=== PATIENT | male | born 1940 | race Caucasian/White ===

== ENCOUNTER 2016-11-02 10:18 | Observation (INO) | payer MEDICARE, MEDICAID ==
--- NOTE | 2016-11-02 11:13 | RAD ---
HISTORY: Cough, recent pneumonia, coronary disease COMPARISONS: October 27, 2016 VIEWS:1: Single frontal portable view of the chest at 10:47 AM FINDINGS: LINES AND TUBES: A left-sided pacemaker is noted CARDIOMEDIASTINAL SILHOUETTE: The cardiomediastinal silhouette is normal for portable technique. PLEURA: The costophrenic angles are sharp. No pleural abnormalities are noted. LUNG PARENCHYMA: The lung volumes are low. There is persistent patchy alveolar opacification of the right lung base near the cardiophrenic angle ABDOMEN: The upper abdomen is clear. There is no subphrenic gas. BONES AND SOFT TISSUES: No bone or soft tissue abnormalities are noted. IMPRESSION: LOW LUNG VOLUMES WITH PERSISTENT RIGHT BASILAR ATELECTASIS VERSUS CONSOLIDATION
[2016-11-02 11:18] LABS: Hematocrit 39 % (42-52); Hemoglobin 12.3 g/dl (14.0-18.0); Mean Corpuscular HGB Conc 32 g/dl (31-36); Mean Corpuscular Hemoglobin 28 pg (27-31); Mean Corpuscular Volume 88 fL (80-94); Mean Platelet Volume 9 um3 (7.4-10.4); Red Blood Count 4.36 10^6/ul (4.0-5.4); Red Cell Distribution Width 17 % (10.5-15)
[2016-11-02 11:20] LABS: Add Diff/Slide Review? Slide Review Added; Comments Flag Yes
[2016-11-02 11:40] LABS: Albumin 3.2 g/dL (3.2-5.2); BUN/Creatinine Ratio 14.9 (8-20); Calcium 8.2 mg/dL (8.6-10.3); EGFR African American 57.1 (>60); EGFR Non-African American 44.4 (>60); Globulin 2.8 g/dL (2-4); Potassium 3.8 mmol/L (3.5-5.0); Total Bilirubin 0.4 mg/dL (0.2-1.0)
[2016-11-02 11:42] LABS: Troponin I 0.03 ng/mL (<0.04)
[2016-11-02] MEDS ORDERED: Albuterol/Ipratropium NEB.SOL* Albuterol 2.5 MG/Ipratropium 0.5 MG 3 ML INH ONE ×2 (11:47→12:00)
[2016-11-02] MEDS ORDERED: NS 0.9% 1000 ML* 500 ML IV ONE (11:47)
--- NOTE | 2016-11-02 12:01 | ED ---
Luisa Shah Claudia, scribed for Emeli Schroeder MD on 11/02/16 at 1111 . Shortness of Breath - HPI Summary HPI Summary: 76 year old male presents to the ED with SOB. Pt notes gradual onset over a week ago. Pt is on Keflex 3x daily 500mg. Pt states he is not getting any better. Pt admits to fever (100.8), chills, productive cough with wheezing. thick yellow-green sputum. Pt notes abd pain and CP with cough only. Pt denies N/V. Pt notes he has been taking ibuprofen for the intermittent fevers. Pt takes prednisone daily (10mg) for RA as well as Plaquinil, codeine (30mg), no blood thinners. He does not use 02 at home and the 02 in ED is not alleviating his Sx. No h/o COPD. Pt states he took the flu shot this year. NH- Aug 2009 - History of Current Complaint Chief Complaint: EDShortnessOfBreath Time Seen by Provider: 11/02/16 10:32 Hx Obtained From: Patient Onset/Duration: Gradual Onset, Lasting Weeks, Still Present Associated Signs & Symptoms: Cough (Productive), Wheezing, Chest Pain w/Cough, Fever - Risk Factors Cardiac: Prior NH - Allergy/Home Medications Allergies/Adverse Reactions: Allergies Allergy/AdvReac Type Severity Reaction Status Date / Time Ciprofloxacin [From Cipro] Allergy Unknown Unknown Verified 12/22/15 09:25 Reaction Details Levofloxacin [From Levaquin] AdvReac Severe Leg Cramps Verified 12/22/15 09:25 Home Medications: Home Medications Hydroxychloroquine TAB* [Plaquenil TAB*] 200 mg PO BID 11/02/16 [History Confirmed 11/02/16] predniSONE TAB* [Deltasone TAB*] 5 mg PO DAILY 11/02/16 [History Confirmed 11/02] PMH/Surg Hx/FS Hx/Imm Hx Previously Healthy: Yes Endocrine/Hematology History: Reports: Hx Anticoagulant Therapy - plavix 75mg, Hx Thyroid Disease - HYPOTHYROIDISM, Other Endocrine/Hematological Disorders - necrotizing pancreatitis Denies: Hx Diabetes, Hx Systemic Lupus Erythematosus Cardiovascular History: Reports: Hx Angina, Hx Coronary Artery Disease, Hx Deep Vein Thrombosis, Hx Embolism - PE, Hx Hypercholesterolemia, Hx Hypertension, Hx Myocardial Infarction, Hx Pacemaker/ICD Denies: Hx Congestive Heart Failure, Other Cardiovascular Problems/Disorders Respiratory History: Reports: Hx Pleural Effusion, Hx Pulmonary Embolism, Hx Seasonal Allergies, Hx Sleep Apnea, Other Respiratory Problems/Disorders - HX PNEUMONIA X1 WEEK Denies: Hx Asthma, Hx Chronic Obstructive Pulmonary Disease (COPD) GI History: Reports: Hx Gall Bladder Disease - removed, Hx Gastroesophageal Reflux Disease - occasional, Hx Gastrointestinal Bleed - cobra to [facility] last admit , Hx Ileostomy - temp ileostomy, Other GI Disorders - Hx pancreatitis, part of pancreas removed, HEMIGASTRECTOMY History: Reports: Hx Chronic Renal Failure, Hx Kidney Stones, Hx Renal Disease - kidney stones/uretherak stent, Other Problems/Disorders - Hx kidney stones Denies: Hx Dialysis Musculoskeletal History: Reports: Hx Arthritis, Hx Rheumatoid Arthritis, Other Musculoskeletal History - bilateral knee replacements Denies: Hx Gout - allopurinol is for kidney stones not gout., Hx Osteoporosis Sensory History: Reports: Hx Cataracts - beginning of cataracts-both eyes, Hx Contacts or Glasses Denies: Hx Eye Injury, Hx Eye Prosthesis, Hx Glaucoma, Hx Legally Blind, Hx Macular Degeneration, Hx Vision Problem, Hx Deafness, Hx Hearing Aid, Hx Hearing Problem Opthamlomology History: Reports: Hx Cataracts - beginning of cataracts-both eyes , Hx Contacts or Glasses Denies: Hx Eye Injury, Hx Eye Prosthesis, Hx Glaucoma, Hx Legally Blind, Hx Macular Degeneration, Hx Vision Problem Neurological History: Denies: Hx Dementia, Hx Seizures - Cancer History Cancer Type, Location and Year: 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 Hx Chemotherapy: No - Surgical History Surgery Procedure, Year, and Place: renal stent, 2 knee replacements, "stomach stapled", agnes, appendectomy, bowel resection, November 2012 debridement of abdominal wound, pacemaker Hx Anesthesia Reactions: No - Immunization History Date of Tetanus Vaccine: Unk Date of Influenza Vaccine: None Infectious Disease History: No Infectious Disease History: Denies: Hx Clostridium Difficile, Hx Human Immunodeficiency Virus (HIV), Hx of Known/Suspected MRSA, Hx Shingles, Hx Tuberculosis, Traveled Outside the [place] in Last 30 Days - Family History Known Family History: Positive: Hypertension - Social History Lives: With Family Alcohol Use: None Substance Use Type: Reports: None Smoking Status (MU): Never Smoked Tobacco Have You Smoked in the Last Year: No Review of Systems Positive: Fever Eyes: Negative ENT: Negative Cardiovascular: Negative Positive: Shortness Of Breath, Cough Gastrointestinal: Negative Negative: Abdominal Pain, Vomiting, Nausea Genitourinary: Negative Musculoskeletal: Negative Negative: Myalgia Skin: Negative Negative: Bruising Neurological: Negative Negative: Headache, Weakness Psychological: Normal Negative: Anxious, Depressed All Other Systems Reviewed And Are Negative: Yes Physical Exam Triage Information Reviewed: Yes Vital Signs On Initial Exam: Initial Vitals Temp Pulse Resp BP Pulse Ox 98.4 F 85 20 167/90 95 11/02/16 10:20 11/02/16 10:20 11/02/16 10:20 11/02/16 10:20 11/02/16 10:20 Vital Signs Reviewed: Yes Appearance: Positive: Well-Appearing, Well-Nourished Skin: Positive: Warm, Skin Color Reflects Adequate Perfusion, Dry Head/Face: Positive: Normal Head/Face Inspection Eyes: Positive: Normal, EOMI, [place] ENT: Positive: Nasal congestion, TMs normal Neck: Positive: Supple, Nontender, No Lymphadenopathy Respiratory/Lung Sounds: Positive: Breath Sounds Present, Rhonchi, Wheezes, Other - coarse cough Cardiovascular: Positive: Normal, RRR. Negative: Murmur Abdomen Description: Positive: Nontender, No Organomegaly, Soft Bowel Sounds: Positive: Present Musculoskeletal: Positive: Normal, Strength/ROM Intact Neurological: Positive: Normal, Sensory/Motor Intact, Alert, Oriented to Person Place, Time Psychiatric: Positive: Normal AVPU Assessment: Alert - [place] Coma Scale Best Eye Response: 4 - Spontaneous Best Motor Response: 6 - Obeys Commands Best Verbal Response: 5 - Oriented Coma Scale Total: 15 Diagnostics - Vital Signs Vital Signs Temp Pulse Resp BP Pulse Ox 11/02/16 10:38 26 11/02/16 10:31 89 146/80 94 11/02/16 10:30 93 95 11/02/16 10:20 98.4 F 85 20 167/90 95 - Laboratory Result Diagrams: 11/02/16 10:55 11/02/16 10:55 Lab Statement: Any lab studies that have been ordered have been reviewed, and results considered in the medical decision making process. - Radiology CXR Xray Interpretation: Positive (See Comments) - LOW LUNG VOLUMES WITH PERSISTENT RIGHT BASIALR ATELECTASIS VERSUS CONSOLIDATION. Radiology Interpretation Completed By: Radiologist - EKG 10:31 Cardiac Rate: NL EKG Rhythm: Sinus Rhythm - 76 beats/min EKG Interpretation: flat T waves laterally, no acute changes Re-Evaluation - Re-Evaluation First Eval Change: Improved - Pt improved following neb - continues with coarse cough, less wheezing awaiting labs will give solumedrol anticipate admission Course/Dx - Course Assessment/Plan: 76 yo male with h/o CAD, HTN, RA on plaquinil and 10mg pred QD - dx with pna 1 week ago and started on keflex. Pt continue with cough,wheeze, fevers and general fatigue. diff: influeza, pna, copd, chf. Will check labs, CXR, urine. IVF. oral temp. influenza. nebs. close reassessment. anticipate admission - Diagnoses Provider Diagnoses: Influenza B, Pneumonia, Hypoxia - Physician Notifications Discussed Care of Patient With: Discussed care of pt with Dr. Mauro - accepting pt. Will give cetriaxone and doxy (pt fluoroquinolone allergic) Time Discussed With Above Provider: 12:32 Discharge - Discharge Plan Condition: Improved Disposition: ADMITTED TO [facility] documentation as recorded by the Luisa hung Claudia accurately reflects the service I personally performed and the decisions made by , Emeli Schroeder MD.
[2016-11-02] MEDS ORDERED: methylPREDNISolone 125 MG* 2 ML VIAL IV ONE (12:20)
[2016-11-02] MEDS ORDERED: cefTRIAXone(*) 1 GM in NS 0.9% 50 ML* 50 ML IVPB ONE (12:33)
[2016-11-02] MEDS ORDERED: DOXYcycline IV* 100 MG in NS 0.9% 250 ML* 250 ML IVPB ONE (13:36)
[2016-11-02] MEDS ORDERED: Codeine TAB* 15 MG PO PRN (13:49)
[2016-11-02] MEDS ORDERED: NS 0.9% 1000 ML* 1,000 ML IV SCH (14:00)
[2016-11-02] MEDS ORDERED: guaiFENesin LIQ* 100 MG/5 ML UDC PO PRN (14:05)
[2016-11-02] MEDS ORDERED: Benzonatate CAP* 100 MG PO PRN (14:06)
[2016-11-02] MEDS: Heparin VIAL(*) 5000 UNITS/ML VIAL (FIVE THOUSAND) SUBCUT SCH ×2 (15:13→21:37)
[2016-11-02] MEDS: Pancrelipase CAP* 5,000 UNITS CAP PO SCH ×2 (17:40→20:22)
[2016-11-02] MEDS: Sucralfate TAB* 1 GM PO SCH ×2 (17:47→20:22)
[2016-11-02] MEDS: Hydroxychloroquine TAB* 200 MG PO SCH (20:22)
--- NOTE | 2016-11-02 21:02 | HP ---
HOSPITAL MEDICINE HISTORY AND PHYSICAL: DATE OF ADMISSION: 11/02/16 PRIMARY CARE PHYSICIAN: Dr. Damon. ATTENDING PHYSICIAN: Dr. Lydia Mauro* (dictation provided by Cheyenne Govea NP) . CHIEF COMPLAINT: Cough, shortness of breath, and fever. HISTORY OF PRESENT ILLNESS: Mr. Allen is a 76-year-old male with a past medical history of coronary artery disease, DVT and PE after surgery, multiple abdominal surgeries, and pacemaker placement who presents today to the hospital with concern for fever, cough, and shortness of breath. Mr. Allen states that he has been feeling unwell for approximately a week. He has had fever up to 101. He has had significant cough with purulent sputum. He has had increasing shortness of breath. He did have a chest x-ray on 10/27/16, which showed concern for possible right basilar consolidation but was not on antibiotics. He continued to feel poorly and ultimately decided to come to the emergency room for evaluation today. In the emergency room, he tested positive for flu B and again, there is persistent consolidation versus atelectasis in the right lower lobe. Currently in the emergency room, he is afebrile, but he is tachycardic with a heart rate of 110. There is no leukocytosis or lactic acidosis. Based on Mr. Allen's presentation with flu with suspected secondary pneumonia, Hospital Medicine was called regarding admission. PAST MEDICAL HISTORY: 1. Gout. 2. Hypothyroidism. 3. GERD. 4. Hyperlipidemia. 5. CKD, Stage 3. 6. History of gastric bypass in the . 7. History of pancreatic resection for pancreatitis with ileostomy, appendectomy, and cholecystectomy. 8. Coronary artery disease with history of AL in 2008. 9. Hypertension. 10. DVT and PE after surgery. 11. History of GI bleed. 12. Obstructive sleep apnea. 13. History of pacemaker. 14. Rheumatoid arthritis. 15. History of cataract surgery. 16. History of bilateral total knee replacement. 17. BPH. MEDICATIONS: 1. Allopurinol 300 mg p.o. q.a.m. 2. Fexofenadine 60 mg p.o. daily. 3. Iron 65 mg p.o. daily. 4. Multivitamin 1 cap p.o. q.a.m. 5. Pantoprazole 40 mg p.o. b.i.d. 6. Codeine 30 mg p.o. 4 times a day with food p.r.n. 7. Plaquenil 200 mg p.o. b.i.d. 8. Isosorbide mononitrate 15 mg p.o. q.a.m. 9. Levothyroxine 125 mcg p.o. daily. 10. Pancrelipase 3 caps p.o. t.i.d. 11. Simvastatin 20 mg q.a.m. 12. Sucralfate 1 g p.o. 4 times a day. 13. Tamsulosin 0.4 mg p.o. daily. 14. Prednisone 5 mg p.o. daily. ALLERGIES: CIPROFLOXACIN and LEVOFLOXACIN. FAMILY HISTORY: The patient's father had COPD. Mother had diabetes. Sister had systemic lupus erythematosus. SOCIAL HISTORY: No report of alcohol, tobacco, or drug use. The patient lives with his , who is the healthcare proxy. REVIEW OF SYSTEMS: A 14-point review of systems was completed with Mr. Allen and all those not mentioned above were negative. PHYSICAL EXAMINATION GENERAL: Mr. Allen is lying in the bed. He is in no acute distress. He is calm and cooperative with my examination. VITAL SIGNS: Temperature 97.4, heart rate 111, respiratory rate 20, O2 saturation 96% on 2 L nasal cannula, blood pressure 110/55. LUNGS: Coarse rhonchi bilaterally. No accessory muscle use and good aeration. HEART: S1, S2. No murmur, rub, or gallop and regular. ABDOMEN: Soft, nontender with bowel sounds positive x4. EXTREMITIES: No cyanosis or edema. NEUROLOGIC: He is alert and oriented x3. He moves all extremities equally. There is no facial asymmetry or focal weakness. Extraocular movements are intact. SKIN: Intact. LABORATORY DATA AND DIAGNOSTIC STUDIES: WBC 5.0, hemoglobin 12.3, hematocrit 39, platelet count 110. Sodium 138, potassium 3.8, chloride 107, serum bicarbonate 24, BUN 23, creatinine 1.54, glucose 110, lactic acid 1.3. Troponin 0.03. Flu swab is positive for B. Chest x-ray shows concern for possible right basilar infiltrate. ASSESSMENT: Mr. Allen is a 76-year-old male with a past medical history of coronary artery disease; rheumatoid arthritis, on chronic steroids; deep venous thrombosis and pulmonary embolism after surgery; and multiple gastric surgeries who presents today to the hospital with cough, fever, shortness of breath, and flu with suspected concomitant pneumonia. Our plan is for observation in the hospital for the followin. Flu with suspected pneumonia: The patient has been sick for over a week and therefore, Tamiflu is not indicated. He is allergic to FLUOROQUINOLONES and therefore will be started on ceftriaxone and azithromycin for concern of pneumonia. He is quite congested today and he does show an infiltrate on the chest x-ray. He will have cough suppressants as needed, oxygen as needed. The patient did receive one-time dose of methylprednisolone in the emergency room. Plan for prednisone to start tomorrow. Blood cultures will be drawn. Lactic acid is normal. O2 saturation is greater than 90% on 2L NC. 2. History of pancreatitis with pancreatic resection: Continue pancrelipase. 3. History of gastroesophageal reflux disease: Continue sucralfate and pantoprazole. 4. History of rheumatoid arthritis: Continue Plaquenil with increased dose of prednisone while ill. 5. Hypertension: Continue Imdur. 6. CKD, Stage 3: At baseline. 7. Hypothyroidism: Continue levothyroxine. 8. Hyperlipidemia: Continue simvastatin. 9. DVT prophylaxis with heparin subcu. 10. Disposition to the medical floor. 11. Code status: Full code. TIME SPENT: Approximately 60 minutes were spent on the admission of this patient, more than half time spent with the patient at the bedside reviewing the events leading up to this hospitalization, performing the physical examination, and reviewing the plan of care. CHEYENNE GOVEA NP CC: Dr. Damon.* [id number]/[facility] #: [id number] SAYDA
[2016-11-03] MEDS: Heparin VIAL(*) 5000 UNITS/ML VIAL (FIVE THOUSAND) SUBCUT SCH (05:40)
[2016-11-03] MEDS ORDERED: Levothyroxine TAB* 125 MCG TAB PO SCH (06:00)
[2016-11-03 07:28] LABS: Hematocrit 37 % (42-52); Hemoglobin 12.1 g/dl (14.0-18.0); Mean Corpuscular HGB Conc 32 g/dl (31-36); Mean Corpuscular Hemoglobin 29 pg (27-31); Mean Corpuscular Volume 88 fL (80-94); Mean Platelet Volume 10 um3 (7.4-10.4); Red Blood Count 4.23 10^6/ul (4.0-5.4); Red Cell Distribution Width 17 % (10.5-15); White Blood Count 5.7 10^3/ul (3.5-10.8)
[2016-11-03 07:46] LABS: BUN/Creatinine Ratio 14.7 (8-20); Calcium 8.2 mg/dL (8.6-10.3); EGFR African American 62.2 (>60); EGFR Non-African American 48.3 (>60); Potassium 4.3 mmol/L (3.5-5.0)
[2016-11-03] MEDS ORDERED: Atorvastatin* 10 MG TAB PO SCH (09:00)
[2016-11-03] MEDS ORDERED: predniSONE TAB* 20 MG PO SCH (09:00)
[2016-11-03] MEDS ORDERED: Azithromycin IV(*) 500 MG in NS 0.9% 250 ML* 250 ML IVPB SCH (09:00)
[2016-11-03] MEDS ORDERED: Isosorbide Mononitrate ER TAB* 30 MG PO SCH (09:00)
[2016-11-03] MEDS ORDERED: Tamsulosin CAP* 0.4 MG PO SCH ×2 (09:00→11:00)
[2016-11-03] MEDS ORDERED: predniSONE TAB* 5 MG PO SCH (09:00)
[2016-11-03] MEDS ORDERED: cefTRIAXone VIAL(*) 1,000 MG in NS 0.9% 50 ML* 50 ML IVPB SCH (09:00)
[2016-11-03] MEDS ORDERED: Benzonatate CAP* 100 MG PO PRN (09:57)
--- NOTE | 2016-11-03 10:10 | PN ---
Subjective Date of Service: 11/03/16 Interval History: Pt is feeling about the same as when he came in though his notes that he is not coughing as much. He denies any SOB at this time. He would like to go home this afternoon if his O2 level is ok. He understands that the flu just needs to run its course. Objective Active Medications: Atorvastatin Calcium (Lipitor*) 10 mg PO QAM [facility] Benzonatate (Tessalon Cap*) 100 mg PO TID PRN PRN Reason: COUGH Codeine Sulfate (Codeine Tab*) 30 mg PO QID WITH FOOD PRN PRN Reason: DIARRHEA Last Admin: 11/02/16 21:37 Dose: 30 mg Guaifenesin (Robitussin*) 5 ml PO Q4H PRN PRN Reason: COUGH Heparin Sodium (Porcine) (Heparin Vial(*)) 5,000 units SUBCUT Q8HR [facility] Last Admin: 11/03/16 05:40 Dose: 5,000 units Hydroxychloroquine Sulfate (Plaquenil Tab*) 200 mg PO BID [facility] Last Admin: 11/02/16 20:22 Dose: 200 mg Ceftriaxone Sodium 1,000 mg/ (Sodium Chloride) 50 mls @ 200 mls/hr IVPB Q24H [facility] Isosorbide Mononitrate (Imdur Er Tab*) 15 mg PO QAM [facility] Levothyroxine Sodium (Synthroid Tab*) 125 mcg PO 0600 [facility] Last Admin: 11/03/16 05:40 Dose: 125 mcg Pancrelipase (Zenpep Delayed Cap*) 15,000 units PO TID [facility] Last Admin: 11/02/16 20:22 Dose: 15,000 units Prednisone (Deltasone Tab*) 40 mg PO DAILY [facility] Sucralfate (Carafate*) 1 gm PO QID [facility] Last Admin: 11/02/16 20:22 Dose: 1 gm Tamsulosin HCl (Flomax Cap*) 0.4 mg PO BEDTIME [facility] Vital Signs 11/02/16 11/02/16 11/02/16 13:00 13:30 14:00 Temperature Pulse Rate 108 110 103 Respiratory 20 20 21 Rate Blood Pressure 120/59 110/55 125/59 (mmHg) O2 Sat by Pulse 98 96 97 Oximetry 11/02/16 11/02/16 11/02/16 14:35 14:58 16:14 Temperature 98.0 F 98 F Pulse Rate 104 104 Respiratory 22 22 22 Rate Blood Pressure 140/75 140/75 (mmHg) O2 Sat by Pulse 97 98 Oximetry 11/02/16 11/02/16 11/02/16 16:51 18:23 19:41 Temperature 98.5 F Pulse Rate 86 95 Respiratory 20 16 Rate Blood Pressure 163/82 (mmHg) O2 Sat by Pulse 98 96 97 Oximetry 11/02/16 11/02/16 11/02/16 20:00 21:37 23:15 Temperature 98.0 F Pulse Rate 89 Respiratory 20 18 15 Rate Blood Pressure 147/85 (mmHg) O2 Sat by Pulse 97 Oximetry 11/02/16 11/03/16 23:37 04:25 Temperature Pulse Rate Respiratory 18 Rate Blood Pressure (mmHg) O2 Sat by Pulse 92 Oximetry Oxygen Devices in Use Now: None Appearance: Elderly male sitting in recliner chair, NAD Eyes: No Scleral Icterus Ears/Nose/Mouth/Throat: Mucous Membranes Moist Respiratory: Symmetrical Chest Expansion and Respiratory Effort, Clear to Auscultation - few bibasilar crackles Cardiovascular: NL Sounds; No Murmurs; No JVD, RRR, - - trace LE edema Abdominal: NL Sounds; No Tenderness; No Distention Extremities: No Clubbing, Cyanosis Skin: No Rash or Ulcers, No Nodules or Sclerosis Neurological: Alert and Oriented x 3 Result Diagrams: 11/03/16 07:11 11/03/16 07:11 Assess/Plan/Problems-Billing Mr Allen is a 76 yo F who has a h/o HTN, hypothyroidism, stage III CKD, CAD, [place] and BPH who presented to the ER with c/o cough, SOB and fever and was admitted for influenza B with possible superinfection with RLL pneumonia. - Patient Problems (1) Influenza B Current Visit: Yes Status: Acute Code(s): J10.1 - FLU DUE TO OTH IDENT INFLUENZA VIRUS W OTH RESP MANIFEST SNOMED Code(s): 19228696 Comment: The patient was not started on tamiflu on admission. Will not start this now as the patient is well outside the window for the tamiflu to be effective. Continue supportive care-pt and are in agreement. (2) RLL pneumonia Current Visit: Yes Status: Acute Code(s): J18.1 - LOBAR PNEUMONIA, UNSPECIFIED ORGANISM SNOMED Code(s): 438877026 Comment: Unclear if this truly represents pneumonia as the patient does not have an elevated WBC count. Will however continue treatment for possible pneumonia. Will d/c pt home on doxycycline 100mg BID. He will need to follow up with his PCP (3) CAD (coronary artery disease) Current Visit: Yes Status: Chronic Onset Date: 06/04/14 Code(s): I25.10 - ATHSCL HEART DISEASE OF [place] CORONARY ARTERY W/O ANG PCTRS SNOMED Code(s): 02682787 Comment: No complaints of chest pain. Continue imdur and statin. (4) HTN (hypertension) Current Visit: Yes Status: Acute Code(s): I10 - ESSENTIAL (PRIMARY) HYPERTENSION SNOMED Code(s): 78016753 Comment: BP is under fair control. Continue imdur. (5) Stage III chronic kidney disease Current Visit: Yes Status: Acute Code(s): N18.3 - CHRONIC KIDNEY DISEASE, STAGE 3 (MODERATE) SNOMED Code(s): 109076232 Comment: Creatinine baseline. (6) Rheumatoid arthritis Current Visit: Yes Status: Chronic Onset Date: 06/04/14 Code(s): M06.9 - RHEUMATOID ARTHRITIS, UNSPECIFIED SNOMED Code(s): 78578498 Comment: Continue prednisone (dose increased currently but can be rapidly tapered back down to his home dose) and plaquenil. (7) Hypothyroid Current Visit: Yes Status: Chronic Onset Date: 06/04/14 Code(s): E03.9 - HYPOTHYROIDISM, UNSPECIFIED SNOMED Code(s): 34043906 Comment: Continue current dose of synthroid. (8) BPH (benign prostatic hypertrophy) Current Visit: Yes Status: Chronic Onset Date: 06/04/14 Code(s): N40.0 - BENIGN PROSTATIC HYPERPLASIA WITHOUT LOWER URINRY TRACT SYMP SNOMED Code(s): 466263904 Comment: Continue flomax. (9) GERD (gastroesophageal reflux disease) Current Visit: Yes Status: Chronic Onset Date: 06/04/14 Code(s): K21.9 - GASTRO-ESOPHAGEAL REFLUX DISEASE WITHOUT ESOPHAGITIS SNOMED Code(s): 651956287 Comment: Continue carafate. (10) DVT prophylaxis Current Visit: Yes Status: Acute Code(s): GFE2325 - SNOMED Code(s): 826172075 Comment: SQ heparin (11) Full code status Current Visit: Yes Status: Acute Code(s): Z78.9 - OTHER SPECIFIED HEALTH STATUS SNOMED Code(s): 398192010
[2016-11-03] MEDS: Pancrelipase CAP* 5,000 UNITS CAP PO SCH (10:47)
[2016-11-03] MEDS: Sucralfate TAB* 1 GM PO SCH ×2 (10:49→13:05)
[2016-11-03] MEDS: Hydroxychloroquine TAB* 200 MG PO SCH (10:49)
[2016-11-03 11:04] VITALS: BP 147/93
--- NOTE | 2016-11-03 22:13 | DS ---
DISCHARGE SUMMARY: DATE OF ADMISSION: 11/02/16 DATE OF DISCHARGE: 11/03/16 PRIMARY CARE PROVIDER: Dr. Damon. PRINCIPAL DIAGNOSIS: Influenza B with possible right lower lobe pneumonia, super infection. SECONDARY DIAGNOSES: 1. Gout. 2. Hypothyroidism. 3. Gastroesophageal reflux disease. 4. Hyperlipidemia. 5. Stage 3 chronic kidney disease. 6. Coronary artery disease. 7. Hypertension. 8. Obstructive sleep apnea. 9. Rheumatoid arthritis. 10. BPH. 11. Pancreatic insufficiency. DISCHARGE MEDICATIONS: 1. Allopurinol 300 mg p.o. daily. 2. Fexofenadine 60 mg p.o. daily. 3. Iron 65 mg p.o. daily. 4. Multivitamin 1 tab p.o. daily. 5. Protonix 40 mg p.o. b.i.d. 6. Codeine 30 mg p.o. 4 times daily p.r.n. pain. 7. Plaquenil 200 mg p.o. b.i.d. 8. Imdur 15 mg p.o. daily. 9. Levothyroxine 125 mcg p.o. daily. 10. Pancrelipase 3 caps p.o. t.i.d. 11. Simvastatin 20 mg p.o. daily. 12. Carafate 1 g p.o. 4 times daily. 13. Flomax 0.4 mg p.o. q.h.s. 14. Prednisone 5 mg p.o. daily. 15. Doxycycline 100 mg p.o. twice daily x 11 doses. 16. Tessalon Perles 100 mg p.o. t.i.d. p.r.n. cough, dispense 30 tablets. HOSPITAL COURSE: Mr. Allen is a 76-year-old male who presented to the emergency room on 11/02/16 with complaints of cough, shortness of breath and fever. The patient has been feeling unwell for approximately 1 week. He was started on Keflex by his primary care provider for possible pneumonia. Despite this, he continued to have increasing shortness of breath. The patient continued to feel poorly and ultimately presented to the emergency room for evaluation. In the ER, the patient tested positive for influenza B. The patient was also found to have a right lower lobe infiltrate versus atelectasis on chest x-ray, it was essentially unchanged from his prior chest x-ray. The patient was mildly tachycardic. The patient was admitted for treatment of influenza B as well as possible right lower lobe pneumonia. The patient was not started on Tamiflu, as he was felt to be out of the window for the Tamiflu being effective. The patient was; however, started on ceftriaxone and azithromycin; however, he did not receive the AZITHROMYCIN due to him having an allergy that he had previously forgot to inform the staff of. The patient feels about the same; however, feels much more comfortable now, understanding that he has influenza and this is likely what is making him feel poorly. The patient is not requiring any supplemental oxygen. He is no longer tachycardic or febrile. The patient at this point feels stable for discharge home. The patient will be treated with doxycycline 100 mg p.o. b.i.d. x11 doses. He will continue with p.r.n. Tessalon Perles and symptomatic care and management of influenza. In terms of patient's chronic medical conditions, no changes have been made in his medication regimen. He will be continue on medications only as he had been prior to admission. The patient's prednisone dose was bumped up during admission; however, this is being taken back down to the home dose of 5 mg daily. FOLLOWUP CONCERNS: The patient is being discharged to home today, 11/03/16. He is to follow up with Dr. Damon in the next 4 to 7 days. ACTIVITY LEVEL: As tolerated. DIET: Low fat. CONDITION ON DISCHARGE: Stable. TIME SPENT: 35 minutes were spent discharging this patient. CC: Dr. Damon * [id number]/[facility] #: [id number] [facility]PITALElissa
== END 2016-11-03 14:25 | disposition home or self-care (01) ==
LOC: ED 10:18 → MED 12:33
PROVIDERS: ADMIT Hospitalist; ATTEND Hospitalist
DX: J10.1 Influenza due to other identified influenza virus with other respiratory manifestations (principal); R06.02 Shortness of breath; Z88.1 Allergy status to other antibiotic agents; E03.9 Hypothyroidism, unspecified; K21.9 Gastro-esophageal reflux disease without esophagitis; E78.5 Hyperlipidemia, unspecified; I12.9 Hypertensive chronic kidney disease with stage 1 through stage 4 chronic kidney disease, or unspecified chronic kidney disease; N18.3 Chronic kidney disease, stage 3 (moderate); I25.10 Atherosclerotic heart disease of native coronary artery without angina pectoris; M06.9 Rheumatoid arthritis, unspecified; N40.0 Benign prostatic hyperplasia without lower urinary tract symptoms; G47.33 Obstructive sleep apnea (adult) (pediatric); Z98.84 Bariatric surgery status; Z86.711 Personal history of pulmonary embolism; M10.9 Gout, unspecified; Z95.810 Presence of automatic (implantable) cardiac defibrillator; Z86.718 Personal history of other venous thrombosis and embolism; I25.2 Old myocardial infarction; K86.89 Other specified diseases of pancreas; Z79.899 Other long term (current) drug therapy; R94.31 Abnormal electrocardiogram [ECG] [EKG]
CPT/HCPCS: 36415; 71010; 80048; 80053; 82550; 82553; 83605; 83735; 83880; 84484; 85025; 87040; 87070; 87077; 87185; 87205; 87502; 93005; 94640; 94760; 96361; 96365; 96367; 96372; 96375; 99284; A9270-GY; J0456; J0696; J1644; J2930; J7512

== ENCOUNTER 2017-08-08 09:18 | Observation (INO) | payer MEDICARE, MEDICAID ==
[2017-08-08 09:48] LABS: Hematocrit 36 % (42-52); Hemoglobin 11.4 g/dl (14.0-18.0); Mean Corpuscular HGB Conc 32 g/dl (31-36); Mean Corpuscular Hemoglobin 29 pg (27-31); Mean Corpuscular Volume 89 fL (80-94); Mean Platelet Volume 10 um3 (7.4-10.4); Red Cell Distribution Width 18 % (10.5-15); White Blood Count 6.1 10^3/ul (3.5-10.8)
--- NOTE | 2017-08-08 10:01 | RAD ---
INDICATION: Chest pain. COMPARISON: Comparison is made with a prior chest x-ray study from November 17, 2016. TECHNIQUE: Dual-energy PA and lateral views of the chest were obtained. FINDINGS: There is a dual-chamber transvenous cardiac pacemaker present. The heart is within normal limits in size. The lungs are underinflated. There is a small infiltrate at the right lung base which appears similar to the prior study. The left lung appears clear. No pleural effusion is seen. IMPRESSION: EXPIRATORY EXAM, SMALL RIGHT BASILAR INFILTRATE.
[2017-08-08 10:04] LABS: Albumin 3.2 g/dL (3.2-5.2); BUN/Creatinine Ratio 12.8 (8-20); Calcium 8.3 mg/dL (8.6-10.3); EGFR African American 41.4 (>60); EGFR Non-African American 32.2 (>60); Globulin 2.3 g/dL (2-4); Total Bilirubin 0.5 mg/dL (0.2-1.0); Total Protein 5.5 g/dL (6.4-8.9)
[2017-08-08] MEDS ORDERED: DOXYcycline CAP(*) 100 MG PO ONE (10:04)
[2017-08-08 10:06] LABS: Troponin I 0.02 ng/mL (<0.04)
[2017-08-08 10:58] LABS: TSH (Thyroid Stimulating Horm) 3.94 mcIU/mL (0.34-5.60)
[2017-08-08] MEDS ORDERED: HYDROcodone/ACETAMIN 5-325 MG* 1 TAB PO PRN (13:32)
[2017-08-08] MEDS ORDERED: Codeine TAB* 30 MG PO PRN (13:32)
[2017-08-08] MEDS ORDERED: Pantoprazole TAB (NF) 40 MG TAB PO PRN (13:32)
[2017-08-08] MEDS ORDERED: Sucralfate TAB* 1 GM PO PRN (13:32)
[2017-08-08] MEDS ORDERED: Pancrelipase CAP* 5,000 UNITS CAP PO SCH ×2 (14:00→17:00)
[2017-08-08] MEDS ORDERED: Heparin VIAL(*) 5000 UNITS/ML VIAL (FIVE THOUSAND) SUBCUT SCH (14:00)
[2017-08-08 16:32] VITALS: BP 108/56
--- NOTE | 2017-08-08 16:42 | HP ---
CC: Dr. Isabel * [facility] MEDICINE HISTORY AND PHYSICAL: DATE OF ADMISSION: 08/08/17 PRIMARY CARE PHYSICIAN: Dr. Isabel. ATTENDING PHYSICIAN: Dr. Abbey Yusuf * (dictation provided by Cheyenne Govea NP ). CHIEF COMPLAINT: Chest pain. HISTORY OF PRESENT ILLNESS: Mr. Allen is a 77-year-old male with a past medical history of severe COPD, coronary artery disease with negative stress test, January 2017, CHF on chronic Lasix therapy, rheumatoid arthritis on chronic prednisone therapy, and obstructive sleep apnea who presents to the hospital today with concern for chest pain. Mr. Allen last saw Dr. Watkins in late June at which time, it was felt that despite his severity of his underlying disease that there is no acute need for change to medication. He was seen in July by Dr. Isabel, who had recently started him on Entresto and increased that medication in hoping of improving his symptoms. The patient states that today he was at home, had just walked across the living room into the bathroom when he had the sudden onset of left-sided chest pain. He states that this pain is really no different than the past episodes of chest pain that he has had. He took 2 nitroglycerin and with the second nitroglycerin the pain went away. He reviewed this with his who was concerned and therefore had EMS called and brought him to the emergency room. He has been chest pain free since his arrival. He has a history of MS, I believe, in the early 2008, but again a negative stress test in January 2017. Mr. Allen states that he has been feeling his normal state of health, although he is quite short of breath with minimal activity at baseline and there has been no change with this. He has a cough chronically and there has been no change with that. He has had no fever. He has had no arthralgias, myalgias that are unusual. In the emergency room, Mr. Allen had a troponin, which was 0.02. He had an EKG , which showed no evidence of ischemia. He showed his BUN and creatinine were essentially at baseline. He had stable vital signs. Chest x-ray showed concern for a possible right-sided infiltrate, which is very small. The family reports that the patient has had longstanding abnormality of the right lower chest x- ray since having an episode of pancreatitis. PAST MEDICAL HISTORY: 1. History of pacemaker. 2. Gout. 3. Hypothyroidism. 4. GERD. 5. Hyperlipidemia. 6. Severe COPD. 7. Coronary artery disease, medically managed. 8. Hypertension. 9. Obstructive sleep apnea. 10. Rheumatoid arthritis, on chronic prednisone therapy. 11. BPH. 12. Pancreatic insufficiency. 13. History of gastric bypass in the . 14. History of pancreatic resection for pancreatitis with ileostomy, appendectomy, and cholecystectomy. 15. History of DVT and PE after surgery. MEDICATIONS: 1. Ellipta 1 puff inhaled daily. 2. Creon 1 tab p.o. t.i.d. 3. Fexofenadine 60 mg p.o. daily p.r.n. 4. Multivitamin with mineral 1 cap p.o. q.a.m. 5. Ventolin 2 puff inhaled q.i.d. p.r.n. 6. Allopurinol 300 mg p.o. daily. 7. Codeine 30 mg p.o. q.i.d. with food p.r.n. constipation. 8. Ferrous sulfate 325 mg p.o. every other day. 9. Furosemide 30 mg p.o. daily. 10. Hydrocodone with acetaminophen 5/325 mg 1 tab p.o. q.4 hours p.r.n. 11. Isosorbide ER 50 mg p.o. daily. 12. Levothyroxine 125 mcg p.o. daily. 13. Pancrelipase 1 cap p.o. t.i.d. 14. Pantoprazole 40 mg p.o. b.i.d. p.r.n. 15. Plaquenil 200 mg p.o. b.i.d. 16. Prednisone 10 mg p.o. daily. 17. Simvastatin 20 mg p.o. daily. 18. Sucralfate 1 g p.o. q.i.d. p.r.n. 19. Tamsulosin 0.4 mg p.o. daily. ALLERGIES: CIPROFLOXACIN, AZITHROMYCIN, and LEVOFLOXACIN. FAMILY HISTORY: The patient's father had COPD. Mother had diabetes. Sister with systemic lupus erythematosus. SOCIAL HISTORY: No report of alcohol, tobacco, or illicit drug use. The patient lives with his , who is the healthcare proxy. REVIEW OF SYSTEMS: A 14-point review of systems was completed with Mr. Allen and all those not mentioned above were negative. PHYSICAL EXAMINATION GENERAL: Mr. Allen is sitting comfortably in the bed. He is in no acute distress. VITAL SIGNS: Temperature 97.8, pulse rate 86, respiratory rate 18, O2 saturation 93% on room air, blood pressure 127/89. LUNGS: Diminished, but clear to auscultation as assessed through despite body habitus. HEART: S1, S2. No murmur, rub, or gallop and regular. ABDOMEN: Soft, nontender. Bowel sounds positive x4. EXTREMITIES: Positive for 1 to 2+ pitting edema in the lower extremities. NEURO: He is alert, and oriented x3. He moves all extremities equally. There is no facial asymmetry or focal weakness. Extraocular movements are intact. SKIN: Intact. DIAGNOSTIC STUDIES/LAB DATA: WBC 6.1, hemoglobin 11.4, hematocrit 36, platelet count 143. Sodium 138, potassium 4.0, chloride 108, serum bicarbonate 24, BUN 26, creatinine 2.03, glucose 97. Troponin 0.02. BNP 115. TSH is 3.94. Chest x-ray shows concern for possible right lower infiltrate. EKG shows ventricular bigeminy with a heart rate of 70. ASSESSMENT AND PLAN: Mr. Allen is a 77-year-old male with a past medical history of coronary artery disease, severe chronic obstructive pulmonary disease , rheumatoid arthritis on prednisone, and chronic kidney disease who presents today to the hospital with concern for chest pain, now resolved after nitroglycerin. Our plans are for observation in the hospital for the followin. Chest pain: The patient will be monitored on telemetry unit while we obtain a third troponin. If he has any further chest pain, we will repeat EKG. 2. Coronary artery disease: Continue home medications. 3. Rheumatoid arthritis: Continue prednisone. 4. Chronic obstructive pulmonary disease: Continue home medications. 5. Congestive heart failure: Continue furosemide. 6. Code status: Full code. TIME SPENT: Approximately 60 minutes were spent on the admission of this patient, more than half the time spent with the patient at the bedside reviewing the events leading up to this hospitalization, performing the physical examination, and reviewing the plan of care. CHEYENNE GOVEA NP [id number]/[facility] #: [id number] SAYDA
--- NOTE | 2017-08-08 16:49 | PN ---
Progress Note - Progress Note Date of Service: 08/08/17 Note: Mr. Allen has had no chest pain and his physical examination is unchanged. His repeat troponins were 0.02. Plan for discharge to home. Patient to follow up with Dr. Watkins for an appointment on Thursday.
--- NOTE | 2017-08-08 20:03 | DS ---
CC: Dr. Isabel * [facility] MEDICINE DISCHARGE SUMMARY: DATE OF ADMISSION: 08/08/17 DATE OF DISCHARGE: 08/08/17 PRIMARY CARE PHYSICIAN: Dr. Isabel. ATTENDING PHYSICIAN: Abbey Yusuf MD * (dictation provided by Cheyenne Govea NP ). PRIMARY DIAGNOSIS: Chest pain, atypical. SECONDARY DIAGNOSES: 1. History of pacemaker. 2. Gout. 3. Hypothyroidism. 4. Gastroesophageal reflux disease. 5. Hyperlipidemia. 6. Severe chronic obstructive pulmonary disease. 7. Coronary artery disease, medically managed. 8. Hypertension. 9. Obstructive sleep apnea. 10. Rheumatoid arthritis, on chronic prednisone therapy. 11. Benign prostatic hypertrophy. 12. Pancreatic insufficiency. 13. History of gastric bypass in the 1980s. 14. History of pancreatic resection for pancreatitis with ileostomy, appendectomy, and cholecystectomy. 15. History of deep venous thrombosis and pulmonary embolism after surgery. MEDICATIONS: At the time of discharge, there are no medication changes. They are: 1. Ellipta 1 puff inhaled daily. 2. Creon 1 tab p.o. t.i.d. 3. Fexofenadine 60 mg p.o. daily p.r.n. 4. Multivitamin with mineral 1 cap p.o. q.a.m. 5. Ventolin 2 puffs inhaled 4 times a day p.r.n. 6. Allopurinol 300 mg p.o. daily. 7. Codeine 30 mg p.o. 4 times a day with food p.r.n. constipation. 8. Ferrous sulfate 325 mg p.o. every other day. 9. Furosemide 30 mg p.o. daily. 10. Hydrocodone with acetaminophen 5/325 mg 1 tab p.o. q.4 hours p.r.n. 11. Isosorbide ER 50 mg p.o. daily. 12. Levothyroxine 125 mcg p.o. daily. 13. Pancrelipase 1 cap p.o. t.i.d. 14. Pantoprazole 40 mg p.o. b.i.d. p.r.n. 15. Plaquenil 200 mg p.o. b.i.d. 16. Prednisone 10 mg p.o. daily. 17. Simvastatin 20 mg p.o. daily. 18. Sucralfate 1 g p.o. 4 times a day p.r.n. 19. Tamsulosin 0.4 mg p.o. daily. HOSPITAL COURSE: Mr. Allen is a 77-year-old male with a past medical history as outlined above, who presented to the emergency room today with concern for chest pain. Please see the dictated H and P from myself for complete details. In brief, the patient had an EKG on arrival that showed no evidence of ischemia and a first troponin which was 0.02. He was chest pain free. Mr. Allen was admitted to the hospital. He had 2 additional troponins, both of which were 0.02. He remains chest pain free. His last stress test was in January 2017 and it was read as negative and low risk. Based on this recent stress testing and negative workup thus far, I am not ordering outpatient stress testing and I am recommending that the patient and his call on Thursday a.m. to arrange for an appointment with Dr. Watkins or one of his associates to evaluate for appropriateness of additional stress testing. DISPOSITION: Home. DIET: Heart-healthy. ACTIVITY: As tolerated. FOLLOWUP PLANS: Please follow up with Dr. Watkins. Please call on Thursday a.m. for an appointment. TIME SPENT: Approximately 40 minutes was spent on the discharge of this patient , more than half that time spent with the patient at the bedside reviewing the events leading up to this hospitalization, performing the physical examination, and reviewing my plan of care. CHEYENNE GOVEA NP [id number]/[facility] #: [id number] SAYDA
[2017-08-08] MEDS ORDERED: Hydroxychloroquine TAB* 200 MG PO SCH (21:00)
[2017-08-09] MEDS ORDERED: Levothyroxine TAB* 125 MCG TAB PO SCH (06:00)
[2017-08-09] MEDS ORDERED: predniSONE TAB* 10 MG PO SCH (09:00)
[2017-08-09] MEDS ORDERED: Atorvastatin* 10 MG TAB PO SCH (09:00)
[2017-08-09] MEDS ORDERED: Tamsulosin CAP* 0.4 MG PO SCH (09:00)
[2017-08-09] MEDS ORDERED: Allopurinol TAB* 300 MG PO SCH (09:00)
[2017-08-09] MEDS ORDERED: Isosorbide Mononitrate ER TAB* 30 MG PO SCH (09:00)
[2017-08-09] MEDS ORDERED: Furosemide TAB* 20 MG PO SCH (09:00)
--- NOTE | 2017-08-09 15:00 | ED ---
Immanuel Shah Nilda, scribed for Shaquille Aguirre MD on 08/08/17 at 0925 . HPI Chest Pain - HPI Summary HPI Summary: This patient is a 77 year old MF BIBA to [facility] accompanied by EMS with a chief complaint of CP that began at 0800 but resolved after taking 2 NTG [employer]. Symptoms aggravated by nothing. Patient denies N/V, SOB, and diaphoresis. - History of Current Complaint Time Seen by Provider: 08/08/17 09:20 Onset/Duration: Started Minutes Ago, Resolved Timing: Lasting Minutes Current Severity: None Pain Intensity: 0 Pain Scale Used: 0-10 Numeric Aggravating Factor(s): Nothing Alleviating Factor(s): NTG 123 Associated Signs and Symptoms: Positive: Other: - denies N/V SOB, and diaphoresis. - Additional Pertinent History Primary Care Physician: TONE - Allergy/Home Medications Allergies/Adverse Reactions: Allergies Allergy/AdvReac Type Severity Reaction Status Date / Time Ciprofloxacin [From Cipro] Allergy Unknown Unknown Verified 12/22/15 09:25 Reaction Details Azithromycin Allergy Unknown Verified 11/03/16 10:04 Reaction Details Doxycycline Allergy Unknown Verified 08/08/17 15:43 Reaction Details Levofloxacin [From Levaquin] AdvReac Severe Leg Cramps Verified 12/22/15 09:25 PMH/Surg Hx/FS Hx/Imm Hx Endocrine/Hematology History: Reports: Hx Anticoagulant Therapy - plavix 75mg, Hx Thyroid Disease - HYPOTHYROIDISM, Other Endocrine/Hematological Disorders - necrotizing pancreatitis Denies: Hx Diabetes, Hx Systemic Lupus Erythematosus Cardiovascular History: Reports: Hx Angina, Hx Coronary Artery Disease, Hx Deep Vein Thrombosis, Hx Embolism - PE, Hx Hypertension, Hx Myocardial Infarction, Hx Pacemaker/ICD Denies: Hx Congestive Heart Failure, Hx Hypercholesterolemia, Other Cardiovascular Problems/Disorders Respiratory History: Reports: Hx Chronic Bronchitis, Hx Pleural Effusion, Hx Pneumonia, Hx Pulmonary Embolism, Hx Seasonal Allergies, Hx Sleep Apnea, Other Respiratory Problems/Disorders - HX PNEUMONIA X1 WEEK Denies: Hx Asthma, Hx Chronic Obstructive Pulmonary Disease (COPD) GI History: Reports: Hx Gall Bladder Disease - removed, Hx Gastroesophageal Reflux Disease - occasional, Hx Gastrointestinal Bleed - cobra to [facility] last admit , Hx Ileostomy - hx ileostomy, reversed, Other GI Disorders - Hx pancreatitis, part of pancreas removed, HEMIGASTRECTOMY History: Reports: Hx Chronic Renal Failure, Hx Kidney Stones, Hx Renal Disease - kidney stones/uretherak stent, Other Problems/Disorders - Hx kidney stones Denies: Hx Dialysis Musculoskeletal History: Reports: Hx Arthritis, Hx Rheumatoid Arthritis, Other Musculoskeletal History - bilateral knee replacements Denies: Hx Gout - allopurinol is for kidney stones not gout., Hx Osteoporosis Sensory History: Reports: Hx Cataracts, Hx Contacts or Glasses Denies: Hx Eye Injury, Hx Eye Prosthesis, Hx Glaucoma, Hx Legally Blind, Hx Macular Degeneration, Hx Vision Problem, Hx Deafness, Hx Hearing Aid, Hx Hearing Problem Opthamlomology History: Reports: Hx Cataracts, Hx Contacts or Glasses Denies: Hx Eye Injury, Hx Eye Prosthesis, Hx Glaucoma, Hx Legally Blind, Hx Macular Degeneration, Hx Vision Problem Neurological History: Denies: Hx Dementia, Hx Seizures - Cancer History Cancer Type, Location and Year: 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 Hx Chemotherapy: No - Surgical History Surgery Procedure, Year, and Place: renal stent, 2 knee replacements, "stomach stapled", agnes, appendectomy, bowel resection, November 2012 debridement of abdominal wound, pacemaker Hx Anesthesia Reactions: No - Immunization History Date of Tetanus Vaccine: Unk Date of Influenza Vaccine: None Infectious Disease History: Denies: Hx Clostridium Difficile, Hx Human Immunodeficiency Virus (HIV), Hx of Known/Suspected MRSA, Hx Shingles, Hx Tuberculosis - Family History Known Family History: Positive: Hypertension - Social History Alcohol Use: None Substance Use Type: Reports: None Smoking Status (MU): Never Smoked Tobacco Have You Smoked in the Last Year: No Review of Systems Negative: Skin Diaphoresis Positive: Chest Pain - resolved Negative: Shortness Of Breath Negative: Vomiting, Nausea All Other Systems Reviewed And Are Negative: Yes Physical Exam - Summary Physical Exam Summary: GENERAL: Patient is a well-developed and nourished, obese male, who is lying comfortable in the stretcher in [facility]. Patient is not in any acute respiratory distress. HEAD AND FACE: No signs of trauma. No ecchymosis, hematomas or skull depressions. No sinus tenderness. EYES: PERRLA, EOMI x 2, No injected conjunctiva, no nystagmus. EARS: Hearing grossly intact. Ear canals and tympanic membranes are within normal limits. MOUTH: Oropharynx within normal limits. NECK: Supple, trachea is midline, no adenopathy, no JVD, no carotid bruit, no c- spine tenderness, neck with full ROM. CHEST: Symmetric, no tenderness at palpation LUNGS: Clear to auscultation bilaterally. No wheezing or crackles. CVS: Regular rate and rhythm, S1 and S2 present, no murmurs or gallops appreciated. ABDOMEN: Soft, non-tender. No signs of distention. No rebound no guarding, and no masses palpated. Bowel sounds are normal. EXTREMITIES: FROM in all major joints, no edema, no cyanosis or clubbing. NEURO: Alert and oriented x 3. No acute neurological deficits. Speech is normal and follows commands. SKIN: Dry and warm Triage Information Reviewed: Yes Vital Signs On Initial Exam: Initial Vitals Temp Pulse Resp BP Pulse Ox 97.8 F 94 19 100/63 94 08/08/17 09:23 08/08/17 09:23 08/08/17 09:23 08/08/17 09:23 08/08/17 09:23 Vital Signs Reviewed: Yes Diagnostics - Vital Signs Vital Signs Temp Pulse Resp BP Pulse Ox 08/08/17 12:00 80 14 111/69 93 08/08/17 11:30 81 16 112/56 92 08/08/17 11:00 85 17 115/70 93 08/08/17 10:30 85 17 116/89 93 08/08/17 10:00 88 15 91/53 94 08/08/17 09:30 87/53 95 08/08/17 09:28 93 19 95 08/08/17 09:27 100/63 08/08/17 09:23 97.8 F 94 19 100/63 94 - Laboratory Lab Results: Lab Results 08/08/17 08/08/17 08/08/17 Range/Units 09:39 09:39 09:39 WBC 6.1 (3.5-10.8) 10^3/ul RBC 4.00 (4.0-5.4) 10^6/ul Hgb 11.4 L (14.0-18.0) g/dl Hct 36 L (42-52) % MCV 89 (80-94) fL MCH 29 (27-31) pg MCHC 32 (31-36) g/dl RDW 18 H (10.5-15) % Plt Count 143 L (150-450) 10^3/ul MPV 10 (7.4-10.4) um3 Neut % (Auto) 70.5 (38-83) % Lymph % (Auto) 11.0 L (25-47) % [place] % (Auto) 13.3 H (1-9) % Eos % (Auto) 4.4 (0-6) % Baso % (Auto) 0.8 (0-2) % Absolute Neuts (auto) 4.3 (1.5-7.7) 10^3/ul Absolute Lymphs (auto) 0.7 L (1.0-4.8) 10^3/ul Absolute Monos (auto) 0.8 (0-0.8) 10^3/ul Absolute Eos (auto) 0.3 (0-0.6) 10^3/ul Absolute Basos (auto) 0 (0-0.2) 10^3/ul Absolute Nucleated RBC 0 10^3/ul Nucleated RBC % 0 APTT 26.4 (26.0-36.3) seconds Sodium (133-145) mmol/L Potassium (3.5-5.0) mmol/L Chloride (101-111) mmol/L Carbon Dioxide (22-32) mmol/L Anion Gap (2-11) mmol/L BUN (6-24) mg/dL Creatinine (0.67-1.17) mg/dL Est GFR ( Amer) (>60) Est GFR (Non-Af Amer) (>60) BUN/Creatinine Ratio (8-20) Glucose (70-100) mg/dL Calcium (8.6-10.3) mg/dL Magnesium (1.9-2.7) mg/dL Total Bilirubin (0.2-1.0) mg/dL AST (13-39) U/L ALT (7-52) U/L Alkaline Phosphatase (34-104) U/L Total Creatine Kinase (10-223) U/L CK-MB (CK-2) (0.6-6.3) ng/mL Troponin I (<0.04) ng/mL B-Natriuretic Peptide 115 H ( - 100) pg/mL Total Protein (6.4-8.9) g/dL Albumin (3.2-5.2) g/dL Globulin (2-4) g/dL Albumin/Globulin Ratio (1-3) TSH (0.34-5.60) mcIU/mL 08/08/17 Range/Units 09:39 WBC (3.5-10.8) 10^3/ul RBC (4.0-5.4) 10^6/ul Hgb (14.0-18.0) g/dl Hct (42-52) % MCV (80-94) fL MCH (27-31) pg MCHC (31-36) g/dl RDW (10.5-15) % Plt Count (150-450) 10^3/ul MPV (7.4-10.4) um3 Neut % (Auto) (38-83) % Lymph % (Auto) (25-47) % [place] % (Auto) (1-9) % Eos % (Auto) (0-6) % Baso % (Auto) (0-2) % Absolute Neuts (auto) (1.5-7.7) 10^3/ul Absolute Lymphs (auto) (1.0-4.8) 10^3/ul Absolute Monos (auto) (0-0.8) 10^3/ul Absolute Eos (auto) (0-0.6) 10^3/ul Absolute Basos (auto) (0-0.2) 10^3/ul Absolute Nucleated RBC 10^3/ul Nucleated RBC % APTT (26.0-36.3) seconds Sodium 138 (133-145) mmol/L Potassium 4.0 (3.5-5.0) mmol/L Chloride 108 (101-111) mmol/L Carbon Dioxide 24 (22-32) mmol/L Anion Gap 6 (2-11) mmol/L BUN 26 H (6-24) mg/dL Creatinine 2.03 H (0.67-1.17) mg/dL Est GFR ( Amer) 41.4 (>60) Est GFR (Non-Af Amer) 32.2 (>60) BUN/Creatinine Ratio 12.8 (8-20) Glucose 97 (70-100) mg/dL Calcium 8.3 L (8.6-10.3) mg/dL Magnesium 2.0 (1.9-2.7) mg/dL Total Bilirubin 0.50 (0.2-1.0) mg/dL AST 14 (13-39) U/L ALT 9 (7-52) U/L Alkaline Phosphatase 43 (34-104) U/L Total Creatine Kinase 32 (10-223) U/L CK-MB (CK-2) 2.3 (0.6-6.3) ng/mL Troponin I 0.02 (<0.04) ng/mL B-Natriuretic Peptide ( - 100) pg/mL Total Protein 5.5 L (6.4-8.9) g/dL Albumin 3.2 (3.2-5.2) g/dL Globulin 2.3 (2-4) g/dL Albumin/Globulin Ratio 1.4 (1-3) TSH 3.94 (0.34-5.60) mcIU/mL Result Diagrams: 08/08/17 09:39 08/08/17 09:39 Lab Statement: Any lab studies that have been ordered have been reviewed, and results considered in the medical decision making process. - Radiology CXR Radiology Interpretation Completed By: Radiologist - CXR, per radiologist, reveals expiratory exam, small right basilar infiltrate. ED physician has reviewed this radiology report and agrees. - EKG 0937 Cardiac Rate: NL EKG Rhythm: Sinus Rhythm - 92 bpm EKG Interpretation: No ST Elevation. EKG Comparison: No Significant Change Re-Evaluation - Re-Evaluation First Eval Re-Evaluation Time: 12:05 Comment: Reviewed labs and course of treatment. Chest Pain Course/Dx - Course Assessment/Plan: This patient is a 77 year old M BIBA to [facility] accompanied by EMS with a chief complaint of CP that began at 0800 but resolved after taking 2 NTG [employer]. Symptoms aggravated by nothing. Patient denies N/V SOB, and diaphoresis. In the ED course, the patient was given doxycycline but refused it. Pending labs, EKG, and CXR. An EKG reveals NSR, 92 bpm, No ST elevation. CXR, per radiologist, reveals expiratory exam, small right basilar infiltrate. ED physician has reviewed this radiology report and agrees. Patient refuses antibiotics. [1206] Dr. Navarro (hospitalist) accepts pt for admission. Pt is stable and will be admitted with Dx of Chest pain r/o acute coronary syndrome and pneumonia. Pt understands and is agreeable with this plan. - Diagnoses Provider Diagnoses: CP r/o ACS, PNA (pneumonia) - Provider Notifications Discussed Care Of Patient With: Abbey Navarro - Hospitalist Time Discussed With Above Provider: 12:06 Instructed by Provider To: Admit As Inpatient Discharge - Discharge Plan Condition: Stable Disposition: ADMITTED TO [facility] documentation as recorded by the Immanuel hung Nilda accurately reflects the service I personally performed and the decisions made by Timothy howard Walter, MD.
[2017-08-10] MEDS ORDERED: Ferrous Sulfate TAB* 325 MG PO SCH (09:00)
== END 2017-08-08 17:12 | disposition home or self-care (01) ==
LOC: ED 09:18 → MEDTELE 12:07
PROVIDERS: ADMIT Internal Medicine; ATTEND Internal Medicine
DX: R07.89 Other chest pain (principal); Z95.0 Presence of cardiac pacemaker; E03.9 Hypothyroidism, unspecified; M10.9 Gout, unspecified; K21.9 Gastro-esophageal reflux disease without esophagitis; E78.5 Hyperlipidemia, unspecified; J44.9 Chronic obstructive pulmonary disease, unspecified; I25.10 Atherosclerotic heart disease of native coronary artery without angina pectoris; I11.0 Hypertensive heart disease with heart failure; I50.9 Heart failure, unspecified; G47.33 Obstructive sleep apnea (adult) (pediatric); M06.9 Rheumatoid arthritis, unspecified; N40.0 Benign prostatic hyperplasia without lower urinary tract symptoms; K86.89 Other specified diseases of pancreas; Z98.84 Bariatric surgery status; Z86.718 Personal history of other venous thrombosis and embolism; Z79.52 Long term (current) use of systemic steroids; Z79.899 Other long term (current) drug therapy; Z88.1 Allergy status to other antibiotic agents; Z79.01 Long term (current) use of anticoagulants; R94.31 Abnormal electrocardiogram [ECG] [EKG]
CPT/HCPCS: 36415; 71020; 80053; 82550; 82553; 83735; 83880; 84443; 84484; 85025; 85730; 93005; 96372; 99284; A9270-GY; G0378; J1644

== ENCOUNTER 2017-09-15 13:40 | Emergency (ER) | payer MEDICARE, MEDICAID ==
--- NOTE | 2017-09-15 14:47 | RAD ---
Indication: Syncope; RIGHT side chest pain post fall. Chronic obstructive pulmonary disease. Cardiac disease. Comparison: August 08, 2017. Technique: Upright AP 1430 hours Report: Cardiomegaly. Unchanged RIGHT atrial and RIGHT ventricular level pacemaker leads. Suboptimal inspiration with crowding of the pulmonary markings and subsegmental atelectasis. Grossly clear pleural spaces. Negative for pneumothorax. No rib fracture visualized. Epigastric surgical clips. IMPRESSION: Cardiomegaly and subsegmental atelectasis with volume loss attributed to probable suboptimal inspiration.
[2017-09-15 14:54] LABS: ABS Basophils 0 10^3/ul (0-0.2); ABS Eosinophils 0 10^3/ul (0-0.6); ABS Lymphocytes 0.2 10^3/ul (1.0-4.8); ABS Monocytes 0.6 10^3/ul (0-0.8); ABS Neutrophils 5.5 10^3/ul (1.5-7.7); ABS Nucleated RBC 0 10^3/ul; Eosinophil % 0.5 % (0-6); Hematocrit 36 % (42-52); Hemoglobin 11.4 g/dl (14.0-18.0); Lymphocyte % 3.7 % (25-47); Mean Corpuscular HGB Conc 32 g/dl (31-36); Mean Corpuscular Hemoglobin 29 pg (27-31); Mean Corpuscular Volume 90 fL (80-94); Mean Platelet Volume 9 um3 (7.4-10.4); Nucleated Red Blood Cells % 0; Platelet Count 135 10^3/ul (150-450); Red Cell Distribution Width 20 % (10.5-15); White Blood Count 6.3 10^3/ul (3.5-10.8)
--- NOTE | 2017-09-15 16:15 | RAD ---
Indication: Head injury. CT of the brain was performed without IV contrast. Ventricular structures are midline. No midline shift is noted. The extra-axial spaces are unremarkable. There is no evidence of intracranial mass or hemorrhage. Periventricular lucency consistent with chronic ischemic White matter change is noted. Mastoid air cells and paranasal sinuses are otherwise unremarkable. IMPRESSION: Chronic ischemic White matter change. No intracranial mass or hemorrhage is noted.
[2017-09-15 17:40] VITALS: BP 133/76
--- NOTE | 2017-09-15 18:44 | ED ---
Toribio Shah Angela, scribed for Kya Sparrow MD on 09/15/17 at 1537 . Adult Trauma - HPI Summary HPI Summary: This pt is a 77 y/o male presenting to [facility] c/o right chest wall pain s/o fall 2 days ago. Pt reports he was leaning forward on the toilet 2 days ago and lost his balance, subsequently falling. He notes he fell forwards to the floor hitting his right arm, chest, and forehead. Pt states sustaining ecchymosis on his body from fall. Unsure if pt had LOC. He denies dysuria, hematuria, blood stools, headache, diplopia, blurry vision, sore throat, ear ache, fever, abd pain, back pain, SOB. Pt denies anxiety or depression. Pt is currently on Keflex (500 mg TID) for chest congestion. - History of Current Complaint Chief Complaint: EDGeneral Stated Complaint: FALL ON THURSDAY Time Seen by Provider: 09/15/17 15:33 Hx Obtained From: Patient Mechanism of Injury: Fall Loss of Consciousness: unsure Onset/Duration: Started Days Ago, Traumatic, Still Present Onset of Pain: Days Current Severity: Mild Pain Intensity: 2 Pain Scale Used: 0-10 Numeric Location: Head, Chest, Extremities - right arm Aggravating Factor(s): Nothing Alleviating Factor(s): Nothing Associated Signs & Symptoms: Positive: Chest Pain, Ecchymosis. Negative: SOB, Abdominal Pain, Fever - Additional Pertinent History Primary Care Physician: [id number] - Allergy/Home Medications Allergies/Adverse Reactions: Allergies Allergy/AdvReac Type Severity Reaction Status Date / Time Ciprofloxacin [From Cipro] Allergy Unknown Unknown Verified 09/15/17 14:20 Reaction Details Azithromycin Allergy Unknown Verified 09/15/17 14:20 Reaction Details Doxycycline Allergy Unknown Verified 09/15/17 14:20 Reaction Details Levofloxacin [From Levaquin] AdvReac Severe Leg Cramps Verified 09/15/17 14:20 PMH/Surg Hx/FS Hx/Imm Hx Endocrine/Hematology History: Reports: Hx Anticoagulant Therapy - plavix 75mg, Hx Thyroid Disease - HYPOTHYROIDISM, Other Endocrine/Hematological Disorders - necrotizing pancreatitis Denies: Hx Diabetes, Hx Systemic Lupus Erythematosus Cardiovascular History: Reports: Hx Angina, Hx Coronary Artery Disease, Hx Deep Vein Thrombosis, Hx Embolism - PE, Hx Hypertension, Hx Myocardial Infarction, Hx Pacemaker/ICD Denies: Hx Congestive Heart Failure, Hx Hypercholesterolemia, Other Cardiovascular Problems/Disorders Respiratory History: Reports: Hx Chronic Bronchitis, Hx Chronic Obstructive Pulmonary Disease (COPD), Hx Pleural Effusion, Hx Pneumonia, Hx Pulmonary Embolism, Hx Seasonal Allergies, Hx Sleep Apnea, Other Respiratory Problems/ Disorders - PNA Denies: Hx Asthma GI History: Reports: Hx Gall Bladder Disease - removed, Hx Gastroesophageal Reflux Disease - occasional, Hx Gastrointestinal Bleed - cobra to [facility] last admit , Hx Ileostomy - hx ileostomy, reversed, Other GI Disorders - Hx pancreatitis, part of pancreas removed, HEMIGASTRECTOMY History: Reports: Hx Chronic Renal Failure, Hx Kidney Stones, Hx Renal Disease - kidney stones/uretherak stent, Other Problems/Disorders - Hx kidney stones Denies: Hx Dialysis Musculoskeletal History: Reports: Hx Arthritis, Hx Rheumatoid Arthritis, Other Musculoskeletal History - bilateral knee replacements Denies: Hx Gout - allopurinol is for kidney stones not gout., Hx Osteoporosis Sensory History: Reports: Hx Cataracts, Hx Contacts or Glasses Denies: Hx Eye Injury, Hx Eye Prosthesis, Hx Glaucoma, Hx Legally Blind, Hx Macular Degeneration, Hx Vision Problem, Hx Deafness, Hx Hearing Aid, Hx Hearing Problem Opthamlomology History: Reports: Hx Cataracts, Hx Contacts or Glasses Denies: Hx Eye Injury, Hx Eye Prosthesis, Hx Glaucoma, Hx Legally Blind, Hx Macular Degeneration, Hx Vision Problem Neurological History: Denies: Hx Dementia, Hx Seizures - Cancer History Cancer Type, Location and Year: 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 Hx Chemotherapy: No - Surgical History Surgery Procedure, Year, and Place: renal stent, 2 knee replacements, "stomach stapled", agnes, appendectomy, bowel resection, November 2012 debridement of abdominal wound, pacemaker Hx Anesthesia Reactions: No - Immunization History Date of Tetanus Vaccine: Unk Date of Influenza Vaccine: None Infectious Disease History: No Infectious Disease History: Denies: Hx Clostridium Difficile, Hx Human Immunodeficiency Virus (HIV), Hx of Known/Suspected MRSA, Hx Shingles, Hx Tuberculosis, Traveled Outside the [place] in Last 30 Days - Family History Known Family History: Positive: Hypertension - Social History Alcohol Use: None Substance Use Type: Reports: None Smoking Status (MU): Never Smoked Tobacco Have You Smoked in the Last Year: No Review of Systems Negative: Fever, Chills Negative: Blurred Vision, Diplopia Negative: Sore Throat, Ear Ache Positive: Chest Pain Negative: Shortness Of Breath Negative: Abdominal Pain, Other - bloody stools Negative: dysuria, hematuria Musculoskeletal: Other - right arm pain Negative: Other - back pain Positive: Bruising Negative: Headache Negative: Anxious, Depressed All Other Systems Reviewed And Are Negative: No Physical Exam - Summary Physical Exam Summary: Appearance: Alert, conversive, nontoxic appearing Skin: Warm, dry, no mottling, no rashes, no contusions. 2 cm laceration above right eyebrow. Bruising to right elbow. A couple of abrasion to the right and left elbow. HEENT: EOMI, PERRL, moist mucous membranes Neck: No masses on the neck, supple Respiratory: wheezing heard, no rales, no rhonchi. Cardiovascular: RRR, pulses are symmetrical in both lower and upper extremities Abdomen: Soft, non-tender Bowel Sounds: Present Musculoskeletal: No CVA tenderness, no obvious deformity, moving all extremities in a grossly normal manner. Pitting edema bilaterally. Full ROM of bilateral elbows. Neurological: A&Ox3, CN II-XII Intact, moving all extremities symmetrically Psychiatric: Normal affect and mood Triage Information Reviewed: Yes Vital Signs On Initial Exam: Initial Vitals Temp Pulse Resp BP Pulse Ox 98.3 F 48 20 133/67 93 09/15/17 13:56 09/15/17 13:56 09/15/17 13:56 09/15/17 13:56 09/15/17 13:56 Vital Signs Reviewed: Yes - Rob Coma Scale Coma Scale Total: 15 Diagnostics - Vital Signs Vital Signs Temp Pulse Resp BP Pulse Ox 09/15/17 14:19 48 16 96 09/15/17 14:16 127/82 09/15/17 13:56 98.3 F 48 20 133/67 93 - Laboratory Lab Results: Lab Results 09/15/17 09/15/17 Range/Units 14:35 14:35 WBC 6.3 (3.5-10.8) 10^3/ul RBC 4.00 (4.0-5.4) 10^6/ul Hgb 11.4 L (14.0-18.0) g/dl Hct 36 L (42-52) % MCV 90 (80-94) fL MCH 29 (27-31) pg MCHC 32 (31-36) g/dl RDW 20 H (10.5-15) % Plt Count 135 L (150-450) 10^3/ul MPV 9 (7.4-10.4) um3 Neut % (Auto) 86.5 H (38-83) % Lymph % (Auto) 3.7 L (25-47) % [place] % (Auto) 9.2 H (1-9) % Eos % (Auto) 0.5 (0-6) % Baso % (Auto) 0.1 (0-2) % Absolute Neuts (auto) 5.5 (1.5-7.7) 10^3/ul Absolute Lymphs (auto) 0.2 L (1.0-4.8) 10^3/ul Absolute Monos (auto) 0.6 (0-0.8) 10^3/ul Absolute Eos (auto) 0 (0-0.6) 10^3/ul Absolute Basos (auto) 0 (0-0.2) 10^3/ul Absolute Nucleated RBC 0 10^3/ul Nucleated RBC % 0 Sodium 138 (133-145) mmol/L Potassium 4.0 (3.5-5.0) mmol/L Chloride 109 (101-111) mmol/L Carbon Dioxide 24 (22-32) mmol/L Anion Gap 5 (2-11) mmol/L BUN 35 H (6-24) mg/dL Creatinine 1.84 H (0.67-1.17) mg/dL Est GFR ( Amer) 46.4 (>60) Est GFR (Non-Af Amer) 36.0 (>60) BUN/Creatinine Ratio 19.0 (8-20) Glucose 137 H (70-100) mg/dL Calcium 8.7 (8.6-10.3) mg/dL Magnesium 1.9 (1.9-2.7) mg/dL Total Bilirubin 0.50 (0.2-1.0) mg/dL AST 13 (13-39) U/L ALT 11 (7-52) U/L Alkaline Phosphatase 49 (34-104) U/L Troponin I 0.01 (<0.04) ng/mL Total Protein 6.0 L (6.4-8.9) g/dL Albumin 3.4 (3.2-5.2) g/dL Globulin 2.6 (2-4) g/dL Albumin/Globulin Ratio 1.3 (1-3) TSH Pending Result Diagrams: 09/15/17 14:35 09/15/17 14:35 Lab Statement: Any lab studies that have been ordered have been reviewed, and results considered in the medical decision making process. - Radiology Chest XR Xray Interpretation: Positive (See Comments) - IMPRESSION: Cardiomegaly and subsegmental atelectasis with volume loss attributed to probable suboptimal inspiration. Dr. Sparrow has reviewed this radiology report. Radiology Interpretation Completed By: Radiologist - CT Brain CT CT Interpretation: No Acute Changes - IMPRESSION: Chronic ischemic white matter change. No intracranial mass or hemorrhage is noted. Dr. Sparrow has reviewed this radiology report. CT Interpretation Completed By: Radiologist - EKG 14:09 Cardiac Rate: NL EKG Rhythm: Sinus Rhythm - at 96 bpm EKG Interpretation: Normal QRS. Normal QTc. Non-specific ST-T wave changes. EKG Comparison: No Significant Change - no change compared to 08/10/17. Adult Trauma Course/Dx - Course Course Of Treatment: This pt is a 77 y/o male presenting to [facility] c/o right chest wall pain s/o fall 2 days ago. Pt reports he was leaning forward on the toilet 2 days ago and lost his balance, subsequently falling. He notes he fell forwards to the floor hitting his right arm, chest, and forehead. Pt states sustaining ecchymosis on his body from fall. Lab work shows chronic renal insufficiency. Chest XR shows nothing acute. Brain CT is negative. Pt's pacemaker ([employer] device) was interrogated by JODY Robertson at bedside. I discussed pt care with Dr. Keen, standard machine stitcher, who reports the pt's pacemaker will be checked tomorrow. If there was an abnormality with the pacemaker, then Jacob Borrego from [employer] would have reported it. Pt will be discharged home. - Diagnoses Provider Diagnoses: Syncope, Contusion, Abrasion - Physician Notifications Discussed Care Of Patient With: Justin Keen Time Discussed With Above Provider: 17:08 Instructed by Provider To: Other - I discussed pt care with Dr. Keen, standard machine stitcher, who reports the pt's pacemaker will be checked tomorrow. If there was an abnormality with the pacemaker, then Jacob Borrego from [employer] would have reported it. Discharge - Discharge Plan Condition: Stable Disposition: HOME Patient Education Materials: Syncope (ED), Abrasion (ED), Hematoma (ED) Referrals: Venkat Isabel MD [Primary Care Provider] - Additional Instructions: Please follow up with your standard machine stitcher Dr. Watkins. Return if worse or any new symptoms. Take all medications as previously instructed. The documentation as recorded by the Toribio hung Angela accurately reflects the service I personally performed and the decisions made by , Kya Sparrow MD.
== END 2017-09-15 17:39 | disposition home or self-care (01) ==
LOC: ED 13:40
DX: S40.819A Abrasion of unspecified upper arm, initial encounter (principal); R07.9 Chest pain, unspecified; R58 Hemorrhage, not elsewhere classified; R55 Syncope and collapse; W19.XXXA Unspecified fall, initial encounter; Y92.9 Unspecified place or not applicable
CPT/HCPCS: 36415; 70450; 71045; 80053; 83735; 84443; 84484; 85025; 93005; 99283

== ENCOUNTER 2017-10-17 12:07 | Inpatient (IN) | payer MEDICARE, MEDICAID ==
--- OUTSIDE RECORDS SUMMARY | 2017-10-17 12:26 | XMS REPORT ---
:1940 External Reference #:[id number] Author Organization [employer] Address [address] [address] Phone [phone] Care Team Providers Name Role Phone Davey Damon MD Care Team Information Supervisor [place] Unavailable Venkat Isabel MD Primary Care Physician Unavailable Payers Type Date Identification Numbers Payment Provider Subscriber Medicare Primary Effective: Policy Number: Medicare Lani Beasley JR 2007 [id number] PayID: [id number] [address] [place] [address] [facility] Effective: 2013 Policy Number: Medicaid Lani Beasley JR [id number] PayID: [id number] [address] [place] [address] Advance Directives Type Date Description Status Comment Other Directive 05/21/2017 [facility] Care Proxy Current and Verified Problems Date Description Provider Status Onset: 05/27/2017 Chronic obstructive lung disease Venkat Isabel M.D., FACP Active Note: w/ some reversibility on PFTs Onset: 11/02/2013 Sinus node dysfunction Herbert Watkins M.D. Active Onset: 11/02/2013 Coronary arteriosclerosis Herbert Watkins M.D. Active Note: cath 2008 Onset: 12/22/2013 Cardiac pacemaker in situ Herbert Watkins M.D. Active Onset: 05/07/2017 Rheumatoid arthritis Ewa Garcia M.D. Active Onset: 05/07/2017 Chronic kidney disease stage 3 Ewa Garcia M.D. Active Onset: 05/07/2017 Cardiomyopathy Ewa Garcia M.D. Active Note: EF 35-40% Onset: 05/21/2017 Uric acid urolithiasis Venkat Isabel M.D.,FACP Active Onset: 05/21/2017 Chronic pancreatitis Venkat Isabel M.D.,FACP Active Note: h/o acute Onset: 05/21/2017 Benign prostatic hypertrophy Venkat Isabel Active without outflow obstruction Brien,FACP Onset: 05/21/2017 Hypothyroidism Venkat Isabel, Active Brien,FACP Family History Date Family Member(s) Problem(s) Comments General Heart Disease General Diabetes General Hypertension General Rheumatoid Arthritis Father Chronic Obstructive Pulmonary smoker, age 82 Disease (COPD) Father due to Emphysema () Mother Diabetes Type II Took Insulin, had bilateral amputations. 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 [employer] Cigarette Use Never Smoked Cigarettes ETOH Use 05/21/2017 Denies alcohol use Smoking Patient has never smoked Recreational Drug Use Denies Drug Use Daily Caffeine Consumes on average 1 soda diet soda pt cutting per day back Exercise Type/Frequency Does not exercise General Hx Text Allergies, Adverse Reactions, Alerts Date Description Reaction Status Severity Comments 12/20/2012 Levaquin swelling/pain lower legs active per patient 11/02/2013 Cipro pain,diarrhea active per patient 05/21/2017 Doxycycline active vomiting 09/15/2017 Azithromycin diarrea and abdominal pain active Medications Medication Date Status Form Strength Qnty SIG Indications Ordering Provider Flovent HFA 10/06/ Active Aerosol 110mcg/Ac 24gm 1 puff twice J44.9 Meena 2018 t a day MD Flora Flunadia 10/06/ Active Device 1unit use as J44.9 Meena 2018 s instructed Flora twice a day MD Horacio graves 09/18/ Active Solution 100-10mg/ 473ml 5-10 Venkat 2017 5ML milliliters Evan Isabel by mouth Brien,FACP four times a day as needed Nitroglycerin 09/03/ Active Tablets 0.4mg 50tab 1 sl q5mins Venkat Fierro Sub s x3 as needed Evan Isabel, for chest M.DCalixto,FACP pain Entresto 07/20/ Active Tablets 49-51mg 60tab 1 tab by I50.22 Venkat Fierro s mouth twice Evan Isabel, a day Lyssa.Evan,FACP J44.1 Anoro 05/27/2017 Active Aerosol 62.5-25mcg/Inh 60units 1 inhalation Venkat Ellipta daily Evan Isabel M.D.,FACP Ventolin HFA 05/27/2017 Active Aerosol 108(90Base) 18units 2 puffs by Venkat mcg/Act mouth four Evan Isabel, times a day M.DCalixto,FACP as needed Creon 03/31/2017 Active Caps 6000Unit 90caps 1 tab by Venkat Part mouth three Evan Isabel, times a day MCalixtoDCalixto,FACP Furosemide 01/07/2017 Active Tablets 20mg 30tabs 1 by mouth Venkat every Evan Isabel, daytakes as Lyssa.Evan,FACP needed) Allopurinol Active Tablets 300mg 90tabs 1 po qd Unknown Isosorbide Active Tablets 30mg 45tabs 1/2 tab once Andreia Levine Mononitrate ER 24HR daily Evan Isabel ER Lyssa.Evan,FACP Simvastatin Active Tablets 20mg 90tabs 1 po qd Unknown Codeine Active Tablets 30mg 120tabs 1 take Venkat Sulfate tablet four Evan Isabel, times a day Lyssa.DCalixto,FACP Synthroid Active Tablets 125mcg 30tabs 1 po qd Unknown Iron Active Tablets 325(65Fe) mg 90tabs 1 by mouth Unknown every other day Anastasiia Active Tablets 60mg 90tabs once daily Unknown Allergy prn Plaquenil Active Tablets 200mg 180tabs 1 po bid Unknown Prednisone Active Tablets 5mg 60tabs 2 tabs po qd Venkat Isabel M.D.,FACP Flomax Active Capsules 0.4mg 14caps 1 by mouth Unknown every day Multi Active Tablets Unknown Vitamin Daily Hydrocodone- Active Tablets 5-325mg 60tabs take one Lani Acetaminophe capsule/tabl jodie Cee et by mouth M.D. twice daily as needed for pain Carafate Active Tablets 1gm as needed Unknown Prednisone 10/02/2017 Hx Tablets 10mg 28tabs 4 tabs every Venkat - day for 4 D. Chalo, 10/12/2017 days, then M.D.,FACP reduce by 1 tab every 2 days until back on 10 mg/day, remain on that dose Cefdinir 10/02/2017 Hx Capsules 300mg 20caps 1 capsule by Venkat - mouth twice D. Chalo, 10/12/2017 a day x's 10 M.D.,FACP days Acetaminophe 09/17/2017 Hx Tablets 300-30mg 30tabs 1-2 tab by Andreia feliciano-Codeine #3 - mouth 3x a D. Chalo, 09/18/2017 day as M.D.,FACP needed Azithromycin 09/11/2017 Hx Tablets 250mg 6tabs 2 every day Venkat - for 1 day, DCalixto Isabel, 09/11/2017 then 1 every M.D.,FACP day Keflex 09/11/2017 Hx Capsules 500mg 9caps three times Venkat - a day for 3 D. Chalo, 09/21/2017 additional M.D.,FACP days Prednisone 09/11/2017 Hx Tablets 10mg 28tabs 4 tabs every - day for 4 D. Chalo, 09/19/2017 days, then M.D.,FACP reduce by 1 tab every 2 days until returned to 10 mg qd chronically Prednisone 09/03/2017 Hx Tablets 10mg 90tabs take 4 tabs Lani - daily for 2 Jaye, 09/11/2017 days then 3 M.D. tabs daily for 2 days then 2 tabs for 2 days then 1 tab for 2 days then d/c prn Ra Flare Colcrys 07/20/2017 Hx Tablets 0.6mg 14tabs take 2 tabs Venkat - by mouth on D. Chalo, 09/15/2017 day 1 then 1 M.D.,FACP tab daily for 1 week then as needed Entresto 06/22/2017 Hx Tablets 24-26mg 60tabs 1 by mouth I Venkat - twice a day 5 D. Chalo, 07/20/2017 0 M.DCalixto,FACP . 2 2 J44.1 Doxycycline 05/21/2017 - Hx Tablets 100mg 14tabs 1 by mouth Venkat Gordon Hyclate 05/21/2017 twice a day Brien Isabel,FACP Cefuroxime 05/21/2017 - Hx Tablets 500mg 14tabs 1 by mouth Venkat Gordon Axetil 05/28/2017 twice a day Pipestem, for 7 days M.D.,FACP Pancrelipase 03/30/2017 - Hx Caps DR Najera 810caps take three Andreia Gordon ([id number]) 03/30/2017 Part tabs three Pipestem, times daily M.D.,FACP Pancrelipase 03/30/2017 - Hx Caps DR Najera 810caps take three Andreia Gordon ([id number]) 03/31/2017 Part caps three Pipestem, times daily M.D.,FACP Sucralfate 01/06/2015 - Hx Tablets 1gm 1 tablet po Unknown 01/12/2017 qid Cefuroxime 01/03/2014 - Hx Tablets 500mg 42tabs 1 by mouth 511 Juan Gordon Axetil 09/23/2014 twice a day .1 Brien Jimenez Dilaudid 11/10/2013 - Hx Tablets 2mg 8tabs onr tab Herbert Gordon 12/06/2013 every 6 Brien Watkins hours for pain Keflex 11/08/2013 - Hx Capsules 500mg 9caps pic line Herbert Gordon 12/06/2013 Brien Watkins Cipro 12/23/2012 - Hx Tablets 500mg 1 po bid Juan Gordon 10/31/2013 Brien Jimenez Coumadin 09/22/2012 - Hx Tablets 2.5mg 90tabs 2 po use as Ernesto Ball, 12/23/2012 directed Brien Percocet 06/07/2012 - Hx Tablets 5-325mg 120tabs 1-2 po Ernesto Ball, 12/23/2012 q4-6h prn M.D. pain Happy 03/10/2011 - Hx Tablets 5-325mg 30tabs 1-2 po q4h Ernesto Ball, 12/23/2012 prn M.D. Cefepime - Hx Solution 2GM/100M 60units 2gm iv Unknown 12/23/2012 L q12hrs Toprol XL - Hx Tablets ER 25mg 90tabs 1 po qd Unknown 10/31/2013 24HR Plavix - Hx Tablets 75mg 90tabs 1 po qd Unknown 11/03/2013 Aspirin - Hx Tablets 81mg 1 po qd Unknown 01/10/2015 Multivitamins - Hx Tablets 90tabs 1 po qd Unknown 10/31/2013 Pepcid - Hx Tablets 20mg 30tabs 1 po prn Unknown 01/12/2017 Pancrelipase - Hx Caps 5000Yifan 810caps 3 cap by Andreia Gordon 03/31/2017 Part s mouth three Pipestem, times a day M.Evan,FACP c meals Cefuroxime - Hx Tablets 500mg 30tabs 1 po bid Unknown Axetil 12/06/2013 Pantoprazole - Hx Tablets DR 40mg 1 tablet po Cardina, Sodium 01/16/2017 b.i.d MD Davey Zenpep - Hx Caps 5000Yifan 3 times a Unknown 01/12/2017 Part day Medications Administered in Office Medication Date Status Form Strength Qnty SIG Indications Ordering Provider Inj, Administered Injection Herbert Gordon Regadenoson, Jacinta Watkins M.D. 0.1 MG Technetium TC Administered Injection Herbert D. 99M 015 Brien Watkins Tetrofosmin, Per Unit Dose Up To 40 Millicuries Technetium TC Administered Injection Ica Nuclear 99M 015 Schedule Tetrofosmin, Per Unit Dose Up To 40 Millicuries Depomedrol Administered Injection Amelia 80MG 012 NAYELI Argueta Depomedrol Administered Injection Ernesto Ball, 80MG 012 M.D. Immunizations CPT Code Status Date Vaccine Lot # [id number] Given 06/22/2017 Influenza Virus Vaccine, Quadrivalent, Split, [id number] Preservative Free Vital Signs Date Vital Result Comment 10/15/2017 Weight 288.00 lb Heart Rate 96 /min BP Systolic Sitting 126 mmHg BP Diastolic Sitting 66 mmHg Body Temperature 96.3 F O2 % BldC Oximetry 93 % 10/06/2017 Height 69 inches 5'9" Weight 290.50 lb Heart Rate 80 /min BP Systolic Sitting 120 mmHg BP Diastolic Sitting 64 mmHg Respiratory Rate 14 /min O2 % BldC Oximetry 98 % BMI (Body Mass Index) 42.9 kg/m2 Neck Circumference in inches 18.5 10/02/2017 Weight 192.00 lb Heart Rate 91 /min BP Systolic Sitting 123 mmHg BP Diastolic Sitting 69 mmHg Body Temperature 97.8 F O2 % BldC Oximetry 95 % 09/15/2017 Height 69 inches 5'9" Weight 307.00 lb w/ shoes Heart Rate 74 /min BP Systolic Sitting 118 mmHg BP Diastolic Sitting 72 mmHg Respiratory Rate 22 /min BMI (Body Mass Index) 45.3 kg/m2 Ejection Fraction 35-40% 01/09/17 09/11/2017 Weight 311.00 lb Heart Rate 84 /min BP Systolic Sitting 90 mmHg BP Diastolic Sitting 50 mmHg Body Temperature 96.3 F O2 % BldC Oximetry 90 % 09/03/2017 Weight 306.00 lb Heart Rate 46 /min BP Systolic Sitting 90 mmHg BP Diastolic Sitting 50 mmHg BP Systolic Recheck 105 mmHg BP Diastolic Recheck 60 mmHg Body Temperature 96.5 F O2 % BldC Oximetry 95 % 09/03/2017 Height 69 inches 5'9" Weight 306.00 lb Heart Rate 88 /min BP Systolic Sitting 120 mmHg BP Diastolic Sitting 70 mmHg Respiratory Rate 20 /min Pain Level 1 BMI (Body Mass Index) 45.2 kg/m2 07/20/2017 Heart Rate 115 /min BP Systolic Sitting 140 mmHg BP Diastolic Sitting 80 mmHg Body Temperature 97.6 F O2 % BldC Oximetry 92 % 06/30/2017 Height 69 inches 5'9" Weight 306.00 lb w/ shoes Heart Rate 50 /min 100 apical BP Systolic Sitting 122 mmHg lue large cuff BP Diastolic Sitting 68 mmHg lue large cuff Respiratory Rate 20 /min BMI (Body Mass Index) 45.2 kg/m2 Ejection Fraction 35-40% echo 01/09/17 06/22/2017 Weight 304.00 lb Heart Rate 90 /min BP Systolic Sitting 136 mmHg BP Diastolic Sitting 84 mmHg Body Temperature 97.8 F O2 % BldC Oximetry 96 % 05/21/2017 Weight 306.12 lb Heart Rate 91 /min BP Systolic Sitting 122 mmHg BP Diastolic Sitting 60 mmHg Body Temperature 96.7 F O2 % BldC Oximetry 90 % 05/14/2017 Height 68 inches 5'8" Weight 311.00 lb Heart Rate 96 /min BP Systolic Sitting 140 mmHg BP Diastolic Sitting 70 mmHg BP Systolic Recheck 108 mmHg BP Diastolic Recheck 70 mmHg Respiratory Rate 14 /min Pain Level 5 BMI (Body Mass Index) 47.3 kg/m2 05/06/2017 Weight 313.25 lb Heart Rate 96 /min BP Systolic Sitting 140 mmHg BP Diastolic Sitting 72 mmHg Body Temperature 98.2 F O2 % BldC Oximetry 94 % 01/26/2017 Height 68 inches 5'8" Weight 293.00 lb BP Systolic 122 mmHg BP Diastolic 80 mmHg Body Temperature 96.8 F Pain Level 10 BMI (Body Mass Index) 44.5 kg/m2 01/21/2017 Height 68 inches 5'8" Weight 293.00 lb with shoes Heart Rate 64 /min BP Systolic Sitting 112 mmHg Rue lrg cuff BP Diastolic Sitting 68 mmHg Rue lrg cuff Respiratory Rate 19 /min BMI (Body Mass Index) 44.5 kg/m2 Ejection Fraction 35-40% 01/08/2017-echo 01/07/2017 Height 68 inches 5'8" Weight 303.00 lb Heart Rate 92 /min BP Systolic Sitting 120 mmHg left arm, large cuff BP Diastolic Sitting 84 mmHg left arm, large cuff BP Systolic Standing 112 mmHg left arm, large cuff BP Diastolic Standing 80 mmHg left arm, large cuff O2 % BldC Oximetry 96 % Room air at rest BMI (Body Mass Index) 46.1 kg/m2 Ejection Fraction 55% 12/26/14 12/28/2015 Height 68 inches 5'8" Weight 291.00 lb weight from urologist Heart Rate 88 /min BP Systolic Sitting 126 mmHg LA lrg cuff BP Diastolic Sitting 76 mmHg LA lrg cuff BP Systolic Standing 124 mmHg LA lrg cuff BP Diastolic Standing 80 mmHg LA lrg cuff Respiratory Rate 18 /min BMI (Body Mass Index) 44.2 kg/m2 Ejection Fraction 55% 12/26/14 01/11/2015 Height 68 inches 5'8" Weight 273.00 lb with shoes Heart Rate 101 /min BP Systolic Sitting 106 mmHg Ra lg cuff BP Diastolic Sitting 68 mmHg Ra lg cuff BP Systolic Standing 100 mmHg Ra lg cuff BP Diastolic Standing 70 mmHg Ra lg cuff Respiratory Rate 17 /min BMI (Body Mass Index) 41.5 kg/m2 01/11/2015 Ejection Fraction 55% 01/03/15 12/22/2014 Height 68 inches 5'8" Weight 267.00 lb Heart Rate 92 /min BP Systolic Sitting 126 mmHg Ra, reg cuff BP Diastolic Sitting 80 mmHg Ra, reg cuff BP Systolic Standing 118 mmHg Ra BP Diastolic Standing 78 mmHg Ra Respiratory Rate 20 /min O2 % BldC Oximetry 96 % BMI (Body Mass Index) 40.6 kg/m2 01/03/2014 Height 68 inches 5'8" Weight 248.00 lb Heart Rate 76 /min BP Systolic 110 mmHg BP Diastolic 68 mmHg Body Temperature 97.2 F BMI (Body Mass Index) 37.7 kg/m2 12/22/2013 Height 68 inches 5'8" Weight 248.75 lb Heart Rate 100 /min regular BP Systolic Standing 90 mmHg right arn, reg cuff BP Diastolic Standing 62 mmHg right arn, reg cuff BP Systolic Lying Down 96 mmHg right arm, reg. cuff BP Diastolic Lying Down 62 mmHg right arm, reg. cuff Respiratory Rate 24 /min BMI (Body Mass Index) 37.8 kg/m2 12/20/2013 Height 67.5 inches 5'7.50" Weight 255.00 lb Heart Rate 88 /min BP Systolic 98 mmHg BP Diastolic 54 mmHg Body Temperature 97.9 F BMI (Body Mass Index) 39.3 kg/m2 12/06/2013 Height 67.5 inches 5'7.50" Weight 254.00 lb Heart Rate 110 /min BP Systolic Sitting 120 mmHg BP Diastolic Sitting 60 mmHg Body Temperature 98.3 F O2 % BldC Oximetry 97 % BMI (Body Mass Index) 39.2 kg/m2 11/03/2013 Height 67.5 inches 5'7.50" Weight 250.00 lb Heart Rate 76 /min BP Systolic 120 mmHg BP Diastolic 70 mmHg Body Temperature 98.3 F BMI (Body Mass Index) 38.6 kg/m2 11/02/2013 Height 67.5 inches 5'7.50" Weight 250.00 lb Heart Rate 104 /min BP Systolic Sitting 104 mmHg Ra reg cuff BP Diastolic Sitting 72 mmHg Ra reg cuff BP Systolic Standing 104 mmHg Ra BP Diastolic Standing 74 mmHg Ra Respiratory Rate 18 /min BMI (Body Mass Index) 38.6 kg/m2 12/23/2012 Height 70 inches 5'10" Weight 261.00 lb Heart Rate 72 /min BP Systolic 128 mmHg BP Diastolic 68 mmHg Body Temperature 97.1 F BMI (Body Mass Index) 37.4 kg/m2 Results Test Date Test Result H/L Range Note CBC Auto Diff 09/15/2017 White Blood Count 6.3 10^3/uL 3.5-10.8 Red Blood Count 4.00 10^6/uL 4.0-5.4 Hemoglobin 11.4 g/dL Low 14.0-18.0 Hematocrit 36 % Low 42-52 Mean Corpuscular Volume 90 fL 80-94 Mean Corpuscular Hemoglobin 29 pg 27-31 Mean Corpuscular HGB Conc 32 g/dL 31-36 Red Cell Distribution Width 20 % High 10.5-15 Platelet Count 135 10^3/uL Low 150-450 Mean Platelet Volume 9 um3 7.4-10.4 Abs Neutrophils 5.5 10^3/uL 1.5-7.7 Abs Lymphocytes 0.2 10^3/uL Low 1.0-4.8 Abs Monocytes 0.6 10^3/uL 0-0.8 Abs Eosinophils 0 10^3/uL 0-0.6 Abs Basophils 0 10^3/uL 0-0.2 Abs Nucleated RBC 0 10^3/uL Granulocyte % 86.5 % High 38-83 Lymphocyte % 3.7 % Low 25-47 Monocyte % 9.2 % High 1-9 Eosinophil % 0.5 % 0-6 Basophil % 0.1 % 0-2 Nucleated Red Blood Cells % 0 Comp Metabolic Panel 09/15/2017 Sodium 138 mmol/L 133-145 Potassium 4.0 mmol/L 3.5-5.0 Chloride 109 mmol/L 101-111 Co2 Carbon Dioxide 24 mmol/L 22-32 Anion Gap 5 mmol/L 2-11 Glucose 137 mg/dL High 70-100 Blood Urea Nitrogen 35 mg/dL High 6-24 Creatinine 1.84 mg/dL High 0.67-1.17 BUN/Creatinine Ratio 19.0 8-20 Calcium 8.7 mg/dL 8.6-10.3 Total Protein 6.0 g/dL Low 6.4-8.9 Albumin 3.4 g/dL 3.2-5.2 Globulin 2.6 g/dL 2-4 Albumin/Globulin Ratio 1.3 1-3 Total Bilirubin 0.50 mg/dL 0.2-1.0 Alkaline Phosphatase 49 U/L 34-104 Alt 11 U/L 7-52 Ast 13 U/L 13-39 Egfr Non- 36.0 >60 Egfr 46.4 >60 1 Laboratory test finding 09/15/2017 Magnesium 1.9 mg/dL 1.9-2.7 Troponin-I (TnI) 0.01 ng/mL <0.04 TSH (Thyroid Stim Horm) 4.62 mcIU/mL 0.34-5.60 Basic Metabolic Panel 08/31/2017 Sodium 141 mmol/L 133-145 2 Co2 Carbon Dioxide 21 mmol/L Low 22-32 2 Glucose 122 mg/dL High 70-100 2 Blood Urea Nitrogen 43 mg/dL High 6-24 2 Creatinine 2.10 mg/dL High 0.67-1.17 2 BUN/Creatinine Ratio 20.5 High 8-20 2 Calcium 8.8 mg/dL 8.6-10.3 2 Egfr Non- 30.9 >60 2 Egfr 39.8 >60 2, 3 Potassium 5.1 mmol/L High 3.5-5.0 2 Chloride 113 mmol/L High 101-111 2 Anion Gap 7 mmol/L 2-11 2 Laboratory test finding 08/31/2017 Uric Acid 4.9 mg/dL 4.4-7.6 2, 4 Laboratory test finding 08/08/2017 B-Type Natriuretic 115 pg/mL High 5 Peptide BNP Partial Thrombo Time PTT 26.4 seconds 26.0-36.3 CBC Auto Diff 08/08/2017 White Blood Count 6.1 10^3/uL 3.5-10.8 Red Blood Count 4.00 10^6/uL 4.0-5.4 Hemoglobin 11.4 g/dL Low 14.0-18.0 Hematocrit 36 % Low 42-52 Mean Corpuscular Volume 89 fL 80-94 Mean Corpuscular Hemoglobin 29 pg 27-31 Mean Corpuscular HGB Conc 32 g/dL 31-36 Red Cell Distribution Width 18 % High 10.5-15 Platelet Count 143 10^3/uL Low 150-450 Mean Platelet Volume 10 um3 7.4-10.4 Abs Neutrophils 4.3 10^3/uL 1.5-7.7 Abs Lymphocytes 0.7 10^3/uL Low 1.0-4.8 Abs Monocytes 0.8 10^3/uL 0-0.8 Abs Eosinophils 0.3 10^3/uL 0-0.6 Abs Basophils 0 10^3/uL 0-0.2 Abs Nucleated RBC 0 10^3/uL Granulocyte % 70.5 % 38-83 Lymphocyte % 11.0 % Low 25-47 Monocyte % 13.3 % High 1-9 Eosinophil % 4.4 % 0-6 Basophil % 0.8 % 0-2 Nucleated Red Blood Cells % 0 Comp Metabolic Panel 08/08/2017 Sodium 138 mmol/L 133-145 Potassium 4.0 mmol/L 3.5-5.0 Chloride 108 mmol/L 101-111 Co2 Carbon Dioxide 24 mmol/L 22-32 Anion Gap 6 mmol/L 2-11 Glucose 97 mg/dL 70-100 Blood Urea Nitrogen 26 mg/dL High 6-24 Creatinine 2.03 mg/dL High 0.67-1.17 BUN/Creatinine Ratio 12.8 8-20 Calcium 8.3 mg/dL Low 8.6-10.3 Total Protein 5.5 g/dL Low 6.4-8.9 Albumin 3.2 g/dL 3.2-5.2 Globulin 2.3 g/dL 2-4 Albumin/Globulin Ratio 1.4 1-3 Total Bilirubin 0.50 mg/dL 0.2-1.0 Alkaline Phosphatase 43 U/L 34-104 Alt 9 U/L 7-52 Ast 14 U/L 13-39 Egfr Non- 32.2 >60 Egfr 41.4 >60 6 Laboratory test finding 08/08/2017 Magnesium 2.0 mg/dL 1.9-2.7 Creatine Kinase(CK) 32 U/L 10-223 Troponin-I (TnI) 0.02 ng/mL <0.04 CKMB 08/08/2017 CKMB ng/mL 2.3 ng/mL 0.6-6.3 Laboratory test finding 08/08/2017 TSH (Thyroid Stim Horm) 3.94 mcIU/mL 0.34-5.60 Laboratory test finding 07/31/2017 Uric Acid 5.0 mg/dL 4.4-7.6 Basic Metabolic Panel 07/31/2017 Sodium 141 mmol/L 133-145 Potassium 4.2 mmol/L 3.5-5.0 Chloride 109 mmol/L 101-111 Co2 Carbon Dioxide 25 mmol/L 22-32 Anion Gap 7 mmol/L 2-11 Glucose 163 mg/dL High 70-100 Blood Urea Nitrogen 32 mg/dL High 6-24 Creatinine 1.96 mg/dL High 0.67-1.17 BUN/Creatinine Ratio 16.3 8-20 Calcium 8.3 mg/dL Low 8.6-10.3 Egfr Non- 33.5 >60 Egfr 43.1 >60 7 Basic Metabolic Panel 07/17/2017 Sodium 138 mmol/L 133-145 Potassium 4.2 mmol/L 3.5-5.0 Chloride 105 mmol/L 101-111 Co2 Carbon Dioxide 27 mmol/L 22-32 Anion Gap 6 mmol/L 2-11 Glucose 129 mg/dL High 70-100 Blood Urea Nitrogen 27 mg/dL High 6-24 Creatinine 1.75 mg/dL High 0.67-1.17 BUN/Creatinine Ratio 15.4 8-20 Calcium 8.6 mg/dL 8.6-10.3 Egfr Non- 38.2 >60 Egfr 49.1 >60 8 Lipid Profile (Trig/Chol/HDL) 06/19/2017 Triglycerides 80 mg/dL 9 Cholesterol 133 mg/dL 10 HDL Cholesterol 62.4 mg/dL 11 LDL Cholesterol 55 mg/dL 12 Laboratory test finding 06/19/2017 B-Type Natriuretic 133 pg/mL High 13 Peptide BNP Basic Metabolic Panel 06/19/2017 Sodium 140 mmol/L 133-145 Potassium 3.6 mmol/L 3.5-5.0 Chloride 106 mmol/L 101-111 Co2 Carbon Dioxide 23 mmol/L 22-32 Anion Gap 11 mmol/L 2-11 Glucose 96 mg/dL 70-100 Blood Urea Nitrogen 20 mg/dL 6-24 Creatinine 1.71 mg/dL High 0.67-1.17 BUN/Creatinine Ratio 11.7 8-20 Calcium 8.6 mg/dL 8.6-10.3 Egfr Non- 39.2 >60 Egfr 50.4 >60 14 Comp Metabolic Panel 05/06/2017 Sodium 142 mmol/L 133-145 Potassium 3.8 mmol/L 3.5-5.0 Chloride 107 mmol/L 101-111 Co2 Carbon Dioxide 27 mmol/L 22-32 Anion Gap 8 mmol/L 2-11 Glucose 100 mg/dL 70-100 Blood Urea Nitrogen 22 mg/dL 6-24 Creatinine 1.81 mg/dL High 0.67-1.17 BUN/Creatinine Ratio 12.2 8-20 Calcium 8.7 mg/dL 8.6-10.3 Total Protein 6.1 g/dL Low 6.4-8.9 Albumin 3.6 g/dL 3.2-5.2 Globulin 2.5 g/dL 2-4 Albumin/Globulin Ratio 1.4 1-3 Total Bilirubin 0.70 mg/dL 0.2-1.0 Alkaline Phosphatase 47 U/L 34-104 Alt 11 U/L 7-52 Ast 17 U/L 13-39 Egfr Non- 36.7 >60 Egfr 47.2 >60 15 Laboratory test finding 05/06/2017 TSH (Thyroid Stim Horm) 3.91 mcIU/mL 0.34-5.60 CBC Auto Diff 05/06/2017 White Blood Count 5.8 10^3/uL 3.5-10.8 Red Blood Count 4.45 10^6/uL 4.0-5.4 Hemoglobin 12.9 g/dL Low 14.0-18.0 Hematocrit 40 % Low 42-52 Mean Corpuscular Volume 91 fL 80-94 Mean Corpuscular Hemoglobin 29 pg 27-31 Mean Corpuscular HGB Conc 32 g/dL 31-36 Red Cell Distribution Width 18 % High 10.5-15 Platelet Count 131 10^3/uL Low 150-450 Mean Platelet Volume 10 um3 7.4-10.4 Abs Neutrophils 4.1 10^3/uL 1.5-7.7 Abs Lymphocytes 0.6 10^3/uL Low 1.0-4.8 Abs Monocytes 0.8 10^3/uL 0-0.8 Abs Eosinophils 0.3 10^3/uL 0-0.6 Abs Basophils 0 10^3/uL 0-0.2 Abs Nucleated RBC 0 10^3/uL Granulocyte % 69.5 % 38-83 Lymphocyte % 10.9 % Low 25-47 Monocyte % 14.3 % High 1-9 Eosinophil % 4.6 % 0-6 Basophil % 0.7 % 0-2 Nucleated Red Blood Cells % 0 Laboratory test finding 05/06/2017 B-Type Natriuretic Peptide BNP 81 pg/mL 16 Laboratory test finding 05/06/2017 Cyclic Citrullinated Pep Igg 62.3 U 17 Rheumatoid Factor 398 IU/mL <15 18 Erythrocyte Sed Rate 32 mm/Hr 0-40 C Reactive Protein 13.42 mg/L High < 5.00 19 Urine Microalbumin Random 05/06/2017 Urine Creatinine 162.80 mg/dL Ur Microalbumin (mg/L) 646.0 mg/L Urine Microalbumin/Creatinine 396.8 ug/mg High <31 Basic Metabolic Panel 01/12/2017 Sodium 141 mmol/L 133-145 Potassium 3.3 mmol/L Low 3.5-5.0 Chloride 106 mmol/L 101-111 Co2 Carbon Dioxide 27 mmol/L 22-32 Anion Gap 8 mmol/L 2-11 Glucose 112 mg/dL High 70-100 Blood Urea Nitrogen 18 mg/dL 6-24 Creatinine 1.55 mg/dL High 0.67-1.17 BUN/Creatinine Ratio 11.6 8-20 Calcium 8.5 mg/dL Low 8.6-10.3 Egfr Non- 44.0 >60 Egfr 56.7 >60 20 CBC Auto Diff 12/22/2014 White Blood Count 6.0 10^3/uL 4.8-10.8 Red Blood Count 4.27 10^6/uL 4.0-5.4 Hemoglobin 11.2 g/dL Low 14.0-18.0 Hematocrit 36 % Low 42-52 Mean Corpuscular Volume 83 fL 80-94 Mean Corpuscular Hemoglobin 26 pg Low 27-31 Mean Corpuscular HGB Conc 32 g/dL 31-36 Red Cell Distribution Width 21 % High 10.5-15 Platelet Count 165 10^3/uL 150-450 Mean Platelet Volume 10 um3 7.4-10.4 Abs Neutrophils 5.0 10^3/uL 1.5-7.7 Abs Lymphocytes 0.4 10^3/uL Low 1.0-4.8 Abs Monocytes 0.4 10^3/uL 0-0.8 Abs Eosinophils 0.2 10^3/uL 0-0.6 Abs Basophils 0 10^3/uL 0-0.2 Abs Nucleated RBC 0 10^3/uL Granulocyte % 83.1 % High 38-83 Lymphocyte % 7.2 % Low 25-47 Monocyte % 6.1 % 1-9 Eosinophil % 3.1 % 0-6 Basophil % 0.5 % 0-2 Nucleated Red Blood Cells % 0 Urinalysis 12/15/2013 Urine Color Yellow Urine Appearance Turbid Urine Specific [place] 1.020 1.010-1.030 Urine Esterase Negative Negative Urine Nitrate Negative Negative Urine Urobilinogen Negative E.U./dL Negative Urine Protein 1+ mg/dL Negative Urine pH 5.5 5-9 Urine Blood Negative Negative Urine Ketones Negative mg/dL Negative Urine Bilirubin Negative Negative Urine Glucose Negative mg/dL Negative Urine Microscopic 12/15/2013 Urine WBC 1+ (<3 /hpf) None Seen Urine RBC None Seen None Seen Urine Mucus Present /lpf Absent Urine Epithelial Cells 1+ Squamous /hpf None Seen Bacteria Urine 1+ None Seen Crystals Urine Amorphous /lpf None Seen CBC Auto Diff 12/15/2013 White Blood Count 6.0 10^3/uL 4.8-10.8 Red Blood Count 4.18 10^6/uL 4.0-5.4 Hemoglobin 10.2 g/dL Low 14.0-18.0 Hematocrit 32 % Low 42-52 Mean Corpuscular Volume 77 fL Low 80-94 Mean Corpuscular Hemoglobin 24 pg Low 27-31 Mean Corpuscular HGB Conc 32 g/dL 31-36 Red Cell Distribution Width 19 % High 10.5-15 Platelet Count 266 10^3/uL 150-450 Mean Platelet Volume 10 um3 7.4-10.4 Abs Neutrophils 4.2 10^3/uL 1.5-7.7 Abs Lymphocytes 0.6 10^3/uL Low 1.0-4.8 Abs Monocytes 0.7 10^3/uL 0-0.8 Abs Eosinophils 0.4 10^3/uL 0-0.6 Abs Basophils 0 10^3/uL 0-0.2 Abs Nucleated RBC 0 10^3/uL Granulocyte % 70.7 % 38-83 Lymphocyte % 10.5 % Low 25-47 Monocyte % 11.3 % High 1-9 Eosinophil % 7.0 % High 0-6 Basophil % 0.5 % 0-2 Nucleated Red Blood Cells % 0.1 Comp Metabolic Panel 12/15/2013 Sodium 133 mmol/L 133-145 Potassium 3.5 mmol/L Low 3.7-5.6 Chloride 101 mmol/L 101-111 Co2 Carbon Dioxide 25 mmol/L 22-32 Anion Gap 7 mmol/L 2-11 Glucose 149 mg/dL High 70-100 Blood Urea Nitrogen 16 mg/dL 6-24 Creatinine 1.25 mg/dL High 0.67-1.17 BUN/Creatinine Ratio 12.8 8-20 Calcium 8.5 mg/dL Low 8.6-10.3 Total Protein 6.5 g/dL 6.4-8.9 Albumin 3.2 g/dL 3.2-5.2 Globulin 3.3 g/dL 2-4 Albumin/Globulin Ratio 1.0 1-3 Total Bilirubin 0.30 mg/dL 0.2-1.0 Alkaline Phosphatase 51 U/L 34-104 Alt 20 U/L 7-52 Ast 24 U/L 13-39 Egfr Non- 56.9 >60 Egfr 73.2 >60 21 Cell Morphology 12/15/2013 Microcytosis 1+ Elliptocyte 3+ CBC Auto Diff 12/01/2013 White Blood Count 4.2 10^3/uL Low 4.8-10.8 Red Blood Count 4.07 10^6/uL 4.0-5.4 Hemoglobin 10.3 g/dL Low 14.0-18.0 Hematocrit 32 % Low 42-52 Mean Corpuscular Volume 78 fL Low 80-94 Mean Corpuscular Hemoglobin 25 pg Low 27-31 Mean Corpuscular HGB Conc 32 g/dL 31-36 Red Cell Distribution Width 18 % High 10.5-15 Platelet Count 208 10^3/uL 150-450 Mean Platelet Volume 9 um3 7.4-10.4 Abs Neutrophils 3.2 10^3/uL 1.5-7.7 Abs Lymphocytes 0.4 10^3/uL Low 1.0-4.8 Abs Monocytes 0.4 10^3/uL 0-0.8 Abs Eosinophils 0.3 10^3/uL 0-0.6 Abs Basophils 0 10^3/uL 0-0.2 Abs Nucleated RBC 0 10^3/uL Granulocyte % 75.8 % 38-83 Lymphocyte % 8.9 % Low 25-47 Monocyte % 8.8 % 1-9 Eosinophil % 6.1 % High 0-6 Basophil % 0.4 % 0-2 Nucleated Red Blood Cells % 0.1 Cell Morphology 12/01/2013 Microcytosis 1+ Elliptocyte 2+ Inr/Protime 11/08/2013 Inr 0.96 0.85-1.06 Basic Metabolic Panel 11/08/2013 Sodium 138 mmol/L 133-145 Potassium 4.0 mmol/L 3.7-5.6 Chloride 108 mmol/L 101-111 Co2 Carbon Dioxide 22 mmol/L 22-32 Anion Gap 8 mmol/L 2-11 Glucose 97 mg/dL 70-100 Blood Urea Nitrogen 19 mg/dL 6-24 Creatinine 1.33 mg/dL High 0.67-1.17 BUN/Creatinine Ratio 14.3 8-20 Calcium 8.1 mg/dL Low 8.6-10.3 Egfr Non- 53.0 >60 Egfr 68.2 >60 22 CBC No Diff 11/08/2013 White Blood Count 5.5 10^3/uL 4.8-10.8 Red Blood Count 4.15 10^6/uL 4.0-5.4 Hemoglobin 10.9 g/dL Low 14.0-18.0 Hematocrit 33 % Low 42-52 Mean Corpuscular Volume 80 fL 80-94 Mean Corpuscular Hemoglobin 26 pg Low 27-31 Mean Corpuscular HGB Conc 33 g/dL 31-36 Red Cell Distribution Width 17 % High 10.5-15 Platelet Count 249 10^3/uL 150-450 Mean Platelet Volume 9 um3 7.4-10.4 Urinalysis 10/23/2013 Urine Color Yellow Urine Appearance Clear Urine Specific [place] 1.017 1.010-1.030 Urine Esterase Negative Negative Urine Nitrate Negative Negative Urine Urobilinogen Negative E.U./dL Negative Urine Protein 1+ mg/dL Negative Urine pH 5.0 5-9 Urine Blood Negative Negative Urine Ketones Negative mg/dL Negative Urine Bilirubin Negative Negative Urine Glucose Negative mg/dL Negative Urine Microscopic 10/23/2013 Urine WBC 1+ (<3 /hpf) None Seen Urine RBC None Seen None Seen Urine Mucus Present /lpf Absent Urine Epithelial Cells 1+ Squamous /hpf None Seen Bacteria Urine 1+ None Seen Crystals Urine Amorphous /lpf None Seen CBC Auto Diff 10/23/2013 White Blood Count 9.3 10^3/uL 4.8-10.8 Red Blood Count 4.42 10^6/uL 4.0-5.4 Hemoglobin 10.6 g/dL Low 14.0-18.0 Hematocrit 36 % Low 42-52 Mean Corpuscular Volume 80 fL 80-94 Mean Corpuscular Hemoglobin 24 pg Low 27-31 Mean Corpuscular HGB Conc 30 g/dL Low 31-36 Red Cell Distribution Width 17 % High 10.5-15 Platelet Count 217 10^3/uL 150-450 Mean Platelet Volume 9 um3 7.4-10.4 Abs Neutrophils 7.1 10^3/uL 1.5-7.7 Abs Lymphocytes 0.7 10^3/uL Low 1.0-4.8 Abs Monocytes 1.2 10^3/uL High 0-0.8 Abs Eosinophils 0.3 10^3/uL 0-0.6 Abs Basophils 0.1 10^3/uL 0-0.2 Abs Nucleated RBC 0 10^3/uL Granulocyte % 76.2 % 38-83 Lymphocyte % 7.1 % Low 25-47 Monocyte % 13.1 % High 1-9 Eosinophil % 3.1 % 0-6 Basophil % 0.5 % 0-2 Nucleated Red Blood Cells % 0 Inr/Protime 10/23/2013 Inr 1.07 High 0.85-1.06 Laboratory test finding 10/23/2013 Activated Partial 25.3 seconds 24.0- 36.1 Thrombo Time B Type Natriuretic Peptide 54.0 pg/mL 0-100 Comp Metabolic Panel 10/23/2013 Sodium 131 mmol/L Low 133-145 Potassium 3.6 mmol/L 3.5-5.0 Chloride 104 mmol/L 101-111 Co2 Carbon Dioxide 20.0 mmol/L Low 22-32 Anion Gap 7.0 mmol/L 2-11 Glucose 79 mg/dL 70-100 Blood Urea Nitrogen 24 mg/dL 6-24 Creatinine 1.60 mg/dL High 0.50-1.40 BUN/Creatinine Ratio 15.0 8-20 Calcium 8.0 mg/dL Low 8.1-9.9 Total Protein 6.2 g/dL 6.2-8.1 Albumin 2.9 g/dL Low 3.2-5.2 Globulin 3.3 g/dL 2-4 Albumin/Globulin Ratio 0.9 Low 1-3 Total Bilirubin 0.7 mg/dL 0.4-1.5 Alkaline Phosphatase 44 U/L 30-110 Alt 13 U/L Low 14-54 Ast 15 U/L 12-42 Egfr Non- 42.8 >60 Egfr 55.1 >60 23 Laboratory test finding 10/23/2013 Lactic Acid 0.8 mmol/L 0.5-1.6 Troponin I 0.01 ng/mL 0-0.06 24 Laboratory test finding 10/15/2013 Activated Partial 26.0 seconds 24.0- 36.1 Thrombo Time Comp Metabolic Panel 10/15/2013 Sodium 136 mmol/L 133-145 Potassium 3.8 mmol/L 3.5-5.0 Chloride 105 mmol/L 101-111 Co2 Carbon Dioxide 23.0 mmol/L 22-32 Anion Gap 8.0 mmol/L 2-11 Glucose 173 mg/dL High 70-100 Blood Urea Nitrogen 26 mg/dL High 6-24 Creatinine 1.60 mg/dL High 0.50-1.40 BUN/Creatinine Ratio 16.3 8-20 Calcium 8.4 mg/dL 8.1-9.9 Total Protein 6.6 g/dL 6.2-8.1 Albumin 2.9 g/dL Low 3.2-5.2 Globulin 3.7 g/dL 2-4 Albumin/Globulin Ratio 0.8 Low 1-3 Total Bilirubin 0.5 mg/dL 0.4-1.5 Alkaline Phosphatase 49 U/L 30-110 Alt 17 U/L 14-54 Ast 24 U/L 12-42 Egfr Non- 42.8 >60 Egfr 55.1 >60 25 Laboratory test finding 10/15/2013 Lactic Acid 1.6 mmol/L 0.5-1.6 Blood Culture (SEE NOTE) 26 Inr/Protime 10/15/2013 Inr 0.94 0.85-1.06 CBC Auto Diff 10/15/2013 White Blood Count 4.9 10^3/uL 4.8-10.8 Red Blood Count 4.27 10^6/uL 4.0-5.4 Hemoglobin 10.9 g/dL Low 14.0-18.0 Hematocrit 35 % Low 42-52 Mean Corpuscular Volume 81 fL 80-94 Mean Corpuscular Hemoglobin 26 pg Low 27-31 Mean Corpuscular HGB Conc 32 g/dL 31-36 Red Cell Distribution Width 17 % High 10.5-15 Platelet Count 252 10^3/uL 150-450 Mean Platelet Volume 10 um3 7.4-10.4 Abs Neutrophils 4.3 10^3/uL 1.5-7.7 Abs Lymphocytes 0.3 10^3/uL Low 1.0-4.8 Abs Monocytes 0.2 10^3/uL 0-0.8 Abs Eosinophils 0 10^3/uL 0-0.6 Abs Basophils 0 10^3/uL 0-0.2 Abs Nucleated RBC 0 10^3/uL Granulocyte % 87.7 % High 38-83 Lymphocyte % 7.0 % Low 25-47 Monocyte % 4.6 % 1-9 Eosinophil % 0.3 % 0-6 Basophil % 0.4 % 0-2 Nucleated Red Blood Cells % 0 Blood Culture 10/15/2013 Blood Culture (SEE NOTE) 27 Urine Culture And 10/15/2013 Urine Culture (SEE NOTE) 28 Sensitivities Urine Microscopic 10/15/2013 Urine Casts 1+ Hyaline /lpf None Seen Urine WBC 2+ (>3-10 /hpf) None Seen Urine RBC 1+ (<3 /hpf) None Seen Urine Mucus Present /lpf Absent Bacteria Urine 1+ None Seen Urinalysis 10/15/2013 Urine Color Yellow Urine Appearance Clear Urine Specific [place] 1.019 1.010-1.030 Urine Esterase 1+ Negative Urine Nitrate Negative Negative Urine Urobilinogen Negative E.U./dL Negative Urine Protein 1+ mg/dL Negative Urine pH 5.0 5-9 Urine Blood Negative Negative Urine Ketones Negative mg/dL Negative Urine Bilirubin Negative Negative Urine Glucose Negative mg/dL Negative Laboratory test 01/03/2013 Erythrocyte Sed Rate 46 mm/Hr High 0-40 finding Laboratory test 01/03/2013 C Reactive Protein 0.7 mg/dL High Less than 0.5 finding Laboratory test 12/29/2012 Erythrocyte Sed Rate 61 mm/Hr High 0-40 finding Laboratory test 12/29/2012 C Reactive Protein 2.1 mg/dL High Less than 0.5 finding Laboratory test 12/22/2012 C Reactive Protein 0.9 mg/dL High Less than 0.5 finding Comp Metabolic Panel 12/22/2012 Sodium 140 mmol/L 133-145 Potassium 4.2 mmol/L 3.5-5.0 Chloride 108 mmol/L 101-111 Co2 Carbon Dioxide 26.0 mmol/L 22-32 Anion Gap 6.0 mmol/L 2-11 Glucose 63 mg/dL Low 70-100 Blood Urea Nitrogen 21 mg/dL 6-24 Creatinine 1.40 mg/dL 0.50-1.40 BUN/Creatinine Ratio 15.0 8-20 Calcium 8.6 mg/dL 8.1-9.9 Total Protein 6.2 g/dL 6.2-8.1 Albumin 3.1 g/dL Low 3.2-5.2 Globulin 3.1 g/dL 2-4 Albumin/Globulin Ratio 1.0 1-3 Total Bilirubin 0.4 mg/dL 0.4-1.5 Alkaline Phosphatase 53 U/L 30-110 Alt 19 U/L 14-54 Ast 27 U/L 12-42 Egfr Non- 50.1 >60 Egfr 64.4 >60 29 CBC No Diff 12/22/2012 White Blood Count 5.4 10^3/uL 4.8-10.8 Red Blood Count 3.92 10^6/uL Low 4.0-5.4 Hemoglobin 10.9 g/dL Low 14.0-18.0 Hematocrit 34 % Low 42-52 Mean Corpuscular Volume 86 fL 80-94 Mean Corpuscular Hemoglobin 28 pg 27-31 Mean Corpuscular HGB Conc 32 g/dL 31-36 Red Cell Distribution Width 16 % High 10.5-15 Platelet Count 203 10^3/uL 150-450 Mean Platelet Volume 10 um3 7.4-10.4 1 Because ethnic data is not always readily available, this report includes an eGFR for both -Americans and non- Americans. The National Kidney Disease Education Program (NKDEP) does not endorse the use of the MDRD equation for patients that are not between the ages of 18 and 70, are , have extremes of body size, muscle mass, or nutritional status, or are non- or non-. According to the National Kidney Foundation, irrespective of diagnosis, the stage of the disease is based on the level of kidney function: Stage Description GFR(mL/min/1.73 m(2)) 1 Kidney damage with normal or decreased GFR 90 2 Kidney damage with mild decrease in GFR 60-89 3 Moderate decrease in GFR 30-59 4 Severe decrease in GFR 15-29 5 Kidney failure <15 (or dialysis) 2 FASTING 3 Because ethnic data is not always readily available, this report includes an eGFR for both -Americans and non- Americans. The National Kidney Disease Education Program (NKDEP) does not endorse the use of the MDRD equation for patients that are not between the ages of 18 and 70, are , have extremes of body size, muscle mass, or nutritional status, or are non- or non-. According to the National Kidney Foundation, irrespective of diagnosis, the stage of the disease is based on the level of kidney function: Stage Description GFR(mL/min/1.73 m(2)) 1 Kidney damage with normal or decreased GFR 90 2 Kidney damage with mild decrease in GFR 60-89 3 Moderate decrease in GFR 30-59 4 Severe decrease in GFR 15-29 5 Kidney failure <15 (or dialysis) 4 FASTING 5 >100 to <200 pg/mL: likely compensated congestive heart failure (CHF) 200 to 400 pg/mL: likely moderate CHF >400 pg/mL: likely moderate to severe CHF 6 Because ethnic data is not always readily available, this report includes an eGFR for both -Americans and non- Americans. The National Kidney Disease Education Program (NKDEP) does not endorse the use of the MDRD equation for patients that are not between the ages of 18 and 70, are , have extremes of body size, muscle mass, or nutritional status, or are non- or non-. According to the National Kidney Foundation, irrespective of diagnosis, the stage of the disease is based on the level of kidney function: Stage Description GFR(mL/min/1.73 m(2)) 1 Kidney damage with normal or decreased GFR 90 2 Kidney damage with mild decrease in GFR 60-89 3 Moderate decrease in GFR 30-59 4 Severe decrease in GFR 15-29 5 Kidney failure <15 (or dialysis) 7 Because ethnic data is not always readily available, this report includes an eGFR for both -Americans and non- Americans. The National Kidney Disease Education Program (NKDEP) does not endorse the use of the MDRD equation for patients that are not between the ages of 18 and 70, are , have extremes of body size, muscle mass, or nutritional status, or are non- or non-. According to the National Kidney Foundation, irrespective of diagnosis, the stage of the disease is based on the level of kidney function: Stage Description GFR(mL/min/1.73 m(2)) 1 Kidney damage with normal or decreased GFR 90 2 Kidney damage with mild decrease in GFR 60-89 3 Moderate decrease in GFR 30-59 4 Severe decrease in GFR 15-29 5 Kidney failure <15 (or dialysis) 8 Because ethnic data is not always readily available, this report includes an eGFR for both -Americans and non- Americans. The National Kidney Disease Education Program (NKDEP) does not endorse the use of the MDRD equation for patients that are not between the ages of 18 and 70, are , have extremes of body size, muscle mass, or nutritional status, or are non- or non-. According to the National Kidney Foundation, irrespective of diagnosis, the stage of the disease is based on the level of kidney function: Stage Description GFR(mL/min/1.73 m(2)) 1 Kidney damage with normal or decreased GFR 90 2 Kidney damage with mild decrease in GFR 60-89 3 Moderate decrease in GFR 30-59 4 Severe decrease in GFR 15-29 5 Kidney failure <15 (or dialysis) 9 Desirable <150 Borderline high 150-199 High 200-499 Very High >500 10 Desirable <200 Borderline high 200-239 High >239 11 Low <40 Desirable: 40-60 High: >60 12 Desirable: <100 mg/dL Near Optimal: 100-129 mg/dL Borderline High: 130-159 mg/dL High: 160-189 mg/dL Very High: >189 mg/dL 13 >100 to <200 pg/mL: likely compensated congestive heart failure (CHF) 200 to 400 pg/mL: likely moderate CHF >400 pg/mL: likely moderate to severe CHF 14 Because ethnic data is not always readily available, this report includes an eGFR for both -Americans and non- Americans. The National Kidney Disease Education Program (NKDEP) does not endorse the use of the MDRD equation for patients that are not between the ages of 18 and 70, are , have extremes of body size, muscle mass, or nutritional status, or are non- or non-. According to the National Kidney Foundation, irrespective of diagnosis, the stage of the disease is based on the level of kidney function: Stage Description GFR(mL/min/1.73 m(2)) 1 Kidney damage with normal or decreased GFR 90 2 Kidney damage with mild decrease in GFR 60-89 3 Moderate decrease in GFR 30-59 4 Severe decrease in GFR 15-29 5 Kidney failure <15 (or dialysis) 15 Because ethnic data is not always readily available, this report includes an eGFR for both -Americans and non- Americans. The National Kidney Disease Education Program (NKDEP) does not endorse the use of the MDRD equation for patients that are not between the ages of 18 and 70, are , have extremes of body size, muscle mass, or nutritional status, or are non- or non-. According to the National Kidney Foundation, irrespective of diagnosis, the stage of the disease is based on the level of kidney function: Stage Description GFR(mL/min/1.73 m(2)) 1 Kidney damage with normal or decreased GFR 90 2 Kidney damage with mild decrease in GFR 60-89 3 Moderate decrease in GFR 30-59 4 Severe decrease in GFR 15-29 5 Kidney failure <15 (or dialysis) 16 >100 to <200 pg/mL: likely compensated congestive heart failure (CHF) 200 to 400 pg/mL: likely moderate CHF >400 pg/mL: likely moderate to severe CHF 17 Interpretation: Strong Positive (>=60.0) REFERENCE VALUE <20.0 (Negative) Test Performed by: [facility] [address] [place] [address] 18 Test Performed by: [facility] [address] [address] 19 Acute inflammation: >10.00 20 Because ethnic data is not always readily available, this report includes an eGFR for both -Americans and non- Americans. The National Kidney Disease Education Program (NKDEP) does not endorse the use of the MDRD equation for patients that are not between the ages of 18 and 70, are , have extremes of body size, muscle mass, or nutritional status, or are non- or non-. According to the National Kidney Foundation, irrespective of diagnosis, the stage of the disease is based on the level of kidney function: Stage Description GFR(mL/min/1.73 m(2)) 1 Kidney damage with normal or decreased GFR 90 2 Kidney damage with mild decrease in GFR 60-89 3 Moderate decrease in GFR 30-59 4 Severe decrease in GFR 15-29 5 Kidney failure <15 (or dialysis) 21 Because ethnic data is not always readily available, this report includes an eGFR for both -Americans and non- Americans. The National Kidney Disease Education Program (NKDEP) does not endorse the use of the MDRD equation for patients that are not between the ages of 18 and 70, are , have extremes of body size, muscle mass, or nutritional status, or are non- or non-. According to the National Kidney Foundation, irrespective of diagnosis, the stage of the disease is based on the level of kidney function: Stage Description GFR(mL/min/1.73 m(2)) 1 Kidney damage with normal or decreased GFR 90 2 Kidney damage with mild decrease in GFR 60-89 3 Moderate decrease in GFR 30-59 4 Severe decrease in GFR 15-29 5 Kidney failure <15 (or dialysis) 22 Because ethnic data is not always readily available, this report includes an eGFR for both -Americans and non- Americans. The National Kidney Disease Education Program (NKDEP) does not endorse the use of the MDRD equation for patients that are not between the ages of 18 and 70, are , have extremes of body size, muscle mass, or nutritional status, or are non- or non-. According to the National Kidney Foundation, irrespective of diagnosis, the stage of the disease is based on the level of kidney function: Stage Description GFR(mL/min/1.73 m(2)) 1 Kidney damage with normal or decreased GFR 90 2 Kidney damage with mild decrease in GFR 60-89 3 Moderate decrease in GFR 30-59 4 Severe decrease in GFR 15-29 5 Kidney failure <15 (or dialysis) 23 Because ethnic data is not always readily available, this report includes an eGFR for both -Americans and non- Americans. The National Kidney Disease Education Program (NKDEP) does not endorse the use of the MDRD equation for patients that are not between the ages of 18 and 70, are , have extremes of body size, muscle mass, or nutritional status, or are non- or non-. According to the National Kidney Foundation, irrespective of diagnosis, the stage of the disease is based on the level of kidney function: Stage Description GFR(mL/min/1.73 m(2)) 1 Kidney damage with normal or decreased GFR 90 2 Kidney damage with mild decrease in GFR 60-89 3 Moderate decrease in GFR 30-59 4 Severe decrease in GFR 15-29 5 Kidney failure <15 (or dialysis) 24 Reference Range and Interpretation: TnI (ng/mL) Interpretation Less Than 0.06 ng/mL Not supportive of diagnosis of [place] 0.06 - 0.50 ng/mL Indeterminate: suggest serial studies if clinically indicated. Greater than 0.5 ng/mL Consistent with diagnosis of [place] 25 Because ethnic data is not always readily available, this report includes an eGFR for both -Americans and non- Americans. The National Kidney Disease Education Program (NKDEP) does not endorse the use of the MDRD equation for patients that are not between the ages of 18 and 70, are , have extremes of body size, muscle mass, or nutritional status, or are non- or non-. According to the National Kidney Foundation, irrespective of diagnosis, the stage of the disease is based on the level of kidney function: Stage Description GFR(mL/min/1.73 m(2)) 1 Kidney damage with normal or decreased GFR 90 2 Kidney damage with mild decrease in GFR 60-89 3 Moderate decrease in GFR 30-59 4 Severe decrease in GFR 15-29 5 Kidney failure <15 (or dialysis) 26 RUN DATE: 10/20/13 [facility] LAB LIVE PAGE 1 RUN TIME: [address] [place] [id number] Specimen Inquiry Name: LANI BEASLEY JR : [address]: Anton Jasmine DO Acct: [id number] Unit: [id number] AGE: 73 Location: ED Re10/15/13 SEX: M Status: DEP ER SPEC: [id number] JARRETT: 10/15/13-1605 [facility] DR: Anton Jasmine DO REQ: [id number] RECD: 10/15/13 STATUS: JAY ROBBINS DR: Herbert Damon MD _ SOURCE: BLOOD,VENO SPDESC: ORDERED: Blood Cult Procedure Result Verified Site Aerobic Culture Bottle Final 10/20/13- 1632 ML No Growth Day 5 Anaerobic Culture Bottle Final 10/20/13- 1632 ML No Growth Day 5 END OF REPORT * ML=Testing performed at Main Lab DEPARTMENT OF PATHOLOGY, [facility] [employer] [place], [place] [address] Joselito Escalona M.D. Director [facility] Permit #[id number] 27 RUN DATE: 10/20/13 [facility] LAB LIVE PAGE 1 RUN TIME: 1632 [facility] [employer] [place], [place] [address] Specimen Inquiry Name: LANI BEASLEY JR : [address]: Anton Jasmine DO Acct: [id number] Unit: [id number] AGE: 73 Location: ED Re10/15/13 SEX: M Status: DEP ER SPEC: [id number] JARRETT: 10/15/13 [facility] DR: Anton Jasmine DO REQ: [id number] RECD: 10/15/13 STATUS: JAY ROBBINS DR: Herbert Damon MD _ SOURCE: BLOOD,VENO [facility]: ORDERED: Blood Cult Procedure Result Verified Site Aerobic Culture Bottle Final 10/20/13- 1631 ML No Growth Day 5 Anaerobic Culture Bottle Final 10/20/13- 163 ML No Growth Day 5 END OF REPORT * ML=Testing performed at Main Lab DEPARTMENT OF PATHOLOGY, [address] [place] [address] Joselito Escalona M.D. Director [facility] Permit #[id number] RUN DATE: 10/17/13 [facility] LAB LIVE PAGE 1 RUN TIME: 1036 [address] [place], [place] [address] Specimen Inquiry Name: LANI BEASLEY JR : [address]: Anton Jasmine DO Acct: [id number] Unit: [id number] AGE: 73 Location: ED Re10/15/13 SEX: M Status: DEP ER SPEC: [id number] JARRETT: 10/15/13 [facility] DR: Anton Jasmine DO REQ: [id number] RECD: 10/15/13 STATUS: JAY ROBBINS DR: Herbert Damon MD _ SOURCE: URINE SPDESC: ORDERED: Urine Culture Procedure Result Verified Site Urine Culture Final 10/17/13- 1036 ML Organism 1 NORMAL LIBBY [place] Count 75-100,000 (Many) CFU/ML END OF REPORT * ML=Testing performed at Main Lab DEPARTMENT OF PATHOLOGY, [address] [place] [address] Joselito Escalona M.D. Director [facility] Permit #[id number] 29 Because ethnic data is not always readily available, this report includes an eGFR for both -Americans and non- Americans. The National Kidney Disease Education Program (NKDEP) does not endorse the use of the MDRD equation for patients that are not between the ages of 18 and 70, are , have extremes of body size, muscle mass, or nutritional status, or are non- or non-. According to the National Kidney Foundation, irrespective of diagnosis, the stage of the disease is based on the level of kidney function: Stage Description GFR(mL/min/1.73 m(2)) 1 Kidney damage with normal or decreased GFR 90 2 Kidney damage with mild decrease in GFR 60-89 3 Moderate decrease in GFR 30-59 4 Severe decrease in GFR 15-29 5 Kidney failure <15 (or dialysis) Procedures Date CPT Code Description Status Comment 07/20/2017 79555 EKG Tracing & Completed Interpretation 05/26/2017 93074 Diffusing Capacity Completed 05/26/2017 65662 Plethysmography Determination Completed Lung Volumes & Per Airway Resist 05/26/2017 57736 Pulmonary Completed Function><Bronchodil 05/15/2017 35726 Pace Maker Eval W/Iterative Completed Adjment Dual Lead 05/06/2017 98229 EKG Tracing & Completed Interpretation 01/12/2017 99946 Treadmill Interp/Report Only Completed 01/12/2017 57823 Stress Test Supervsn W/Out I/R Completed 01/12/2017 89038 Myocardial Perfusion Imaging Completed Tomographic (Spect) Multiple Studies 01/08/2017 16480 ECHO Transthoracic, Real-Time Completed 2D With Doppler And Color Flow 01/07/2017 22976 Pace Maker Eval W/Iterative Completed Adjment Dual Lead 07/11/2016 24610 Pace Maker Eval W/Iterative Completed Adjment Dual Lead 12/28/2015 04901 EKG Tracing & Completed Interpretation 12/13/2015 36402 Pace Maker Eval W/Iterative Completed Adjment Dual Lead 06/07/2015 91932 Interrogation Device Eval In Completed Person W/DR Analysis,Single,Dual,Mul 01/04/2015 37532 Stress Test Completed 01/04/2015 88681 Myocardial Perfusion Imaging Completed Tomographic (Spect) Multiple Studies 12/26/2014 87322 ECHO Transthoracic, Real-Time Completed 2D With Doppler And Color Flow 12/22/2014 10721 EKG Tracing & Completed Interpretation 12/05/2014 46907 Interrogation Device Eval In Completed Person W/DR Analysis,Single,Dual,Mul 06/26/2014 52699 Pace Maker Eval W/Iterative Completed Adjment Dual Lead 12/22/2013 19894 Interrogation Device Eval In Completed Person W/DR Analysis,Single,Dual,Mul 11/08/2013 34513 Perm Pacemaker Av Sequential Completed Atrial And Ventricular 11/02/2013 75210 EKG Tracing & Completed Interpretation 10/26/2013 65050 EKG, Interpretation Only Completed 09/26/2013 82041 EKG, Interpretation Only Completed 09/14/2013 [facility] 54082 Stress Test Supervsn W/Out I/R Completed 04/04/2013 00496 EKG, Interpretation Only Completed 04/04/2013 56873 Treadmill Interp/Report Only Completed 12/10/2012 93647 Inject/Drain Joint/Bursa Major Completed 11/15/2012 69458 Xray Knee 3 Views Completed 11/15/2012 79465 Rad Exam; Knee, Ap&L Completed 09/28/2012 29017 TKR Total Knee Replacement Completed 09/28/2012 46502 TKR Total Knee Replacement Completed 09/26/201256032 Inject/Drain Joint/Bursa Major Completed 06/25/2012 Inject/Drain Joint/Bursa Major Completed 06/07/2012 22552 Xray Knee 3 Views Completed 06/07/2012 51409 Rad Exam; Knee, Ap&L Completed 06/07/201239481 Inject/Drain Joint/Bursa Major Completed 03/10/2011 72208 Xray Knee 3 Views Completed Encounters Type Date Location Provider CPT E/M Dx Office Visit 10/06/2017 [place] [address] J98.4 11:30a [facility] Z77.22 J44.9 G47.33 E66.09 Z68.41 Office Visit 10/02/2017 11:30a [facility] Internal Medicine Venkat Isabel, 25338 J18.1 - [place] Dariusz Tesfaye,FACP J44.1 Office Visit 09/15/2017 1:30p [facility] Herbert Watkins, 07067 I25.118 Pediatric Clinical Di[facility] [facility] [place] I42.9 I49.9 R55 Office Visit 09/11/2017 4:30p [facility] Internal Medicine - Venkat Isabel, 89184 J44.1 Tbmarcos Arzola M.D.,FACP Office Visit 09/03/2017 11:00a [facility] Lani Cee M.D. 50997 M05.9 Of [facility] M54.42 M17.12 M10.9 Z79.899 Office Visit 09/03/2017 11:20a [facility] Internal Venkat Isabel, 01509 I50.22 Medicine - [place] Dariusz Tesfaye,FACP N18.2 Office Visit 08/08/2017 10:31a [facility],gaye Govea, N.P. 85362 R07.9 Hospitalists I25.118 J44.9 Office Visit 07/20/2017 11:40a [facility] Internal Medicine Venkat Isabel, [address] [address]42[address] [place] [address] M.D.,FACP M10.022 I49.9 Office Visit 06/30/2017 1:00p [facility] Herbert Watkins, 98489 I49.5 [facility] M.D. Z95.0 I42.9 I25.10 R06.02 Office Visit 06/22/2017 11:40a [facility] Internal Medicine Venkat Isabel, 57213 J44[address]1 - [place] [address] Brien,FACP G47.33 I50.22 Z23 Office Visit 05/21/2017 9:40a [facility] Internal Venkat Isabel, 10836 I50.23 Medicine - [place] [address] Brien,FACP J40 Office Visit 05/14/2017 3:00p [facility] Of Lani Cee, 32458 M05.9 [facility] M.Evan M54.42 M17.12 Z79.899 Office Visit 05/06/2017 2:10p [facility] Internal Medicine Mayra Mccarthy, JAMISNO 24[address] [address]42[address] [place] [address] R80.0 M05.9 Office Visit 01/26/2017 2:00p [facility] Ernesto Ball M.D. 93036 M54.42 C.M.A. Z96.652 M17.12 Office Visit 01/21/2017 12:15p [facility] Watkins, 94833 I49.5 [facility] Brien I25.10 Z95.0 I42.9 Office Visit 01/07/2017 11:45a [facility], 44481 I49.5 [facility] Lyssa.DCalixto Z95.0 I25.10 R06.02 Office Visit 11/03/2016 3:58p [facility], Lydia Mauro, 28941 J11.1 Hospitalists M.Evan J18.1 K21.9 I10 Office Visit 11/02/2016 3:58p [facility], Cheyenne Govea, N.P. 35597 J11.1 Hospitalists J18.1 K21.9 I10 Office Visit 12/28/2015 11:15a [facility] Watkins, 70296 I49.5 [facility] Brien R06.02 Z95.0 I25.10 Office Visit 01/11/2015 12:00p [facility] Herbert Watkins, 41369 786.05 Pediatric Clinical Dietician M.DCalixto 414.01 427.81 Office Visit 12/22/2014 8:30a [facility] Herbert Watkins, 58927 V45.01 Pediatric Clinical Dietician M.D. 786.05 427.81 414.9 Office Visit 06/06/2014 3:23p [facility], [place] [address] 414.9 Hospitalists 038.9 401.9 278.00 Office Visit 06/06/2014 12:10p [facility] Juan Jimenez, 97835 714.0 Infectious Diseases M.DCalixto 287.5 Office Visit 06/05/2014 3:23p [facility], Lawrence Phelps, 20012 414.9 Hospitalists N.P. 038.9 401.9 278.00 Office Visit 06/05/2014 12:14p [facility] Juan Jimenez, 75436 780.60 Infectious Diseases M.DCalixto 780.79 v45.01 E930.9 Office Visit 06/04/2014 3:22p [facility], Lawrence Phelps, 81279 414.9 Hospitalists N.P. 038.9 401.9 278.00 Office Visit 05/07/2014 2:43p [facility], Miguel Whaley D.O. 45354 578.9 Hospitalists 785.59 534.90 285.9 Office Visit 01/03/2014 8:30a [facility] John Paul Jimenez, 08704 511.1 Infectious Diseases Brien 714.0 Office Visit 12/20/2013 9:30a [facility] John Paul Jimenez, 92397 511.1 Infectious Diseases M.DCalixto 458.9 Office Visit 12/06/2013 10:10a [facility] John Paul Gordon 75729 511.1 Infectious Diseases Brien Jimenez Office Visit 11/23/2013 8:08a [facility], Abdon Lisa 66281 486 Hospitalists Brien Merino 511.1 714.0 995.91 Office Visit 11/22/2013 8:08a [facility], Abdon Lisa 01576 486 Hospitalists Brine Merino 511.1 714.0 995.91 Office Visit 11/21/2013 8:08a [facility], Abbey Navarro, 08267 486 Hospitalists M.D. 511.1 714.0 Office Visit 11/21/2013 1:54p [facility] Juan Jimenez, 97875 486 Infectious Diseases M.D. 511.9 Office Visit 11/20/2013 8:07a [facility], Abbey Navarro, 34919 486 Hospitalists M.D. 511.1 714.0 Office Visit 11/20/2013 1:38p [facility] Juan Jimenez, 94089 486 Infectious Diseases M.D. 511.9 Office Visit 11/19/2013 8:07a [facility], Abbey Navarro, 74079 486 Hospitalists M.D. 511.1 714.0 Office Visit 11/18/2013 1:32p [facility] Juan Jimenez, 95368 486 Infectious Diseases M.D. 511.9 Office Visit 11/18/2013 8:06a [facility], Abbey Navarro, 72473 486 Hospitalists M.D. 511.1 714.0 Office Visit 11/18/2013 1:21p [facility], [place] [address] 511.9 Hospitalists V58.49 Office Visit 11/17/2013 8:06a [facility], Abbey Navarro, 78763 995.91 Hospitalists M.D. 486 511.1 714.0 Office Visit 11/17/2013 1:22p [facility] John Paul Jimenez, 47651 486 Infectious Diseases M.D. 511.9 Office Visit 11/16/2013 8:05a [facility], Abbey Navarro, 29203 995.91 Hospitalists M.D. 486 511.1 714.0 Office Visit 11/03/2013 2:20p [facility] John Paul Jimenez, 24442 511.9 Infectious Diseases M.DCalixto Office Visit 11/02/2013 10:15a [facility] Herbert Watkins, 35083 427.81 Fany MCindy 414.01 Office Visit 10/27/2013 10:38a [facility], Abdon Lisa 42705 511.9 Hospitalists Brien Merino 714.0 579.4 427.81 Office Visit 10/26/2013 10:37a [facility] Anne Marie Betancourt, 36737 427.81 Assoc,pc Hospitalists MCalixtoDCalixto 714.0 579.4 511.9 Office Visit 10/26/2013 12:50p [facility] Juan Jimenez, 44950 486 Infectious Diseases MCindy 511.9 Office Visit 10/25/2013 10:37a [facility] Anne Marie Betancourt, 86559 510.9 Hospitalists MCalixtoDCalixto 714.0 427.81 579.4 Office Visit 10/24/2013 10:36a [facility], Anne Marie Betancourt, 98821 510.9 Hospitalists M.DCalixto 714.0 579.4 427.81 Office Visit 10/23/2013 10:32a [facility], Anne Marie Betancourt, 17465 510.9 Hospitalists M.DCalixto 714.0 427.81 579.4 Office Visit 09/27/2013 1:21p [facility],gaye Betancourt M.D. 55613 485 Hospitalists 511.9 414.01 426.6 Office Visit 09/27/2013 1:24p [facility] Herbert Watkins, 66804 427.81 Fany M.DCalixto Office Visit 09/26/2013 1:11p [facility] Anne Marie Betancourt 94019 485 Assoc,pc Hospitalists MCalixtoDCalixto 511.9 414.01 426.6 Office Visit 09/25/2013 1:09p [facility] 79806 485 Hospitalists 511.9 592.0 414.01 Office Visit 04/04/2013 9:27a [facility],gaye RamirezCalixto Lisa 41083 786.59 Hospitalists Brien Merino 414.01 401.9 V12.51 Office Visit 04/03/2013 9:27a [facility] Anne Marie Betancourt, 09428 786.59 Assoc, Hospitalists Brien 414.01 401.9 V12.51 Office Visit 03/21/2013 8:00a [facility] Ernesto Ball M.D. 50930 715.96 C.M.A. Office Visit 02/09/2013 8:22a [facility], Cheyenne Govea N.P. 07586 592.0 Hospitalists 250.00 591 414.01 Office Visit 12/23/2012 2:20p [facility] John Paul Gordon 32271 682.2 Infectious Diseases Brien Jimenez Office Visit 12/15/2012 12:28p [facility] Lydia Mauro, 53559 995.91 Assoc, Hospitalists Brien 682.2 401.9 Office Visit 12/14/2012 12:27p [facility], Lydia Mauro, 90693 995.91 Hospitalists Brien 682.2 401.9 Office Visit 12/14/2012 9:38a [facility] John Paul Grodon 21524 567.22 Infectious Diseases Brien Jimenez Office Visit 12/13/2012 9:38a [facility] Juan Gordon 19053 567.22 Infectious Diseases Brien Jimenez Office Visit 12/13/2012 12:27p [facility] Lydia Mauro, 97388 995.91 Assoc, Hospitalists Brien 682.2 401.9 Office Visit 12/12/2012 12:26p [facility] [place] [address] 995.91 Assoc, Hospitalists Brien 682.2 996.66 401.9 Office Visit 12/11/2012 12:25p [facility] [place] [address] 995.91 Assoc, Hospitalists Brien 682.2 996.66 401.9 Office Visit 12/10/2012 12:23p [facility], Josh Escudero, 97833 995.91 Hospitalists N.P. 682.2 996.66 401.9 Office Visit 12/10/2012 9:37a [facility] Juan Jimenez, 24077 567.22 Infectious Diseases M.D. Office Visit 12/10/2012 8:00a [facility] Josh Ruggiero M.D. 13077 719.06 Of Elpidio 719.46 Office Visit 10/01/2012 9:24a [facility], Dennise Farr, 19802 401.1 Hospitalists N.P. 244.9 714.0 V43.65 Office Visit 09/30/2012 9:23a [facility], Dennise Farr, 53237 401.1 Hospitalists N.P. 244.9 714.0 V43.65 Office Visit 09/29/2012 9:23a [facility], Dennise Farr, 28760 401.1 Hospitalists N.P. 244.9 714.0 V43.65 Office Visit 09/28/2012 9:22a [facility], Josh Escudero, 42436 401.1 Hospitalists N.P. 244.9 714.0 V43.65 Office Visit 07/19/2012 10:30a [facility] Ernesto Ball M.D. 92076 715.96 C.M.A. 716.96 Office Visit 06/25/2012 3:30p [facility] NAYELI York 56286 715.96 Of C.M.A. 716.96 Office Visit 06/07/2012 10:30a [facility] Ernesto Ball M.D. 62409 844.9 C.M.A. 716.96 715.96 Office Visit 03/24/2011 8:30a [facility] Of Amelia Argueta 15396 844.9 C.M.ACalixto RPA-C Office Visit 03/10/2011 3:30p [facility] Amelia Argueta 06379 719.46 C.M.ACalixto RPA-C Office Visit 08/16/2009 2:45a [facility] Sohail Ribeiro M.D. 32676 786.50 Assoc, Hospitalists Office Visit 08/15/2009 2:00a [facility] Sohail Ribeiro M.D. 85918 Assoc, Hospitalists Office Visit 08/14/2009 12:30a [facility] Anne Marie Betancourt, 46848 786.50 Assoc, Hospitalists Brien Plan of Care Future Appointment(s):01/11/2018 1:00 pm - Venkat Isabel M.D.,FACP at [facility] Internal Medicine - [place] 11/10/2017 11:45 am - Meena Hines MD at [facility]12/02/2017 10:40 am - Lani Cee M.D. at [facility]10/15/2017 - Venkat Isabel M.D.,FACPJ44.9 Chronic obstructive pulmonary disease, plognrdbfejT90.9 Cardiomyopathy, uupifbzjivkR90.9 Chest pain, unspecifiedNew Therapy:Physical Therapy
--- OUTSIDE RECORDS SUMMARY | 2017-10-17 12:27 | XMS REPORT ---
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 Venkat Isabel MD Primary Care Physician Unavailable Payers Type Date Identification Numbers Payment Provider Subscriber Medicare Primary Effective: Policy Number: Medicare Lani Beasley JR 2007 [id number] PayID: [id number] [address] [place] [address] [facility] Part B Effective: 2013 Policy Number: Medicaid Lani Beasley JR [id number] PayID: [id number] [address] [place] [address] Advance Directives Type Date Description Status Comment [...] 2 children and his son 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 deven Isabel, then Lyssa.Evan,FACP reduce by 1 tab every 2 days until back on 10 mg/day, remain on that dose Cefdinir 10/02/ Hx Capsules 300mg 20cap 1 capsule by Venkat 2018 - s mouth twice Evan Isabel, 10/12/ a day x's 10 M.DCalixto,FACP 2018 days Cheratussin ac 09/18/ Active Solution 100-10mg/ 473ml 5-10 Venkat 2017 5ML milliliters Evan Isabel, by mouth M.D.,FACP four times a day as needed Nitroglycerin 09/03/ Active Tablets 0.4mg 50tab 1 sl q5mins Venkat 2016 Sub s x3 as needed Evan Isabel, for chest M.D.,FACP pain Entresto 07/20/ Active Tablets 49-51mg 60tab 1 tab by I50.22 Venkat 2016 s mouth twice Evan Isabel, a day M.DCalixto,FACP J44.1 Anoro 05/27/2017 Active Aerosol 62.5-25mcg/Inh 60units 1 inhalation Venkat Ellipradha daily Evan Isabel M.D.,FACP Ventolin HFA 05/27/2017 Active Aerosol 108(90Base) 18units 2 puffs by Venkat mcg/Act mouth four DCalixto Isabel, times a day M.D.,FACP as needed Creon 03/31/2017 Active Caps 6000Unit 90caps 1 tab by Venkat Part mouth three Evan Isabel, times a day M.D.,FACP Furosemide 01/07/2017 Active Tablets 20mg 30tabs 1 by mouth Venkat every Evan Isabel, daytakes as M.D.,FACP needed) Allopurinol Active Tablets 300mg 90tabs 1 po qd Unknown Isosorbide Active Tablets 30mg 45tabs 1/2 tab once Andreia Levine Mononitrate ER 24HR daily Evan Isabel ER Lyssa.DCalixto,FACP Simvastatin Active Tablets 20mg 90tabs 1 po qd Unknown Codeine Active Tablets 30mg 120tabs 1 take Venkat Sulfate tablet four D. [place], times a day M.D.,FACP Synthroid Active Tablets 125mcg 30tabs 1 po [...] 5-325mg 60tabs take one Lani Acetaminophe capsule/tabl Jaye n et by mouth M.DCalixto twice daily as needed for pain Carafate Active Tablets 1gm as needed Unknown Acetaminophe 09/17/2017 Hx Tablets 300-30mg 30tabs 1-2 tab by Andreia arguetaCodeine #3 - mouth 3x a D. [place]alo, 09/18/2017 day as MCindy,FACP needed Azithromycin 09/11/2017 Hx Tablets 250mg 6tabs 2 every day Venkat - for 1 day, Evan Isabel, 09/11/2017 then 1 every M.D.,FACP day Keflex 09/11/2017 Hx Capsules 500mg 9caps three times Venkta - a day for 3 D. [place], 09/21/2017 additional M.D.,FACP days Prednisone 09/11/2017 Hx Tablets 10mg 28tabs 4 tabs every - for 4 D. [place], 09/19/2017 days, then M.DCalixto,FACP reduce by 1 tab every 2 days [...] 2 tabs Venkat - by mouth on Evan Isabel, 09/15/2017 day 1 then 1 M.D.,FACP tab daily for 1 week then as needed Entresto 06/22/2017 Hx Tablets 24-26mg 60tabs 1 by mouth Pablo Robledo - twice a day 5 D. [place], 07/20/2017 0 M.D.,FACP . 2 2 J44.1 Doxycycline 05/21/2017 - Hx Tablets 100mg 14tabs 1 by mouth Venkat Gordon Hyclate 05/21/2017 twice a day Brien Isabel,FACP Cefuroxime 05/21/2017 - Hx Tablets 500mg 14tabs 1 by mouth Venkat Gordon Axetil 05/28/2017 twice a day [place], for 7 days M.D.,FACP Pancrelipase 03/30/2017 - Hx Caps DR Najera 810caps take three Andreia Gordon (Yjq-Xuzn-Qjtr) 03/30/2017 Part tabs three [place], times daily M.D.,FACP Pancrelipase 03/30/2017 - Hx Caps DR Najera 810caps take three Andreia Gordon (Tta-Tohp-Ponz) 03/31/2017 Part caps three [place], times daily M.D.,FACP Sucralfate 01/06/2015 - Hx [...] Hx Capsules 500mg 9caps pic line Herbert Evan 12/06/2013 Brien Watkins Cipro 12/23/2012 - Hx Tablets 500mg 1 po bid Juan Evan 10/31/2013 Brien Jimenez Coumadin 09/22/2012 - Hx Tablets 2.5mg 90tabs 2 po use as Ernesto Ball, 12/23/2012 directed Brien Percocet 06/07/2012 - Hx Tablets 5-325mg 120tabs 1-2 po Ernesto Ball, 12/23/2012 q4-6h prn Brien pain Weston 03/10/2011 - Hx Tablets 5-325mg 30tabs 1-2 po q4h Ernesto Ball, 12/23/2012 prn M.DCalixto Cefepime - Hx Solution 2GM/100M 60units 2gm [...] prn Unknown 01/12/2017 Pancrelipase - Hx Caps 5000Unrosa 810caps 3 cap by Andreia Gordon 03/31/2017 Part s mouth three [place], times a day MCindy,FACP c meals Cefuroxime - Hx Tablets 500mg 30tabs 1 po bid Unknown Axetil 12/06/2013 Pantoprazole - Hx Tablets DR 40mg 1 tablet po Cardina, Sodium 01/16/2017 b.i.d MD Davey Zenpep - Hx Caps 5000Unrosa 3 times a Unknown 01/12/2017 Part day Medications Administered in Office Medication Date Status Form Strength Qnty SIG Indications Ordering Provider Inj, Administered Injection Herbert Gordon Regadenoson, Jacinta Watkins M.D. 0.1 MG Technetium TC Administered Injection Herbert DCalixto 99M 015 Brien Watkins Tetrofosmin, Per Unit Dose Up To 40 Millicuries Technetium TC Administered Injection Ica Nuclear 99M 015 Schedule Tetrofosmin, Per Unit Dose Up To 40 Millicuries Depomedrol Administered Injection Amelia 80MG 012 NAYELI Argueta Depomedrol Administered Injection Ernesto Ball, 80MG 012 Brien Immunizations CPT Code Status Date Vaccine Lot # [id number] Given 06/22/2017 Influenza Virus Vaccine, Quadrivalent, Split, [id number] Preservative Free Vital Signs Date Vital Result Comment 10/06/2017 Height 69 inches 5'9" Weight 290.50 [...] Color Yellow Urine Appearance Turbid Urine Specific [place] 1.020 1.010-1.030 Urine Esterase Negative Negative Urine [...] Color Yellow Urine Appearance Clear Urine Specific [place] 1.017 1.010-1.030 Urine Esterase Negative Negative Urine [...] Color Yellow Urine Appearance Clear Urine Specific [place] 1.019 1.010-1.030 Urine Esterase 1+ Negative Urine [...] REFERENCE VALUE <20.0 (Negative) Test Performed by: [place] [address] 18 Test Performed by: [place] [address] 19 Acute inflammation: >10.00 20 Because ethnic [...] 0.06 ng/mL Not supportive of diagnosis of VA 0.06 - 0.50 ng/mL Indeterminate: suggest serial studies if clinically indicated. Greater than 0.5 ng/mL Consistent with diagnosis of VA 25 Because ethnic data is not always [...] <15 (or dialysis) 26 RUN DATE: 10/20/13 [facility] LAB LIVE PAGE 1 RUN TIME: [address] [place] [address] Specimen Inquiry Name: LANI BEASLEY JR : [address]: Anton Jasmine DO Acct: [id number] Unit: [id number] AGE: 73 Location: ED Re10/15/13 SEX: M Status: DEP ER SPEC: [id number] JARRETT: 10/15/13-[address] [facility] [address]: Anton Jasmine DO REQ: [id number] RECD: 10/15/13 STATUS: JAY ROBBINS DR: Herbert Damon MD _ SOURCE: BLOOD,VENO SPDESC: ORDERED: Blood Cult Procedure Result Verified Site Aerobic Culture Bottle Final 10/20/13- 1632 ML No Growth Day 5 Anaerobic Culture Bottle Final 10/20/13- 1632 ML No Growth Day 5 END OF REPORT * ML=Testing performed at Main Lab DEPARTMENT OF PATHOLOGY, [facility] [employer] [place], [place] [address] Joselito Escalona M.D. Director [facility] Permit #[id number] RUN DATE: 10/20/13 [facility] LAB LIVE PAGE 1 RUN TIME: 1632 [facility] [employer] [place], [place] [address] Specimen Inquiry Name: LANI BEASLEY JR : [address]: Anton Jasmine DO Acct: [id number] Unit: [id number] AGE: 73 Location: ED Re10/15/13 SEX: M Status: DEP ER SPEC: [id number] JARRETT: 10/15/[address] [facility] [address]: Anton Jasmine DO REQ: [id number] RECD: 10/15/13 STATUS: JAY ROBBINS DR: Herbert Damon MD _ SOURCE: BLOOD,VENO SPDES: ORDERED: Blood Cult Procedure Result Verified Site Aerobic Culture Bottle Final 10/20/13- 1631 ML No Growth Day 5 Anaerobic Culture Bottle Final 10/20/13- 1631 ML No Growth Day 5 END OF REPORT * ML=Testing performed at Main Lab DEPARTMENT OF PATHOLOGY, [facility] [employer] [place], [place] [address] Joselito Escalona M.D. Director [facility] Permit #[id number] RUN DATE: 10/17/13 [facility] LAB LIVE PAGE 1 RUN TIME: 1036 [facility] [employer] [place], [place] [address] Specimen Inquiry Name: LANI BEASLEY JR : [address]: Anton Jasmine DO Acct: [id number] Unit: [id number] AGE: 73 Location: ED Re10/15/13 SEX: M Status: DEP ER SPEC: [id number] JARRETT: 10/15/[address]: Anton Jasmine DO REQ: [id number] RECD: 10/15/13 STATUS: JAY ROBBINS DR: Herbert Damon MD _ SOURCE: URINE SPDESC: ORDERED: Urine Culture Procedure Result Verified Site Urine Culture Final 10/17/13- 1036 ML Organism 1 NORMAL LIBBY [place] Count 75-100,000 (Many) CFU/ML END OF REPORT * ML=Testing performed at Main Lab DEPARTMENT OF PATHOLOGY, [address] [place] [address] Joselito Escalona M.D. Director [facility] Permit #[id number] 29 Because ethnic data is not always [...] Date CPT Code Description Status Comment 07/20/2017 51978 EKG Tracing & Completed Interpretation 05/26/2017 07240 Diffusing Capacity Completed 05/26/2017 00332 Plethysmography Determination Completed Lung Volumes & Per Airway Resist 05/26/2017 31707 Pulmonary Completed Function><Bronchodil 05/15/2017 82895 Pace Maker Eval W/Iterative Completed Adjment Dual Lead 05/06/2017 33451 EKG Tracing & Completed Interpretation 01/12/2017 32120 Treadmill Interp/Report Only Completed 01/12/2017 89303 Stress Test Supervsn W/Out I/R Completed 01/12/2017 14894 Myocardial Perfusion Imaging Completed Tomographic (Spect) Multiple Studies 01/08/2017 34656 ECHO Transthoracic, Real-Time Completed 2D With Doppler And Color Flow 01/07/2017 79476 Pace Maker Eval W/Iterative Completed Adjment Dual Lead 07/11/2016 28143 Pace Maker Eval W/Iterative Completed Adjment Dual Lead 12/28/2015 94701 EKG Tracing & Completed Interpretation 12/13/2015 45722 Pace Maker Eval W/Iterative Completed Adjment Dual Lead 06/07/2015 30545 Interrogation Device Eval In Completed Person W/DR Analysis,Single,Dual,Mul 01/04/2015 13128 Stress Test Completed 01/04/2015 20194 Myocardial Perfusion Imaging Completed Tomographic (Spect) Multiple Studies 12/26/2014 51322 ECHO Transthoracic, Real-Time Completed 2D With Doppler And Color Flow 12/22/2014 16046 EKG Tracing & Completed Interpretation 12/05/2014 64820 Interrogation Device Eval In Completed Person W/DR Analysis,Single,Dual,Mul 06/26/2014 37276 Pace Maker Eval W/Iterative Completed Adjment Dual Lead 12/22/2013 48105 Interrogation Device Eval In Completed Person W/DR Analysis,Single,Dual,Mul 11/08/2013 66369 Perm Pacemaker Av Sequential Completed Atrial And Ventricular 11/02/2013 46804 EKG Tracing & Completed Interpretation 10/26/2013 26792 EKG, Interpretation Only Completed 09/26/2013 51018 EKG, Interpretation Only Completed 09/14/2013 [facility] 09649 Stress Test Supervsn W/Out I/R Completed 04/04/2013 24573 EKG, Interpretation Only Completed 04/04/2013 71684 Treadmill Interp/Report Only Completed 12/10/201246844 Inject/Drain Joint/Bursa Major Completed 11/15/2012 23645 Xray Knee 3 Views Completed 11/15/2012 49789 Rad Exam; Knee, Ap&L Completed 09/28/2012 58454 TKR Total Knee Replacement Completed 09/28/2012 61666 TKR Total Knee Replacement Completed 09/26/2012 Inject/Drain Joint/Bursa Major Completed 06/25/2012 Inject/Drain Joint/Bursa Major Completed 06/07/2012 41635 Xray Knee 3 Views Completed 06/07/2012 76380 Rad Exam; Knee, Ap&L Completed 06/07/2012 Inject/Drain Joint/Bursa Major Completed 03/10/2011 39329 Xray Knee 3 Views Completed Encounters Type Date Location Provider CPT E/M Dx Office Visit 09/15/2017 [facility] Herbert Watkins, 64393 I25.118 1:30p [facility] I42.9 I49.9 R55 Office Visit 09/11/2017 4:30p [facility] Internal Medicine - Venkat Isabel, 75643 J44.1 [place] Dariusz Tesfaye,FACP Office Visit 09/03/2017 11:00a [facility] Lani Cee M.D. 21684 M05.9 Of [facility] M54.42 M17.12 M10.9 Z79.899 Office Visit 09/03/2017 11:20a [facility] Internal Venkat Isabel, 91552 I50.22 Medicine - [place] Dariusz Tesfaye,FACP N18.2 Office Visit 08/08/2017 10:31a [facility], Cheyenne Govea, N.P. 58277 R07.9 Hospitalists I25.118 J44.9 Office Visit 07/20/2017 11:40a [facility] Internal Medicine Venkat Isabel, 10906 I42.9 - [place] Dariusz Tesfaye,FACP M10.022 I49.9 Office Visit 06/30/2017 1:00p [facility] Herbert Watkins, 66396 I49.5 [facility] Z95.0 I42.9 I25.10 R06.02 Office Visit 06/22/2017 11:40a [facility] Internal Medicine Venkat Isabel, 90262 J44.1 - [place] Dariusz Tesfaye,FACP G47.33 I50.22 Z23 Office Visit 05/21/2017 9:40a [facility] Internal Venkat Isabel, 22968 I50.23 Medicine - [place] Dariusz Tesfaye,FACP J40 Office Visit 05/14/2017 3:00p [facility] Services Of Lani Koodor, 57689 M05.9 Fany Tesfaye M54.42 M17.12 Z79.899 Office Visit 05/06/2017 2:10p [facility] Internal Medicine Mayra Mccarthy, HALL COORDINATOR [address] I42[address] R80.0 M05.9 Office Visit 01/26/2017 2:00p [facility] Of Ernesto Ball M.D. 92021 M54.42 C.MJohn Z96.652 M17.12 Office Visit 01/21/2017 12:15p [facility] Herbert Watkins, 39959 I49.5 Fany Tesfaye I25.10 Z95.0 I42.9 Office Visit 01/07/2017 11:45a [facility] Herbert Watkins, 31180 I49.5 Fany Tesfaye Z95.0 I25.10 R06.02 Office Visit 11/03/2016 3:58p [facility], Lydia Mauro 65476 J11.1 Hospitalists Brien J18.1 K21.9 I10 Office Visit 11/02/2016 3:58p [facility], Cheyenne Govea N.P. 30769 J11.1 Hospitalists J18.1 K21.9 I10 Office Visit 12/28/2015 11:15a [facility] Herbert Watkins, 37155 I49.5 Fany Tesfaye R06.02 Z95.0 I25.10 Office Visit 01/11/2015 12:00p [facility] Herbert Watkins, 52640 786.05 Fany Tesfaye 414.01 427.81 Office Visit 12/22/2014 8:30a [facility] Herbert Watkins, 84390 V45.01 Fany Tesfaye 786.05 427.81 414.9 Office Visit 06/06/2014 12:10p [facility] Juan Jimenez, 59169 714.0 Infectious Diseases Brien 287.5 Office Visit 06/06/2014 3:23p [facility], Maria L Lua, JAMISON 42062 414.9 Hospitalists 038.9 401.9 278.00 Office Visit 06/05/2014 3:23p [facility], Lawrence Phelps, 85444 414.9 Hospitalists N.P. 038.9 401.9 278.00 Office Visit 06/05/2014 12:14p [facility] Juan Jimenez, 48909 780.60 Infectious Diseases Brien 780.79 v45.01 E930.9 Office Visit 06/04/2014 3:22p [facility], Lawrence Phelps, 89386 414.9 Hospitalists N.P. 038.9 401.9 278.00 Office Visit 05/07/2014 2:43p [facility], Miguel Whaley D.O. 71877 578.9 Hospitalists 785.59 534.90 285.9 Office Visit 01/03/2014 8:30a [facility] Juan Jimenez, 12542 511.1 Infectious Diseases Brien 714.0 Office Visit 12/20/2013 9:30a [facility] Juan Jimenez, 78941 511.1 Infectious Diseases Brien 458.9 Office Visit 12/06/2013 10:10a [facility] Juan Gordon 19206 511.1 Infectious Diseases Brien Jimenez Office Visit 11/23/2013 8:08a [facility], Abdon Lisa 67804 486 Hospitalists Brien Merino 511.1 714.0 995.91 Office Visit 11/22/2013 8:08a [facility], Abdon Lisa 66144 486 Hospitalists Brien Merino 511.1 714.0 995.91 Office Visit 11/21/2013 8:08a [facility], Abbey Navarro, 76646 486 Hospitalists Brien 511.1 714.0 Office Visit 11/21/2013 1:54p [facility] Juan Jimenez, 09698 486 Infectious Diseases Brien 511.9 Office Visit 11/20/2013 8:07a [facility], Abbey Navarro, 99143 486 Hospitalists M.DCalixto 511.1 714.0 Office Visit 11/20/2013 1:38p [facility] Juan Jimenez, 24585 486 Infectious Diseases M.D. 511.9 Office Visit 11/19/2013 8:07a [facility], Abbey Navarro, 02236 486 Hospitalists M.D. 511.1 714.0 Office Visit 11/18/2013 8:06a [facility], Abbey Navarro, 06381 486 Hospitalists M.D. 511.1 714.0 Office Visit 11/18/2013 1:32p [facility] Juan Jimenez, 38277 486 Infectious Diseases M.D. 511.9 Office Visit 11/18/2013 1:21p [facility] [address] 511.9 Hospitalists V58.49 Office Visit 11/17/2013 1:22p [facility] Juan Jimenez, 23706 486 Infectious Diseases M.D. 511.9 Office Visit 11/17/2013 8:06a [facility], Abbey Navarro, 16115 995.91 Hospitalists M.DCalixto 486 511.1 714.0 Office Visit 11/16/2013 8:05a [facility], Abbey Navarro, 86266 995.91 Hospitalists M.DCalixto 486 511.1 714.0 Office Visit 11/03/2013 2:20p [facility] Juan Jimenez, 72315 511.9 Infectious Diseases M.D. Office Visit 11/02/2013 10:15a [facility] Of Herbert Watkins, 72114 427.81 Fany Tesfaye 414.01 Office Visit 10/27/2013 10:38a [facility], Abdon Lisa 67906 511.9 Hospitalists Brien Merino 714.0 579.4 427.81 Office Visit 10/26/2013 10:37a [facility] Anne Marie Betancourt, 97916 427.81 Assoc, Hospitalashkan Tesfaye 714.0 579.4 511.9 Office Visit 10/26/2013 12:50p [facility] Juan Jimenez, 76235 486 Infectious Diseases M.Evan 511.9 Office Visit 10/25/2013 10:37a [facility], Anne Marie Betancourt, 40501 510.9 Hospitalists M.DCalixto 714.0 427.81 579.4 Office Visit 10/24/2013 10:36a [facility], Anne Marie Betancourt, 97756 510.9 Hospitalists M.DCalixto 714.0 579.4 427.81 Office Visit 10/23/2013 10:32a [facility] Anne Marie Betancourt, 49643 510.9 Hospitalists M.DCalixto 714.0 427.81 579.4 Office Visit 09/27/2013 1:21p [facility], Anne Marie Betancourt M.D. 90663 485 Hospitalists 511.9 414.01 426.6 Office Visit 09/27/2013 1:24p [facility] Of Herbert Watkins, 68869 427.81 Fany Tesfaye Office Visit 09/26/2013 1:11p [facility] Anne Marie Betancourt, 87542 485 Assoc, Hospitalists MCalixtoDCalixto 511.9 414.01 426.6 Office Visit 09/25/2013 1:09p [facility], Anne Marie Betancourt M.D. 05916 485 Hospitalists 511.9 592.0 414.01 Office Visit 04/04/2013 9:27a [facility], Abdon Lisa 85200 786.59 Hospitalists Brien Merino 414.01 401.9 V12.51 Office Visit 04/03/2013 9:27a [facility] Anne Marie Betancourt, 21742 786.59 Assoc, Hospitalashkan Tesfaye 414.01 401.9 V12.51 Office Visit 03/21/2013 8:00a [facility] Ernesto Ball M.D. 71827 715.96 C.M.A. Office Visit 02/09/2013 8:22a [facility], Cheyenne Govea N.P. 15853 592.0 Hospitalists 250.00 591 414.01 Office Visit 12/23/2012 2:20p [facility] John Paul Gordon 56384 682.2 Infectious Diseases Brien Jimenez Office Visit 12/15/2012 12:28p [facility] Lydia Mauro, 01292 995.91 Assoc, Hospitalists Brien 682.2 401.9 Office Visit 12/14/2012 12:27p [facility], Lydia Mauro, 32056 995.91 Hospitalists Brien 682.2 401.9 Office Visit 12/14/2012 9:38a [facility] John Paul Gordon 74524 567.22 Infectious Diseases Brien Jimenez Office Visit 12/13/2012 12:27p [facility] Lydia Mauro, 15425 995.91 Assoc, Hospitalists Brien 682.2 401.9 Office Visit 12/13/2012 9:38a [facility] John Paul Jimenez, 28015 567.22 Infectious Diseases MCindy Office Visit 12/12/2012 12:26p [facility], 69716 995.91 Assoc, Hospitalists Brien 682.2 996.66 401.9 Office Visit 12/11/2012 12:25p [facility], 74124 995.91 Assoc, Hospitalists Brien 682.2 996.66 401.9 Office Visit 12/10/2012 12:23p [facility] Josh Escudero, 83008 995.91 Hospitalists N.P. 682.2 996.66 401.9 Office Visit 12/10/2012 9:37a [facility] John Paul Jimenez, 17323 567.22 Infectious Diseases M.DCalixto Office Visit 12/10/2012 8:00a [facility] Josh Ruggiero M.D. 07891 719.06 Of Elpidio 719.46 Office Visit 10/01/2012 9:24a [facility] Dennise Farr N.P. 17983 401.1 Hospitalists 244.9 714.0 V43.65 Office Visit 09/30/2012 9:23a [facility], Dennise Farr, N.P. 92613 401.1 Hospitalists 244.9 714.0 V43.65 Office Visit 09/29/2012 9:23a [facility], Dennise Farr N.P. 25049 401.1 Hospitalists 244.9 714.0 V43.65 Office Visit 09/28/2012 9:22a [facility], Josh Escudero, 88036 401.1 Hospitalists N.P. 244.9 714.0 V43.65 Office Visit 07/19/2012 10:30a [facility] Ernesto Ball M.D. 64520 715.96 C.M.A. 716.96 Office Visit 06/25/2012 3:30p [facility] NAYELI [place] 89888 715.96 Of C.M.A. 716.96 Office Visit 06/07/2012 10:30a [facility] Ernesto Ball M.D. 28916 844.9 C.M.A. 716.96 715.96 Office Visit 03/24/2011 8:30a [facility] Of Amelia Argueta 67440 844.9 C.M.A. RPA-C Office Visit 03/10/2011 3:30p [facility] Amelia Argueta 31623 719.46 C.M.A. RPA-C Office Visit 08/16/2009 2:45a [facility] Sohail Ribeiro M.D. 29907 786.50 Assoc, Hospitalists Office Visit 08/15/2009 2:00a [facility] Sohail Ribeiro M.D. 07746 Assoc, Hospitalists Office Visit 08/14/2009 12:30a [facility] Anne Marie Betancourt 04482 786.50 Assoc, Gabriel Tesfaye Plan of Care Future Appointment(s):11/10/2017 11:45 am - Meena Hines MD at [facility]10/15/2017 9:40 am - Venkat Isabel M.D.,FACP at [facility] Internal Medicine - [address]12/02/2017 11:40 am - Venkat Isabel M.D., FACP at [facility] Internal Medicine - [address]12/02/2017 10:40 am - Lani Cee M.D. at [facility]10/06/2017 - Meena Hines MDJ98.4 Other disorders of lungFollow up:1 kxgysQ04.9 Chronic obstructive pulmonary disease, unspecifiedNew Medication:Flovent HFA 110 mcg/BuxTeexcukD82.33 Obstructive sleep apnea (adult) (pediatric)E66.09 Other obesity due to excess calories
--- OUTSIDE RECORDS SUMMARY | 2017-10-17 12:29 | XMS REPORT ---
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 Unavailable Venkat Isabel MD Primary Care Physician Unavailable Payers Type Date Identification Numbers Payment Provider Subscriber Medicare Primary Effective: Policy Number: Medicare Lani Beasley JR 2007 [id number] PayID: [id number] [address] [place] [address] [facility] Part B Effective: 2013 Policy Number: Medicaid Lani Beasley JR [id number] PayID: [id number] [address] [place] [address] Advance Directives Type Date Description Status Comment [...] Active Onset: 05/21/2017 Chronic pancreatitis Venkat Isabel M.D.,KATHY Active Note: h/o acute Onset: 05/21/2017 Benign prostatic hypertrophy Venkat Isabel Active without outflow obstruction GREGG TesfayeP Onset: 05/21/2017 Hypothyroidism Venkat Isabel Active Brien,KATHY Family History Date Family Member(s) Problem(s) Comments General Heart Disease General Diabetes General Hypertension General Rheumatoid Arthritis Father Chronic Obstructive Pulmonary smoker, age 82 Disease (COPD) Mother Diabetes Type II Took Insulin, had bilateral amputations. 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 Chalo, days, then Brien,KATHY reduce by 1 tab every 2 days until back on 10 mg/day, remain on that dose Cefdinir 10/02/ Hx Capsules 300mg 20cap 1 capsule by Venkat 2017 - s mouth twice Evan Isabel, 10/12/ a day x's 10 MCindy,KATHY 2017 days Cheratussin ac 09/18/ Active Solution 100-10mg/ 473ml 5-10 Venkat 2017 5ML milliliters DCalixto Isabel, by mouth KATHY Tesfaye four times a day as needed Nitroglycerin 09/03/ Active Tablets 0.4mg 50tab 1 sl q5mins Venkat Fierro Sub s x3 as needed Evan Isabel, for chest Brien,FACP pain Entresto 07/20/ Active Tablets 49-51mg 60tab 1 tab by I50.22 Venkat Fierro s mouth twice Evan Isabel, a day Brien,FACP J44.1 Anoro 05/27/2017 Active Aerosol 62.5-25mcg/Inh 60units 1 inhalation Venkat Ellipta daily Evan Isabel M.D.,FACP Ventolin HFA 05/27/2017 Active Aerosol 108(90Base) 18units 2 puffs by Venkat mcg/Act mouth four Evan Isabel, times a day Brien,FACP as needed Creon 03/31/2017 Active Caps 6000Unit 90caps 1 tab by Venkat Part mouth three Evan Isabel, times a day Brien,FACP Furosemide 01/07/2017 Active Tablets 20mg 30tabs 1 by mouth Venkat Isabel, daytakes as Brien,FACP needed) Allopurinol Active Tablets 300mg 90tabs 1 po qd Unknown Isosorbide Active Tablets 30mg 45tabs 1/2 tab once Andreia Levine Mononitrate ER 24HR daily Evan Isabel ER Brien,FACP Simvastatin Active Tablets 20mg 90tabs 1 po qd Unknown Codeine Active Tablets 30mg 120tabs 1 take Venkat Sulfate tablet four Evan Isabel, times a day Brien,FACP Synthroid Active Tablets 125mcg 30tabs 1 po [...] Vitamin Daily Hydrocodone- Active Tablets 5-325mg 60tabs Take one Lani Acetaminophe capsule/tabl jodie Cee et [...] Venkat - day for 4 D. Chalo, 09/19/2017 [...] I Venkat - twice a day 5 DCalixto Isabel, 07/20/2017 0 M.D.,FACP . 2 2 J44.1 Doxycycline 05/21/2017 - Hx Tablets 100mg 14tabs 1 by mouth Venkat Gordon Hyclate 05/21/2017 twice a day Brien Isabel,FACP Cefuroxime 05/21/2017 - Hx Tablets 500mg 14tabs 1 by mouth Venkat Gordon Axetil 05/28/2017 twice a day [place], for 7 days M.D.,FACP Pancrelipase 03/30/2017 - Hx Caps DR Najera 810caps take three Andreia Gordon (Hot-Qgwb-Ggok) 03/30/2017 Part tabs three [place], times daily M.D.,FACP Pancrelipase 03/30/2017 - Hx Caps DR Najera 810capdebra take three Andreia Gordon (Eeh-Gaxl-Iptg) 03/31/2017 Part caps three [place], times daily M.D.,FACP Sucralfate 01/06/2015 - Hx [...] 1-2 po Ernesto Ball, 12/23/2012 q4-6h prn MCalixtoDCalixto pain [place] 03/10/2011 - Hx Tablets 5-325mg 30tabs 1-2 [...] prn Unknown 01/12/2017 Pancrelipase - Hx Caps DR Najera 810caps 3 cap by Andreia Gordon 03/31/2017 Part s mouth three [place], times a day MCindy,FACP c meals Cefuroxime - Hx Tablets 500mg 30tabs 1 po bid Unknown Axetil 12/06/2013 Pantoprazole - Hx Tablets DR 40mg 1 tablet po Cardina, Sodium 01/16/2017 b.i.d MD Davey Zenpep - Hx Caps DR Najera 3 times a Unknown 01/12/2017 Part day Medications Administered in Office Medication Date Status Form Strength Qnty SIG Indications Ordering Provider Inj, Administered Injection Herbert D. Regadenoson, 015 Brien Watkins 0.1 MG Technetium TC Administered Injection Herbert DCalixto 99M 015 Brien Watkins Tetrofosmin, Per Unit Dose Up To 40 Millicuries Technetium TC Administered Injection Ica Nuclear 99M 015 Schedule Tetrofosmin, Per Unit Dose Up To 40 Millicuries Depomedrol Administered Injection Amelia 80MG 012 NAYELI Argueta Depomedrol Administered Injection Dirk Lizzy, 80MG 012 Brien Immunizations CPT Code Status Date Vaccine Lot # [id number] Given 06/22/2017 Influenza Virus Vaccine, Quadrivalent, Split, [id number] Preservative Free Vital Signs Date Vital Result Comment 10/02/2017 Weight 192.00 lb Heart Rate 91 [...] Partial Thrombo Time PTT 26.4 seconds 26.0-36.3 Laboratory test finding 08/08/2017 TSH (Thyroid Stim Horm) 3.94 mcIU/mL 0.34-5.60 CBC Auto Diff 08/08/2017 White Blood Count [...] ng/mL 2.3 ng/mL 0.6-6.3 Laboratory test finding 07/31/2017 Uric Acid 5.0 [...] Laboratory test finding 05/06/2017 B-Type Natriuretic Peptide 81 pg/mL 16 BNP Urine Microalbumin Random 05/06/2017 Urine Creatinine 162.80 mg/dL Ur Microalbumin (mg/L) 646.0 mg/L Urine Microalbumin/Creatinine 396.8 ug/mg High <31 Laboratory test finding 05/06/2017 Cyclic Citrullinated Pep Igg 62.3 U 17 Rheumatoid Factor 398 IU/mL <15 18 Erythrocyte Sed Rate 32 mm/Hr 0-40 C Reactive Protein 13.42 mg/L High < 5.00 19 Basic Metabolic Panel 01/12/2017 Sodium 141 mmol/L [...] Color Yellow Urine Appearance Turbid Urine Specific [place] 1.020 1.010-1.030 Urine Esterase Negative Negative Urine [...] Cell Morphology 12/15/2013 Microcytosis 1+ Elliptocyte 3+ Cell Morphology 12/01/2013 Microcytosis 1+ Elliptocyte 2+ CBC Auto Diff 12/01/2013 White Blood Count [...] 0-2 Nucleated Red Blood Cells % 0.1 CBC No Diff 11/08/2013 White Blood Count [...] 150-450 Mean Platelet Volume 9 um3 7.4-10.4 Basic Metabolic Panel 11/08/2013 Sodium 138 mmol/L 133-145 Potassium 4.0 mmol/L 3.7-5.6 Chloride 108 mmol/L 101-111 Co2 Carbon Dioxide 22 mmol/L 22-32 Anion Gap 8 mmol/L 2-11 Glucose 97 mg/dL 70-100 Blood Urea Nitrogen 19 mg/dL 6-24 Creatinine 1.33 mg/dL High 0.67-1.17 BUN/Creatinine Ratio 14.3 8-20 Calcium 8.1 mg/dL Low 8.6-10.3 Egfr Non- 53.0 >60 Egfr 68.2 >60 22 Inr/Protime 11/08/2013 Inr 0.96 0.85-1.06 Urinalysis 10/23/2013 Urine Color Yellow Urine Appearance Clear Urine Specific [place] 1.017 1.010-1.030 Urine Esterase Negative Negative Urine [...] Blood Cells % 0 Laboratory test finding 10/23/2013 Lactic Acid 0.8 mmol/L 0.5-1.6 Troponin I 0.01 ng/mL 0-0.06 23 Comp Metabolic Panel 10/23/2013 Sodium 131 mmol/L [...] Egfr Non- 42.8 >60 Egfr 55.1 >60 24 Inr/Protime 10/23/2013 Inr 1.07 High 0.85-1.06 Laboratory test finding 10/23/2013 Activated Partial 25.3 seconds 24.0- 36.1 Thrombo Time B Type Natriuretic Peptide 54.0 pg/mL 0-100 Urinalysis 10/15/2013 Urine Color Yellow Urine Appearance Clear Urine Specific [place] 1.019 1.010-1.030 Urine Esterase 1+ Negative Urine Nitrate Negative Negative Urine Urobilinogen Negative E.U./dL Negative Urine Protein 1+ mg/dL Negative Urine pH 5.0 5-9 Urine Blood Negative Negative Urine Ketones Negative mg/dL Negative Urine Bilirubin Negative Negative Urine Glucose Negative mg/dL Negative Urine Microscopic 10/15/2013 Urine Casts 1+ Hyaline /lpf None Seen Urine WBC 2+ (>3-10 /hpf) None Seen Urine RBC 1+ (<3 /hpf) None Seen Urine Mucus Present /lpf Absent Bacteria Urine 1+ None Seen Urine Culture And 10/15/2013 Urine Culture (SEE NOTE) 25 Sensitivities Blood Culture 10/15/2013 Blood Culture (SEE NOTE) 26 CBC Auto Diff 10/15/2013 White Blood Count [...] Nucleated Red Blood Cells % 0 Inr/Protime 10/15/2013 Inr 0.94 0.85-1.06 Laboratory test finding 10/15/2013 Activated Partial 26.0 [...] Egfr Non- 42.8 >60 Egfr 55.1 >60 27 Laboratory test finding 10/15/2013 Lactic Acid 1.6 mmol/L 0.5-1.6 Blood Culture (SEE NOTE) 28 Laboratory test 01/03/2013 C Reactive Protein 0.7 mg/dL High Less than 0.5 finding Laboratory test 01/03/2013 Erythrocyte Sed Rate 46 mm/Hr High 0-40 finding Laboratory test 12/29/2012 C Reactive Protein 2.1 mg/dL High Less than 0.5 finding Laboratory test 12/29/2012 Erythrocyte Sed Rate 61 mm/Hr High 0-40 finding CBC No Diff 12/22/2012 White Blood Count [...] 150-450 Mean Platelet Volume 10 um3 7.4-10.4 Comp Metabolic Panel 12/22/2012 Sodium 140 mmol/L [...] Non- 50.1 >60 Egfr 64.4 >60 29 Laboratory test finding 12/22/2012 C Reactive Protein 0.9 mg/dL High Less than 0.5 1 Because ethnic data is not always [...] REFERENCE VALUE <20.0 (Negative) Test Performed by: [place] [address] 18 Test Performed by: [place] [address] 19 Acute inflammation: >10.00 20 Because ethnic [...] 5 Kidney failure <15 (or dialysis) 23 Reference Range and Interpretation: TnI (ng/mL) Interpretation Less Than 0.06 ng/mL Not supportive of diagnosis of NE 0.06 - 0.50 ng/mL Indeterminate: suggest serial studies if clinically indicated. Greater than 0.5 ng/mL Consistent with diagnosis of NE 24 Because ethnic data is not always readily [...] 15-29 5 Kidney failure <15 (or dialysis) 25 RUN DATE: 10/17/13 [facility] LAB LIVE PAGE 1 RUN TIME: [address] [place], [place] [address] Specimen Inquiry Name: LANI BEASLEY JR : [address]: Anton Jasmine DO Acct: [id number] Unit: [id number] AGE: 73 Location: ED Re10/15/13 SEX: M Status: DEP ER SPEC: [id number] JARRETT: 10/15/13-[address] [facility] [address]: Anton Jasmine DO REQ: [id number] RECD: 10/15/13 STATUS: JAY ROBBINS DR: Herbert Damon MD _ SOURCE: URINE SPDESC: ORDERED: Urine Culture Procedure Result Verified Site Urine Culture Final 10/17/13- 1036 ML Organism 1 NORMAL LIBBY [place] Count 75-100,000 (Many) CFU/ML END OF REPORT * ML=Testing performed at Main Lab DEPARTMENT OF PATHOLOGY, [facility] [place], [place] [address] Joselito Escalona M.D. Director [facility] Permit #[id number] 26 RUN DATE: 10/20/13 [facility] LAB LIVE PAGE 1 RUN TIME: 4101 [facility] [place], [place] [address] Specimen Inquiry Name: LANI BEASLEY JR : [address]: Anton Jasmine DO Acct: [id number] Unit: [id number] AGE: 73 Location: ED Re10/15/13 SEX: M Status: DEP ER SPEC: [id number] JARRETT: 10/15/[address]: Anton Jasmine DO REQ: [id number] RECD: 10/15/13 STATUS: JAY ROBBINS DR: Herbert Damon MD _ SOURCE: BLOOD,VENO SPDESC: ORDERED: Blood Cult Procedure Result Verified Site Aerobic Culture Bottle Final 10/20/13- 1631 ML No Growth Day 5 Anaerobic Culture Bottle Final 10/20/13- 1631 ML No Growth Day 5 END OF REPORT * ML=Testing performed at Main Lab DEPARTMENT OF PATHOLOGY, [facility] [place], [place] [address] Joselito Escalona M.D. Director [facility] Permit #[id number] 27 Because ethnic data is not always readily [...] 15-29 5 Kidney failure <15 (or dialysis) 28 RUN DATE: 10/20/13 [facility] LAB LIVE PAGE 1 RUN TIME: [address] [place] [address] Specimen Inquiry Name: LANI BEASLEY JR : [address]: Anton Jasmine DO Acct: [id number] Unit: [id number] AGE: 73 Location: ED Re10/15/13 SEX: M Status: DEP ER SPEC: [id number] JARRETT: 10/15/[address] [facility] [address]: Anton Jasmine DO REQ: [id number] RECD: 10/15/13 STATUS: JAY ROBBINS DR: Herbert Damon MD _ SOURCE: BLOOD,VENO SPDES: ORDERED: Blood Cult Procedure Result Verified Site Aerobic Culture Bottle Final 10/20/13- 1631 ML No Growth Day 5 Anaerobic Culture Bottle Final 10/20/13- 163 ML No Growth Day 5 END OF REPORT * ML=Testing performed at Main Lab DEPARTMENT OF PATHOLOGY, [address] [place] [address] Joselito Escalona M.D. Director [facility] Permit #[id number] 29 Because ethnic data is not always [...] Date CPT Code Description Status Comment 07/20/2017 77852 EKG Tracing & Completed Interpretation 05/26/2017 39537 Diffusing Capacity Completed 05/26/2017 88656 Plethysmography Determination Completed Lung Volumes & Per Airway Resist 05/26/2017 00705 Pulmonary Completed Function><Bronchodil 05/15/2017 00548 Pace Maker Eval W/Iterative Completed Adjment Dual Lead 05/06/2017 13031 EKG Tracing & Completed Interpretation 01/12/2017 11505 Treadmill Interp/Report Only Completed 01/12/2017 66022 Stress Test Supervsn W/Out I/R Completed 01/12/2017 26294 Myocardial Perfusion Imaging Completed Tomographic (Spect) Multiple Studies 01/08/2017 94229 ECHO Transthoracic, Real-Time Completed 2D With Doppler And Color Flow 01/07/2017 77135 Pace Maker Eval W/Iterative Completed Adjment Dual Lead 07/11/2016 30881 Pace Maker Eval W/Iterative Completed Adjment Dual Lead 12/28/2015 99826 EKG Tracing & Completed Interpretation 12/13/2015 08658 Pace Maker Eval W/Iterative Completed Adjment Dual Lead 06/07/2015 41812 Interrogation Device Eval In Completed Person W/DR Analysis,Single,Dual,Mul 01/04/2015 05975 Stress Test Completed 01/04/2015 73647 Myocardial Perfusion Imaging Completed Tomographic (Spect) Multiple Studies 12/26/2014 41802 ECHO Transthoracic, Real-Time Completed 2D With Doppler And Color Flow 12/22/2014 93454 EKG Tracing & Completed Interpretation 12/05/2014 18071 Interrogation Device Eval In Completed Person W/DR Analysis,Single,Dual,Mul 06/26/2014 18882 Pace Maker Eval W/Iterative Completed Adjment Dual Lead 12/22/2013 45498 Interrogation Device Eval In Completed Person W/DR Analysis,Single,Dual,Mul 11/08/2013 86052 Perm Pacemaker Av Sequential Completed Atrial And Ventricular 11/02/2013 03784 EKG Tracing & Completed Interpretation 10/26/2013 14468 EKG, Interpretation Only Completed 09/26/2013 54429 EKG, Interpretation Only Completed 09/14/2013 Colonoscopy Completed normal exam with Dr Gloria at [place], [place] 04/04/2013 58320 Stress Test Supervsn W/Out I/R Completed 04/04/2013 08727 EKG, Interpretation Only Completed 04/04/2013 49210 Treadmill Interp/Report Only Completed 12/10/2012 38364 Inject/Drain Joint/Bursa Major Completed 11/15/2012 10863 Xray Knee 3 Views Completed 11/15/2012 79589 Rad Exam; Knee, Ap&L Completed 09/28/2012 32279 TKR Total Knee Replacement Completed 09/28/2012 59112 TKR Total Knee Replacement Completed 09/26/2012 66067 Inject/Drain Joint/Bursa Major Completed 06/25/2012 05197 Inject/Drain Joint/Bursa Major Completed 06/07/2012 64347 Xray Knee 3 Views Completed 06/07/2012 32981 Rad Exam; Knee, Ap&L Completed 06/07/2012 03096 Inject/Drain Joint/Bursa Major Completed 03/10/2011 05982 Xray Knee 3 Views Completed Encounters Type Date Location Provider CPT E/M Dx Office Visit 09/15/2017 [facility] Herbert Watkins, [address] I25.118 1:30p [facility] At [facility] Brien I42.9 I49.9 R55 Office Visit 09/11/2017 4:30p [facility] Internal Medicine - Venkat Isabel, 49967 J44.1 Tbmarcos Arzola M.D.,FACP Office Visit 09/03/2017 11:00a [facility] Lani Cee M.D. 00317 M05.9 Of [facility] M54.42 M17.12 M10.9 Z79.899 Office Visit 09/03/2017 11:20a [facility] Internal Venkat Isabel, 51858 I50.22 Medicine - [place] Dariusz Tesfaye,FACP N18.2 Office Visit 08/08/2017 10:31a [facility], Cheyenne Govea N.Khurram 75793 R07.9 Hospitalists I25.118 J44.9 Office Visit 07/20/2017 11:40a [facility] Internal Medicine Venkat Isabel, 92921 I42.9 - [place] Dariusz Tesfaye,FACP M10.022 I49.9 Office Visit 06/30/2017 1:00p [facility] Herbert Watkins, 35132 I49.5 [facility] Brien Z95.0 I42.9 I25.10 R06.02 Office Visit 06/22/2017 11:40a [facility] Internal Medicine Venkat Isabel, 66122 J44.1 - [place] Dariusz Tesfaye,FACP G47.33 I50.22 Z23 Office Visit 05/21/2017 9:40a [facility] Internal Venkat Isabel, 93862 I50.23 Medicine - Tbmarcos Arzola M.D.,FACP J40 Office Visit 05/14/2017 3:00p [facility]ology Services Of Lani Cee, 97073 M05.9 Fany Tesfaye M54.42 M17.12 Z79.899 Office Visit 05/06/2017 2:10p [facility] Internal Medicine Mayra Mccarthy, JAMISON [address]233 I42.9 - [place] Dariusz R80.0 M05.9 Office Visit 01/26/2017 2:00p [facility] Of Ernesto Ball M.D. 96004 M54.42 C.M.A. Z96.652 M17.12 Office Visit 01/21/2017 12:15p [facility] Herbert Watkins, 73715 I49.5 Fany Omalley.DCalixto I25.10 Z95.0 I42.9 Office Visit 01/07/2017 11:45a [facility] Evan Watkins, 29596 I49.5 [employer] M.DCalixto Z95.0 I25.10 R06.02 Office Visit 11/03/2016 3:58p [facility], Lydia Mauro, 58268 J11.1 Hospitalists MCindy J18.1 K21.9 I10 Office Visit 11/02/2016 3:58p [facility], Cheyenne Govea N.P. 41977 J11.1 Hospitalists J18.1 K21.9 I10 Office Visit 12/28/2015 11:15a [facility] Evan [facility], [address]234 I49.5 [facility] Brien R06.02 Z95.0 I25.10 Office Visit 01/11/2015 12:00p [facility] ElissaCalixto [facility], [address] 786.05 [facility] [employer] Brien 414.01 427.81 Office Visit 12/22/2014 8:30a [facility] ElissaCalixto [facility], 43703 V45.01 [facility] Lyssa.Evan 786.05 427.81 414.9 Office Visit 06/06/2014 12:10p [facility] Juan Jimenez, 71911 714.0 Infectious Diseases MCindy 287.5 Office Visit 06/06/2014 3:23p [facility], Maria L Lua, JAMISON 63834 414.9 Hospitalists 038.9 401.9 278.00 Office Visit 06/05/2014 3:23p [facility], Lawrence Phelps, 08190 414.9 Hospitalists N.P. 038.9 401.9 278.00 Office Visit 06/05/2014 12:14p [facility] Juan Jimenez, 33178 780.60 Infectious Diseases M.Evan 780.79 v45.01 E930.9 Office Visit 06/04/2014 3:22p [facility], Lawrence Phelps, 99527 414.9 Hospitalists N.P. 038.9 401.9 278.00 Office Visit 05/07/2014 2:43p [facility], Miguel Whaley D.O. 75344 578.9 Hospitalists 785.59 534.90 285.9 Office Visit 01/03/2014 8:30a [facility] John Paul Jimenez, 90391 511.1 Infectious Diseases M.D. 714.0 Office Visit 12/20/2013 9:30a [facility] Juan Jimenez, 03281 511.1 Infectious Diseases M.D. 458.9 Office Visit 12/06/2013 10:10a [facility] John Paul Gordon 52022 511.1 Infectious Diseases Brien Jimenez Office Visit 11/23/2013 8:08a [facility], Abdon Lisa 04254 486 Hospitalists Brien Merino 511.1 714.0 995.91 Office Visit 11/22/2013 8:08a [facility], Abdon Lisa 28854 486 Hospitalists Brien Merino 511.1 714.0 995.91 Office Visit 11/21/2013 8:08a [facility], Abbey Navarro, 03589 486 Hospitalists MCindy 511.1 714.0 Office Visit 11/21/2013 1:54p [facility] John Paul Jimenez, 29036 486 Infectious Diseases M.D. 511.9 Office Visit 11/20/2013 8:07a [facility], Abbey Navarro, 44711 486 Hospitalists MCindy 511.1 714.0 Office Visit 11/20/2013 1:38p [facility] John Paul Jimenez, 34238 486 Infectious Diseases M.D. 511.9 Office Visit 11/19/2013 8:07a [facility], Abbey Navarro, 63060 486 Hospitalists MaClixtoDCalixto 511.1 714.0 Office Visit 11/18/2013 8:06a [facility], Abbey Navarro, 12137 486 Hospitalists MCalixtoDCalixto 511.1 714.0 Office Visit 11/18/2013 1:32p [facility] John Paul Jimenez, 22212 486 Infectious Diseases M.D. 511.9 Office Visit 11/18/2013 1:21p [facility] [address] 511.9 Hospitalists V58.49 Office Visit 11/17/2013 1:22p [facility] Juan Jimenez, 72655 486 Infectious Diseases M.D. 511.9 Office Visit 11/17/2013 8:06a [facility], Abbey Navarro, 42750 995.91 Hospitalists M.DCalixto 486 511.1 714.0 Office Visit 11/16/2013 8:05a [facility], Abbey Navarro, 53636 995.91 Hospitalists M.D. 486 511.1 714.0 Office Visit 11/03/2013 2:20p [facility] Juan Jimenez, 67290 511.9 Infectious Diseases M.D. Office Visit 11/02/2013 10:15a [facility] Herbert Watkins, 76815 427.81 [facility] [employer] MCalixtoDCalixto 414.01 Office Visit 10/27/2013 10:38a [facility], Abdon Lisa 67655 511.9 Hospitalists Brien Merino 714.0 579.4 427.81 Office Visit 10/26/2013 10:37a [facility] Anne Marie Betancourt, 02267 427.81 Assoc, Hospitalists MCalixtoDCalixto 714.0 579.4 511.9 Office Visit 10/26/2013 12:50p [facility] Juan Jimenez, 63255 486 Infectious Diseases M.D. 511.9 Office Visit 10/25/2013 10:37a [facility], Anne Marie Betancourt, 50984 510.9 Hospitalists M.DCalixto 714.0 427.81 579.4 Office Visit 10/24/2013 10:36a [facility], Anne Marie Betancourt, 61546 510.9 Hospitalists MCalixtoDCalixto 714.0 579.4 427.81 Office Visit 10/23/2013 10:32a [facility], Anne Marie Betancourt, 24652 510.9 Hospitalists M.DCalixto 714.0 427.81 579.4 Office Visit 09/27/2013 1:21p [facility], Anne Marie Betancourt M.D. 32311 485 Hospitalists 511.9 414.01 426.6 Office Visit 09/27/2013 1:24p [facility] Of Herbert Watkins, 80868 427.81 [facility] MCindy Office Visit 09/26/2013 1:11p [facility] Anne Marie Betancourt, 53385 485 Assoc, Hospitalashkan Tesfaye 511.9 414.01 426.6 Office Visit 09/25/2013 1:09p [facility], Anne Marie Betancourt M.D. 49342 485 Hospitalists 511.9 592.0 414.01 Office Visit 04/04/2013 9:27a [facility], Abdon Lisa 67884 786.59 Hospitalists Brien Merino 414.01 401.9 V12.51 Office Visit 04/03/2013 9:27a [facility] Anne Marie Betancourt, 52715 786.59 Assoc, Hospitalists Brien 414.01 401.9 V12.51 Office Visit 03/21/2013 8:00a [facility] Of Ernesto Ball M.D. 93946 715.96 C.M.A. Office Visit 02/09/2013 8:22a [facility], Cheyenne Govea N.P. 21965 592.0 Hospitalists 250.00 591 414.01 Office Visit 12/23/2012 2:20p [facility] David Gordon 77687 682.2 Infectious Mann Jimenez M.D. Office Visit 12/15/2012 12:28p [facility] Lydia Mauro 73643 995.91 Assoc, Hospitalashkan Tesfaye 682.2 401.9 Office Visit 12/14/2012 12:27p [facility] Lydia Mauro 48469 995.91 Hospitalashkan Tesfaye 682.2 401.9 Office Visit 12/14/2012 9:38a [facility] David Gordon 75647 567.22 Infectious Diseases Brien Jimenez Office Visit 12/13/2012 [facility] 71095 995.91 Assoc, Hospitalashkan Tefsaye 682.2 401.9 Office Visit 12/13/2012 9:38a [facility] Juan Jimenez, 19558 567.22 Infectious Diseases M.D. Office Visit 12/12/2012 12:26p [facility], 60927 995.91 Assoc, Hospitalists Brien 682.2 996.66 401.9 Office Visit 12/11/2012 12:25p [facility], 70007 995.91 Assoc, Hospitalashkan Tesfaye 682.2 996.66 401.9 Office Visit 12/10/2012 12:23p [facility], Josh Escudero, 33642 995.91 Hospitalists N.P. 682.2 996.66 401.9 Office Visit 12/10/2012 9:37a [facility] Juan Jimenez, 35309 567.22 Infectious Diseases M.D. Office Visit 12/10/2012 8:00a [facility]opedic Services Josh Ruggiero M.D. 44747 719.06 Of Elpidio 719.46 Office Visit 10/01/2012 9:24a [facility], Dennise Farr N.P. 52897 401.1 Hospitalists 244.9 714.0 V43.65 Office Visit 09/30/2012 9:23a [facility], Dennise Farr N.P. 82545 401.1 Hospitalists 244.9 714.0 V43.65 Office Visit 09/29/2012 9:23a [facility], Dennise Farr N.P. 16476 401.1 Hospitalists 244.9 714.0 V43.65 Office Visit 09/28/2012 9:22a [facility], Josh Escudero, 82394 401.1 Hospitalists N.P. 244.9 714.0 V43.65 Office Visit 07/19/2012 10:30a [facility] M.D. 91134 715.96 C.M.A. 716.96 Office Visit 06/25/2012 3:30p [facility]gueta RPA-C 57565 715.96 Of C.M.A. 716.96 Office Visit 06/07/2012 10:30a [facility] M.D. 17022 844.9 C.M.A. 716.96 715.96 Office Visit 03/24/2011 8:30a [facility], 19362 844.9 C.M.A. RPA-C Office Visit 03/10/2011 3:30p [facility], 45099 719.46 C.M.A. RPA-C Office Visit 08/16/2009 2:45a [facility] Sohail Ribeiro M.D. 58834 786.50 [facility]oc[facility] Hospitalists Office Visit 08/15/2009 2:00a [facility] Sohail Ribeiro M.D. 35110 [facility]oc, Hospitalists Office Visit 08/14/2009 12:30a [facility] Anne Marie Betancourt, 18182 786.50 Assoc, Hospitalists [place] Plan of Care Future Appointment(s):10/15/2017 9:40 am - Venkat Isabel M.D.,FACP at [facility] [address]12/02/2017 11:40 am - Venkat Isabel M.D.,FACP at [facility] [address] 12/02/2017 10:40 am - Lani Cee M.D. at [facility]10/02/2017 - Venkat Isabel M.D.,FACPJ18.1 Lobar pneumonia, unspecified organismComments:Chest X-ray was indeterminant. I would like to get a CT scan of your chest done today.Referral for shoe shanker Dr. Hines to monitor lungs regularly.Referral:Meena Hines MD, Pulmonary IbgnptklL45.1 Chronic obstructive pulmonary disease w (acute) exacerbationComments:Prescribed Cefdinir to take dailyReferral:Meena Hines MD, Pulmonary Diseases
--- OUTSIDE RECORDS SUMMARY | 2017-10-17 12:30 | XMS REPORT ---
:1940 External Reference #:[id number] Author Organization [facility] Address [address] [address] Phone [phone] Care Team Providers Name Role Phone Davey Damon MD Care Team Information Supervisor Graphite Unavailable Venkat Isabel MD Primary Care Physician Unavailable Payers Type Date Identification Numbers Payment Provider Subscriber Medicare Primary Effective: Policy Number: Medicare Lani Beasley JR 2007 [id number] PayID: [id number] [address] [place] [address] [facility] Part B Effective: 2013 Policy Number: Medicaid Lani Beasley JR [id number] PayID: [id number] [address] [place] [address] Advance Directives Type Date Description Status Comment [...] obstruction GREGG TesfayeP Onset: 05/21/2017 Hypothyroidism Venkat Isabel, Active Brien,KATHY Family History Date Family Member(s) Problem(s) Comments General Heart Disease General Diabetes General Hypertension General Rheumatoid Arthritis Father Chronic Obstructive Pulmonary smoker, age 82 Disease (COPD) Mother Diabetes Type II Took Insulin, had bilateral amputations. 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 Chalo, by mouth M.Evan,[facility] four times a day as needed Keflex 09/11/ Hx Capsules 500mg 9caps three times Venkat 2017 - a day for 3 D. Chalo, 09/21/ additional MCindy,FACP 2018 days Prednisone 09/11/ Hx Tablets 10mg 28tab 4 tabs every Venkat 2017 - s day for 4 D. Chalo, 09/19/ days, then Brien,[facility] 2017 reduce by 1 tab every 2 days until returned to 10 mg qd chronically Nitroglycerin 09/03/ Active Tablets 0.4mg 50tab 1 sl q5mins Venkat Fierro Sub s x3 as needed Evan Isabel, for chest M.D.,FACP pain Entresto 07/20/ Active Tablets 49-51mg 60tab 1 tab by I50.22 Venkat Fierro s mouth twice Evan Isabel, a day M.D.,FACP J44.1 Anoro Ellipta 05/27/2017 Active Aerosol 62.5-25mcg/Inh 60units 1 Andreia Levine inhalation Evan Isabel, daily M.D.,FACP Ventolin HFA 05/27/2017 Active Aerosol 108(90Base) 18units 2 puffs by Venkat mcg/Act mouth four Evan Isabel, times a day M.D.,FACP as needed Creon 03/31/2017 Active Caps 6000Unit 90caps 1 tab by Venkat Part mouth three Evan Isabel, times a day M.D.,FACP Furosemide 01/07/2017 Active Tablets 20mg 30tabs 1 by mouth Venkat every Evan Isabel, daytakes as M.DCalixto,FACP needed) Allopurinol Active Tablets 300mg 90tabs 1 po qd Unknown Isosorbide Active Tablets 30mg 45tabs 1/2 tab Venkat Mononitrate ER 24HR once daily Evan Isabel ER Lyssa.DCalixto,FACP Simvastatin Active Tablets 20mg 90tabs 1 po qd Unknown Codeine Active Tablets 30mg 120tabs 1 take Venkat Sulfate tablet four Evan Isabel, times a day M.D.,FACP Synthroid Active Tablets 125mcg 30tabs 1 po qd Unknown Iron Active Tablets 325(65Fe) mg 90tabs 1 by mouth Unknown every other day Anastasiia Active Tablets 60mg 90tabs once daily Unknown Allergy prn Plaquenil Active Tablets 200mg 180tabs 1 po bid Unknown Prednisone Active Tablets 5mg 60tabs 2 tabs po Venkat Isabel M.D.,FACP Flomax Active Capsules 0.4mg 14caps 1 by mouth Unknown every day Multi Vitamin Active Tablets Unknown Daily Hydrocodone-A Active Tablets 5-325mg 60tabs Take one Lani cetaminophen capsule/tab Jaye, let by M.DCalixto mouth twice daily as needed for pain Carafate Active Tablets 1gm as needed Unknown Acetaminophen 09/17/2017 Hx Tablets 300-30mg 30tabs 1-2 tab by Andreia Levine -Codeine #3 - mouth 3x a DCalixto Isabel, 09/18/2017 day as M.D.,FACP needed Azithromycin 09/11/2017 Hx Tablets 250mg 6tabs 2 every day Venkat - for 1 day, DCalixto Isabel, 09/11/2017 then 1 M.D.,FACP every day Prednisone 09/03/2017 Hx Tablets 10mg 90tabs take 4 tabs Lani - daily for 2 Jaye, 09/11/2017 days then 3 M.D. tabs daily for 2 days then 2 tabs for 2 days then 1 tab for 2 days then d/c prn Ra Flare Colcrys 07/20/2017 Hx Tablets 0.6mg 14tabs take 2 tabs Venkat - by mouth on D. Chalo, 09/15/2017 day 1 then M.D.,FACP 1 tab daily for 1 week then as needed Entresto 06/22/2017 Hx Tablets 24-26mg 60tabs 1 by mouth Pablo Robledo - twice a day 5 D. Chalo, 07/20/2017 0 M.D.,FACP . 2 2 J44.1 Doxycycline 05/21/2017 - Hx Tablets 100mg 14tabs 1 by mouth Venkat Gordon Hyclate 05/21/2017 twice a day Brien Isabel,FACP Cefuroxime 05/21/2017 - Hx Tablets 500mg 14tabs 1 by mouth Venkat Gordon Axetil 05/28/2017 twice a day Chalo, for 7 days M.Evan,FACP Pancrelipase 03/30/2017 - Hx Caps DR Reinaldo mccabe take three Andreia Gordon (Ejm-Slwi-Fnic) 03/30/2017 Part tabs three Chalo, times daily MCindy,FACP Pancrelipase 03/30/2017 - Hx Caps DR Reinaldo mccabe take three Andreia Gordon (Rdx-Iybi-Dubm) 03/31/2017 Part caps three [place], times daily M.DCalixto,FACP Sucralfate 01/06/2015 - Hx Tablets 1gm 1 [...] Ernesto Ball, 12/23/2012 q4-6h prn MCalixtoDCalixto pain [place] 03/10/2011 - Hx Tablets 5-325mg 30tabs 1-2 [...] Unknown 01/12/2017 Pancrelipase - Hx Caps DR DiazUnrosa 810caps 3 cap by Andreia Gordon 03/31/2017 Part s mouth three [place], times a day M.Evan,FACP c meals Cefuroxime - Hx Tablets 500mg 30tabs 1 po bid Unknown Axetil 12/06/2013 Pantoprazole - Hx Tablets DR 40mg 1 tablet po Cardina, Sodium 01/16/2017 b.i.d MD Davey Zenpep - Hx Caps DR DiazUnrosa 3 times a Unknown 01/12/2017 Part day Medications Administered in Office Medication Date Status Form Strength Qnty SIG Indications Ordering Provider Inj, Administered Injection Herbert Gordon Regadenoson, 015 Brien Watkins 0.1 MG Technetium TC Administered Injection Herbert Evan 99M 015 Brien Watkins Tetrofosmin, Per Unit Dose Up To 40 Millicuries Technetium TC Administered Injection Ica Nuclear 99M 015 Schedule Tetrofosmin, Per Unit Dose Up To 40 Millicuries Depomedrol Administered Injection Amelia 80MG 012 NAYELI Argueta Depomedrol Administered Injection Dirk Lizzy, 80MG 012 Brien Immunizations CPT Code Status Date Vaccine Lot # [id number] Given 06/22/2017 Influenza Virus Vaccine, Quadrivalent, Split, [id number] Preservative Free Vital Signs Date Vital Result Comment 09/15/2017 Height 69 inches 5'9" Weight 307.00 [...] Gap 7 mmol/L 2-11 2 Laboratory test 08/31/2017 Uric Acid 4.9 mg/dL 4.4-7.6 2, 4 finding Laboratory test 08/08/2017 TSH (Thyroid Stim 3.94 mcIU/mL 0.34-5.60 finding Horm) CKMB 08/08/2017 CKMB ng/mL 2.3 ng/mL 0.6-6.3 Laboratory test 08/08/2017 B-Type Natriuretic 115 pg/mL High 5 finding Peptide BNP Partial Thrombo Time PTT 26.4 [...] Blood Cells % 0 Laboratory test finding 08/08/2017 Magnesium 2.0 mg/dL 1.9-2.7 Creatine Kinase(CK) 32 U/L 10-223 Troponin-I (TnI) 0.02 ng/mL <0.04 Comp Metabolic Panel 08/08/2017 Sodium 138 mmol/L [...] Egfr 41.4 >60 6 Laboratory test finding 07/31/2017 Uric Acid 5.0 [...] Color Yellow Urine Appearance Turbid Urine Specific [place] 1.020 1.010-1.030 Urine Esterase Negative Negative Urine [...] Color Yellow Urine Appearance Clear Urine Specific [place] 1.017 1.010-1.030 Urine Esterase Negative Negative Urine [...] Blood Cells % 0 Comp Metabolic Panel 10/23/2013 Sodium 131 mmol/L [...] 0.5-1.6 Troponin I 0.01 ng/mL 0-0.06 24 Inr/Protime 10/23/2013 Inr 1.07 High 0.85-1.06 Laboratory test finding 10/23/2013 Activated Partial 25.3 seconds 24.0- 36.1 Thrombo Time B Type Natriuretic Peptide 54.0 pg/mL 0-100 Urinalysis 10/15/2013 Urine Color Yellow Urine Appearance Clear Urine Specific [place] 1.019 1.010-1.030 Urine Esterase 1+ Negative Urine [...] REFERENCE VALUE <20.0 (Negative) Test Performed by: [facility] [place] [place] [address] 18 Test Performed by: [place] [address] 19 Acute inflammation: >10.00 20 Because ethnic [...] 0.06 ng/mL Not supportive of diagnosis of AR 0.06 - 0.50 ng/mL Indeterminate: suggest serial studies if clinically indicated. Greater than 0.5 ng/mL Consistent with diagnosis of AR 25 RUN DATE: 10/17/13 [facility] LAB LIVE PAGE 1 RUN TIME: [address] [place], [place] [address] Specimen Inquiry Name: LANI BEASLEY JR : [address]: Anton Jasmine DO Acct: [id number] Unit: [id number] AGE: 73 Location: ED Re10/15/13 SEX: M Status: DEP ER SPEC: [id number] JARRETT: 10/15/[address] [facility] [address]: Anton Jasmine DO REQ: [id number] RECD: 10/15/13 STATUS: JAY ROBBINS DR: Herbert Damon MD _ SOURCE: URINE SPDESC: ORDERED: Urine Culture Procedure Result Verified Site Urine Culture Final 10/17/13- 1036 ML Organism 1 NORMAL LIBBY [place] Count 75-100,000 (Many) CFU/ML END OF REPORT * ML=Testing performed at Main Lab DEPARTMENT OF PATHOLOGY, [facility] [employer] [place], [place] [address] Joselito Escalona M.D. Director [facility] Permit #[id number] 26 RUN DATE: 10/20/13 [facility] LAB LIVE PAGE 1 RUN TIME: 1632 [facility] [employer] [place], [place] [address] Specimen Inquiry Name: LANI BEASLEY JR : [address]: Anton Jasmine DO Acct: [id number] Unit: [id number] AGE: 73 Location: ED Re10/15/13 SEX: M Status: DEP ER SPEC: [id number] JARRETT: 10/15/13-[address]: Anton Jasmine DO REQ: [id number] RECD: 10/15/13 STATUS: JAY ROBBINS DR: Herbert Damon MD _ SOURCE: BLOOD,VENO [facility]: ORDERED: Blood Cult Procedure Result Verified Site Aerobic Culture Bottle Final 10/20/13- 1632 ML No Growth Day 5 Anaerobic Culture Bottle Final 10/20/13- 1632 ML No Growth Day 5 END OF REPORT * ML=Testing performed at Main Lab DEPARTMENT OF PATHOLOGY, [address] [place] [address] Joselito Escalona M.D. Director [facility] Permit #[id number] 27 Because ethnic data is not always [...] <15 (or dialysis) 28 RUN DATE: 10/20/13 [facility] LAB LIVE PAGE 1 RUN TIME: [address] [place] [address] Specimen Inquiry Name: LANI BEASLEY JR : [address]: Anton Jasmine DO Acct: [id number] Unit: [id number] AGE: 73 Location: ED Re10/15/13 SEX: M Status: DEP ER SPEC: [id number] JARRETT: 10/15/13-[address] [facility] [address]: Anton Jasmine DO REQ: [id number] RECD: 10/15/13 STATUS: JAY ROBBINS DR: Herbert Damon MD _ SOURCE: BLOOD,VENO SPDESC: ORDERED: Blood Cult Procedure Result Verified Site Aerobic Culture Bottle Final 10/20/13- 1632 ML No Growth Day 5 Anaerobic Culture Bottle Final 10/20/13- 1632 ML No Growth Day 5 END OF REPORT * ML=Testing performed at Main Lab DEPARTMENT OF PATHOLOGY, [address] [place] [address] Joselito Escalona M.D. Director [facility] Permit #[id number] 29 Because ethnic data is not always [...] Date CPT Code Description Status Comment 07/20/2017 24490 EKG Tracing & Completed Interpretation 05/26/2017 60222 Diffusing Capacity Completed 05/26/2017 61344 Plethysmography Determination Completed Lung Volumes & Per Airway Resist 05/26/2017 34809 Pulmonary Completed Function><Bronchodil 05/15/2017 80754 Pace Maker Eval W/Iterative Completed Adjment Dual Lead 05/06/2017 30114 EKG Tracing & Completed Interpretation 01/12/2017 13006 Treadmill Interp/Report Only Completed 01/12/2017 39850 Stress Test Supervsn W/Out I/R Completed 01/12/2017 61290 Myocardial Perfusion Imaging Completed Tomographic (Spect) Multiple Studies 01/08/2017 05867 ECHO Transthoracic, Real-Time Completed 2D With Doppler And Color Flow 01/07/2017 90458 Pace Maker Eval W/Iterative Completed Adjment Dual Lead 07/11/2016 89426 Pace Maker Eval W/Iterative Completed Adjment Dual Lead 12/28/2015 92735 EKG Tracing & Completed Interpretation 12/13/2015 99408 Pace Maker Eval W/Iterative Completed Adjment Dual Lead 06/07/2015 54066 Interrogation Device Eval In Completed Person W/DR Analysis,Single,Dual,Mul 01/04/2015 61593 Stress Test Completed 01/04/2015 40644 Myocardial Perfusion Imaging Completed Tomographic (Spect) Multiple Studies 12/26/2014 46577 ECHO Transthoracic, Real-Time Completed 2D With Doppler And Color Flow 12/22/2014 08700 EKG Tracing & Completed Interpretation 12/05/2014 30127 Interrogation Device Eval In Completed Person W/DR Analysis,Single,Dual,Mul 06/26/2014 57031 Pace Maker Eval W/Iterative Completed Adjment Dual Lead 12/22/2013 75887 Interrogation Device Eval In Completed Person W/DR Analysis,Single,Dual,Mul 11/08/2013 83054 Perm Pacemaker Av Sequential Completed Atrial And Ventricular 11/02/2013 20624 EKG Tracing & Completed Interpretation 10/26/2013 69884 EKG, Interpretation Only Completed 09/26/2013 60638 EKG, Interpretation Only Completed 09/14/2013 Colonoscopy Completed normal exam with Dr Gloria at [facility] 04/04/2013 37140 Stress Test Supervsn W/Out I/R Completed 04/04/2013 32436 EKG, Interpretation Only Completed 04/04/2013 12184 Treadmill Interp/Report Only Completed 12/10/201279267 Inject/Drain Joint/Bursa Major Completed 11/15/2012 33034 Xray Knee 3 Views Completed 11/15/2012 54211 Rad Exam; Knee, Ap&L Completed 09/28/2012 33407 TKR Total Knee Replacement Completed 09/28/2012 82277 TKR Total Knee Replacement Completed 09/26/201247354 Inject/Drain Joint/Bursa Major Completed 06/25/201240790 Inject/Drain Joint/Bursa Major Completed 06/07/2012 00650 Xray Knee 3 Views Completed 06/07/2012 95766 Rad Exam; Knee, Ap&L Completed 06/07/201286455 Inject/Drain Joint/Bursa Major Completed 03/10/2011 35312 Xray Knee 3 Views Completed Encounters Type Date Location Provider CPT E/M Dx Office Visit 09/15/2017 [facility] Herbert Watkins, 46872 I25.118 1:30p [employer] Consultant At [facility] Brien I42.9 I49.9 R55 Office Visit 09/11/2017 4:30p [facility] Internal Medicine - Venkat Isabel, 63306 J44.1 [place] Dariusz Tesfaye,FACP Office Visit 09/03/2017 11:00a [facility] Lani Cee M.D. 41885 M05.9 Of [facility] M54.42 M17.12 M10.9 Z79.899 Office Visit 09/03/2017 11:20a [facility] Internal Venkta Isabel, 86934 I50.22 Medicine - [place] Dariusz Tesfaye,FACP N18.2 Office Visit 08/08/2017 10:31a [facility]oc, Cehyenne Govea, N.P. 38013 R07.9 Hospitalists I25.118 J44.9 Office Visit 07/20/2017 11:40a [facility] Internal Medicine Venkat Isabel, [address] [address] Brien,FACP M10.022 I49.9 Office Visit 06/30/2017 1:00p [facility] Herbert Watkins, 44746 I49.5 [facility] At [facility] M.Evan Z95.0 I42.9 I25.10 R06.02 Office Visit 06/22/2017 11:40a [facility] Internal Medicine Venkat Isabel, 85094 J44.1 - [place] Dariusz Tesfaye,FACP G47.33 I50.22 Z23 Office Visit 05/21/2017 9:40a [facility] Internal Venkat Isabel, 36983 I50.23 Medicine - [place] Dariusz Tesfaye,FACP J40 Office Visit 05/14/2017 3:00p Rheumatology Services Of Lani Cee, 85713 M05.9 [facility] Brien M54.42 M17.12 Z79.899 Office Visit 05/06/2017 2:10p [facility] Internal Medicine Mayra Mccarthy, LMFT [address] [address]42[address] R80.0 M05.9 Office Visit 01/26/2017 2:00p [facility] Of Ernesto Ball M.D. 52474 M54.42 C.M.A. Z96.652 M17.12 Office Visit 01/21/2017 12:15p [facility] Geovanny Watkins, 88362 I49.5 [facility] Brien I25.10 Z95.0 I42.9 Office Visit 01/07/2017 11:45a [facility] Herbert Watkins, 48084 I49.5 [facility] Brien Z95.0 I25.10 R06.02 Office Visit 11/03/2016 3:58p [facility], Lydia Mauro, 16828 J11.1 Hospitalists Brien J18.1 K21.9 I10 Office Visit 11/02/2016 3:58p [facility], Cheyenne Govea N.Khurram 43108 J11.1 Hospitalists J18.1 K21.9 I10 Office Visit 12/28/2015 11:15a [facility] Herbert Watkins, 47651 I49.5 [employer]ant M.D. R06.02 Z95.0 I25.10 Office Visit 01/11/2015 12:00p [facility] Herbert Watkins, 86165 786.05 [employer] Consultant M.DCalixto 414.01 427.81 Office Visit 12/22/2014 8:30a [facility] Herbert Watkins, 77459 V45.01 [employer]ant M.DCalixto 786.05 427.81 414.9 Office Visit 06/06/2014 12:10p [facility] Juan Jimenez, 26145 714.0 Infectious Diseases Brien 287.5 Office Visit 06/06/2014 3:23p [facility] [place] [address] 414.9 Hospitalists 038.9 401.9 278.00 Office Visit 06/05/2014 3:23p [facility], Lawrence Phelps 88023 414.9 Hospitalists N.P. 038.9 401.9 278.00 Office Visit 06/05/2014 12:14p [facility] John Paul Jimenez, 36322 780.60 Infectious Diseases Brien 780.79 v45.01 E930.9 Office Visit 06/04/2014 3:22p [facility], Lawrence Phelps, 86698 414.9 Hospitalists N.P. 038.9 401.9 278.00 Office Visit 05/07/2014 2:43p [facility], Miguel Whaley D.O. 36428 578.9 Hospitalists 785.59 534.90 285.9 Office Visit 01/03/2014 8:30a [facility] John Paul Jimenez, 10059 511.1 Infectious Diseases Brien 714.0 Office Visit 12/20/2013 9:30a [facility] John Paul Jimenez, 05259 511.1 Infectious Diseases Brien 458.9 Office Visit 12/06/2013 10:10a [facility] John Paul Gordon 50695 511.1 Infectious Diseases Brien Jimenez Office Visit 11/23/2013 8:08a [facility], Abdon Lisa 16944 486 Hospitalists Brien Merino 511.1 714.0 995.91 Office Visit 11/22/2013 8:08a [facility], Abdon Lisa 93621 486 Hospitalists Brien Merino 511.1 714.0 995.91 Office Visit 11/21/2013 8:08a [facility], Abbey Navarro, 66193 486 Hospitalists MCalixtoDCalixto 511.1 714.0 Office Visit 11/21/2013 1:54p [facility] John Paul Jimenez, 20600 486 Infectious Diseases M.D. 511.9 Office Visit 11/20/2013 8:07a [facility], Abbey Navarro, 39720 486 Hospitalists MCalixtoDCalixto 511.1 714.0 Office Visit 11/20/2013 1:38p [facility] John Paul Jimenez, 63507 486 Infectious Diseases M.D. 511.9 Office Visit 11/19/2013 8:07a [facility], Abbey Navarro, 46929 486 Hospitalists MCalixtoDCalixto 511.1 714.0 Office Visit 11/18/2013 8:06a [facility], Abbey Navarro, 00938 486 Hospitalists M.D. 511.1 714.0 Office Visit 11/18/2013 1:32p [facility] Juan Jimenez, 27360 486 Infectious Diseases M.D. 511.9 Office Visit 11/18/2013 1:21p [facility] [address] 511.9 Hospitalists V58.49 Office Visit 11/17/2013 1:22p [facility] John Paul Jimenez, 48896 486 Infectious Diseases M.D. 511.9 Office Visit 11/17/2013 8:06a [facility], Abbey Navarro, 44708 995.91 Hospitalists MCalixtoDCalixto 486 511.1 714.0 Office Visit 11/16/2013 8:05a [facility], Abbey Navarro, 80064 995.91 Hospitalists MCalixtoD. 486 511.1 714.0 Office Visit 11/03/2013 2:20p [facility] Juan Jimenez, 89341 511.9 Infectious Diseases M.DCalixto Office Visit 11/02/2013 10:15a [facility] Herbert Watkins, 83107 427.81 Fany Tesfaye 414.01 Office Visit 10/27/2013 10:38a [facility], Abdon Lisa 25528 511.9 Hospitalists Brien Merino 714.0 579.4 427.81 Office Visit 10/26/2013 10:37a [facility] Anne Marie Betancourt, 26438 427.81 Assoc, Hospitalists Brien 714.0 579.4 511.9 Office Visit 10/26/2013 12:50p [facility] Juan Jimenez, 01880 486 Infectious Diseases Brien 511.9 Office Visit 10/25/2013 10:37a [facility], Anne Marie Betancourt, 86507 510.9 Hospitalists MCalixtoDCalixto 714.0 427.81 579.4 Office Visit 10/24/2013 10:36a [facility], Anne Marie Betancourt, 28689 510.9 Hospitalists MCindy 714.0 579.4 427.81 Office Visit 10/23/2013 10:32a [facility], Anne Marie Betancourt, 37015 510.9 Hospitalists MCindy 714.0 427.81 579.4 Office Visit 09/27/2013 1:21p [facility],gaye Betancourt M.D. 54051 485 Hospitalists 511.9 414.01 426.6 Office Visit 09/27/2013 1:24p [facility] Herbert Watkins, 61901 427.81 [employer] Consultant MCindy Office Visit 09/26/2013 1:11p [facility] Anne Marie Betancourt, 82913 485 Assoc, Hospitalists Brien 511.9 414.01 426.6 Office Visit 09/25/2013 1:09p [facility], Anne Marie Betancourt M.D. 85789 485 Hospitalists 511.9 592.0 414.01 Office Visit 04/04/2013 9:27a [facility] Abdon Lisa 40350 786.59 Hospitalists Brien Merino 414.01 401.9 V12.51 Office Visit 04/03/2013 9:27a [facility] Anne Marie Betancourt, 99035 786.59 Assoc, Hospitalists Brien 414.01 401.9 V12.51 Office Visit 03/21/2013 8:00a [facility] Of Ernesto Ball M.D. 31599 715.96 C.M.A. Office Visit 02/09/2013 8:22a [facility], Cheyenne Govea N.P. 88161 592.0 Hospitalists 250.00 591 414.01 Office Visit 12/23/2012 2:20p [facility] John Paul Gordon 57315 682.2 Infectious Diseases Brien Jimenez Office Visit 12/15/2012 12:28p [facility] Lydia Mauro, 37115 995.91 Assoc, Hospitalists Brien 682.2 401.9 Office Visit 12/14/2012 12:27p [facility] Lydia Mauro, 46053 995.91 Hospitalists Brien 682.2 401.9 Office Visit 12/14/2012 9:38a [facility] John Paul Gordon 17071 567.22 Infectious Diseases Brien Jimenez Office Visit 12/13/2012 12:27p [facility] Lydia Mauro, 65574 995.91 Assoc, Hospitalists Brien 682.2 401.9 Office Visit 12/13/2012 9:38a [facility] John Paul Jimenez 11436 567.22 Infectious Mann Tesfaye Office Visit 12/12/2012 12:[place], [address] 995.91 Assoc, Hospitalists Brien 682.2 996.66 401.9 Office Visit 12/11/2012 12:25p [facility], 28336 995.91 Assoc, Hospitalists Brien 682.2 996.66 401.9 Office Visit 12/10/2012 12:23p [facility], Josh Escudero, 58444 995.91 Hospitalists N.P. 682.2 996.66 401.9 Office Visit 12/10/2012 9:37a [facility] Juan Jimenez, 38014 567.22 Infectious Diseases M.D. Office Visit 12/10/2012 8:00a [facility] Josh Ruggiero M.D. 88700 719.06 Of C.M.ACalixto 719.46 Office Visit 10/01/2012 9:24a [facility], Dennise Farr N.P. 14606 401.1 Hospitalists 244.9 714.0 V43.65 Office Visit 09/30/2012 9:23a [facility], Dennise Farr N.P. 44874 401.1 Hospitalists 244.9 714.0 V43.65 Office Visit 09/29/2012 9:23a [facility], Dennise Farr N.P. 35692 401.1 Hospitalists 244.9 714.0 V43.65 Office Visit 09/28/2012 9:22a [facility], Josh Escudero, 53886 401.1 Hospitalists N.P. 244.9 714.0 V43.65 Office Visit 07/19/2012 10:30a [facility] Ernesto Ball M.D. 08181 715.96 C.M.A. 716.96 Office Visit 06/25/2012 3:30p [facility] NAYELI [place] 41017 715.96 Of C.M.A. 716.96 Office Visit 06/07/2012 10:30a [facility] Of Ernesto Ball M.D. 14007 844.9 C.M.A. 716.96 715.96 Office Visit 03/24/2011 8:30a [facility] Of Amelia Argueta 65412 844.9 C.M.A. RPA-C Office Visit 03/10/2011 3:30p [facility] Amelia Argueta 55684 719.46 C.M.A. RPA-C Office Visit 08/16/2009 2:45a [facility] Sohail Ribeiro M.D. 93133 786.50 Assoc, Hospitalists Office Visit 08/15/2009 2:00a [facility] Sohail Ribeiro M.D. 83115 Assoc, Hospitalists Office Visit 08/14/2009 12:30a [facility] Anne Marie Betancourt, 09661 786.50 Assoc, Hospitalists Brien Plan of Care Future Appointment(s):12/02/2017 11:40 am - Venkat Isabel M.D.,FACP at [facility] Internal Medicine - [address]12/02/2017 10:40 am - Lani Cee M.D. at [facility]09/15/2017 - Herbert Watkins M.D.I25.118 [facility] [place] art w oth ang pctrsFollow up:4 wgxcewS09.9 Cardiomyopathy, zaspuojrknkS43.9 Cardiac arrhythmia, xsieijwchxvM02 Syncope and collapseRecommendations:I will do pacer check today
--- NOTE | 2017-10-17 12:45 | RAD ---
INDICATION: Dizziness. The patient reports "hitting head by a right eye on floor 2 weeks earlier" COMPARISON: Most recent CT of the brain is dated September 15, 2017 TECHNIQUE: Contiguous axial sections of the brain were obtained from the skull base to the vertex without contrast. FINDINGS: The ventricles, cisterns and sulci exhibit mild involutional changes similar in appearance to the previous CT of the brain. There is mild to moderate periventricular and subcortical white matter hypoattenuation including more confluent areas at the right frontal and left parietal lobes similar in appearance to the previous CT of the brain. The poon-white matter differentiation is adequately maintained and there is no sulcal effacement. No significant focal abnormality or mass effect is present. There is no evidence for intracranial hemorrhage. No significant focal osseous abnormality is present. The visualized portion of the paranasal sinuses appear clear. The mastoid air cells are well aerated bilaterally. IMPRESSION: Chronic findings as described above similar in appearance to the September 15, 2017 CT of the brain without evidence of acute intracranial pathology.
[2017-10-17 13:09] LABS: Hematocrit 37 % (42-52); Hemoglobin 11.9 g/dl (14.0-18.0); Mean Corpuscular HGB Conc 32 g/dl (31-36); Mean Corpuscular Hemoglobin 29 pg (27-31); Mean Corpuscular Volume 89 fL (80-94); Mean Platelet Volume 9 um3 (7.4-10.4); Platelet Count 112 10^3/ul (150-450); Red Blood Count 4.16 10^6/ul (4.0-5.4); Red Cell Distribution Width 19 % (10.5-15); White Blood Count 5.7 10^3/ul (3.5-10.8)
--- NOTE | 2017-10-17 13:22 | RAD ---
INDICATION: Dizziness and shortness of breath COMPARISON: Chest x-ray September 15, 2017 TECHNIQUE: PA and lateral views of the chest were obtained. FINDINGS: Postsurgical changes include left upper chest cardiac pacemaker with 2 leads overlying the heart and surgical clips overlying the left upper abdomen. The heart and mediastinum are normal in size and contour. The lungs are grossly clear. There is no evidence of large pleural effusion. Visualized bones are normal for the patient's age. There is no radiographic evidence of free air beneath the diaphragm IMPRESSION: No radiographic evidence of acute cardiopulmonary disease.
[2017-10-17 13:27] LABS: INR 0.87 (0.77-1.02)
[2017-10-17 13:33] LABS: ABS Basophils 0 10^3/ul (0-0.2); ABS Eosinophils 0.1 10^3/ul (0-0.6); ABS Lymphocytes 0.5 10^3/ul (1.0-4.8); ABS Monocytes 0.7 10^3/ul (0-0.8); ABS Neutrophils 4.4 10^3/ul (1.5-7.7); ABS Nucleated RBC 0 10^3/ul; Eosinophil % 2.3 % (0-6); Lymphocyte % 8.5 % (25-47); Nucleated Red Blood Cells % 0
[2017-10-17] MEDS: Meclizine TAB* 12.5 MG PO ONE ×2 (14:41→14:43)
[2017-10-17] MEDS ORDERED: Acetaminophen TAB* 325 MG PO PRN (14:59)
[2017-10-17] MEDS ORDERED: Ondansetron INJ* 2 MG/ML VIAL IV PRN (14:59)
[2017-10-17] MEDS ORDERED: NS 0.9% 1000 ML* 1,000 ML IV SCH (15:00)
[2017-10-17] MEDS ORDERED: Albuterol HFA INHALER* 8 gm MDI INH PRN (15:01)
[2017-10-17] MEDS: Codeine TAB* 30 MG PO SCH ×2 (17:02→21:22)
--- NOTE | 2017-10-17 18:06 | ED ---
Narendra Shah Nikita, scribed for Shaquille Aguirre MD on 10/17/17 at 1222 . Dizziness - HPI Summary HPI Summary: This patient is a 77 year old M RASHID presenting to ED with a chief complaint of possible lethargy since earlier this morning after having breakfast. The patient rates the pain 0/10 in severity. Symptoms aggravated by nothing. Symptoms alleviated by nothing. Patient reports hypertension, dizziness ( everything was spotty), blurred vision, and near LOC. Patient denies N/V, CP, SOB, palpitations, WOOD, abdominal pain, diarrhea (not unusual from baseline), appetite changes, fever, and chills. - History Of Current Complaint Stated Complaint: POSSIBLE LETHARGIC Time Seen by Provider: 10/17/17 12:08 Hx Obtained From: Patient Onset/Duration: Suddenly - earlier this morning after breakfast Character: Dizzy - "everything was spotty" Aggravating Factor(s): Nothing Alleviating Factor(s): Nothing Associated Signs And Symptoms: Positive: Other: - Patient reports hypertension, dizziness (everything was spotty), blurred vision, and near LOC. Patient denies N/V, CP, SOB, palpitations, WOOD, abdominal pain, diarrhea (not unusual from baseline), appetite changes, fever, and chills. - Allergies/Home Medications Allergies/Adverse Reactions: Allergies Allergy/AdvReac Type Severity Reaction Status Date / Time Quinolones Allergy Severe See Comment Verified 10/17/17 15:19 azithromycin Allergy Unknown Verified 10/17/17 15:19 Reaction Details doxycycline Allergy Unknown Verified 10/17/17 15:19 Reaction Details Home Medications: Home Medications Albuterol HFA INHALER* [Ventolin HFA Inhaler*] 2 puff INH QID PRN 10/17/17 [ History Confirmed 10/17/17] Allopurinol TAB* [Zyloprim 300 MG TAB*] 300 mg PO DAILY 10/17/17 [History Confirmed 10/17/17] Codeine TAB* [Codeine Tab*] 30 mg PO QID 10/17/17 [History Confirmed 10/17/17] Colchicine* [Colcrys*] 0.6 mg PO DAILY PRN 10/17/17 [History Confirmed 10/17/17] Ferrous Sulfate TAB* 325 mg PO EVERY OTHER DAY 10/17/17 [History Confirmed 10/17] Fexofenadine (NF) [Anastasiia (NF)] 60 mg PO DAILY PRN 10/17/17 [History Confirmed 10/17/17] Fluticasone HFA 110 mcg(NF) [Flovent HFA 110 mcg(NF)] 1 puff INH BID 10/17/17 [ History Confirmed 10/17/17] Furosemide TAB* [Lasix TAB*] 20 mg PO DAILY 10/17/17 [History Confirmed 10/17/17 ] Hydroxychloroquine TAB* [Plaquenil TAB*] 200 mg PO BID 10/17/17 [History Confirmed 10/17/17] Levothyroxine TAB* [Synthroid TAB*] 125 mcg PO DAILY 10/17/17 [History Confirmed 10/17/17] Lipase/Protease/Amylase [Creon 6000 Unit] 1 cap PO TID 10/17/17 [History Confirmed 10/17/17] Multivitamins/Minerals TAB* [Theragran/minerals TAB*] 1 tab PO DAILY 10/17/17 [ History Confirmed 10/17/17] Nitroglycerin TAB 0.4 MG* 0.4 mg SL Q5M PRN 10/17/17 [History Confirmed 10/17/17 ] Sacubitril/Valsartan 49/51(NF) [Entresto 49/51(NF)] 1 tab PO BID 10/17/17 [ History Confirmed 10/17/17] Simvastatin TAB(NF) [Zocor(NF)] 20 mg PO DAILY 10/17/17 [History Confirmed 10/17] Tamsulosin CAP* [Flomax CAP*] 0.4 mg PO DAILY 10/17/17 [History Confirmed ] Umeclidin/Vilant 62.5 MDI(NF) [ANORO 62.5/25 Ellipta DEVICE (NF)] 1 inh INH DAILY 10/17/17 [History Confirmed 10/17/17] predniSONE TAB* [Deltasone TAB*] 10 mg PO DAILY 10/17/17 [History Confirmed 11/29] PMH/Surg Hx/FS Hx/Imm Hx Endocrine/Hematology History: Reports: Hx Anticoagulant Therapy - plavix 75mg, Hx Thyroid Disease - HYPOTHYROIDISM, Other Endocrine/Hematological Disorders - necrotizing pancreatitis Denies: Hx Diabetes, Hx Systemic Lupus Erythematosus Cardiovascular History: Reports: Hx Angina, Hx Coronary Artery Disease, Hx Deep Vein Thrombosis, Hx Embolism - PE, Hx Hypertension, Hx Myocardial Infarction, Hx Pacemaker/ICD Denies: Hx Congestive Heart Failure, Hx Hypercholesterolemia, Other Cardiovascular Problems/Disorders Respiratory History: Reports: Hx Chronic Bronchitis, Hx Chronic Obstructive Pulmonary Disease (COPD), Hx Pleural Effusion, Hx Pneumonia, Hx Pulmonary Embolism, Hx Seasonal Allergies, Hx Sleep Apnea, Other Respiratory Problems/ Disorders - PNA Denies: Hx Asthma GI History: Reports: Hx Gall Bladder Disease - removed, Hx Gastroesophageal Reflux Disease - occasional, Hx Gastrointestinal Bleed - cobra to [facility] last admit , Hx Ileostomy - hx ileostomy, reversed, Other GI Disorders - Hx pancreatitis, part of pancreas removed, HEMIGASTRECTOMY History: Reports: Hx Chronic Renal Failure, Hx Kidney Stones, Hx Renal Disease - kidney stones/uretherak stent, Other Problems/Disorders - Hx kidney stones Denies: Hx Dialysis Musculoskeletal History: Reports: Hx Arthritis, Hx Rheumatoid Arthritis, Other Musculoskeletal History - bilateral knee replacements Denies: Hx Gout - allopurinol is for kidney stones not gout., Hx Osteoporosis Sensory History: Reports: Hx Cataracts, Hx Contacts or Glasses Denies: Hx Eye Injury, Hx Eye Prosthesis, Hx Glaucoma, Hx Legally Blind, Hx Macular Degeneration, Hx Vision Problem, Hx Deafness, Hx Hearing Aid, Hx Hearing Problem Opthamlomology History: Reports: Hx Cataracts, Hx Contacts or Glasses Denies: Hx Eye Injury, Hx Eye Prosthesis, Hx Glaucoma, Hx Legally Blind, Hx Macular Degeneration, Hx Vision Problem Neurological History: Denies: Hx Dementia, Hx Seizures - Cancer History Cancer Type, Location and Year: 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 Hx Chemotherapy: No - Surgical History Surgery Procedure, Year, and Place: renal stent, 2 knee replacements, gastric bypass-, agnes, appendectomy, bowel resection, November 2012 debridement of abdominal wound, pacemaker, lower part of lung removed, pancreatic resection Hx Anesthesia Reactions: No - Immunization History Date of Tetanus Vaccine: Unk Date of Influenza Vaccine: None Infectious Disease History: Unable to Obtain/Confirm Infectious Disease History: Denies: Hx Clostridium Difficile, Hx Human Immunodeficiency Virus (HIV), Hx of Known/Suspected MRSA, Hx Shingles, Hx Tuberculosis, Traveled Outside the [place] in Last 30 Days - Family History Known Family History: Positive: Hypertension - Social History Alcohol Use: None Substance Use Type: Reports: None Smoking Status (MU): Never Smoked Tobacco Have You Smoked in the Last Year: No Review of Systems Negative: Fever, Chills Positive: Blurred Vision Positive: Other - HTN. Negative: Palpitations, Chest Pain Negative: Shortness Of Breath Positive: Diarrhea - not unusual from baseline, Other - denies appetite changes. Negative: Abdominal Pain, Vomiting, Nausea Neurological: Other - dizziness ("everything was spotty"), near LOC Negative: Headache All Other Systems Reviewed And Are Negative: Yes Physical Exam - Summary Physical Exam Summary: VITAL SIGNS: Reviewed. GENERAL: ~Patient is an obese MALE who is lying comfortable in the stretcher. ~ Patient is not in any acute respiratory distress. HEAD AND FACE: No signs of trauma. ~No ecchymosis, hematomas or skull depressions. No sinus tenderness. EYES: PERRLA, EOMI x 2, No injected conjunctiva, no nystagmus. EARS: Hearing grossly intact. Ear canals and tympanic membranes are within normal limits. MOUTH: Oropharynx within normal limits. NECK: Supple, trachea is midline, no adenopathy, no JVD, no carotid bruit, no c- spine tenderness, neck with full ROM. CHEST: Symmetric, no tenderness at palpation LUNGS: Clear to auscultation bilaterally. No wheezing or crackles. CVS: Regular rate and rhythm, S1 and S2 present, no murmurs or gallops appreciated. Pacemaker on R side of chest ABDOMEN: Soft, scar tissues which are dry, clean, and intact. No signs of distention. No rebound no guarding, and no masses palpated. Bowel sounds are normal. EXTREMITIES: FROM in all major joints, no edema, no cyanosis or clubbing. NEURO: Alert and oriented x 3. No acute neurological deficits. Speech is normal and follows commands. SKIN: Dry and warm GCS: 15 Triage Information Reviewed: Yes Vital Signs On Initial Exam: Initial Vitals Temp Pulse Resp BP Pulse Ox 96.9 F 86 20 158/109 96 10/17/17 12:13 10/17/17 12:13 10/17/17 12:13 10/17/17 12:13 10/17/17 12:13 Vital Signs Reviewed: Yes Diagnostics - Vital Signs Vital Signs Temp Pulse Resp BP Pulse Ox 10/17/17 12:13 96.9 F 86 20 158/109 96 - Laboratory Lab Results: Lab Results 10/17/17 10/17/17 10/17/17 Range/Units 12:54 12:54 12:54 WBC (3.5-10.8) 10^3/ul RBC (4.0-5.4) 10^6/ul Hgb (14.0-18.0) g/dl Hct (42-52) % MCV (80-94) fL MCH (27-31) pg MCHC (31-36) g/dl RDW (10.5-15) % Plt Count (150-450) 10^3/ul MPV (7.4-10.4) um3 Neut % (Auto) (38-83) % Lymph % (Auto) (25-47) % [place] % (Auto) (1-9) % Eos % (Auto) (0-6) % Baso % (Auto) (0-2) % Absolute Neuts (auto) (1.5-7.7) 10^3/ul Absolute Lymphs (auto) (1.0-4.8) 10^3/ul Absolute Monos (auto) (0-0.8) 10^3/ul Absolute Eos (auto) (0-0.6) 10^3/ul Absolute Basos (auto) (0-0.2) 10^3/ul Absolute Nucleated RBC 10^3/ul Nucleated RBC % INR (Anticoag Therapy) 0.87 (0.77-1.02) APTT 24.0 L (26.0-36.3) seconds Sodium 139 (133-145) mmol/L Potassium 3.7 (3.5-5.0) mmol/L Chloride 107 (101-111) mmol/L Carbon Dioxide 28 (22-32) mmol/L Anion Gap 4 (2-11) mmol/L BUN 42 H (6-24) mg/dL Creatinine 2.04 H (0.67-1.17) mg/dL Est GFR ( Amer) 41.1 (>60) Est GFR (Non-Af Amer) 32.0 (>60) BUN/Creatinine Ratio 20.6 H (8-20) Glucose 106 H (70-100) mg/dL Calcium 8.2 L (8.6-10.3) mg/dL Magnesium 2.2 (1.9-2.7) mg/dL Total Bilirubin 0.40 (0.2-1.0) mg/dL AST 17 (13-39) U/L ALT 20 (7-52) U/L Alkaline Phosphatase 82 (34-104) U/L Troponin I 0.02 (<0.04) ng/mL C-Reactive Protein 5.44 H (< 5.00) mg/L B-Natriuretic Peptide 79 ( - 100) pg/mL Total Protein 5.4 L (6.4-8.9) g/dL Albumin 3.1 L (3.2-5.2) g/dL Globulin 2.3 (2-4) g/dL Albumin/Globulin Ratio 1.3 (1-3) TSH 4.39 (0.34-5.60) mcIU/mL 10/17/17 Range/Units 12:54 WBC 5.7 (3.5-10.8) 10^3/ul RBC 4.16 (4.0-5.4) 10^6/ul Hgb 11.9 L (14.0-18.0) g/dl Hct 37 L (42-52) % MCV 89 (80-94) fL MCH 29 (27-31) pg MCHC 32 (31-36) g/dl RDW 19 H (10.5-15) % Plt Count 112 L (150-450) 10^3/ul MPV 9 (7.4-10.4) um3 Neut % (Auto) 77.6 (38-83) % Lymph % (Auto) 8.5 L (25-47) % [place] % (Auto) 11.4 H (1-9) % Eos % (Auto) 2.3 (0-6) % Baso % (Auto) 0.2 (0-2) % Absolute Neuts (auto) 4.4 (1.5-7.7) 10^3/ul Absolute Lymphs (auto) 0.5 L (1.0-4.8) 10^3/ul Absolute Monos (auto) 0.7 (0-0.8) 10^3/ul Absolute Eos (auto) 0.1 (0-0.6) 10^3/ul Absolute Basos (auto) 0 (0-0.2) 10^3/ul Absolute Nucleated RBC 0 10^3/ul Nucleated RBC % 0 INR (Anticoag Therapy) (0.77-1.02) APTT (26.0-36.3) seconds Sodium (133-145) mmol/L Potassium (3.5-5.0) mmol/L Chloride (101-111) mmol/L Carbon Dioxide (22-32) mmol/L Anion Gap (2-11) mmol/L BUN (6-24) mg/dL Creatinine (0.67-1.17) mg/dL Est GFR ( Amer) (>60) Est GFR (Non-Af Amer) (>60) BUN/Creatinine Ratio (8-20) Glucose (70-100) mg/dL Calcium (8.6-10.3) mg/dL Magnesium (1.9-2.7) mg/dL Total Bilirubin (0.2-1.0) mg/dL AST (13-39) U/L ALT (7-52) U/L Alkaline Phosphatase (34-104) U/L Troponin I (<0.04) ng/mL C-Reactive Protein (< 5.00) mg/L B-Natriuretic Peptide ( - 100) pg/mL Total Protein (6.4-8.9) g/dL Albumin (3.2-5.2) g/dL Globulin (2-4) g/dL Albumin/Globulin Ratio (1-3) TSH (0.34-5.60) mcIU/mL Result Diagrams: 10/17/17 12:54 10/17/17 12:54 Lab Statement: Any lab studies that have been ordered have been reviewed, and results considered in the medical decision making process. - Radiology CXR Radiology Interpretation Completed By: Radiologist - No radiographic evidence of acute cardiopulmonary disease. ED physician has reviewed this radiology report. - CT Brain CT CT Interpretation Completed By: Radiologist - Chronic findings as described above similar in appearance to the September 15, 2017 CT of the brain without evidence of acute intracranial pathology. ED physician has reviewed this radiology report. - EKG 1209 Cardiac Rate: NL EKG Rhythm: Sinus Rhythm - 86 bpm EKG Interpretation: No ST elevations, Q wave in V3, normal axis Dizzy Course/Dx - Course Assessment/Plan: This patient is a 77 year old M BIBA presenting to ED with a chief complaint of possible lethargy since earlier this morning after having breakfast. Blood work is without significant abnormalities except slight chronic anemia. Acute on chronic renal failure. Head CT is negative for acute pathology. The pt continues to be hypotensive. However, the pt has ejection fracture of only 30%. Therefore, the pt was given 1 L of fluids which only slightly improved his blood pressure. So, he was given a 2nd L of fluid, but he was still hypotensive and dizzy. Therefore, Dr. Betancourt accepted the pt for admission. Dx of symptomatic HTN, dizziness, and near syncope. The pt is hemodynamically stable, alert and oriented x3. - Diagnoses Differential Diagnosis/HQI/PQRI: Benign Paroxysmal Positional Vertigo, CVA, Medication Reaction, Vasovagal Reaction, Other - symptomatic HTN, dizziness, near syncope Provider Diagnoses: Dizziness, Near syncope, Symptomatic hypotension - Provider Notifications Discussed Care Of Patient With: Anne Marie Betancourt Time Discussed With Above Provider: 14:00 Instructed by Provider To: Other - Consulted Dr. Betancourt who accepts the pt for admission. - Critical Care Time Critical Care Time: 30-74 min Discharge - Discharge Plan Condition: Stable Disposition: ADMITTED TO [facility] documentation as recorded by the Narendra hung Nikita accurately reflects the service I personally performed and the decisions made by , Shaquille Aguirre MD.
--- NOTE | 2017-10-17 19:40 | HP ---
CC: Dr. Isabel * HISTORY AND PHYSICAL: DATE OF ADMISSION: 10/17/17 PRIMARY CARE PROVIDER: Dr. Isabel. ATTENDING PHYSICIAN WHILE IN THE HOSPITAL: Anne Marie Betancourt MD * (report dictated by Micky Phelps NP). CHIEF COMPLAINT: Dizziness. HISTORY OF PRESENT ILLNESS: Mr. Allen is a 77-year-old male patient who about 4 or 5 days ago was just coming over having a cold. He states in the last 4 to 5 days, he has been feeling better. He states prior to this, he had been sick for the last couple of weeks. He has been on a couple of different antibiotics. He states he has been having some diarrhea, but he chronically has that from him having two-thirds of his large bowel removed. He has had an ileostomy placed at one point. He states that he has had prior, again 4 to 5 days ago, recovering from a URI. He states he had been trying to eat and drink. He has been taking his Lasix right along. He states today he woke up, he was not feeling well. According to the family, he appeared to be drowsy. He was confused. He was kind of just drowsy and lethargic. The patient recalls the events of this morning. He knew he was confused. He felt generally weak. There were no reports of facial drooping. There were no reports of chest pain, fevers in the last couple of days. No chills. There was no vomiting. He did admit to having loose stools. He denied having any abdominal pain or any vomiting. He said he had been taking his diuretics and blood pressure pills right along. He states that today he felt almost like he was going to faint and pass out. He felt dizzy particularly with position change. He was concerned because he states that at one point he was seeing spots prior to feeling like he was going to faint. He never did faint, but he felt just generally weak and just not feeling well. The patient states he drank a glass of water and then he started feeling better after drinking the glass, but the was concerned because he just was not acting himself. He came in to the ED. It was noted that he appeared to be hypotensive and because of this, we were asked to evaluate for admission. PAST MEDICAL HISTORY: Significant for: 1. Nephrolithiasis. 2. Hypothyroidism. 3. GERD. 4. Hypertension. 5. COPD. 6. MS. 7. CAD. 8. NAPOLEON, not on mask. 9. Rheumatoid arthritis. 10. BPH. 11. Pancreatic insufficiency. 12. History of DVT and PE postoperatively. PAST SURGICAL HISTORY: 1. The patient has had a pacemaker placement. 2. Gastric bypass. 3. Appendectomy. 4. Cholecystectomy. 5. Ileostomy. 6. Pancreatic resection. MEDICATIONS: Home medications include: 1. Colchicine 0.6 mg p.o. daily as needed. 2. Flomax 0.4 mg daily. 3. Multivitamin 1 tablet daily. 4. Plaquenil 200 mg p.o. b.i.d. 5. Anastasiia 60 mg daily as needed. 6. Ferrous sulfate 325 mg p.o. daily every other day. 7. Zocor 20 mg daily. 8. Synthroid 125 mcg daily. 9. [place] 1 tablet p.o. b.i.d. as needed. 10. Allopurinol 300 mg daily. 11. Prednisone 10 mg daily. 12. Flovent 1 puff inhaled b.i.d. 13. Codeine 30 mg p.o. 4 times a day. 14. Imdur 15 mg p.o. daily. 15. Lasix 20 mg p.o. daily. 16. Creon 1 capsule p.o. t.i.d. 17. Ventolin 2 puffs inhaled 4 times a day as needed. 18. Anoro 1 inhalation daily. 19. Entresto 1 tablet p.o. b.i.d. 20. Nitro 0.4 mg sublingual q.5 minutes p.r.n. chest pain x3. ALLERGIES TO MEDICATIONS: Include CIPRO, AZITHROMYCIN, DOXY, LEVAQUIN. FAMILY HISTORY: Mother had a history of diabetes. Father had a history of COPD. SOCIAL HISTORY: He does not smoke. He does not drink. Surrogate decision maker is his . REVIEW OF SYSTEMS: There was no documented fever. He denied having any significant weight change. He denies having any ear discharge. There was no rhinorrhea. No sore throat. No thyroid enlargement. Denied having any chest pain. There was no orthopnea, no nocturnal dyspnea. He denied having any abdominal pain. He denied having any nausea or vomiting. He did admit to having some loose stools and diarrhea, but he states it was not too far from his baseline. He denied having any dysuria. There has been no frequency. No loss of consciousness. No pruritus and no skin ulcerations. Review of 14 systems completed, all others negative. PHYSICAL EXAMINATION GENERAL: At this time, Mr. Allen is a 77-year-old male patient. He is chronically ill appearing. He is sitting in the ED stretcher. He does not appear to be in any acute distress. VITAL SIGNS: Blood pressure 108/57, pulse 80, respirations 18, O2 sat 96%, temperature 97.2. HEENT: Head: Atraumatic. Eyes: EOMs intact. Sclerae anicteric and not pale. Throat: Oral mucosa appears to be dry. No oropharyngeal erythema. NECK: Supple. LUNGS: Clear to auscultation. No wheezes, rales, or rhonchi. HEART: Sounds S1, S2. Regular rate and rhythm. No murmurs, rubs, or gallops. ABDOMEN: Soft. It was flat, nontender. Bowel sounds present. EXTREMITIES: Pulses were 2+ throughout. He had no peripheral edema. He is moving all 4 extremities with 5/5 strength. NEUROLOGIC: He is awake. He is alert. He is now oriented x3. He had no gross focal deficits. SKIN: Intact. LABORATORY DATA/DIAGNOSTIC STUDIES: Today WBC of 5.7, RBC of 4.16, hemoglobin 11.9, hematocrit 37, platelet count of 112,000. INR 0.87. PTT of 24. His sodium was 138, potassium 3.7, chloride of 107, bicarb 28. BUN 42; creatinine of 2.04, his baseline creatinine appears to be right around 1.7. His glucose was 106. Calcium 8.2. Mag 2.2. Total bili 0.4, AST 17, ALT 20, alk phos 82. Troponin 0.02. BNP is 79. Albumin 3.1. TSH of 4.39. Urine is pending. He did have a chest x-ray obtained today and a CT of the brain. CT brain showed chronic findings as described above, similar to appearance of 09/15/17 exam. He had a chest x-ray, no radiographic evidence of acute cardiopulmonary disease. He had an EKG obtained today, which shows a normal sinus rhythm with PACs. He had flattened T waves in V6 and flattened in leads 1, 2, and aVL. No elevations noted. It was reviewed to the previous EKG, it appears to be similar with the PACs. He did have an echo from 2008 and a cardiac cath report, again which showed coronary artery disease report for details. Old medical records were reviewed. ASSESSMENT AND PLAN: Mr. Allen is a 77-year-old male patient with multiple medical problems coming in to the ED today with complaints of feeling like he was going to faint, feeling lightheaded and dizzy in the setting of recent upper respiratory tract infection. He will be admitted under observation status for: 1. Dizziness, presyncope. I suspect this is probably related to hypotension. When he came in, his blood pressures were in the 80s systolically. He has now responded to the fluids. His blood pressure is in the 100s systolically. My plan will be to continue to hydrate him. I suspect he was dehydrated. I do see evidence of this by the fact that he does have some acute renal failure going on as well. My plan would be to go ahead and hold his Lasix, hydrate the patient slowly and continue to follow him. Hold his blood pressure meds for the time being. Repeat orthostatic blood pressures tomorrow and follow the blood pressure. If he is improving and continues to improve, consider discharge tomorrow. 2. Nephrolithiasis. Not an active issue. 3. Acute renal failure. At this point, I will go and check a FENa. We will get a bladder scan on the patient as well to make sure he is not in obstruction , but I suspect this is less likely. He is not having any symptoms of this and we will continue to follow. 4. Hypothyroidism. Continue Synthroid. 5. Gastroesophageal reflux disease. Continue meds as prescribed. 6. Hyperlipidemia. He is on Zocor, we will continue. 7. Chronic obstructive pulmonary disease. We will continue his inhalers as prescribed. 8. Coronary artery disease. Again, I am going to hold his Imdur and his blood pressure medications for the time being. We will restart this when able. 9. Hypertension. Again, he was hypotensive. We are going to hold his blood pressure meds currently. 10. Obstructive sleep apnea. Follow up with primary. 11. Rheumatoid arthritis. Continue his meds as prescribed. One could theorize that he may require stress dose steroids, but he was placed on a steroid taper. Blood pressure responded to fluids, so if he remains persistently low, then I would consider getting him on some stress dose steroids , but we will follow. 12. Benign prostatic hypertrophy. Continue meds as prescribed. 13. Pancreatic insufficiency. Continue his Creon. 14. History of deep vein thrombosis and pulmonary embolism. He will be placed on heparin subcu for DVT prophylaxis. 15. Diarrhea. This is probably secondary to again the fact that he has two- thirds of his large bowel removed. He does take codeine prescribed to help with this. I will send off stool samples to make sure we are not dealing with anything like Clostridium difficile, but I suspect this is less likely because he has no white count, no CRP which I would expect in somebody who had Clostridium difficile, but we will check his stool to be safe for cultures and for Clostridium difficile. 16. Code status. Full code. 17. DVT prophylaxis. Heparin subcu. 18. Fluids, electrolytes, and nutrition. He can have a heart healthy diet. TIME SPENT: On admission 60 minutes, greater than half the time spent face-to- face with the patient obtaining my history and physical; other half time spent going over the plan of care with the patient and implementing plan of care. I discussed the plan of care with my attending, Dr. Betancourt; she is in agreement. MICKY PHELPS NP [id number]/CPS #: [id number] SAYDA
[2017-10-17] MEDS: Mometasone 220 MCG MDI INH SCH (20:00)
[2017-10-17] MEDS: PANCRELIPASE 6000 UNIT PO SCH (20:54)
[2017-10-17] MEDS: Heparin VIAL(*) 5000 UNITS/ML VIAL (FIVE THOUSAND) SUBCUT SCH (21:22)
[2017-10-17] MEDS: Hydroxychloroquine TAB* 200 MG PO SCH (21:22)
[2017-10-18 00:29] LABS: Urine Appearance Cloudy; Urine Blood Negative (Negative); Urine Color Yellow; Urine Ketones Negative (Negative); Urine Protein 1+(30 mg/dL) (Negative); Urine Specific Gravity 1.015 (1.010-1.030); Urine Urobilinogen Negative (Negative)
[2017-10-18] MEDS ORDERED: NS 0.9% 500 ML* 500 ML IV ONE ×2 (03:30→04:15)
[2017-10-18] MEDS: NS 0.9% 1000 ML* 1,000 ML IV SCH ×2 (04:20→10:28)
[2017-10-18] MEDS: Levothyroxine TAB* 125 MCG TAB PO SCH (05:55)
[2017-10-18] MEDS: Heparin VIAL(*) 5000 UNITS/ML VIAL (FIVE THOUSAND) SUBCUT SCH ×3 (05:55→21:00)
[2017-10-18 06:18] LABS: ABS Basophils 0 10^3/ul (0-0.2); ABS Eosinophils 0.1 10^3/ul (0-0.6); ABS Lymphocytes 0.5 10^3/ul (1.0-4.8); ABS Monocytes 0.6 10^3/ul (0-0.8); ABS Neutrophils 3.5 10^3/ul (1.5-7.7); ABS Nucleated RBC 0 10^3/ul; Eosinophil % 2.8 % (0-6); Hematocrit 35 % (42-52); Hemoglobin 11.4 g/dl (14.0-18.0); Lymphocyte % 10.5 % (25-47); Mean Corpuscular HGB Conc 32 g/dl (31-36); Mean Corpuscular Hemoglobin 29 pg (27-31); Mean Corpuscular Volume 89 fL (80-94); Mean Platelet Volume 10 um3 (7.4-10.4); Nucleated Red Blood Cells % 0.1; Platelet Count 98 10^3/ul (150-450); Red Blood Count 3.98 10^6/ul (4.0-5.4); Red Cell Distribution Width 19 % (10.5-15); White Blood Count 4.8 10^3/ul (3.5-10.8)
[2017-10-18 06:20] LABS: INR 0.9 (0.77-1.02)
[2017-10-18 06:25] LABS: EGFR Non-African American 35.6 (>60)
[2017-10-18] MEDS ORDERED: Tamsulosin CAP* 0.4 MG PO SCH (09:00)
[2017-10-18] MEDS ORDERED: predniSONE TAB* 5 MG PO SCH (09:00)
[2017-10-18] MEDS: Hydrocortisone INJ* 100 MG VIAL IV SCH ×2 (10:30→18:03)
[2017-10-18] MEDS: Hydroxychloroquine TAB* 200 MG PO SCH ×2 (10:31→20:59)
[2017-10-18] MEDS: Codeine TAB* 30 MG PO SCH ×4 (10:31→20:59)
[2017-10-18] MEDS: Atorvastatin* 10 MG TAB PO SCH (10:31)
[2017-10-18] MEDS: PANCRELIPASE 6000 UNIT PO SCH (10:49)
[2017-10-18] MEDS: Umeclidin/Vilant 62.5 MDI 62.5/25 mcg 14 INH ELLIPTA DEVICE INH SCH (10:49)
--- NOTE | 2017-10-18 11:15 | PN ---
Subjective Date of Service: 10/18/17 Interval History: Pt stated that his diarrhea is chronic and not worse. since his URI 2 weeks ago had fallen once and "skinned" his wrist. C/o generalized weakness and dizziness when getting up. Objective Active Medications: Acetaminophen (Tylenol Tab*) 650 mg PO Q4H PRN PRN Reason: FEVER/PAIN Albuterol (Ventolin Hfa Inhaler*) 2 puff INH QID PRN PRN Reason: SHORTNESS OF BREATH Atorvastatin Calcium (Lipitor*) 10 mg PO DAILY [facility] Last Admin: 10/18/17 10:31 Dose: 10 mg Codeine Sulfate (Codeine Tab*) 30 mg PO QID [facility] Last Admin: 10/18/17 10:31 Dose: 30 mg Ferrous Sulfate (Ferrous Sulfate Tab*) 325 mg PO EVERY OTHER DAY [facility] Heparin Sodium (Porcine) (Heparin Vial(*)) 5,000 units SUBCUT Q8HR [facility] Last Admin: 10/18/17 05:55 Dose: 5,000 units Hydrocortisone Sodium Succinate (Solu-Cortef*) 50 mg IV Q8H [facility] Last Admin: 10/18/17 10:30 Dose: 50 mg Hydroxychloroquine Sulfate (Plaquenil Tab*) 200 mg PO BID [facility] Last Admin: 10/18/17 10:31 Dose: 200 mg Sodium Chloride (Ns 0.9% 1000 Ml*) 1,000 mls @ 100 mls/hr IV PER RATE [facility] Last Admin: 10/18/17 10:28 Dose: 100 mls/hr Levothyroxine Sodium (Synthroid Tab*) 125 mcg PO DAILY@0600 [facility] Last Admin: 10/18/17 05:55 Dose: 125 mcg Mometasone Furoate (Asmanex 220 Mcg Mdi *) 1 puff INH BEDTIME [facility] Last Admin: 10/17/17 20:00 Dose: 1 puff Ondansetron HCl (Zofran Inj*) 4 mg IV Q6H PRN PRN Reason: NAUSEA Pancrelipase (Creon (Nf)) 0 units PO TID [facility] Last Admin: 10/18/17 10:49 Dose: Not Given Tamsulosin HCl (Flomax Cap*) 0.4 mg PO DAILY [facility] Last Admin: 10/18/17 10:34 Dose: Not Given Umeclidinium/Vilanterol (Anoro 62.5/25 Ellipta Device (Nf)) 1 inh INH DAILY [facility] Last Admin: 10/18/17 10:49 Dose: Not Given Vital Signs - 8 hr 10/18/17 10:31 Respiratory 18 Rate Oxygen Devices in Use Now: None Appearance: 77 yo M in nAD, aAOx3 Eyes: No Scleral Icterus, PERRLA Ears/Nose/Mouth/Throat: NL Teeth, Lips, Gums, Mucous Membranes Moist Neck: NL Appearance and Movements; NL JVP, Trachea Midline Respiratory: Symmetrical Chest Expansion and Respiratory Effort, Clear to Auscultation Cardiovascular: NL Sounds; No Murmurs; No JVD, RRR Abdominal: NL Sounds; No Tenderness; No Distention Lymphatic: No Cervical Adenopathy Extremities: No Clubbing, Cyanosis, - - +1 pitting pedal dat b/l-pt stated has gotten worse since his admission Skin: No Nodules or Sclerosis, - - R wrist skin abrasion at 5x8 cm healing Neurological: Alert and Oriented x 3, NL Muscle Strength and Tone Result Diagrams: 10/18/17 05:43 10/18/17 05:43 Additional Lab and Data: Lab Results 10/17/17 10/17/17 10/17/17 Range/Units 12:54 12:54 12:54 WBC (3.5-10.8) 10^3/ul RBC (4.0-5.4) 10^6/ul Hgb (14.0-18.0) g/dl Hct (42-52) % MCV (80-94) fL MCH (27-31) pg MCHC (31-36) g/dl RDW (10.5-15) % Plt Count (150-450) 10^3/ul MPV (7.4-10.4) um3 Neut % (Auto) (38-83) % Lymph % (Auto) (25-47) % Kay % (Auto) (1-9) % Eos % (Auto) (0-6) % Baso % (Auto) (0-2) % Absolute Neuts (auto) (1.5-7.7) 10^3/ul Absolute Lymphs (auto) (1.0-4.8) 10^3/ul Absolute Monos (auto) (0-0.8) 10^3/ul Absolute Eos (auto) (0-0.6) 10^3/ul Absolute Basos (auto) (0-0.2) 10^3/ul Absolute Nucleated RBC 10^3/ul Nucleated RBC % INR (Anticoag Therapy) 0.87 (0.77-1.02) APTT 24.0 L (26.0-36.3) seconds Sodium 139 (133-145) mmol/L Potassium 3.7 (3.5-5.0) mmol/L Chloride 107 (101-111) mmol/L Carbon Dioxide 28 (22-32) mmol/L Anion Gap 4 (2-11) mmol/L BUN 42 H (6-24) mg/dL Creatinine 2.04 H (0.67-1.17) mg/dL Est GFR ( Amer) 41.1 (>60) Est GFR (Non-Af Amer) 32.0 (>60) BUN/Creatinine Ratio 20.6 H (8-20) Glucose 106 H (70-100) mg/dL Calcium 8.2 L (8.6-10.3) mg/dL Magnesium 2.2 (1.9-2.7) mg/dL Total Bilirubin 0.40 (0.2-1.0) mg/dL AST 17 (13-39) U/L ALT 20 (7-52) U/L Alkaline Phosphatase 82 (34-104) U/L Troponin I 0.02 (<0.04) ng/mL C-Reactive Protein 5.44 H (< 5.00) mg/L B-Natriuretic Peptide 79 ( - 100) pg/mL Total Protein 5.4 L (6.4-8.9) g/dL Albumin 3.1 L (3.2-5.2) g/dL Globulin 2.3 (2-4) g/dL Albumin/Globulin Ratio 1.3 (1-3) TSH 4.39 (0.34-5.60) mcIU/mL 10/17/17 Range/Units 12:54 WBC 5.7 (3.5-10.8) 10^3/ul RBC 4.16 (4.0-5.4) 10^6/ul Hgb 11.9 L (14.0-18.0) g/dl Hct 37 L (42-52) % MCV 89 (80-94) fL MCH 29 (27-31) pg MCHC 32 (31-36) g/dl RDW 19 H (10.5-15) % Plt Count 112 L (150-450) 10^3/ul MPV 9 (7.4-10.4) um3 Neut % (Auto) 77.6 (38-83) % Lymph % (Auto) 8.5 L (25-47) % Kay % (Auto) 11.4 H (1-9) % Eos % (Auto) 2.3 (0-6) % Baso % (Auto) 0.2 (0-2) % Absolute Neuts (auto) 4.4 (1.5-7.7) 10^3/ul Absolute Lymphs (auto) 0.5 L (1.0-4.8) 10^3/ul Absolute Monos (auto) 0.7 (0-0.8) 10^3/ul Absolute Eos (auto) 0.1 (0-0.6) 10^3/ul Absolute Basos (auto) 0 (0-0.2) 10^3/ul Absolute Nucleated RBC 0 10^3/ul Nucleated RBC % 0 INR (Anticoag Therapy) (0.77-1.02) APTT (26.0-36.3) seconds Sodium (133-145) mmol/L Potassium (3.5-5.0) mmol/L Chloride (101-111) mmol/L Carbon Dioxide (22-32) mmol/L Anion Gap (2-11) mmol/L BUN (6-24) mg/dL Creatinine (0.67-1.17) mg/dL Est GFR ( Amer) (>60) Est GFR (Non-Af Amer) (>60) BUN/Creatinine Ratio (8-20) Glucose (70-100) mg/dL Calcium (8.6-10.3) mg/dL Magnesium (1.9-2.7) mg/dL Total Bilirubin (0.2-1.0) mg/dL AST (13-39) U/L ALT (7-52) U/L Alkaline Phosphatase (34-104) U/L Troponin I (<0.04) ng/mL C-Reactive Protein (< 5.00) mg/L B-Natriuretic Peptide ( - 100) pg/mL Total Protein (6.4-8.9) g/dL Albumin (3.2-5.2) g/dL Globulin (2-4) g/dL Albumin/Globulin Ratio (1-3) TSH (0.34-5.60) mcIU/mL Assess/Plan/Problems-Billing Assessment: Mr Allen is a 76 yo F who has a h/o HTN, hypothyroidism, stage III CKD, CAD, NAPOLEON, RA on chroinc prednisone and BPH who presented to the ER with c/ o generalized weakness and recent falls. Had URI 3 weeks ago and was treated with 2 weeks of antibiotics. - Patient Problems (1) FREDRICK (acute kidney injury) Comment: Due to dehydration. Creat back to baseline Lasix stopped (2) Hypotension Comment: due to worsening edema will stop IVF. Placed pt on stress dose steroids. He had been on Predisone x 10 mg chronically so far no evidence of infection. Awaiting stool cx and C. diff testing as well as blood cx. (3) HTN (hypertension) Comment: due to low BP all meds were held (4) Hypothyroid Comment: Continue current dose of synthroid. TSH 4.39 (5) Rheumatoid arthritis Comment: cont plaquenil. Prednsione swiched to stress dose hydrocortisone (6) Chronic diarrhea Comment: with no worsening. Pt has h/o bowel resection and uses codeine QID to control it (7) DVT prophylaxis Comment: SQ heparin Status and Disposition: OBV changed to inpatient due to continuation of hypotension
[2017-10-18] MEDS: Pancrelipase CAP* 5,000 UNITS CAP PO SCH ×2 (12:39→20:59)
[2017-10-18] MEDS: Mometasone 220 MCG MDI INH SCH (19:20)
[2017-10-18] MEDS: Tamsulosin CAP* 0.4 MG PO SCH (21:06)
[2017-10-19] MEDS: Hydrocortisone INJ* 100 MG VIAL IV SCH ×3 (01:22→18:02)
[2017-10-19] MEDS: Levothyroxine TAB* 125 MCG TAB PO SCH (05:52)
[2017-10-19] MEDS: Heparin VIAL(*) 5000 UNITS/ML VIAL (FIVE THOUSAND) SUBCUT SCH ×3 (05:52→21:51)
[2017-10-19 06:19] LABS: ABS Basophils 0 10^3/ul (0-0.2); ABS Eosinophils 0 10^3/ul (0-0.6); ABS Lymphocytes 0.3 10^3/ul (1.0-4.8); ABS Monocytes 0.4 10^3/ul (0-0.8); ABS Neutrophils 4.8 10^3/ul (1.5-7.7); ABS Nucleated RBC 0 10^3/ul; Eosinophil % 0.2 % (0-6); Hematocrit 35 % (42-52); Hemoglobin 11.5 g/dl (14.0-18.0); Lymphocyte % 5.5 % (25-47); Mean Corpuscular HGB Conc 33 g/dl (31-36); Mean Corpuscular Hemoglobin 29 pg (27-31); Mean Corpuscular Volume 89 fL (80-94); Mean Platelet Volume 9 um3 (7.4-10.4); Nucleated Red Blood Cells % 0.1; Platelet Count 98 10^3/ul (150-450); Red Blood Count 3.99 10^6/ul (4.0-5.4); Red Cell Distribution Width 18 % (10.5-15); White Blood Count 5.5 10^3/ul (3.5-10.8)
[2017-10-19 06:33] LABS: EGFR Non-African American 40.6 (>60)
--- NOTE | 2017-10-19 07:49 | PN ---
Subjective Date of Service: 10/19/17 Interval History: Ms. Allen reports that he is feeling better today but he remains tired. He has not had any diarrhea. He denies chest pain, SOB, nausea, or abdominal pain. He is tolerating oral intake well. He does not feel lightheaded with ambulation. Objective Active Medications: Acetaminophen (Tylenol Tab*) 650 mg PO Q4H PRN Albuterol (Ventolin Hfa Inhaler*) 2 puff INH QID PRN Atorvastatin Calcium (Lipitor*) 10 mg PO DAILY [facility] Codeine Sulfate (Codeine Tab*) 30 mg PO QID [facility] Ferrous Sulfate (Ferrous Sulfate Tab*) 325 mg PO EVERY OTHER DAY [facility] Heparin Sodium (Porcine) (Heparin Vial(*)) 5,000 units SUBCUT Q8HR [facility] Hydrocortisone Sodium Succinate (Solu-Cortef*) 50 mg IV Q8H [facility] Hydroxychloroquine Sulfate (Plaquenil Tab*) 200 mg PO BID [facility] Levothyroxine Sodium (Synthroid Tab*) 125 mcg PO DAILY@0600 [facility] Mometasone Furoate (Asmanex 220 Mcg Mdi *) 1 puff INH BEDTIME [facility] Ondansetron HCl (Zofran Inj*) 4 mg IV Q6H PRN Pancrelipase (Zenpep Delayed Cap*) 5,000 units PO TID [facility] Tamsulosin HCl (Flomax Cap*) 0.4 mg PO BEDTIME [facility] Umeclidinium/Vilanterol (Anoro 62.5/25 Ellipta Device (Nf)) 1 inh INH DAILY [facility] Vital Signs: Temp Pulse Resp BP Pulse Ox 98.0 F 88 16 133/84 95 10/19/17 03:17 10/19/17 03:17 10/19/17 03:17 10/19/17 03:17 10/19/17 03:17 Oxygen Devices in Use Now: None Appearance: Male sitting up in bed in NAD Eyes: No Scleral Icterus Ears/Nose/Mouth/Throat: Mucous Membranes Moist Neck: Trachea Midline Respiratory: Symmetrical Chest Expansion and Respiratory Effort, Clear to Auscultation Cardiovascular: NL Sounds; No Murmurs; No JVD, - - trace edema Abdominal: NL Sounds; No Tenderness; No Distention Skin: No Rash or Ulcers Neurological: Alert and Oriented x 3, NL Muscle Strength and Tone Nutrition: Taking PO's Result Diagrams: 10/19/17 06:07 10/19/17 06:07 Additional Lab and Data: Vital Signs: Temp Pulse Resp BP Pulse Ox 98.0 F 88 16 133/84 95 10/19/17 03:17 10/19/17 03:17 10/19/17 03:17 10/19/17 03:17 10/19/17 03:17 Assess/Plan/Problems-Billing Assessment: Mr Allen is a 76 yo F who has a h/o HTN, hypothyroidism, stage III CKD, CAD, NAPOLEON, RA on chroinc prednisone and BPH who presented to the ER with c/o generalized weakness and recent falls. Had URI 3 weeks ago and was treated with 2 weeks of antibiotics. - Patient Problems (1) Hypotension Comment: - Now better with stress dose steroids, did not respond to IV fluids. - He had been on Predisone x 10 mg chronically, suspect component of adrenal insufficiency. Plan to continue IV steroids tomorrow and then prescribe a slow taper down to 15mg prednisone. - Thus far no evidence of infection. Awaiting blood and urine cultures. (2) Chronic diarrhea Comment: - No BM since admission. - Pt has h/o bowel resection and uses codeine QID for diarrhea. (3) Stage III chronic kidney disease Comment: - Creatinine returned to baseline. (4) HTN (hypertension) Comment: - Hold all meds due to low BP. (5) CAD (coronary artery disease) Comment: - No complaints of chest pain. - Continue imdur and statin. (6) BPH (benign prostatic hypertrophy) Comment: - Continue flomax. (7) Hypothyroid Comment: - TSH 4.39 - Continue current dose of synthroid. (8) Rheumatoid arthritis Comment: - Prednisone switched to stress dose hydrocortisone. - Cont plaquenil. (9) DVT prophylaxis Comment: - SQ heparin. (10) Full code status Comment: Status and Disposition: Inpatient. Anticipate discharge to home when medically stable.
[2017-10-19] MEDS ORDERED: Ferrous Sulfate TAB* 325 MG PO SCH (09:00)
[2017-10-19] MEDS: Pancrelipase CAP* 5,000 UNITS CAP PO SCH ×3 (09:08→21:51)
[2017-10-19] MEDS: Hydroxychloroquine TAB* 200 MG PO SCH ×2 (09:08→21:51)
[2017-10-19] MEDS: Atorvastatin* 10 MG TAB PO SCH (09:08)
[2017-10-19] MEDS: Codeine TAB* 30 MG PO SCH ×4 (09:09→21:50)
[2017-10-19] MEDS: Umeclidin/Vilant 62.5 MDI 62.5/25 mcg 14 INH ELLIPTA DEVICE INH SCH (11:02)
[2017-10-19] MEDS: Mometasone 220 MCG MDI INH SCH (19:51)
[2017-10-19] MEDS: Nystatin CREAM* 15 GM TUBE TOPICAL SCH (21:51)
[2017-10-19] MEDS: Tamsulosin CAP* 0.4 MG PO SCH (21:51)
[2017-10-20] MEDS: Hydrocortisone INJ* 100 MG VIAL IV SCH (02:16)
[2017-10-20 05:26] LABS: Hematocrit 36 % (42-52); Hemoglobin 11.6 g/dl (14.0-18.0); Mean Corpuscular HGB Conc 33 g/dl (31-36); Mean Corpuscular Hemoglobin 29 pg (27-31); Mean Corpuscular Volume 89 fL (80-94); Mean Platelet Volume 10 um3 (7.4-10.4); Platelet Count 100 10^3/ul (150-450); Red Blood Count 4.01 10^6/ul (4.0-5.4); Red Cell Distribution Width 19 % (10.5-15); White Blood Count 4.8 10^3/ul (3.5-10.8)
[2017-10-20 05:59] LABS: ABS Basophils 0 10^3/ul (0-0.2); ABS Eosinophils 0 10^3/ul (0-0.6); ABS Lymphocytes 0.3 10^3/ul (1.0-4.8); ABS Monocytes 0.4 10^3/ul (0-0.8); ABS Neutrophils 4.1 10^3/ul (1.5-7.7); ABS Nucleated RBC 0 10^3/ul; Eosinophil % 0.5 % (0-6); Nucleated Red Blood Cells % 0.1
[2017-10-20] MEDS: Levothyroxine TAB* 125 MCG TAB PO SCH (06:08)
[2017-10-20] MEDS: Heparin VIAL(*) 5000 UNITS/ML VIAL (FIVE THOUSAND) SUBCUT SCH ×3 (06:08→20:31)
[2017-10-20] MEDS ORDERED: predniSONE TAB* 20 MG PO ONE (08:00)
[2017-10-20] MEDS: Umeclidin/Vilant 62.5 MDI 62.5/25 mcg 14 INH ELLIPTA DEVICE INH SCH (09:17)
[2017-10-20] MEDS: Hydroxychloroquine TAB* 200 MG PO SCH ×2 (09:19→20:30)
[2017-10-20] MEDS: Pancrelipase CAP* 5,000 UNITS CAP PO SCH ×3 (09:19→20:29)
[2017-10-20] MEDS: Atorvastatin* 10 MG TAB PO SCH (09:19)
[2017-10-20] MEDS: Codeine TAB* 30 MG PO SCH ×4 (09:21→20:28)
--- NOTE | 2017-10-20 10:01 | PN ---
Subjective Date of Service: 10/20/17 Interval History: Mr. Allen states that he is doing well today and is eager for discharge to home. He has ambulated on the unit multiple times without chest pain, SOB, or lightheadedness. Objective Active Medications: Acetaminophen (Tylenol Tab*) 650 mg PO Q4H PRN Albuterol (Ventolin Hfa Inhaler*) 2 puff INH QID PRN Atorvastatin Calcium (Lipitor*) 10 mg PO DAILY [facility] Codeine Sulfate (Codeine Tab*) 30 mg PO QID [facility] Ferrous Sulfate (Ferrous Sulfate Tab*) 325 mg PO EVERY OTHER DAY [facility] Heparin Sodium (Porcine) (Heparin Vial(*)) 5,000 units SUBCUT Q8HR [facility] Hydroxychloroquine Sulfate (Plaquenil Tab*) 200 mg PO BID [facility] Levothyroxine Sodium (Synthroid Tab*) 125 mcg PO DAILY@0600 [facility] Mometasone Furoate (Asmanex 220 Mcg Mdi *) 1 puff INH BEDTIME [facility] Nystatin (Nystatin Cream*) 1 applic TOPICAL TID [facility] Ondansetron HCl (Zofran Inj*) 4 mg IV Q6H PRN Pancrelipase (Zenpep Delayed Cap*) 5,000 units PO TID [facility] Tamsulosin HCl (Flomax Cap*) 0.4 mg PO BEDTIME [facility] Umeclidinium/Vilanterol (Anoro 62.5/25 Ellipta Device (Nf)) 1 inh INH DAILY [facility] Vital Signs: Temp Pulse Resp BP Pulse Ox 97.2 F 44 16 130/75 97 10/20/17 07:14 10/20/17 07:14 10/20/17 07:14 10/20/17 07:14 10/20/17 07:14 Oxygen Devices in Use Now: None Appearance: Male sitting up in chair in NAD Eyes: No Scleral Icterus Ears/Nose/Mouth/Throat: Mucous Membranes Moist Neck: Trachea Midline Respiratory: Symmetrical Chest Expansion and Respiratory Effort, Clear to Auscultation Cardiovascular: NL Sounds; No Murmurs; No JVD, No Edema Abdominal: NL Sounds; No Tenderness; No Distention Lymphatic: No Cervical Adenopathy Extremities: No Edema Skin: No Rash or Ulcers Neurological: Alert and Oriented x 3, NL Muscle Strength and Tone Nutrition: Taking PO's Result Diagrams: 10/20/17 05:10/19/17 06:07 Additional Lab and Data: . Microbiology and Other Data: . Assess/Plan/Problems-Billing Assessment: Mr Allen is a 76 yo F who has a h/o HTN, hypothyroidism, stage III CKD, CAD, NAPOLEON, RA on chroinc prednisone and BPH who presented to the ER with c/o generalized weakness and recent falls. Had URI 3 weeks ago and was treated with 2 weeks of antibiotics. - Patient Problems (1) Hypotension Comment: - Now better with stress dose steroids, did not respond to IV fluids. - He had been on Predisone x 10 mg chronically, suspect component of adrenal insufficiency. Plan to continue IV steroids tomorrow and then prescribe a slow taper down to 10-15mg prednisone. - Thus far no evidence of infection. Awaiting blood and urine cultures. (2) Chronic diarrhea Comment: - No BM since admission. - Pt has h/o bowel resection and uses codeine QID for diarrhea. (3) Stage III chronic kidney disease Comment: - Creatinine returned to baseline. (4) HTN (hypertension) Comment: - Hold all meds due to low BP. (5) CAD (coronary artery disease) Comment: - No complaints of chest pain. - Continue imdur and statin. (6) BPH (benign prostatic hypertrophy) Comment: - Continue flomax. (7) Hypothyroid Comment: - TSH 4.39 - Continue current dose of synthroid. (8) Rheumatoid arthritis Comment: - Prednisone switched to stress dose hydrocortisone. - Cont plaquenil. (9) DVT prophylaxis Comment: - SQ heparin. (10) Full code status Comment: Status and Disposition: Inpatient. Discharge to home.
[2017-10-20] MEDS: Nystatin TOP POWDER* 15 GM BTL TOPICAL SCH ×2 (18:22→20:33)
[2017-10-20] MEDS: Nystatin CREAM* 15 GM TUBE TOPICAL SCH (19:26)
[2017-10-20] MEDS: Mometasone 220 MCG MDI INH SCH (20:13)
[2017-10-20] MEDS: Tamsulosin CAP* 0.4 MG PO SCH (20:29)
--- NOTE | 2017-10-20 23:58 | DS ---
CC: Dr. Isabel * [facility] MEDICINE DISCHARGE SUMMARY: DATE OF ADMISSION: 10/17/17 DATE OF DISCHARGE: 10/20/17 ATTENDING PHYSICIAN: Dr. Brad Carrasquillo * (dictation provided by Cheyenne Govea NP). PRIMARY DIAGNOSIS: Suspected adrenal insufficiency with hypotension. SECONDARY DIAGNOSES: 1. Nephrolithiasis. 2. Hypothyroidism. 3. Gastroesophageal reflux disease. 4. Hypertension. 5. Chronic obstructive pulmonary disease. 6. Coronary artery disease with myocardial infarction. 7. Obstructive sleep apnea, not on CPAP. 8. Rheumatoid arthritis. 9. Benign prostatic hypertrophy. 10. Pancreatic insufficiency. 11. History of deep venous thrombosis and pulmonary embolism postoperatively. 12. History of pacemaker placement. 13. History of gastric bypass. 14. Appendectomy. 15. Cholecystectomy. 16. Ileostomy. 17. Pancreatic resection. MEDICATIONS: At the time of discharge are: 1. Colchicine 0.6 mg p.o. daily p.r.n. 2. Tamsulosin 0.4 mg p.o. daily. 3. Multivitamin with mineral 1 tab p.o. daily. 4. Hydroxychloroquine 200 mg p.o. b.i.d. 5. Fexofenadine 60 mg p.o. daily p.r.n. 6. Ferrous sulfate 325 mg p.o. every other day. 7. Simvastatin 20 mg p.o. daily. 8. Levothyroxine 125 mcg p.o. daily. 9. Hydrocodone with acetaminophen 5/325 one tab p.o. b.i.d. p.r.n. 10. Allopurinol 300 mg p.o. daily. 11. Flovent 1 puff inhaled b.i.d. 12. Codeine 30 mg p.o. 4 times a day 13. Isosorbide mononitrate ER 60 mg p.o. daily. 14. Furosemide 20 mg p.o. daily. 15. Creon 6000 unit capsules 1 cap p.o. b.i.d. 16. Albuterol handheld inhaler 2 puffs inhaled 4 times a day p.r.n. 17. Anoro Ellipta 62.5-25 one inhalation daily. 18. Entresto 49/51 one tab p.o. b.i.d. 19. Nitroglycerin 0.4 mg sublingual q.5 minutes p.r.n. 20. Prednisone 10 mg p.o. taper. The patient has 40 mg p.o. daily x4 days, then 30 mg p.o. daily x4 days, then 20 mg and to follow up with Dr. Isabel. HOSPITAL COURSE: Mr. Allen is a 77-year-old male with a past medical history as outlined above, who presented to the emergency room on 10/17/17 with a concern for dizziness. Please see the dictated H and P from Micky Phelps NP for complete details. In brief, the patient states that he had been ill over the month of September with symptoms of shortness of breath and bronchitis and therefore had been on 2 rounds of prednisone taper under the direction of Dr. Isabel. He states that these symptoms resolved well; however, on the morning prior to admission, the patient was a little drowsy, lethargic, and confused. In the emergency room, he was found to be hypotensive with a blood pressure in the 70s to 80s systolically. Mr. Allen was admitted to the hospital. There was concern initially that perhaps he had an infection. He was given multiple liters of IV fluids with some minimal response in his blood pressure. He had labs, which showed no leukocytosis. His CRP was only 5.44. His urine showed 3+ leuk esterase, but the culture was negative. His chest x-ray showed no acute process. Based on the fact that Mr. Allen is on chronic prednisone and had had 2 tapers of prednisone during the month of September with hypotension, the suspicion arose that perhaps he had adrenal insufficiency. The patient was started on stress dosed steroids on 10/18/17 and with this, his blood pressure responded well. He has been mentating well and up ambulating on the unit multiple times. The patient has been transitioned back over to prednisone today at 40 mg. He has tolerated this well and remains ambulatory with appropriate mental status. Mr. Allen is doing well. I have discussed the case with Dr. Isabel, who is his primary care physician, and we agree that the plan will be for him to be discharged to home for a slow dose taper and to follow up quickly with Dr. Isabel as noted below. DISPOSITION: To home. DIET: Low-fat, low-salt. ACTIVITY: As tolerated. FOLLOWUP PLANS: Please follow up with Dr. Isabel. An appointment has been made for 10/28/17. TIME SPENT: Approximately 60 minutes were spent on the discharge of this patient, more than half the time spent with the patient and his at the bedside reviewing the events leading up and during this hospitalization, performing the physical examination, and reviewing my plan of care. CHEYENNE GOVEA NP [id number]/[facility] #: [id number] SAYDA
[2017-10-21] MEDS: Heparin VIAL(*) 5000 UNITS/ML VIAL (FIVE THOUSAND) SUBCUT SCH (06:10)
[2017-10-21] MEDS: Levothyroxine TAB* 125 MCG TAB PO SCH (06:10)
[2017-10-21 07:22] VITALS: BP 135/74
== END 2017-10-21 07:25 | disposition home or self-care (01) | DRG 644 ==
LOC: EEVIPCON 12:07 → ED 12:07 → MED 14:02 → OBSVTOIN 10-18 09:45
PROVIDERS: ADMIT Internal Medicine; ATTEND Internal Medicine
DX: E27.40 Unspecified adrenocortical insufficiency (principal); N17.9 Acute kidney failure, unspecified; I95.9 Hypotension, unspecified; K86.89 Other specified diseases of pancreas; E86.0 Dehydration; J44.9 Chronic obstructive pulmonary disease, unspecified; I13.10 Hypertensive heart and chronic kidney disease without heart failure, with stage 1 through stage 4 chronic kidney disease, or unspecified chronic kidney disease; I25.10 Atherosclerotic heart disease of native coronary artery without angina pectoris; N20.0 Calculus of kidney; E03.9 Hypothyroidism, unspecified; K21.9 Gastro-esophageal reflux disease without esophagitis; G47.33 Obstructive sleep apnea (adult) (pediatric); M06.9 Rheumatoid arthritis, unspecified; N18.3 Chronic kidney disease, stage 3 (moderate); K52.9 Noninfective gastroenteritis and colitis, unspecified; N40.0 Benign prostatic hyperplasia without lower urinary tract symptoms; Z86.718 Personal history of other venous thrombosis and embolism; Z86.711 Personal history of pulmonary embolism; Z95.0 Presence of cardiac pacemaker; Z98.84 Bariatric surgery status; I25.2 Old myocardial infarction; Z93.2 Ileostomy status; Z79.891 Long term (current) use of opiate analgesic; Z79.52 Long term (current) use of systemic steroids; Z79.899 Other long term (current) drug therapy; Z88.1 Allergy status to other antibiotic agents; Z91.09 Other allergy status, other than to drugs and biological substances
CPT/HCPCS: 36415; 70450; 71046; 80048; 80053; 81003; 81015; 82272; 82570; 83735; 83880; 84300; 84443; 84484; 85025; 85610; 85730; 86140; 87040; 87086; 93005; 94640; 94760; 99283; A9270-GY; G0378; J1644; J1720; J7512

== ENCOUNTER 2018-05-08 04:44 | Inpatient (IN) | payer MEDICARE, MEDICAID ==
--- OUTSIDE RECORDS SUMMARY | 2018-05-08 04:53 | XMS REPORT ---
:1940 External Reference #:[id number] Author Organization [facility] Address [address] [facility] [address] [place] [address] Phone [phone] Care Team Providers Name Role Phone Venkat Isabel MD Primary Care Physician Unavailable Payers Type Date Identification Numbers Payment Provider Subscriber Commercial Effective: Policy Number: [id number] [employer] Medicare Lani Beasley Jr 2017 PayID: [id number] [address] [place] [address] Medigap Part B Effective: 2007 Policy Number: Medicare Lani Beasley Jr [id number] Expires: 2017 PayID: [id number] [address] [place] [address] Medigap Part B Effective: 2013 Policy Number: Medicaid Lani Beasley Jr [id number] PayID: [id number] [address] [place] [address] Advance Directives Type Date Description Status Comment Other Directive 05/21/2017 [facility] Care Proxy Current and Verified Problems Date Description Provider Status Onset: 05/27/2017 Chronic obstructive lung disease Venkat Isabel M.D., [facility] Active Note: w/ some reversibility on PFTs Onset: 11/02/2013 Sinus node dysfunction Herbert Watkins M.D. Active Onset: 11/02/2013 Coronary arteriosclerosis Herbert Watkins M.D. Active Note: cath 2009 Onset: 12/22/2013 Cardiac pacemaker in situ Herbert Watkins M.D. Active Onset: 05/07/2017 Rheumatoid arthritis Ewa Garcia M.D. Active Onset: 05/07/2017 Chronic kidney disease stage 3 Ewa Garcia M.D. Active Onset: 05/07/2017 Cardiomyopathy Ewa Garcia M.D. Active Note: EF 35-40% Onset: 05/21/2017 Uric acid urolithiasis Venkat Isabel M.D.,FACP Active Onset: 05/21/2017 Chronic pancreatitis Venkat Isabel M.D.,[facility] Active Note: h/o acute Onset: 05/21/2017 Benign prostatic hypertrophy Venkat Isabel Active without outflow obstruction Brien,FACP Onset: 05/21/2017 Hypothyroidism Juan Carlos Dobson M.D.,[facility] Onset: 04/22/2018 Arthritis of hip Juan Carlos Dobson M.D.,FACP Note: bilat Onset: 04/22/2018 Acquired short bowel syndrome Venkat Isabel M.D.,FACP Active Note: 2/3 colon resection due to pancreatitis/inflammation Family History Date Family Member(s) Problem(s) Comments [...] 2 children and his son 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 Cigarette Use Never Smoked Cigarettes ETOH Use 04/22/2018 Denies alcohol use Smoking Patient has never [...] Form Strength Qnty SIG Indications Ordering Provider Furosemide 04/22/ Active Tablets 40mg 45tab 1 by mouth Venkat Barrera s every other Evan Isabel, chyna Tesfaye,FACP Nystatin 04/22/ Active Powder [id number] 60gm topical twice Venkat 2017 t/GM a day as Evan Isabel needed Brien,FACP Aspirin 04/22/ Active Tablets 81mg 90tab 1 by mouth Venkat 2017 DR richardson every day Evan Isabel M.D.,FACP Nebulizer 02/09/ Active Device 1unit 1 unit J44.9 Meena 2017 s nebulization Flora, with albuterol every 6 hours and as needed Ipratropium 02/09/ Active Solution 0.5-2.5(3 540ml 1 unit every J44.9 Meena [place]/Albuter 2017 )mg/3ML 6 hours as Flora ol Sulfate needed Isosorbide 11/12/ Active Tablets 30mg 1/2 tablet by Venkat Mononitrate ER 2018 ER 24HR mouth every Evan Isabel, chyna Tesfaye,FACP Oxygen 11/10/ Active Misc 1unit please use o2 R09.02 Meena 2017 s at 2l/min at [facility], night and with exertion. Pls provide with stationary and portable o2 concentrator Prednisone 10/28/ Active Tablets 5mg 60tab take 2 tabs E27.40 Lani 2017 s daily Brien Cee Flovent HFA 10/06/ Active Aerosol 110mcg/Ac 24gm 1 puff twice J44.9 Meena 2018 t a day MD Flora Flutter 10/06/ Active Device 1unit use as JAnnette.9 Meena 2017 s instructed Flora twice a day Nitroglycerin 09/03/ Active Tablets 0.4mg 50tab 1 sl q5mins Venkat 2016 Sub s x3 as needed Evan Isabel, for chest M.D.,FACP pain Ventolin HFA 05/27/ Active Aerosol 108(90Bas 18uni 2 puffs by Andreia Levine 2016 e) ts mouth four D. Chalo, mcg/Act times a day M.D.,FACP as needed Anoro Ellipta 05/27/ Active Aerosol 62.5-25mc 60uni 1 inhalation Risingsun 2017 g/Inh ts daily Brien Kenny Creon 03/31/ Active Caps DR Crenshaw 180ca 1 tab by Venkat 2016 Part ps mouth twice a chyna Storm M.D.,FACP Allopurinol / Active Tablets 300mg 90tab 1 by mouth Venkat s every day Evan Isabel M.D.,[facility] Codeine Sulfate / Active Tablets 30mg 120ta 1 take tablet Toñito Abner bs four times a chyna Storm M.D.,FACP Synthroid / Active Tablets 125mcg 90tab 1 by mouth Venkat 0000 s every day Evan Isabel M.D.,FACP Iron / Active Tablets 325(65Fe) 90tab 1 by mouth Unknown 0000 mg s every other day Anastasiia Allergy / Active Tablets 60mg 90tab once daily Unknown 0000 s prn Plaquenil / Active Tablets 200mg 180ta 1 po bid Unknown 0000 bs Flomax / Active Capsules 0.4mg 14cap 1 by mouth Unknown 0000 s every day Multi Vitamin / Active Tablets Unknown Daily 0000 Hydrocodone-Rebel / Active Tablets 5-325mg 90tab take 1 by Lani lowe 0000 s mouth every 8 Jaye, hours as M.D. 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 Dennis, daily M.D.,FACP Colchicine 10/20/2017 - Hx Capsules 0.6mg take one by Unknown 12/01/2017 mouth every day prn - PT States He's Not Taking This AT ALL Prednisone 10/02/2017 - Hx Tablets 10mg 28tabs 4 tabs every Venkat 10/12/2017 day for 4 D. Dennis, days, then M.D.,FACP reduce by 1 tab every 2 days until back on 10 mg/day, remain on that dose Cefdinir 10/02/2017 - Hx Capsules 300mg 20caps 1 capsule by Venkat 10/12/2017 mouth twice a D. Dennis, day x's 10 M.D.,FACP days Cheratussin ac 09/18/2017 - Hx Solution 100-10m 473ml 5-10 Venkat 10/21/2017 g/5ML milliliters D. Dennis, by mouth four M.D.,FACP times a day as needed Acetaminophen-C 09/17/2017 - Hx Tablets 300-30m 30tabs 1-2 tab by Toñito rodriguez #3 09/18/2017 g mouth 3x a D. Dennis, day as needed M.D.,FACP Azithromycin 09/11/2017 - Hx Tablets 250mg 6tabs 2 every day Venkat 09/11/2017 for 1 day, D. Dennis, then 1 every M.D.,FACP day Keflex 09/11/2017 - Hx Capsules 500mg 9caps three times a Venkat 09/21/2017 day for 3 D. Dennis, additional M.D.,FACP days Prednisone 09/11/2017 - Hx Tablets 10mg 28tabs 4 tabs every Venkat 09/19/2017 day for 4 D. Dennis, days, then M.D.,FACP reduce by 1 tab every 2 days until returned to 10 mg qd chronically Prednisone 09/03/2017 - Hx Tablets 10mg 90tabs take 4 tabs Lani 09/11/2017 daily for 2 Jaye, days then 3 M.D. tabs daily for 2 days then 2 tabs for 2 days then 1 tab for 2 days then d/c prn Ra Flare Colcrys 07/20/2017 - Hx Tablets 0.6mg 14tabs take 2 tabs Venkat 09/15/2017 by mouth on D. Dennis, day 1 then 1 M.D.,FACP tab daily for 1 week then as needed Entresto 07/20/2017 - Hx Tablets 49-51mg 60tabs 1 tab by I50.22 Andreia Levine 10/30/2017 mouth twice a D. Dennis, day M.DCalixto,FACP J44.1 Entresto 06/22/2017 - Hx Tablets 24-26mg 60tabs 1 by mouth I50.22 Andreia Gordon 07/20/2017 twice a day Brien Isabel,FACP J44.1 Doxycycline 05/21/2017 - Hx Tablets 100mg 14tabs 1 by mouth Venkat Gordon Hyclate 05/21/2017 twice a day Brien Isabel,FACP Cefuroxime 05/21/2017 - Hx Tablets 500mg 14tabs 1 by mouth Venkat Gordon Axetil 05/28/2017 twice a day Dennis, for 7 days M.D.,FACP Pancrelipase 03/30/2017 - Hx Caps DR Najera 810capdebra take three Andreia Gordon (Ccc-[id number]) 03/30/2017 Part tabs three Dennis, times daily M.D.,FACP Pancrelipase 03/30/2017 - Hx Caps DR Najera 810caps take three Andreia Gordon (Jcu-[id number]-Orvr) 03/31/2017 Part caps three Dennis, times daily M.D.,FACP Furosemide 01/07/2017 - Hx Tablets 20mg 30tabs 1 by mouth Venkat Gordon 04/22/2018 every Dennis, daytakes as Brien,FACP needed) Sucralfate 01/06/2015 - Hx Tablets 1gm 1 tablet po Unknown 01/12/2017 qid Cefuroxime 01/03/2014 - Hx Tablets 500mg 42tabs 1 by mouth Mars Gordon Axetil 09/23/2014 twice a day .1 Brien Jimenez Dilaudid 11/10/2013 - Hx Tablets 2mg 8tabs onr tab Herbert Gordon 12/06/2013 every 6 Brien Watkins hours for pain Keflex 11/08/2013 - Hx Capsules 500mg 9caps pic line Herbert Evan 12/06/2013 Brien Watkins Cipro 12/23/2012 - Hx Tablets 500mg 1 po bid Juan DCalixto 10/31/2013 Brien Jimenez Coumadin 09/22/2012 - Hx Tablets 2.5mg 90tabs 2 po use as Ernesto Ball, 12/23/2012 directed Brien Percocet 06/07/2012 - Hx Tablets 5-325mg 120tabs 1-2 po k Lizzy, 12/23/2012 q4-6h prn Brien pain Benton 03/10/2011 - Hx Tablets 5-325mg 30tabs 1-2 po q4h Ernesto Ball, 12/23/2012 prn MCindy Cefepime - Hx Solution 2GM/100M 60units 2gm iv Unknown 12/23/2012 L q12hrs Toprol XL - Hx Tablets ER 25mg 90tabs 1 po qd Unknown 10/31/2013 24HR Isosorbide - Hx Tablets ER 30mg 45tabs 1/2 tab Venkat Gordon Mononitrate ER 10/21/2017 24HR once daily Brien Isabel,FACP Plavix - Hx Tablets 75mg 90tabs 1 po qd Unknown 11/03/2013 Aspirin - Hx Tablets 81mg 1 po qd Unknown 01/10/2015 Multivitamins - Hx Tablets 90tabs 1 po qd Unknown 10/31/2013 Pepcid - Hx Tablets 20mg 30tabs 1 po prn Unknown 01/12/2017 Pancrelipase - Hx Caps DR Najera 810caps 3 cap by Andreia Gordon 03/31/2017 Part s mouth three Dennis, times a day Brien,FACP c meals Cefuroxime - Hx Tablets 500mg 30tabs 1 po bid Unknown Axetil 12/06/2013 Prednisone - Hx Tablets 5mg 60tabs 40mg x 4 Venkat DCalixto 11/19/2017 days, then Dennis, 30mg daily M.D.,FACP x 4 days, then 20mg daily Pantoprazole - Hx Tablets DR 40mg 1 tablet po Cardina, Sodium 01/16/2017 b.i.d MD Davey Carafate - Hx Tablets 1gm as needed Unknown 10/21/2017 Zenpep - Hx Caps 5000Unrosa 3 times [...] Depomedrol Administered Injection Ernesto Ball, 80MG 012 DesiraeDCalixto Immunizations CPT Code Status Date Vaccine Lot # [id number] Given 06/22/2017 Influenza Virus Vaccine, Quadrivalent, Split, [id number] Preservative Free [id number] Given 05/25/2009 Pneumonia Vaccine Vital Signs Date Vital Result Comment 04/22/2018 Height 69 inches 5'9" Heart Rate 85 /min BP Systolic Sitting 122 mmHg BP Diastolic Sitting 70 mmHg Body Temperature 96.7 F O2 % BldC Oximetry 91 % 03/03/2018 Height 69 inches 5'9" Weight 300.00 lb Heart Rate 96 /min BP Systolic Sitting 137 mmHg BP Diastolic Sitting 82 mmHg Respiratory Rate 16 /min Pain Level 7 BMI (Body Mass Index) 44.3 kg/m2 02/09/2018 Height 69 inches 5'9" Weight 302.50 lb Heart Rate 104 /min BP Systolic Sitting 128 mmHg Lue large cuff BP Diastolic Sitting 68 mmHg Lue large cuff Respiratory Rate 20 /min O2 % BldC Oximetry 95 % On Ra BMI (Body Mass Index) 44.7 kg/m2 12/02/2017 Height 69 inches 5'9" Weight 300.38 lb Heart Rate 110 /min BP Systolic Sitting 110 mmHg BP Diastolic Sitting 82 mmHg Respiratory Rate 20 /min Body Temperature 97.6 F Pain Level 6 O2 % BldC Oximetry 95 % on 2 L O2 BMI (Body Mass Index) 44.4 kg/m2 11/20/2017 Height 69 inches 5'9" Weight 293.00 lb Heart Rate 100 /min BP Systolic Sitting 114 mmHg Lue large cuff BP Diastolic Sitting 82 mmHg Lue large cuff BP Systolic Standing 106 mmHg Lue BP Diastolic Standing 72 mmHg Lue Respiratory Rate 20 /min BMI (Body Mass Index) 43.3 kg/m2 Ejection Fraction 35-40% 01/09/17 11/19/2017 Weight 293.25 lb Heart Rate 97 /min BP Systolic Sitting 128 mmHg BP Diastolic Sitting 82 mmHg Body Temperature 97.2 F O2 % BldC Oximetry 90 % 10/28/2017 Weight 293.50 lb Heart Rate 102 /min BP Systolic Sitting 124 mmHg BP Diastolic Sitting 78 mmHg Body Temperature 96.0 F O2 % BldC Oximetry 94 % 10/15/2017 Weight 288.00 lb Heart Rate 96 [...] Test Date Test Result H/L Range Note Laboratory test finding 03/03/2018 Erythrocyte Sed Rate 26 mm/Hr 0-40 1 , 2 C Reactive Protein 19.32 mg/L High <8.01 1, 3 CBC Auto Diff 03/03/2018 White Blood Count 6.5 10^3/uL 3.5-10.8 1 Red Blood Count 4.36 10^6/uL 4.00-5.40 1 Hemoglobin 12.7 g/dL Low 14.0-18.0 1 Hematocrit 38 % Low 42-52 1 Mean Corpuscular Volume 88 fL 80-94 1 Mean Corpuscular Hemoglobin 29 pg 27-31 1 Mean Corpuscular HGB Conc 33 g/dL 31-36 1 Red Cell Distribution Width 18 % High 10.5-15 1 Platelet Count 138 10^3/uL Low 150-450 1 Mean Platelet Volume 10.2 um3 7.4-10.4 1 Abs Neutrophils 5.2 10^3/uL 1.5-7.7 1 Abs Lymphocytes 0.5 10^3/uL Low 1.0-4.8 1 Abs Monocytes 0.6 10^3/uL 0-0.8 1 Abs Eosinophils 0.1 10^3/uL 0-0.6 1 Abs Basophils 0 10^3/uL 0-0.2 1 Abs Nucleated RBC 0 10^3/uL 1 Granulocyte % 80.5 % 38-83 1 Lymphocyte % 8.3 % Low 25-47 1 Monocyte % 8.7 % High 0-7 1 Eosinophil % 2.1 % 0-6 1 Basophil % 0.4 % 0-2 1 Nucleated Red Blood Cells % 0 1 Comp Metabolic Panel 03/03/2018 Sodium 143 mmol/L 135-145 1 Potassium 3.6 mmol/L 3.5-5.0 1 Chloride 105 mmol/L 101-111 1 Co2 Carbon Dioxide 28 mmol/L 22-32 1 Anion Gap 10 mmol/L 2-11 1 Glucose 120 mg/dL High 70-100 1 Blood Urea Nitrogen 24 mg/dL 6-24 1 Creatinine 1.90 mg/dL High 0.67-1.17 1 BUN/Creatinine Ratio 12.6 8-20 1 Calcium 8.7 mg/dL 8.6-10.3 1 Total Protein 5.8 g/dL Low 6.4-8.9 1 Albumin 3.5 g/dL 3.2-5.2 1 Globulin 2.3 g/dL 2-4 1 Albumin/Globulin Ratio 1.5 1-3 1 Total Bilirubin 0.70 mg/dL 0.2-1.0 1 Alt 11 U/L 7-52 1 Ast 15 U/L 13-39 1 Egfr Non- 34.7 >60 1 Egfr 44.7 >60 1, 4 Alkaline Phosphatase 54 U/L 34-104 1 Comp Metabolic Panel 10/28/2017 Sodium 139 mmol/L 133-145 Potassium 3.7 mmol/L 3.5-5.0 Chloride 104 mmol/L 101-111 Co2 Carbon Dioxide 27 mmol/L 22-32 Anion Gap 8 mmol/L 2-11 Glucose 121 mg/dL High 70-100 Blood Urea Nitrogen 31 mg/dL High 6-24 Creatinine 1.83 mg/dL High 0.67-1.17 BUN/Creatinine Ratio 16.9 8-20 Calcium 8.7 mg/dL 8.6-10.3 Total Protein 5.7 g/dL Low 6.4-8.9 Albumin 3.5 g/dL 3.2-5.2 Globulin 2.2 g/dL 2-4 Albumin/Globulin Ratio 1.6 1-3 Total Bilirubin 0.50 mg/dL 0.2-1.0 Alkaline Phosphatase 74 U/L 34-104 Alt 19 U/L 7-52 Ast 17 U/L 13-39 Egfr Non- 36.3 >60 Egfr 46.6 >60 5 Comp Metabolic Panel 10/17/2017 Sodium 139 mmol/L 133-145 6 Potassium 3.7 mmol/L 3.5-5.0 6 Chloride 107 mmol/L 101-111 6 Co2 Carbon Dioxide 28 mmol/L 22-32 6 Anion Gap 4 mmol/L 2-11 6 Glucose 106 mg/dL High 70-100 6 Blood Urea Nitrogen 42 mg/dL High 6-24 6 Creatinine 2.04 mg/dL High 0.67-1.17 6 BUN/Creatinine Ratio 20.6 High 8-20 6 Calcium 8.2 mg/dL Low 8.6-10.3 6 Total Protein 5.4 g/dL Low 6.4-8.9 6 Albumin 3.1 g/dL Low 3.2-5.2 6 Globulin 2.3 g/dL 2-4 6 Albumin/Globulin Ratio 1.3 1-3 6 Total Bilirubin 0.40 mg/dL 0.2-1.0 6 Alkaline Phosphatase 82 U/L 34-104 6 Alt 20 U/L 7-52 6 Ast 17 U/L 13-39 6 Egfr Non- 32.0 >60 6 Egfr 41.1 >60 6, 7 Laboratory test finding 10/17/2017 Magnesium 2.2 mg/dL 1.9-2.7 6 C Reactive Protein 5.44 mg/L High < 5.00 6, 8 Troponin-I (TnI) 0.02 ng/mL <0.04 6 TSH (Thyroid Stim Horm) 4.39 mcIU/mL 0.34-5.60 6 Inr/Protime 10/17/2017 Inr 0.87 0.77-1.02 6 Laboratory test finding 10/17/2017 Partial Thrombo Time 24.0 seconds Low 26.0-36.3 6 PTT B-Type Natriuretic Peptide BNP 79 pg/mL 6, 9 CBC Auto Diff 10/17/2017 White Blood Count 5.7 10^3/uL 3.5-10.8 6 Red Blood Count 4.16 10^6/uL 4.0-5.4 6 Hemoglobin 11.9 g/dL Low 14.0-18.0 6 Hematocrit 37 % Low 42-52 6 Mean Corpuscular Volume 89 fL 80-94 6 Mean Corpuscular Hemoglobin 29 pg 27-31 6 Mean Corpuscular HGB Conc 32 g/dL 31-36 6 Red Cell Distribution Width 19 % High 10.5-15 6 Platelet Count 112 10^3/uL Low 150-450 6 Mean Platelet Volume 9 um3 7.4-10.4 6 Abs Neutrophils 4.4 10^3/uL 1.5-7.7 6 Abs Lymphocytes 0.5 10^3/uL Low 1.0-4.8 6 Abs Monocytes 0.7 10^3/uL 0-0.8 6 Abs Eosinophils 0.1 10^3/uL 0-0.6 6 Abs Basophils 0 10^3/uL 0-0.2 6 Abs Nucleated RBC 0 10^3/uL 6 Granulocyte % 77.6 % 38-83 6 Lymphocyte % 8.5 % Low 25-47 6 Monocyte % 11.4 % High 1-9 6 Eosinophil % 2.3 % 0-6 6 Basophil % 0.2 % 0-2 6 Nucleated Red Blood Cells % 0 6 CBC Auto Diff 09/15/2017 White Blood Count [...] Egfr Non- 36.0 >60 Egfr 46.4 >60 10 Laboratory test finding 09/15/2017 Magnesium 1.9 mg/dL 1.9-2.7 Troponin-I (TnI) 0.01 ng/mL <0.04 TSH (Thyroid Stim Horm) 4.62 mcIU/mL 0.34-5.60 Basic Metabolic Panel 08/31/2017 Sodium 141 mmol/L 133-145 11 Co2 Carbon Dioxide 21 mmol/L Low 22-32 11 Glucose 122 mg/dL High 70-100 11 Blood Urea Nitrogen 43 mg/dL High 6-24 11 Creatinine 2.10 mg/dL High 0.67-1.17 11 BUN/Creatinine Ratio 20.5 High 8-20 11 Calcium 8.8 mg/dL 8.6-10.3 11 Egfr Non- 30.9 >60 11 Egfr 39.8 >60 11, 12 Potassium 5.1 mmol/L High 3.5-5.0 11 Chloride 113 mmol/L High 101-111 11 Anion Gap 7 mmol/L 2-11 11 Laboratory test 08/31/2017 Uric Acid 4.9 mg/dL 4.4-7.6 11, 13 finding Laboratory test 08/08/2017 B-Type Natriuretic 115 pg/mL High 14 finding Peptide BNP Partial Thrombo Time PTT [...] Egfr Non- 32.2 >60 Egfr 41.4 >60 15 Laboratory test finding 08/08/2017 Magnesium 2.0 mg/dL 1.9-2.7 Creatine Kinase(CK) 32 U/L 10-223 Troponin-I (TnI) 0.02 ng/mL <0.04 CKMB 08/08/2017 CKMB ng/mL 2.3 ng/mL 0.6-6.3 Laboratory test finding 08/08/2017 TSH (Thyroid Stim Horm) 3.94 mcIU/mL 0.34-5.60 Basic Metabolic Panel 07/31/2017 Sodium 141 mmol/L 133-145 Potassium 4.2 mmol/L 3.5-5.0 Chloride 109 mmol/L 101-111 Co2 Carbon Dioxide 25 mmol/L 22-32 Anion Gap 7 mmol/L 2-11 Glucose 163 mg/dL High 70-100 Blood Urea Nitrogen 32 mg/dL High 6-24 Creatinine 1.96 mg/dL High 0.67-1.17 BUN/Creatinine Ratio 16.3 8-20 Calcium 8.3 mg/dL Low 8.6-10.3 Egfr Non- 33.5 >60 Egfr 43.1 >60 16 Laboratory test finding 07/31/2017 Uric Acid 5.0 mg/dL 4.4-7.6 Basic Metabolic Panel 07/17/2017 Sodium 138 mmol/L 133-145 Potassium 4.2 mmol/L 3.5-5.0 Chloride 105 mmol/L 101-111 Co2 Carbon Dioxide 27 mmol/L 22-32 Anion Gap 6 mmol/L 2-11 Glucose 129 mg/dL High 70-100 Blood Urea Nitrogen 27 mg/dL High 6-24 Creatinine 1.75 mg/dL High 0.67-1.17 BUN/Creatinine Ratio 15.4 8-20 Calcium 8.6 mg/dL 8.6-10.3 Egfr Non- 38.2 >60 Egfr 49.1 >60 17 Basic Metabolic Panel 06/19/2017 Sodium 140 mmol/L 133-145 Potassium 3.6 mmol/L 3.5-5.0 Chloride 106 mmol/L 101-111 Co2 Carbon Dioxide 23 mmol/L 22-32 Anion Gap 11 mmol/L 2-11 Glucose 96 mg/dL 70-100 Blood Urea Nitrogen 20 mg/dL 6-24 Creatinine 1.71 mg/dL High 0.67-1.17 BUN/Creatinine Ratio 11.7 8-20 Calcium 8.6 mg/dL 8.6-10.3 Egfr Non- 39.2 >60 Egfr 50.4 >60 18 Laboratory test finding 06/19/2017 B-Type Natriuretic Peptide 133 pg/mL High 19 BNP Lipid Profile 06/19/2017 Triglycerides 80 mg/dL 20 (Trig/Chol/HDL) Cholesterol 133 mg/dL 21 HDL Cholesterol 62.4 mg/dL 22 LDL Cholesterol 55 mg/dL 23 Laboratory test finding 05/06/2017 TSH (Thyroid Stim Horm) 3.91 mcIU/mL 0.34-5.60 Comp Metabolic Panel 05/06/2017 Sodium 142 mmol/L [...] Egfr Non- 36.7 >60 Egfr 47.2 >60 24 CBC Auto Diff 05/06/2017 White Blood Count [...] finding 05/06/2017 B-Type Natriuretic Peptide 81 pg/mL 25 BNP Urine Microalbumin Random 05/06/2017 Urine Creatinine 162.80 mg/dL Ur Microalbumin (mg/L) 646.0 mg/L Urine Microalbumin/Creatinine 396.8 ug/mg High <31 Laboratory test finding 05/06/2017 Cyclic Citrullinated Pep Igg 62.3 U 26 Rheumatoid Factor 398 IU/mL <15 27 Erythrocyte Sed Rate 32 mm/Hr 0-40 C Reactive Protein 13.42 mg/L High < 5.00 28 Basic Metabolic Panel 01/12/2017 Sodium 141 mmol/L 133-145 Potassium 3.3 mmol/L Low 3.5-5.0 Chloride 106 mmol/L 101-111 Co2 Carbon Dioxide 27 mmol/L 22-32 Anion Gap 8 mmol/L 2-11 Glucose 112 mg/dL High 70-100 Blood Urea Nitrogen 18 mg/dL 6-24 Creatinine 1.55 mg/dL High 0.67-1.17 BUN/Creatinine Ratio 11.6 8-20 Calcium 8.5 mg/dL Low 8.6-10.3 Egfr Non- 44.0 >60 Egfr 56.7 >60 29 CBC Auto Diff 12/22/2014 White Blood Count [...] Color Yellow Urine Appearance Turbid Urine Specific [place] 1.020 1.010-1.030 Urine Esterase Negative Negative Urine [...] Egfr Non- 56.9 >60 Egfr 73.2 >60 30 Cell Morphology 12/15/2013 Microcytosis 1+ Elliptocyte 3+ [...] Morphology 12/01/2013 Microcytosis 1+ Elliptocyte 2+ CBC No Diff 11/08/2013 White Blood Count [...] Egfr Non- 53.0 >60 Egfr 68.2 >60 31 Inr/Protime 11/08/2013 Inr 0.96 0.85-1.06 Urinalysis 10/23/2013 Urine Color Yellow Urine Appearance Clear Urine Specific [place] 1.017 1.010-1.030 Urine Esterase Negative Negative Urine [...] Egfr Non- 42.8 >60 Egfr 55.1 >60 32 Laboratory test finding 10/23/2013 Lactic Acid 0.8 mmol/L 0.5-1.6 Troponin I 0.01 ng/mL 0-0.06 33 Comp Metabolic Panel 10/15/2013 Sodium 136 mmol/L [...] Egfr Non- 42.8 >60 Egfr 55.1 >60 34 Laboratory test finding 10/15/2013 Lactic Acid 1.6 mmol/L 0.5-1.6 Blood Culture (SEE NOTE) 35 Laboratory test finding 10/15/2013 Activated Partial 26.0 seconds 24.0- 36.1 Thrombo Time Inr/Protime 10/15/2013 Inr 0.94 0.85-1.06 CBC Auto [...] Blood Culture 10/15/2013 Blood Culture (SEE NOTE) 36 Urine Culture And 10/15/2013 Urine Culture (SEE NOTE) 37 Sensitivities Urine Microscopic 10/15/2013 Urine Casts 1+ Hyaline /lpf None Seen Urine WBC 2+ (>3-10 /hpf) None Seen Urine RBC 1+ (<3 /hpf) None Seen Urine Mucus Present /lpf Absent Bacteria Urine 1+ None Seen Urinalysis 10/15/2013 Urine Color Yellow Urine Appearance Clear Urine Specific [place] 1.019 1.010-1.030 Urine Esterase 1+ Negative Urine [...] Egfr Non- 50.1 >60 Egfr 64.4 >60 38 CBC No Diff 12/22/2012 White Blood Count [...] Mean Platelet Volume 10 um3 7.4-10.4 1 PLEASE CHECK LABS 2 DAYS BEFORE FOLLOW UP 2 PLEASE CHECK LABS 2 DAYS BEFORE FOLLOW UP 3 PLEASE CHECK LABS 2 DAYS BEFORE FOLLOW UP 4 Because ethnic data is not always readily [...] 15-29 5 Kidney failure <15 (or dialysis) 5 Because ethnic data is not always readily [...] 15-29 5 Kidney failure <15 (or dialysis) 6 Imm Grans 7 Because ethnic data is not always [...] 5 Kidney failure <15 (or dialysis) 8 Acute inflammation: >10.00 9 >100 to <200 pg/mL: likely compensated congestive heart failure (CHF) 200 to 400 pg/mL: likely moderate CHF >400 pg/mL: likely moderate to severe CHF 10 Because ethnic data is not always readily [...] 15-29 5 Kidney failure <15 (or dialysis) 11 FASTING 12 Because ethnic data is not always readily [...] 15-29 5 Kidney failure <15 (or dialysis) 13 FASTING 14 >100 to <200 pg/mL: likely compensated congestive heart failure (CHF) 200 to 400 pg/mL: likely moderate CHF >400 pg/mL: likely moderate to severe CHF 15 Because ethnic data is not always [...] 5 Kidney failure <15 (or dialysis) 16 Because ethnic data is not always readily [...] 15-29 5 Kidney failure <15 (or dialysis) 17 Because ethnic data is not always readily [...] 15-29 5 Kidney failure <15 (or dialysis) 18 Because ethnic data is not always readily [...] 15-29 5 Kidney failure <15 (or dialysis) 19 >100 to <200 pg/mL: likely compensated congestive heart failure (CHF) 200 to 400 pg/mL: likely moderate CHF >400 pg/mL: likely moderate to severe CHF 20 Desirable <150 Borderline high 150-199 High 200-499 Very High >500 21 Desirable <200 Borderline high 200-239 High >239 22 Low <40 Desirable: 40-60 High: >60 23 Desirable: <100 mg/dL Near Optimal: 100-129 mg/dL Borderline High: 130-159 mg/dL High: 160-189 mg/dL Very High: >189 mg/dL 24 Because ethnic data is not always [...] 5 Kidney failure <15 (or dialysis) 25 >100 to <200 pg/mL: likely compensated congestive heart failure (CHF) 200 to 400 pg/mL: likely moderate CHF >400 pg/mL: likely moderate to severe CHF 26 Interpretation: Strong Positive (>=60.0) REFERENCE VALUE <20.0 (Negative) Test Performed by: [place] [address] 27 Test Performed by: [place] [address] 28 Acute inflammation: >10.00 29 Because ethnic data is not always [...] 15-29 5 Kidney failure <15 (or dialysis) 30 Because ethnic data is not always readily [...] 15-29 5 Kidney failure <15 (or dialysis) 31 Because ethnic data is not always readily [...] 15-29 5 Kidney failure <15 (or dialysis) 32 Because ethnic data is not always readily [...] 15-29 5 Kidney failure <15 (or dialysis) 33 Reference Range and Interpretation: TnI (ng/mL) Interpretation Less Than 0.06 ng/mL Not supportive of diagnosis of NC 0.06 - 0.50 ng/mL Indeterminate: suggest serial studies if clinically indicated. Greater than 0.5 ng/mL Consistent with diagnosis of NC 34 Because ethnic data is not always readily [...] 15-29 5 Kidney failure <15 (or dialysis) 35 RUN DATE: 10/20/13 [place] [facility] PAGE 1 RUN TIME: [address] [place] [address] Specimen Inquiry Name: LANI BEASLEY JR : [address]: Anton Jasmine DO Acct: [id number] Unit: [id number] AGE: 73 Location: ED Re10/15/13 SEX: M Status: DEP ER SPEC: [id number] JARRETT: 10/15/13-[address] [facility] [address]: Anton Jasmine DO REQ: [id number] RECD: 10/15/13 STATUS: JAY ROBBINS DR: Herbert Damon MD _ SOURCE: BLOOD,VENO SPDES: ORDERED: Blood Cult Procedure Result Verified Site Aerobic Culture Bottle Final 10/20/13- 1632 ML No Growth Day 5 Anaerobic Culture Bottle Final 10/20/13- 1632 ML No Growth Day 5 END OF REPORT * ML=Testing performed at Main Lab DEPARTMENT OF PATHOLOGY, [facility] [place], [place] [address] Joselito Escalona M.D. Director [facility] Permit #[id number] RUN DATE: 10/20/13 [facility] LAB LIVE PAGE 1 RUN TIME: 1631 [facility] [employer] [place], [place] [address] Specimen Inquiry Name: LANI BEASLEY JR : [address]: Anton Jasmine DO Acct: [id number] Unit: [id number] AGE: 73 Location: ED Re10/15/13 SEX: M Status: DEP ER SPEC: [id number] JARRETT: 10/15/13-[address] [facility] [address]: Anton Jasmine DO REQ: [id number] RECD: 10/15/13 STATUS: JAY ROBBINS DR: Herbert Damon MD _ SOURCE: BLOOD,VENO SPDESC: ORDERED: Blood Cult Procedure Result Verified Site Aerobic Culture Bottle Final 10/20/13- 1632 ML No Growth Day 5 Anaerobic Culture Bottle Final 10/20/13- 1632 ML No Growth Day 5 END OF REPORT * ML=Testing performed at Main Lab DEPARTMENT OF PATHOLOGY, [facility] [place], [place] [address] Joselito Escalona M.D. Director [facility] Permit #[id number] RUN DATE: 10/17/13 [facility] LAB LIVE PAGE 1 RUN TIME: 1036 [facility] [place], [place] [address] Specimen Inquiry Name: LANI BEASLEY JR : [address]: Anton Jasmine DO Acct: [id number] Unit: [id number] AGE: 73 Location: ED Re10/15/13 SEX: M Status: DEP ER SPEC: [id number] JARRETT: 10/15/[address] [facility] [address]: Anton Jasmine DO REQ: [id number] RECD: 10/15/13 STATUS: JAY ROBBINS DR: Herbert Damon MD _ SOURCE: URINE SPDESC: ORDERED: Urine Culture Procedure Result Verified Site Urine Culture Final 10/17/13- 1036 ML Organism 1 NORMAL LIBBY [place] Count 75-100,000 (Many) CFU/ML END OF REPORT * ML=Testing performed at Main Lab DEPARTMENT OF PATHOLOGY, [address] [place] [address] Joselito Escalona M.D. Director [facility] Permit #[id number] Because ethnic data is not always readily [...] Procedures Date CPT Code Description Status Comment 11/20/2017 99075 Pace Maker Eval W/Iterative Completed Adjment Dual Lead 11/20/2017 94570 Pace Maker Eval W/Iterative Completed Adjment Dual Lead 11/19/2017 37647 EKG Tracing & Interpretation Completed 10/20/2017 67537 EKG, Interpretation Only Completed 07/20/2017 58245 EKG Tracing & Interpretation Completed 05/26/2017 93364 Diffusing Capacity Completed 05/26/2017 69724 Plethysmography Determination Completed Lung Volumes & Per Airway Resist 05/26/2017 44466 Pulmonary Function><Bronchodil Completed 05/15/2017 33851 Pace Maker Eval W/Iterative Completed Adjment Dual Lead 05/06/2017 41770 EKG Tracing & Interpretation Completed 01/12/2017 91161 Myocardial Perfusion Imaging Completed Tomographic (Spect) Multiple Studies 01/12/2017 92828 Stress Test Supervsn W/Out I/R Completed 01/12/2017 07168 Treadmill Interp/Report Only Completed 01/08/2017 07213 ECHO Transthoracic, Real-Time Completed 2D With Doppler And Color Flow 01/07/2017 24072 Pace Maker Eval W/Iterative Completed Adjment Dual Lead 07/11/2016 59044 Pace Maker Eval W/Iterative Completed Adjment Dual Lead 12/28/2015 98459 EKG Tracing & Interpretation Completed 12/13/2015 50464 Pace Maker Eval W/Iterative Completed Adjment Dual Lead 06/07/2015 99932 Interrogation Device Eval In Completed Person W/DR Analysis,Single,Dual,Mul 01/04/2015 00994 Stress Test Completed 01/04/2015 77361 Myocardial Perfusion Imaging Completed Tomographic (Spect) Multiple Studies 12/26/2014 71313 ECHO Transthoracic, Real-Time Completed 2D With Doppler And Color Flow 12/22/2014 74067 EKG Tracing & Interpretation Completed 12/05/2014 98769 Interrogation Device Eval In Completed Person W/DR Analysis,Single,Dual,Mul 06/26/2014 04465 Pace Maker Eval W/Iterative Completed Adjment Dual Lead 12/22/2013 09668 Interrogation Device Eval In Completed Person W/DR Analysis,Single,Dual,Mul 11/08/2013 23071 Perm Pacemaker Av Sequential Completed Atrial And Ventricular 11/02/2013 98103 EKG Tracing & Interpretation Completed 10/26/2013 47515 EKG, Interpretation Only Completed 09/26/2013 86329 EKG, Interpretation Only Completed 09/14/2013 Colonoscopy Completed normal exam with Dr Gloria at [place] 04/04/2013 47882 Stress Test Supervsn W/Out I/R Completed 04/04/2013 17209 EKG, Interpretation Only Completed 04/04/2013 18393 Treadmill Interp/Report Only Completed 12/10/2012 49792 Inject/Drain Joint/Bursa Major Completed W/O US 11/15/2012 95316 Xray Knee 3 Views Completed 11/15/2012 98388 Rad Exam; Knee, Ap&L Completed 09/28/2012 15922 TKR Total Knee Replacement Completed 09/28/2012 54811 TKR Total Knee Replacement Completed 09/26/2012 35633 Inject/Drain Joint/Bursa Major Completed W/O US 06/25/2012 13062 Inject/Drain Joint/Bursa Major Completed W/O US 06/07/2012 01803 Xray Knee 3 Views Completed 06/07/2012 98774 Rad Exam; Knee, Ap&L Completed 06/07/2012 31782 Inject/Drain Joint/Bursa Major Completed W/O US 03/10/2011 43251 Xray Knee 3 Views Completed Encounters Type Date Location Provider CPT E/M Dx Office Visit 03/03/2018 Rheumatology Services Lani Cee M.D. 65328 M05.9 11:00a Of Fany J98.4 D69.6 Z79.899 Z79.52 Office Visit 02/09/2018 11:30a [facility] [address] J44.1 Services Of Fany J98.4 E66.01 Office Visit 12/02/2017 10:40a [facility] Of Lani Cee, 15259 M05.9 [facility] M.D. D69.6 Z79.899 Z79.52 Office Visit 11/20/2017 9:30a [facility] Of Herbert Watkins, 56136 Z95.0 [facility] Lyssa.DCalixto I49.5 I50.22 R09.02 I25.10 Office Visit 11/19/2017 8:40a [facility] Internal Medicine Venkat Isabel, 90605 R00.0 - [place] Dariusz Tesfaye,FACP J44.9 Office Visit 11/10/2017 8:45a [facility] [address] J44.9 Services Of [facility] R09.02 Office Visit 10/28/2017 10:20a [facility] Internal Medicine Clarissa Carl, IMMIGRATION PATROL INSPECTOR [address] E27.[address] [place] [address] I25.10 N18.9 D69.6 Office Visit 10/20/2017 10:38a [facility], Cheyenne Govea, N.P. 12533 E27.40 Hospitalists I95.1 N17.9 I25.10 Office Visit 10/19/2017 10:37a [facility], Cheyenne Govea, N.P. 42051 R42 Hospitalists I95.1 N17.9 I25.10 Office Visit 10/18/2017 10:35a [facility] Assoc, Anne Marie Betancourt M.D. 64774 R42 Hospitalists I95.1 N17.9 I25.10 Office Visit 10/17/2017 10:34a [facility] Assoc, Lawrence Phelps, 70694 R42 Hospitalists N.P. I25.10 E03.9 N17.9 Office Visit 10/15/2017 9:40a [facility] Internal Medicine Venkat Isabel, 50884 J44.9 - [place] Dariusz Tesfaye,FACP I42.9 R07.9 Office Visit 10/06/2017 11:30a [facility] [place] [address] J98.4 Services Of [facility] Z77.22 J44.9 G47.33 E66.09 Z68.41 Office Visit 10/02/2017 11:30a [facility] Internal Medicine Venkat Isabel, 02122 J18.1 - [place] Dariusz Tesfaye,FACP J44.1 Office Visit 09/15/2017 1:30p [facility] Herbert Watkins, 41069 I25.118 [facility] I42.9 I49.9 R55 Office Visit 09/11/2017 4:30p [facility] Internal Medicine - Venkat Isabel, 65286 J44.1 [place] Dariusz Tesfaye,FACP Office Visit 09/03/2017 11:00a Rhe[facility]ology Services Lani Cee M.D. 96448 M05.9 Of [facility] M54.42 M17.12 M10.9 Z79.899 Office Visit 09/03/2017 11:20a [facility] Internal Venkat Isabel, 97179 I50.22 Medicine - [place] Dariusz Tesfaye,FACP N18.2 Office Visit 08/08/2017 10:31a [facility], Cheyenne Govea, N.P. 62950 R07.9 Hospitalists I25.118 J44.9 Office Visit 07/20/2017 11:40a [facility] Internal Medicine Venkat Isabel, 84070 I42.9 - [place] Dariusz Tesfaye,FACP M10.022 I49.9 Office Visit 06/30/2017 1:00p [facility] Herbert Watkins, 17007 I49.5 [facility] AT [facility].Evan Z95.0 I42.9 I25.10 R06.02 Office Visit 06/22/2017 11:40a [facility] Internal Medicine Venkat Isabel, 19483 J44.1 - [place] Dariusz Tesfaye,FACP G47.33 I50.22 Z23 Office Visit 05/21/2017 9:40a [facility] Internal Venkat Isabel, 20382 I50.23 Medicine - [place] Dariusz Tesfaye,FACP J40 Office Visit 05/14/2017 3:00p Rheumatology Services Of Lani Cee, 43016 M05.9 [facility] Brien M54.42 M17.12 Z79.899 Office Visit 05/06/2017 2:10p [facility] Internal Medicine Mayra Mccarthy, JAMISON [address] I42[address] [address] R80.0 M05.9 Office Visit 01/26/2017 2:00p [facility]opedic Services Of Ernesto Ball M.D. 85872 M54.42 C.M.ACalixto Z96.652 M17.12 Office Visit 01/21/2017 12:15p [facility], 56299 I49.5 Fany Tesfaye I25.10 Z95.0 I42.9 Office Visit 01/07/2017 11:45a [facility] Evan Watkins, 23982 I49.5 [facility] [place]rien Z95.0 I25.10 R06.02 Office Visit 11/03/2016 3:58p [facility], Lydia Mauro, 80030 J11.1 Hospitalists D.OCalixto J18.1 K21.9 I10 Office Visit 11/02/2016 3:58p [facility], Cheyenne Govea N.P. 63931 J11.1 Hospitalists J18.1 K21.9 I10 Office Visit 12/28/2015 11:15a [facility] Herbert Watkins, 93395 I49.5 [facility] [place]rien R06.02 Z95.0 I25.10 Office Visit 01/11/2015 12:00p [facility] Herbert Watkins, 23760 786.05 Fany Tesfaye 414.01 427.81 Office Visit 12/22/2014 8:30a [facility] Herbert Watkins, 98721 V45.01 Fany Tesfaye 786.05 427.81 414.9 Office Visit 06/06/2014 3:23p [facility], [place] [address] 414.9 Hospitalists 038.9 401.9 278.00 Office Visit 06/06/2014 12:10p [facility] Juan Jimenez, 95952 714.0 Infectious Diseases Brien 287.5 Office Visit 06/05/2014 3[facility]p [facility] Lawrence Phelps, 77958 414.9 Hospitalists N.P. 038.9 401.9 278.00 Office Visit 06/05/2014 12:14p [facility] Juan Jimenez, 82348 780.60 Infectious Diseases M.DCalixto 780.79 v45.01 E930.9 Office Visit 06/04/2014 3:22p [facility], [place], 94202 414.9 Hospitalists N.P. 038.9 401.9 278.00 Office Visit 05/07/2014 2:43p [facility], Miguel Whaley D.O. 48797 578.9 Hospitalists 785.59 534.90 285.9 Office Visit 01/03/2014 8:30a [facility] John Paul Jimenez, 56022 511.1 Infectious Diseases Brien 714.0 Office Visit 12/20/2013 9:30a [facility] Juan Jimenez, 60286 511.1 Infectious Diseases DesiraeDCalixto 458.9 Office Visit 12/06/2013 10:10a [facility] John Paul Gordon 09262 511.1 Infectious Diseases Brien Jimenez Office Visit 11/23/2013 8:08a [facility], Abdon Lisa 99505 486 Hospitalists Brien Merino 511.1 714.0 995.91 Office Visit 11/22/2013 8:08a [facility], Abdon Lisa 68732 486 Hospitalists Brien Merino 511.1 714.0 995.91 Office Visit 11/21/2013 8:08a [facility], Abbey Navarro 49717 486 Hospitalists Brien 511.1 714.0 Office Visit 11/21/2013 1:54p [facility] John Paul Jimenez, 85748 486 Infectious Diseases Brien 511.9 Office Visit 11/20/2013 8:07a [facility], Abbey Navarro, 49371 486 Hospitalists Brien 511.1 714.0 Office Visit 11/20/2013 1:38p [facility] John Paul Jimenez, 12824 486 Infectious Diseases M.D. 511.9 Office Visit 11/19/2013 8:07a [facility], Abbey Navarro, 56214 486 Hospitalists M.D. 511.1 714.0 Office Visit 11/18/2013 1:32p [facility] Juan Jimenez, 02919 486 Infectious Diseases M.D. 511.9 Office Visit 11/18/2013 8:06a [facility], Abbey Navarro, 52666 486 Hospitalists M.D. 511.1 714.0 Office Visit 11/18/2013 1:21p [facility], [place] [address] 511.9 Hospitalists V58.49 Office Visit 11/17/2013 8:06a [facility], Abbey Navarro, 81846 995.91 Hospitalists M.DCalixto 486 511.1 714.0 Office Visit 11/17/2013 1:22p [facility] Juan Jimenez, 52208 486 Infectious Diseases M.D. 511.9 Office Visit 11/16/2013 8:05a [facility], Abbey Navarro, 78197 995.91 Hospitalists M.D. 486 511.1 714.0 Office Visit 11/03/2013 2:20p [facility] John Paul Jimenez, 73247 511.9 Infectious Diseases M.D. Office Visit 11/02/2013 10:15a [facility] Herbert Watkins, 87314 427.81 Fany Tesfaye 414.01 Office Visit 10/27/2013 10:38a [facility], Abdon Lisa 60309 511.9 Hospitalists Brien Merino 714.0 579.4 427.81 Office Visit 10/26/2013 10:37a [facility] Anne Marie Betancourt, 35032 427.81 Assoc, Hospitalashkan Tesfaye 714.0 579.4 511.9 Office Visit 10/26/2013 12:50p [facility] John Paul Jimenez, 93481 486 Infectious Diseases M.D. 511.9 Office Visit 10/25/2013 10:37a [facility], Anne Marie Betancourt, 81983 510.9 Hospitalists M.DCalixto 714.0 427.81 579.4 Office Visit 10/24/2013 10:36a [facility], Anne Marie Betancourt, 74116 510.9 Hospitalists M.DCalixto 714.0 579.4 427.81 Office Visit 10/23/2013 10:32a [facility], Anne Marie Betancourt, 94511 510.9 Hospitalists M.DCalixto 714.0 427.81 579.4 Office Visit 09/27/2013 1:21p [facility], Anne Marie Betancourt M.D. 26241 485 Hospitalists 511.9 414.01 426.6 Office Visit 09/27/2013 1:24p [facility] Of Herbert Watkins, 37483 427.81 [facility] [place]rien Office Visit 09/26/2013 1:11p [facility] Anne Marie Betancourt, 75915 485 Ass, Hospitalists MCindy 511.9 414.01 426.6 Office Visit 09/25/2013 1:09p [facility], Anne Marie Betancourt M.D. 75659 485 Hospitalists 511.9 592.0 414.01 Office Visit 04/04/2013 9:27a [facility], Abdon Lisa 34072 786.59 Hospitalists Brien Merino 414.01 401.9 V12.51 Office Visit 04/03/2013 9:27a [facility] 95004 786.59 Assoc, Hospitalists Brien 414.01 401.9 V12.51 Office Visit 03/21/2013 8:00a [facility] Of Ernesto Ball M.D. 77651 715.96 C.M.A. Office Visit 02/09/2013 8:22a [facility], Cheyenne Govea N.P. 34220 592.0 Hospitalists 250.00 591 414.01 Office Visit 12/23/2012 2:20p [facility] Juan Gordon 06825 682.2 Infectious Diseases Brien Jimenez Office Visit 12/15/2012 12:28p [facility] Lydia Mauro, 58113 995.91 Assoc, Hospitalists D.O. 682.2 401.9 Office Visit 12/14/2012 12:27p [facility], Lydia Mauro, 93215 995.91 Hospitalists D.OCalixto 682.2 401.9 Office Visit 12/14/2012 9:38a [facility] Juan Gordon 13836 567.22 Infectious Diseases Brien Jimenez Office Visit 12/13/2012 9:38a [facility] Juan Gordon 84522 567.22 Infectious Diseases Brien Jimenez Office Visit 12/13/2012 12:27p [facility] Lydia Mauro, 31694 995.91 Assoc, Hospitalists D.O. 682.2 401.9 Office Visit 12/12/2012 12:26p [facility], 97638 995.91 Assoc, Hospitalists Brien 682.2 996.66 401.9 Office Visit 12/11/2012 12:25p [facility], 52174 995.91 Assoc, Hospitalists MCalixtoDCalixto 682.2 996.66 401.9 Office Visit 12/10/2012 12:23p [facility], Josh Escudero, 83701 995.91 Hospitalists N.P. 682.2 996.66 401.9 Office Visit 12/10/2012 9:37a [facility] Juan Jimenez, 04140 567.22 Infectious Diseases Brien Office Visit 12/10/2012 8:00a [facility] Services Josh Ruggiero M.D. 51635 719.06 Of Elpidio 719.46 Office Visit 10/01/2012 9:24a [facility], Dennise Farr, 28825 401.1 Hospitalists N.P. 244.9 714.0 V43.65 Office Visit 09/30/2012 9:23a [facility], Dennise Farr, 79143 401.1 Hospitalists N.P. 244.9 714.0 V43.65 Office Visit 09/29/2012 9:23a [facility], Dennise Farr, 14714 401.1 Hospitalists N.P. 244.9 714.0 V43.65 Office Visit 09/28/2012 9:22a [facility] Assoc, Josh Escudero, 08685 401.1 Hospitalists N.P. 244.9 714.0 V43.65 Office Visit 07/19/2012 10:30a [facility] Of Ernesto Ball M.D. 70744 715.96 C.M.A. 716.96 Office Visit 06/25/2012 3:30p [facility] Amelia Argueta RPA-C 29712 715.96 Of C.M.A. 716.96 Office Visit 06/07/2012 10:30a [facility] Of Ernesto Ball M.D. 34239 844.9 C.M.A. 716.96 715.96 Office Visit 03/24/2011 8:30a [facility] Of Amelia Argueta 87699 844.9 C.M.A. RPA-C Office Visit 03/10/2011 3:30p [facility] Of Amelia Argueta 80746 719.46 C.M.A. RPA-C Office Visit 08/16/2009 2:45a [facility] Soahil Ribeiro M.D. 58996 786.50 Assoc, Hospitalists Office Visit 08/15/2009 2:00a [facility] Sohail Ribeiro M.D. 90014 Assoc, Hospitalists Office Visit 08/14/2009 12:30a [facility] Anne Marie Betancourt 52817 786.50 Assoc, Hospitalists Brien Plan of Care Future Appointment(s):05/19/2018 8:30 am - [facility] Pacer Schedule at [facility]07/26/2018 10:00 am - Venkat Isabel M.D.,FACP at [facility] Internal Medicine - [place] 06/03/2018 10:00 am - Lani Cee M.D. at [facility] Of [facility]05/19/2018 10:30 am - Herbert Watkins M.D. at [facility]04/22/2018 - Venkat Isabel M.D.,FACPZ00.01 Encounter for general adult medical exam w abnormal findingsComments:Advised flu vaccine in fall. Routine Health Maintenance up to date. Depression screen: on fileADL screen: negativeCognitive impairment screen: negative Reviewed [facility] DM /HM form.Follow up:Print DM/HM for [id number] Chronic kidney disease, stage 3 (moderate)Comments:Complete your 24 hr urine test as discussed.M16.11 Unilateral primary osteoarthritis, right hipNew Orders:WheelchairNew Therapy: Physical TherapyComments:Visiting physical therapist will come with the visiting nurses to your home.I50.22 Chronic systolic (congestive) heart failureComments:Start taking Furosemide (Lasix) 40 MG 1x every other day. Start taking Aspirin 81 MG 1x daily.L30.4 Erythema intertrigoComments:Start applying Nystatin to affected area near groin 2x daily as needed.
--- NOTE | 2018-05-08 05:01 | ED ---
HPI Chest Pain - HPI Summary HPI Summary: 78 year old M BIB EMS to [facility] accompanied by complains of chest pain since last night, worse since early this morning. The pain is located at where patient's pacemaker is. Patient has had pacemaker for 4 years. The patient rates the pain 3/10 in severity. Symptoms aggravated by walking. Symptoms alleviated by sitting down. He reports ecchymosis on his chest. He denies recent trauma. Patient additionally complains of difficulty urinating and increasing frequency with little output. reports that patient is taking Flomax. Patient is a former smoker. He does not drink alcohol. - History of Current Complaint Chief Complaint: EDChestPainROMI Time Seen by Provider: 05/08/18 04:52 Hx Obtained From: Patient Onset/Duration: Started Hours Ago - last night, Still Present, Worse Since - early this morning Timing: Constant Aggravating Factor(s): Movement Alleviating Factor(s): Other: - sitting down Associated Signs and Symptoms: Positive: Other: - ecchymosis on his chest, difficulty urinating increasing frequency with little output; NEGATIVE: recent trauma - Additional Pertinent History Primary Care Physician: [id number] - Allergy/Home Medications Allergies/Adverse Reactions: Allergies Allergy/AdvReac Type Severity Reaction Status Date / Time Quinolones Allergy Severe See Comment Verified 05/08/18 04:59 azithromycin Allergy Unknown Verified 05/08/18 04:59 Reaction Details doxycycline Allergy Unknown Verified 05/08/18 04:59 Reaction Details PMH/Surg Hx/FS Hx/Imm Hx Previously Healthy: No Endocrine/Hematology History: Reports: Hx Anticoagulant Therapy - plavix 75mg, Hx Thyroid Disease - HYPOTHYROIDISM, Other Endocrine/Hematological Disorders - necrotizing pancreatitis Denies: Hx Diabetes, Hx Systemic Lupus Erythematosus Cardiovascular History: Reports: Hx Angina, Hx Coronary Artery Disease, Hx Deep Vein Thrombosis, Hx Embolism - PE, Hx Hypertension, Hx Myocardial Infarction, Hx Pacemaker/ICD Denies: Hx Congestive Heart Failure, Hx Hypercholesterolemia, Other Cardiovascular Problems/Disorders Respiratory History: Reports: Hx Chronic Bronchitis, Hx Chronic Obstructive Pulmonary Disease (COPD), Hx Pleural Effusion, Hx Pneumonia, Hx Pulmonary Embolism, Hx Seasonal Allergies, Hx Sleep Apnea, Other Respiratory Problems/ Disorders - PNA Denies: Hx Asthma GI History: Reports: Hx Gall Bladder Disease - removed, Hx Gastroesophageal Reflux Disease - occasional, Hx Gastrointestinal Bleed - cobra to [facility] last admit , Hx Ileostomy - hx ileostomy, reversed, Other GI Disorders - Hx pancreatitis, part of pancreas removed, HEMIGASTRECTOMY History: Reports: Hx Chronic Renal Failure, Hx Kidney Stones, Hx Renal Disease - kidney stones/uretherak stent, Other Problems/Disorders - Hx kidney stones Denies: Hx Dialysis Musculoskeletal History: Reports: Hx Arthritis, Hx Rheumatoid Arthritis, Other Musculoskeletal History - bilateral knee replacements Denies: Hx Gout - allopurinol is for kidney stones not gout., Hx Osteoporosis Sensory History: Reports: Hx Cataracts, Hx Contacts or Glasses Denies: Hx Eye Injury, Hx Eye Prosthesis, Hx Glaucoma, Hx Legally Blind, Hx Macular Degeneration, Hx Vision Problem, Hx Deafness, Hx Hearing Aid, Hx Hearing Problem Opthamlomology History: Reports: Hx Cataracts, Hx Contacts or Glasses Denies: Hx Eye Injury, Hx Eye Prosthesis, Hx Glaucoma, Hx Legally Blind, Hx Macular Degeneration, Hx Vision Problem Neurological History: Denies: Hx Dementia, Hx Seizures - Cancer History Cancer Type, Location and Year: 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 Hx Chemotherapy: No - Surgical History Surgery Procedure, Year, and Place: renal stent, 2 knee replacements, gastric bypass-, agnes, appendectomy, bowel resection, November 2012 debridement of abdominal wound, pacemaker, lower part of lung removed, pancreatic resection Hx Anesthesia Reactions: No - Immunization History Date of Tetanus Vaccine: Unk Date of Influenza Vaccine: None Infectious Disease History: Denies: Hx Clostridium Difficile, Hx Human Immunodeficiency Virus (HIV), Hx of Known/Suspected MRSA, Hx Shingles, Hx Tuberculosis, Traveled Outside the [place] in Last 30 Days - Family History Known Family History: Positive: Hypertension - Social History Alcohol Use: None Hx Substance Use: No Substance Use Type: Reports: None Hx Tobacco Use: Yes Smoking Status (MU): Former Smoker Have You Smoked in the Last Year: No Review of Systems Constitutional: Negative - recent trauma Positive: Chest Pain Positive: frequency - with little output, other - difficutly urinating Positive: Other - ecchymosis on chest All Other Systems Reviewed And Are Negative: Yes Physical Exam - Summary Physical Exam Summary: Appearance: Chronically ill-appearing elderly man Skin: Warm, dry, no obvious rash Eyes: sclera anicteric, no conjunctival pallor ENT: mucous membranes moist, pharynx appears normal Neck: Supple, nontender Chest: bruise in left upper chest that is tender, associated tenderness in several locations about the upper chest Respiratory: Clear to auscultation, no signs of respiratory distress Cardiovascular: Normal S1, S2. No murmurs. Normal distal pulses in tibial and radial bilaterally. Abdomen: The abdomen is obese but soft and non-distended Musculoskeletal: Normal, Strength/ROM Intact. Legs have moderate pitting edema up to the knees without any cellulitis Neurological: A&Ox3, awake and alert, mentation is normal, speech is fluent and appropriate Psychiatric: affect is normal, does not appear anxious or depressed Triage Information Reviewed: Yes Vital Signs Reviewed: Yes Diagnostics - Laboratory Result Diagrams: 05/08/18 05:04 05/08/18 05:04 Lab Statement: Any lab studies that have been ordered have been reviewed, and results considered in the medical decision making process. - Radiology CXR Radiology Interpretation Completed By: ED Physician - Normal CXR. Pending official report. - EKG 0503 Cardiac Rate: NL - 96 BPM EKG Rhythm: Sinus Rhythm Chest Pain Course/Dx - Diagnoses Provider Diagnoses: UTI (urinary tract infection), CHF (congestive heart failure), Chest pain Discharge - Sign-Out/Discharge Documenting (check all that apply): Sign-Out Patient Signing out patient TO: Rik Rouse - Awaiting labs, pending dispo Receiving patient FROM: Leroy Prieto - Discharge Plan Condition: Stable Disposition: ADMITTED TO [facility] - Billing Disposition and Condition Condition: STABLE Disposition: Admitted to [facility] - Attestation Statements Document Initiated by Scribe: Yes Documenting Scribe: Heaven Felder Provider For Whom Leticia is Documenting (Include Credential): Leroy Prieto MD Scribe Attestation: Heaven Shah, scribed for Leroy Prieto MD on 05/09/18 at 0219. Scribe Documentation Reviewed: Yes Provider Attestation: The documentation as recorded by the darinibHeaven bella accurately reflects the service I personally performed and the decisions made by me, Leroy Prieto MD
[2018-05-08 05:16] LABS: ABS Basophils 0.1 10^3/ul (0-0.2); ABS Eosinophils 0.1 10^3/ul (0-0.6); ABS Lymphocytes 0.2 10^3/ul (1.0-4.8); ABS Monocytes 0.4 10^3/ul (0-0.8); ABS Neutrophils 7.4 10^3/ul (1.5-7.7); ABS Nucleated RBC 0 10^3/ul; Hematocrit 36 % (42-52); Hemoglobin 11.7 g/dl (14.0-18.0); Lymphocyte % 2.8 % (25-47); Mean Corpuscular HGB Conc 33 g/dl (31-36); Mean Corpuscular Hemoglobin 29 pg (27-31); Mean Corpuscular Volume 89 fL (80-94); Mean Platelet Volume 9.1 um3 (7.4-10.4); Nucleated Red Blood Cells % 0; Platelet Count 105 10^3/ul (150-450); Red Blood Count 4.02 10^6/ul (4.00-5.40); Red Cell Distribution Width 18 % (10.5-15); White Blood Count 8.2 10^3/ul (3.5-10.8)
[2018-05-08 05:37] LABS: EGFR Non-African American 35.5 (>60)
--- NOTE | 2018-05-08 07:07 | ED ---
Progress - Progress Note Progress Note: Patient is signed out from Dr. Prieto awaiting lab results. A UA is indicative of a UTI. Course/Dx - Course Course Of Treatment: 78 y/o M presents with chest pain an urinary symptoms. Patient is signed out from Dr. Prieto awaiting lab results including a second troponin and UA results. Workup is remarkable for UTI. A BNP is ordered. Patient is hypotensive and tachycardic with significnt lower extremity edema. Dr. Navarro accepts patient for admission. Case discussed with hospitalist. I discussed results with patient. The patient agrees with this plan. - Diagnoses Provider Diagnoses: UTI (urinary tract infection), CHF (congestive heart failure), Chest pain - Provider Notifications Discussed Care Of Patient With: Abbey Navarro - hospitalist Time Discussed With Above Provider: 09:05 Instructed by Provider To: Admit As Inpatient - Recommends cancelling Lasix. Discharge - Sign-Out/Discharge Documenting (check all that apply): Patient Departure - admit - Discharge Plan Condition: Stable Disposition: ADMITTED TO [facility] - Billing Disposition and Condition Condition: STABLE Disposition: Admitted to [facility] - Attestation Statements Document Initiated by Scribe: Yes Documenting Scribe: Meggan Gonzalez Provider For Whom Scribe is Documenting (Include Credential): Rik Rouse Scribe Attestation: Meggan Shah, scribed for Rik Rouse on 05/09/18 at 0822. Scribe Documentation Reviewed: Yes Provider Attestation: The documentation as recorded by the scribeMeggan accurately reflects the service I personally performed and the decisions made by , Rik Rouse
[2018-05-08 07:33] LABS: Urine Appearance Cloudy; Urine Blood 3+ (Negative); Urine Color Yellow; Urine Ketones Negative (Negative); Urine Protein 2+(100 mg/dL) (Negative); Urine Red Blood Cell 3+(>10/hpf) (Absent); Urine Specific Gravity 1.015 (1.010-1.030); Urine Urobilinogen Negative (Negative); Urine White Blood Cell 3+(>20/hpf) (Absent)
[2018-05-08] MEDS ORDERED: Furosemide IV* 10 MG/ML VIAL (40 MG) IV ONE (09:00)
[2018-05-08] MEDS ORDERED: HYDROcodone/ACETAMIN 5-325 MG* 1 TAB PO PRN (09:36)
[2018-05-08] MEDS ORDERED: Nitroglycerin TAB 0.4 MG* 0.4 MG TAB SL PRN (09:36)
[2018-05-08] MEDS ORDERED: Cetirizine* 10 MG TAB PO PRN (09:36)
[2018-05-08] MEDS ORDERED: Albuterol HFA INHALER* 8 gm MDI INH PRN (09:36)
[2018-05-08] MEDS ORDERED: Colchicine* 0.6 MG TAB PO PRN (09:36)
[2018-05-08] MEDS ORDERED: cefTRIAXone(*) 1 GM in NS 0.9% 50 ML* 50 ML IVPB ONE (09:41)
[2018-05-08] MEDS ORDERED: Hydrocortisone INJ* 100 MG VIAL IV ONE (09:42)
[2018-05-08] MEDS ORDERED: cefTRIAXone(*) 1 GM ADVAN/BAG ONE (09:55)
[2018-05-08] MEDS ORDERED: Sacubitril/Valsartan 49/51(NF) TAB PO SCH (10:00)
[2018-05-08] MEDS ORDERED: Simvastatin TAB(NF) 20 MG TAB PO SCH (10:00)
[2018-05-08] MEDS: Multivitamins/Minerals TAB PO SCH (10:41)
[2018-05-08] MEDS: PTO:Umeclidin/Vilant 62.5 MDI 62.5/25 mcg 14 INH ELLIPTA DEVICE INH SCH (10:41)
[2018-05-08] MEDS: Hydroxychloroquine TAB* 200 MG PO SCH ×2 (10:41→20:56)
[2018-05-08] MEDS: Isosorbide Mononitrate ER TAB* 30 MG PO SCH (10:41)
[2018-05-08] MEDS: Allopurinol TAB* 300 MG PO SCH (10:41)
[2018-05-08] MEDS ORDERED: Lidocaine 1% INJ* 10 MG/ML 30 ML SDV ONE (10:48)
--- NOTE | 2018-05-08 10:57 | RAD ---
INDICATION: Urinary tract infection. History of urolithiasis. Previous renal stent. Post gastric bypass, cholecystectomy, appendectomy, bowel resection. Previous debridement of abdominal wall. Post pancreatic resection. COMPARISON: December 22, 2015 CT. TECHNIQUE: Multidetector CT images were obtained from the lung bases to the ischial tuberosities. No oral contrast administered. Assessment of the visceral limited without IV contrast. Multiplanar reformation. REPORT: VISUALIZED INFERIOR THORAX: Mildly ectatic ascending thoracic aorta measuring up to 4.4 cm diameter without change. Mild bilateral dependent subsegmental atelectasis. LIVER / GALLBLADDER / PANCREAS / SPLEEN: Unremarkable unenhanced liver. Small gallbladder visualized as on the prior exam despite provided history of prior cholecystectomy without suspicious CT finding. Negative for biliary dilatation. Atrophic residual pancreas without suspicious finding. The spleen is partially obscured due to surgical clips related to the gastric bypass without suspicious finding at the spleen. ALIMENTARY TRACT: Postsurgical change of probable Latoya-en-Y gastric bypass. Unremarkable anastomosis at the LEFT para midline segment of the transverse colon. No suspicious CT finding of the colon or small bowel loops. Negative for ascites, free air, hernias. Midline laparotomy scar. MESENTERIC: Unremarkable. ADRENAL / GENITOURINARY: 1.9 cm RIGHT adrenal nodule is decreased in size from 2.1 cm previously without concern. Unremarkable LEFT adrenal gland. Mild RIGHT and moderate LEFT renal cortical atrophy. Small bilateral renal cortical lesions without change are consistent with benign cysts. No intrarenal collecting system or ureteral or bladder stones or hydronephrosis. Unremarkable nondilated ureters. Largely decompressed urinary bladder without suspicious finding. Mild edema in the soft tissues surrounding the normal sized prostate gland suggests potential prostatitis. RETROPERITONEAL: Negative for lymphadenopathy. VASCULAR: Atherosclerotic calcification of normal diameter abdominal aorta and iliac arteries. Physiologic distention of the IVC. BONES: Polyarticular degenerative arthropathy. Osteoarthritis at the LEFT hip is severe with complete superior joint space loss and associated subchondral sclerosis and cystic change with interval worsening. Mild anterior and middle column compression fracture involving the superior endplate at the T11 vertebral body is new compared with the 2016 exam without compelling acute or subacute features. Negative for associated compromise of the central spinal canal. No suspicious focal osseous lesions evident. SOFT TISSUE: Dependent subcutaneous edema. IMPRESSION: #. Negative for urolithiasis or hydronephrosis. #. Mild edema in the soft tissues surrounding the normal sized prostate gland suggests potential prostatitis.
--- NOTE | 2018-05-08 11:08 | RAD ---
Indication: Chest pain, shortness of breath. History of cardiac disease and chronic obstructive pulmonary disease. Comparison: Abdomen CT of the same date and February 09, 2018 chest radiograph. Technique: Upright AP 0510 hours Report: Moderate elevation of the RIGHT hemidiaphragm with associated basilar atelectasis is unchanged. There is also minimal LEFT basilar atelectasis. Negative for pleural effusions or pneumothorax. RIGHT atrial and RIGHT ventricular level pacemaker leads. Mild cardiomegaly without change. Mild prominence of the central pulmonary vasculature. Mildly tortuous thoracic aorta. LEFT upper quadrant/epigastric surgical clips. IMPRESSION: #. Probable mild pulmonary vascular congestion. #. RIGHT greater than LEFT basilar atelectasis with asymmetry related to elevation of the RIGHT hemidiaphragm. R2
--- NOTE | 2018-05-08 13:08 | HP ---
CC: Dr. Isabel HISTORY AND PHYSICAL: DATE OF ADMISSION: 05/08/18 TIME OF EVALUATION: 9:20 a.m. PRIMARY CARE PROVIDER: Dr. Isabel CHIEF COMPLAINT: "My urine is funny and I have chest pain." HISTORY OF PRESENT ILLNESS: Mr. Allen is a 78-year-old male with a complex past medical history alma t includes morbid obesity with a BMI of 45, nephrolithiasis, hypothyroidism, GERD, hypertension, COPD , coronary artery disease, obstructive sleep apnea, ischemic cardiomyopathy, rheumatoid arthritis, BP H, pancreatic insufficiency, DVT and PE postop, pacemaker, gastric bypass, suspected adrenal insuffic iency due to chronic steroid use, who presented to the emergency room with complaints of chest pain a nd urinary changes. The patient states that a couple weeks ago, he started to use a walker and he st ates it is very difficult to use it as he has to put a lot of weight on his arms. He describes the p ain as retrosternal 4/10 in intensity and the pain is aggravated by using his walker. When he is just sitting down resting, he has no pain. He states the pain radiates to the area of his pacemaker. He denies any trauma. He also complains of urinary frequency with difficulty urinating and low urine output. He states alma t in the past, he had similar symptoms, but they were associated with back pain, so he knew, it was k idney stones, but at this time, there is not back pain associated with it. He denies fever, chills, shortness of breath, nausea, vomiting or diarrhea. PAST MEDICAL HISTORY: 1. Morbid obesity with a BMI of 45. 2. Suspected urinary insufficiency due to chronic steroid use. 3. Nephrolithiasis. 4. Hypothyroidism. 5. GERD. 6. Hypertension. 7. COPD. 8. Coronary artery disease with ischemic cardiomyopathy, ejection fraction of 35%. 9. Obstructive sleep apnea. 10. Rheumatoid arthritis. 11. BPH. 12. Pancreatic insufficiency. 13. History of postop DVT and PE. 14. Status post pacemaker. 15. Chronic thrombocytopenia. 16. Upper GI bleed. 17. CKD stage 3. PAST SURGICAL HISTORY: 1. Status post gastric bypass. 2. Status post appendectomy. 3. Status post cholecystectomy. 4. Status post ileostomy. 5. Status post pancreatic resection. MEDICATION LIST: 1. Albuterol HFA 2 puffs inhaled q.i.d. p.r.n. shortness of breath. 2. Colchicine 0.6 mg p.o. daily as needed for gout. 3. Codeine 30 mg p.o. q.i.d. 4. Allopurinol 300 mg p.o. daily. 5. Tiona 5/325 mg 1 tablet p.o. b.i.d. as needed for pain. 6. Furosemide 10 mg p.o. daily. 7. Flovent 110 mcg inhaled twice a day. 8. Fexofenadine 60 mg p.o. daily as needed for allergy. 9. Ferrous sulfate 325 mg p.o. every other day. 10. Nitroglycerin 0.4 mg sublingual q.5 minutes p.r.n. chest pain. 11. Multivitamin 1 tablet p.o. daily. 12. Creon 6000 units 1 capsule p.o. t.i.d. 13. Levothyroxine 125 mcg p.o. daily. 14. Imdur 15 mg p.o. daily. 15. Plaquenil 200 mg p.o. b.i.d. 16. Prednisone 10 mg p.o. daily. 17. Anoro Ellipta 62.5/25 one capsule inhaled daily. 18. Tamsulosin 0.4 mg p.o. at bedtime. 19. Simvastatin 20 mg p.o. daily. 20. Entresto 49/51 one tablet p.o. b.i.d. ALLERGIES: With LEVOFLOXACIN the patient had leg cramps, with AZITHROMYCIN, the patient had nausea a nd vomiting as well as DOXYCYCLINE. FAMILY HISTORY: Mother had a history of diabetes and father had a history of COPD. SOCIAL HISTORY: No history of alcohol, drug use. The patient used to be a smoker. Surrogate zay feliciano maker is his , Gaby Allen, phone number is [phone]. REVIEW OF SYSTEMS: A 14-point review of systems was performed and all the pertinent negative and pos itive findings are in the HPI. PHYSICAL EXAMINATION GENERAL: The patient is a moderately obese, elderly man, lying in the ED stretcher, in no acute dist ress. VITAL SIGNS: Temperature 98.5, heart rate is 103, respiratory rate is 22, oxygen saturation 96% on r oom air, blood pressure is 93/58. HEENT: Pupils are equal. Moist mucous membranes. CHEST: Breath sounds present bilaterally, diminished in bases but no rales. CVS: Normal S1, S2. Regular rate and rhythm. ABDOMEN: Morbidly obese, soft, nontender, nondistended. Bowel sounds are present. EXTREMITIES: There is severe bilateral lower extremity edema up to his thighs with some chronic skin changes. LABORATORY AND IMAGING DATA: The patient had a CBC that showed a WBC of 8.2, hemoglobin of 11.7, he matocrit of 36, platelets of 105. Chemistry showed a sodium of 141, potassium 3.9, chloride of 109, bicarb 26, BUN of 32, creatinine of 1.8, glucose of 141, calcium 8.4. LFTs are normal. Troponin is 0.03 x2. BNP is 213. Urinalysis showed 2+ protein, 3+ blood, 3+ LE, 3+ wbc's, 3+ rbc's, and crystals. Chest x-ray, negative officially read was exploratory study with mild vascular congestion. EKG sinus rhythm at 96 beats per minute with some bigeminy, nonspecific intraventricular conduction d elay. No significant change when compared to his prior EKG from October 2017. ASSESSMENT AND PLAN: Mr. Allen is a 78-year-old male with a complex past medical history that inclu cathy morbid obesity with BMI of 45, suspected urinary insufficiency due to chronic steroid use, nephro lithiasis, hypothyroidism, gastroesophageal reflux disease, hypertension, chronic obstructive pulmona ry disease, coronary artery disease, ischemic cardiomyopathy, obstructive sleep apnea, rheumatoid art hritis, benign prostatic hypertrophy, pancreatic insufficiency, history of postop pulmonary embolism, deep vein thrombosis status pacemaker placement for tachy-leydi syndrome, status post gastric bypas s, who presents to the emergency room with complaints of chest pain and urinary frequency and dysuria . 1. Chest pain, rule out acute coronary syndrome. Suspect the patient's pain is likely musculoskeletal, as he describes the pain happens when he puts w eight on his walker but other than that he is chest pain free. His EKG shows no new changes. Serial troponins have been negative, so far. The patient has known coronary artery disease and we are going to continue his Imdur and nitroglycerin. Apparently, the patient is not on aspirin due to a prior h istory of an upper GI bleed in 2013 that was severe and complicated by hypovolemic shock requiring tr ansfer to [facility]. 2. Urinary tract infection. The patient states that in the past his urinary symptoms were usually associated with back pain and h e knew they were related to his kidney stones. He will have a CT of the abdomen and pelvis without c ontrast to look for nephrolithiasis and/or obstruction. He will be started empirically on ceftriaxon e and we are going to follow his cultures. 3. Anasarca. The patient has significant whole body edema and he states that this has been going on for a while. He takes diuretics at home but has noted no change on his weight. In the emergency room, his weight w as documented as 300 pounds and he weighed 290 pounds in October on his last admission. So it is un clear to me for how long he has had this edema. As his blood pressure is on the softer side, I am ho lding his furosemide for today, but it should be resumed soon. 4. Hypotension. Suspect secondary to adrenal insufficiency in the setting of chronic steroid use. The patient will receive hydrocortisone IV stress dose for now, but he will need a higher dose of pre dnisone on discharge. 5. Chronic kidney disease. The patient's renal function appears to be stable at this time. 6. DVT prophylaxis. The patient has a score of 8 and he will be started on subcutaneous heparin, bu t with his history of prior GI bleed and mild thrombocytopenia, we have to watch him closely. Due to the significant edema on his lower extremities, we are going to avoid SCDs. 7. Code status was discussed with the patient and he wishes to be a full code. TIME SPENT: Approximately 55 minutes were spent with the patient interview, medical records review, physical examination to complete this admission; more than half of this time was spent [id number] w ith the patient in coordination of care. [id number]/[facility] #: [id number]
[2018-05-08] MEDS: Heparin VIAL(*) 5000 UNITS/ML VIAL (FIVE THOUSAND) SUBCUT SCH ×2 (13:46→20:55)
[2018-05-08] MEDS: Nystatin TOP POWDER* 15 GM BTL TOPICAL SCH ×3 (13:47→20:57)
[2018-05-08] MEDS: Codeine TAB* 30 MG PO SCH ×3 (13:47→20:55)
[2018-05-08] MEDS: PANCRELIPASE 6000 UNIT PO SCH ×2 (13:52→20:57)
[2018-05-08] MEDS: Hydrocortisone INJ* 100 MG VIAL IV SCH (17:32)
[2018-05-08] MEDS: Tamsulosin CAP* 0.4 MG PO SCH (20:56)
[2018-05-08] MEDS: SACUBITRIL PO SCH (20:58)
[2018-05-08] MEDS: VALSARTAN PO SCH (20:58)
[2018-05-08] MEDS: FLOVENT 110 MCG INH SCH (23:19)
[2018-05-09] MEDS: Hydrocortisone INJ* 100 MG VIAL IV SCH ×4 (00:50→23:48)
[2018-05-09] MEDS: Levothyroxine TAB* 125 MCG TAB PO SCH (05:22)
[2018-05-09] MEDS: Heparin VIAL(*) 5000 UNITS/ML VIAL (FIVE THOUSAND) SUBCUT SCH ×3 (05:22→20:56)
[2018-05-09] MEDS: PTO:Umeclidin/Vilant 62.5 MDI 62.5/25 mcg 14 INH ELLIPTA DEVICE INH SCH ×2 (08:38→10:49)
[2018-05-09] MEDS: FLOVENT 110 MCG INH SCH ×3 (08:38→23:43)
[2018-05-09] MEDS ORDERED: cefTRIAXone(*) 1 GM in NS 0.9% 50 ML* 50 ML IVPB SCH (09:00)
[2018-05-09] MEDS ORDERED: Furosemide TAB* 20 MG PO SCH (09:00)
[2018-05-09] MEDS: Hydroxychloroquine TAB* 200 MG PO SCH ×2 (09:19→20:58)
[2018-05-09] MEDS: Codeine TAB* 30 MG PO SCH ×4 (09:20→20:56)
[2018-05-09] MEDS: Isosorbide Mononitrate ER TAB* 30 MG PO SCH (09:20)
[2018-05-09] MEDS: Atorvastatin* 10 MG TAB PO SCH (09:22)
[2018-05-09] MEDS: Allopurinol TAB* 300 MG PO SCH (09:22)
[2018-05-09] MEDS: Multivitamins/Minerals TAB PO SCH (09:22)
[2018-05-09] MEDS: PANCRELIPASE 6000 UNIT PO SCH ×3 (09:23→21:08)
[2018-05-09] MEDS: Nystatin TOP POWDER* 15 GM BTL TOPICAL SCH ×3 (09:23→20:55)
[2018-05-09] MEDS: SACUBITRIL PO SCH ×2 (09:24→21:05)
[2018-05-09] MEDS: VALSARTAN PO SCH ×2 (09:24→21:05)
[2018-05-09] MEDS ORDERED: Furosemide IV* 10 MG/ML 2 ML VIAL (20 MG) IV SLOW PU ONE (11:45)
--- NOTE | 2018-05-09 11:56 | PN ---
Subjective Date of Service: 05/09/18 Interval History: Patient developed overnight left flank pain which waxes and wanes and feels similar to previous kidney stones. Patient states it is worse with movement. Patient has had numerous kidney stones in the past and follows with a urologist in [place] who he hasn't seen in a year. Patient denies any recent urologic instrumentation. Patient was having rigors and weakness before coming into the hospital which have improved. Patient was also having 2 weeks of decreased appetite and nausea with vomiting for about 2 weeks before admission. No fevers or rigors at this time. Patient denies CP, increased SOB, N/V, Diarrhea. Patient has frequent loose stools due to pancreatic insufficiency. Patient has baseline SOB and uses O2 with activity. Family History: Unchanged from Admission Social History: Unchanged from Admission Past Medical History: Unchanged from Admission Objective Active Medications: Hydrocodone Bitart/Acetaminophen ([place] 5-325 Tab*) 1 tab PO BID PRN PRN Reason: PAIN Last Admin: 05/08/18 21:32 Dose: 1 tab Albuterol (Ventolin Hfa Inhaler*) 2 puff INH QID PRN PRN Reason: SHORTNESS OF BREATH Allopurinol (Zyloprim Tab*) 300 mg PO DAILY [facility] Last Admin: 05/09/18 09:22 Dose: 300 mg Atorvastatin Calcium (Lipitor*) 10 mg PO DAILY [facility] Last Admin: 05/09/18 09:22 Dose: 10 mg Cetirizine HCl (Zyrtec*) 5 mg PO DAILY PRN; Protocol PRN Reason: Allergy Symptoms Codeine Sulfate (Codeine Tab*) 30 mg PO QID [facility] Last Admin: 05/09/18 09:20 Dose: 30 mg Colchicine (Colcrys*) 0.6 mg PO DAILY PRN PRN Reason: PAIN/INFLAMMATION Ferrous Sulfate (Ferrous Sulfate Tab*) 325 mg PO EVERY OTHER DAY [facility] Furosemide (Lasix Tab*) 20 mg PO DAILY [facility] Last Admin: 05/09/18 09:19 Dose: 20 mg Heparin Sodium (Porcine) (Heparin Vial(*)) 5,000 units SUBCUT Q8HR [facility] Last Admin: 05/09/18 05:22 Dose: 5,000 units Hydrocortisone Sodium Succinate (Solu-Cortef*) 100 mg IV Q8H [facility] Last Admin: 05/09/18 09:19 Dose: 100 mg Hydroxychloroquine Sulfate (Plaquenil Tab*) 200 mg PO BID [facility] Last Admin: 05/09/18 09:19 Dose: 200 mg Cefepime HCl 2 gm/ Sodium (Chloride) 50 mls @ 100 mls/hr IVPB Q12H [facility] Isosorbide Mononitrate (Imdur Er Tab*) 15 mg PO DAILY [facility] Last Admin: 05/09/18 09:20 Dose: 15 mg Levothyroxine Sodium (Synthroid Tab*) 125 mcg PO DAILY@0600 [facility] Last Admin: 05/09/18 05:22 Dose: 125 mcg Multivitamins/Minerals (Theragran/Minerals Tab*) 1 tab PO DAILY [facility] Last Admin: 05/09/18 09:22 Dose: 1 tab Nitroglycerin (Nitroglycerin Tab 0.4 Mg*) 0.4 mg SL Q5M PRN PRN Reason: PAIN - CHEST Pto:Flovent Hfa 110 (Mcg) 1 dose INH BID [facility] Last Admin: 05/09/18 10:45 Dose: 1 dose Nystatin (Nystatin Top Powder*) 1 applic TOPICAL TID [facility] Last Admin: 05/09/18 09:23 Dose: 1 applic Pancrelipase (Creon (Nf)) 1 units PO TID [facility] Last Admin: 05/09/18 09:23 Dose: Not Given Sacubitril/Valsartan (Entresto 49/51(Nf)) 1 tab PO BID [facility] Last Admin: 05/09/18 09:24 Dose: Not Given Tamsulosin HCl (Flomax Cap*) 0.4 mg PO BEDTIME [facility] Last Admin: 05/08/18 20:56 Dose: 0.4 mg Umeclidinium/Vilanterol (Anoro 62.5/25 Ellipta Device (Nf)) 1 inh INH DAILY [facility] Last Admin: 05/09/18 10:49 Dose: 1 inh Vital Signs - 8 hr 05/09/18 05/09/18 07:28 09:20 Temperature 98.1 F Pulse Rate 87 Respiratory 16 18 Rate Blood Pressure 135/65 (mmHg) O2 Sat by Pulse 94 Oximetry Oxygen Devices in Use Now: None Appearance: Patient is a 78yo man with anacarca who appears older than stated age and is sitting in the bed in [facility]. Eyes: No Scleral Icterus, PERRLA Ears/Nose/Mouth/Throat: NL Teeth, Lips, Gums, Clear Oropharnyx, Mucous Membranes Moist Neck: NL Appearance and Movements; NL JVP, Trachea Midline, - - Obese and thick neck, Poor assessment for JVD Respiratory: Symmetrical Chest Expansion and Respiratory Effort, - - Rales in B/ L lower lobes. Cardiovascular: NL Sounds; No Murmurs; No JVD, - - Regularly Regular rhythm corresponding to atrial bigeminy on telemetry. 3+ edema in LE. Abdominal: NL Sounds; No Tenderness; No Distention, No Hepatosplenomegaly, - - Obese, Exam limited by body habitus, Left sided CVA tenderness. No Suprapubic tenderness or bladder distention. Lymphatic: No Cervical Adenopathy Extremities: No Clubbing, Cyanosis, - - Ulnar deviation with atrophic changes in the hands. 3+ pitting edema in B/L LE. Skin: No Nodules or Sclerosis, - - Ecchymosis on chest and left leg. Peeling skin rash on soles of feet with punctate lesions on B/L heels. Neurological: Alert and Oriented x 3, NL Sensation, NL Muscle Strength and Tone , - - CN II-XII intact. Result Diagrams: 05/08/18 05:04 05/08/18 05:04 Microbiology and Other Data: Microbiology 05/08/18 07:06 Urine Culture - Preliminary Urine Pseudomonas Aeruginosa Assess/Plan/Problems-Billing Assessment: Patient is a 78yo male with a PMH for CHF, RA, CAD, CKD, Kidney stones, COPD, BPH, [place], Pancreatic insufficiency, who presents with 2 weeks of general not feeling well with nausea and vomiting, with development of dysuria, and chest pain who is admitted for prostatitis and possible pyelonephritis with positive urine culture for Pseudomonas who is improving. - Patient Problems (1) Sepsis Current Visit: No Status: Acute Priority: High Onset Date: 06/04/14 Comment: - With tachycardia, hypotension and urinary source - Resolved now (2) Acute prostatitis with hematuria Current Visit: Yes Status: Acute Code(s): N41.0 - ACUTE PROSTATITIS SNOMED Code(s): 49659093 Comment: - Dysuria with CT scan consistent with prostatitis and sepsis. - Urine culture grew Pseudomonas, sensitivities pending. Started on Cefepime, Will not give Gentamycin due to CKD. ID consult pending - Left flank pain without CT evidence of stone, likely Pyelonephritis. (3) CHF (congestive heart failure) Current Visit: Yes Status: Acute Code(s): I50.9 - HEART FAILURE, UNSPECIFIED SNOMED Code(s): 23159961 Comment: - Fluid overload with weight gain - Increased IV lasix - Continue maintenace therapy - EF 35-40% most recently - Will update Echo (4) Adrenal insufficiency Current Visit: Yes Status: Acute Code(s): E27.40 - UNSPECIFIED ADRENOCORTICAL INSUFFICIENCY SNOMED Code(s): 002275194 Comment: - Acquired, likely due to chronic steroid use. - Hypotensive likely due to increased steroid need in setting of acute infection - On Stress dose steroids, Continue and wean slowly - Currently normotensive (5) Rheumatoid arthritis Current Visit: No Status: Chronic Onset Date: 06/04/14 Code(s): M06.9 - RHEUMATOID ARTHRITIS, UNSPECIFIED SNOMED Code(s): 07118787 Comment: - Prednisone switched to stress dose hydrocortisone. - Cont plaquenil. - Discuss switching to Steroid sparing agent and weaning prednisone slowly with outpatient provider - Has active disease (6) Chronic diarrhea Current Visit: No Status: Acute Code(s): K52.9 - NONINFECTIVE GASTROENTERITIS AND COLITIS, UNSPECIFIED SNOMED Code(s): 032493216 Comment: - Loose BM this Admission - Likely due to pancreatic insufficiency, short bowel syndrome - Continue Creon and reintroduce codeine if needed (7) HTN (hypertension) Current Visit: No Status: Acute Code(s): I10 - ESSENTIAL (PRIMARY) HYPERTENSION SNOMED Code(s): 38435858 Comment: - Continue Entresto, Imdur, Lasix increased - Was hypotensive which resolved with steroids (8) Stage III chronic kidney disease Current Visit: No Status: Acute Code(s): N18.3 - CHRONIC KIDNEY DISEASE, STAGE 3 (MODERATE) SNOMED Code(s): 351447832 Comment: - Creatinine at basline - Monitor daily with diuresis (9) CAD (coronary artery disease) Current Visit: No Status: Chronic Onset Date: 06/04/14 Code(s): I25.10 - ATHSCL HEART DISEASE OF [place] CORONARY ARTERY W/O ANG PCTRS SNOMED Code(s): 15566198 Comment: - Musculoskeletal CP. - Slight troponin elevation likely due to demand - Continue imdur and statin. (10) Gout Current Visit: No Status: Chronic Priority: Low Onset Date: 06/04/14 Code(s): M10.9 - GOUT, UNSPECIFIED SNOMED Code(s): 22908640 Comment: - Continue allopurinol and Colchicine (11) Hypothyroid Current Visit: No Status: Chronic Onset Date: 06/04/14 Code(s): E03.9 - HYPOTHYROIDISM, UNSPECIFIED SNOMED Code(s): 36282436 Comment: - Continue current dose of synthroid. (12) DVT prophylaxis Current Visit: No Status: Acute Code(s): YUD1588 - SNOMED Code(s): 151503246 Comment: - SQ heparin. History of provoked DVT (13) Full code status Current Visit: No Status: Acute Code(s): Z78.9 - OTHER SPECIFIED HEALTH STATUS SNOMED Code(s): 609304158 Comment: (14) BPH (benign prostatic hypertrophy) Current Visit: No Status: Chronic Onset Date: 06/04/14 Code(s): N40.0 - BENIGN PROSTATIC HYPERPLASIA WITHOUT LOWER URINRY TRACT SYMP SNOMED Code(s): 598238056 Comment: - Continue flomax. Status and Disposition: Inpatient
[2018-05-09] MEDS ORDERED: CEFEPIME ADVAN IVPB SCH (12:00)
[2018-05-09] MEDS ORDERED: NS 0.9% IVPB SCH (12:00)
[2018-05-09 12:25] LABS: ABS Basophils 0 10^3/ul (0-0.2); ABS Eosinophils 0 10^3/ul (0-0.6); ABS Lymphocytes 0.2 10^3/ul (1.0-4.8); ABS Monocytes 0.9 10^3/ul (0-0.8); ABS Neutrophils 16.3 10^3/ul (1.5-7.7); ABS Nucleated RBC 0 10^3/ul; Eosinophil % 0 % (0-6); Hematocrit 33 % (42-52); Hemoglobin 10.6 g/dl (14.0-18.0); Lymphocyte % 1.1 % (25-47); Mean Corpuscular HGB Conc 32 g/dl (31-36); Mean Corpuscular Hemoglobin 29 pg (27-31); Mean Corpuscular Volume 89 fL (80-94); Nucleated Red Blood Cells % 0; Platelet Count 109 10^3/ul (150-450); Red Blood Count 3.66 10^6/ul (4.00-5.40); Red Cell Distribution Width 19 % (10.5-15); White Blood Count 17.4 10^3/ul (3.5-10.8)
[2018-05-09 12:41] LABS: EGFR Non-African American 40.2 (>60)
[2018-05-09] MEDS: NS 0.9% IVPB SCH (13:29)
[2018-05-09] MEDS: CEFEPIME ADVAN IVPB SCH (13:29)
[2018-05-09] MEDS: Tamsulosin CAP* 0.4 MG PO SCH (20:56)
[2018-05-10] MEDS: Heparin VIAL(*) 5000 UNITS/ML VIAL (FIVE THOUSAND) SUBCUT SCH ×3 (05:08→21:09)
[2018-05-10] MEDS: Levothyroxine TAB* 125 MCG TAB PO SCH (05:08)
[2018-05-10] MEDS: FLOVENT 110 MCG INH SCH ×2 (08:12→21:46)
[2018-05-10] MEDS: PTO:Umeclidin/Vilant 62.5 MDI 62.5/25 mcg 14 INH ELLIPTA DEVICE INH SCH (08:15)
[2018-05-10] MEDS: Hydroxychloroquine TAB* 200 MG PO SCH ×2 (08:28→21:02)
[2018-05-10] MEDS: Codeine TAB* 30 MG PO SCH ×4 (08:29→21:02)
[2018-05-10] MEDS: Multivitamins/Minerals TAB PO SCH (08:29)
[2018-05-10] MEDS: Allopurinol TAB* 300 MG PO SCH (08:29)
[2018-05-10] MEDS: Hydrocortisone INJ* 100 MG VIAL IV SCH ×3 (08:29→23:47)
[2018-05-10] MEDS: Atorvastatin* 10 MG TAB PO SCH (08:29)
[2018-05-10] MEDS: Ferrous Sulfate TAB* 325 MG PO SCH (08:29)
[2018-05-10] MEDS: Isosorbide Mononitrate ER TAB* 30 MG PO SCH (08:29)
[2018-05-10] MEDS: Furosemide IV* 10 MG/ML 2 ML VIAL (20 MG) IV SLOW PU SCH (08:30)
[2018-05-10] MEDS: PANCRELIPASE 6000 UNIT PO SCH ×3 (08:31→17:03)
[2018-05-10] MEDS: Nystatin TOP POWDER* 15 GM BTL TOPICAL SCH ×3 (08:32→21:03)
[2018-05-10] MEDS: VALSARTAN PO SCH (08:36)
[2018-05-10] MEDS: SACUBITRIL PO SCH (08:36)
[2018-05-10] MEDS: CEFEPIME ADVAN IVPB SCH (12:59)
[2018-05-10] MEDS: NS 0.9% IVPB SCH (12:59)
--- NOTE | 2018-05-10 14:40 | PN ---
Subjective Date of Service: 05/10/18 Interval History: Mr. Allen reports doing much better today. He denies back pain, fever or chills. Appetite is good, denies nausea, vomiting or abdominal pain. He has no complaints today. Family History: Unchanged from Admission Social History: Unchanged from Admission Past Medical History: Unchanged from Admission Objective Active Medications: Hydrocodone Bitart/Acetaminophen ([place] 5-325 Tab*) 1 tab PO BID PRN PRN Reason: PAIN Last Admin: 05/08/18 21:32 Dose: 1 tab Albuterol (Ventolin Hfa Inhaler*) 2 puff INH QID PRN PRN Reason: SHORTNESS OF BREATH Allopurinol (Zyloprim Tab*) 300 mg PO DAILY [facility] Last Admin: 05/10/18 08:29 Dose: 300 mg Atorvastatin Calcium (Lipitor*) 10 mg PO DAILY [facility] Last Admin: 05/10/18 08:29 Dose: 10 mg Cetirizine HCl (Zyrtec*) 5 mg PO DAILY PRN; Protocol PRN Reason: Allergy Symptoms Codeine Sulfate (Codeine Tab*) 30 mg PO QID [facility] Last Admin: 05/10/18 12:58 Dose: 30 mg Colchicine (Colcrys*) 0.6 mg PO DAILY PRN PRN Reason: PAIN/INFLAMMATION Ferrous Sulfate (Ferrous Sulfate Tab*) 325 mg PO EVERY OTHER DAY [facility] Last Admin: 05/10/18 08:29 Dose: 325 mg Furosemide (Lasix Iv*) 20 mg IV SLOW PU DAILY [facility] Last Admin: 05/10/18 08:30 Dose: 20 mg Heparin Sodium (Porcine) (Heparin Vial(*)) 5,000 units SUBCUT Q8HR [facility] Last Admin: 05/10/18 12:59 Dose: 5,000 units Hydrocortisone Sodium Succinate (Solu-Cortef*) 75 mg IV Q8H [facility] Hydroxychloroquine Sulfate (Plaquenil Tab*) 200 mg PO BID [facility] Last Admin: 05/10/18 08:28 Dose: 200 mg Cefepime HCl 2 gm/ Sodium (Chloride) 50 mls @ 100 mls/hr IVPB Q24H [facility] Last Admin: 05/10/18 12:59 Dose: 100 mls/hr Isosorbide Mononitrate (Imdur Er Tab*) 15 mg PO DAILY [facility] Last Admin: 05/10/18 08:29 Dose: 15 mg Levothyroxine Sodium (Synthroid Tab*) 125 mcg PO DAILY@0600 [facility] Last Admin: 05/10/18 05:08 Dose: 125 mcg Multivitamins/Minerals (Theragran/Minerals Tab*) 1 tab PO DAILY [facility] Last Admin: 05/10/18 08:29 Dose: 1 tab Nitroglycerin (Nitroglycerin Tab 0.4 Mg*) 0.4 mg SL Q5M PRN PRN Reason: PAIN - CHEST Pto:Flovent Hfa 110 (Mcg) 1 dose INH BID [facility] Last Admin: 05/10/18 08:12 Dose: 1 dose Nystatin (Nystatin Top Powder*) 1 applic TOPICAL TID [facility] Last Admin: 05/10/18 12:59 Dose: 1 applic Pancrelipase (Creon (Nf)) 1 units PO TID [facility] Sacubitril/Valsartan (Entresto 49/51(Nf)) 1 tab PO BID [facility] Last Admin: 05/10/18 08:36 Dose: Not Given Tamsulosin HCl (Flomax Cap*) 0.4 mg PO BEDTIME [facility] Last Admin: 05/09/18 20:56 Dose: 0.4 mg Umeclidinium/Vilanterol (Anoro 62.5/25 Ellipta Device (Nf)) 1 inh INH DAILY [facility] Last Admin: 05/10/18 08:15 Dose: 1 inh Vital Signs - 8 hr 05/10/18 05/10/18 05/10/18 07:28 08:00 08:29 Temperature 98.1 F Pulse Rate 43 Respiratory 16 16 16 Rate Blood Pressure 135/82 (mmHg) O2 Sat by Pulse 96 Oximetry 05/10/18 05/10/18 05/10/18 10:17 12:09 12:58 Temperature 97.4 F Pulse Rate 87 Respiratory 18 16 18 Rate Blood Pressure 118/71 (mmHg) O2 Sat by Pulse 98 Oximetry Oxygen Devices in Use Now: None Appearance: Morbidly obese older male, comfortable and in NAD. Eyes: No Scleral Icterus, PERRLA Ears/Nose/Mouth/Throat: Clear Oropharnyx, Mucous Membranes Moist Neck: NL Appearance and Movements; NL JVP, Trachea Midline Respiratory: Symmetrical Chest Expansion and Respiratory Effort, Clear to Auscultation Cardiovascular: NL Sounds; No Murmurs; No JVD, RRR Abdominal: NL Sounds; No Tenderness; No Distention Extremities: - - 2+ bilateral lower extrmities edema noted Skin: No Rash or Ulcers Neurological: Alert and Oriented x 3 Nutrition: Taking PO's Result Diagrams: 05/09/18 12:07 05/09/18 12:07 Additional Lab and Data: . Microbiology and Other Data: Microbiology 05/08/18 07:06 Urine Culture - Preliminary Urine Pseudomonas Aeruginosa Diagnostic Imaging: . EKG Data: . Assess/Plan/Problems-Billing Assessment: Patient is a 78yo male with a PMH for CHF, RA, CAD, CKD, Kidney stones, COPD, BPH, [place], Pancreatic insufficiency, who presents with 2 weeks of general not feeling well with nausea and vomiting, with development of dysuria, and chest pain who is admitted for prostatitis and possible pyelonephritis with positive urine culture for Pseudomonas who is improving. - Patient Problems (1) Sepsis Current Visit: No Status: Acute Comment: - With tachycardia, hypotension and urinary source - Resolved now - Continue Cefepime (2) Acute prostatitis with hematuria Current Visit: Yes Status: Acute Comment: - Dysuria with CT scan consistent with prostatitis and sepsis. - Urine culture grew Pseudomonas, sensitivities reviewed. Good coverage with Cefepime, Will not give Gentamycin due to CKD. ID consult appreciated. - Recommendations to continue IV Cefepime upon discharge for total of 14 days. PICC line ordered. - Left flank pain without CT evidence of stone, ? pyelonephritis (3) Adrenal insufficiency Current Visit: Yes Status: Acute Comment: - Acquired, likely due to chronic steroid use. - Hypotensive likely due to increased steroid need in setting of acute infection - On Stress dose steroids, weaning slowly, on 75mg TID now - Currently normotensive (4) CHF (congestive heart failure) Current Visit: Yes Status: Acute Comment: - Fluid overload with weight gain - Increased IV lasix, good respose with 5 lbs weight loss since admission - Continue maintenace therapy - EF 35-40% most recently (5) HTN (hypertension) Current Visit: No Status: Acute Comment: - Continue Entresto, Imdur, Lasix increased - Was hypotensive which resolved with steroids (6) CAD (coronary artery disease) Current Visit: No Status: Chronic Comment: - Musculoskeletal CP. - Slight troponin elevation likely due to demand - Continue imdur and statin. (7) GERD (gastroesophageal reflux disease) Current Visit: No Status: Chronic Comment: - Continue carafate. (8) Gout Current Visit: No Status: Chronic Comment: - Continue allopurinol and Colchicine (9) Hypothyroid Current Visit: No Status: Chronic Comment: - Continue current dose of synthroid. (10) Rheumatoid arthritis Current Visit: No Status: Chronic Comment: - Prednisone switched to stress dose hydrocortisone, slowly weaning him off - Cont plaquenil. - Discuss switching to Steroid sparing agent and weaning prednisone slowly with outpatient provider - Has active disease (11) DVT prophylaxis Current Visit: No Status: Acute Comment: - SQ heparin. History of provoked DVT (12) Full code status Current Visit: No Status: Acute Comment: Status and Disposition: Inpatient. Anticipate discharge when medically stable.
--- NOTE | 2018-05-10 19:33 | CONS ---
CONSULTATION REPORT: DATE OF CONSULT: 05/10/18. REQUESTING PROVIDER: REGGIE Frederick. CONSULTING SERVICE: Infectious Disease. REASON FOR CONSULTATION: Prostatitis. IMPRESSION: 1. Admitted with chills, dysuria, urinary frequency, incomplete emptying, CT showed no uro or nephrolithiasis. Urine culture grew Pseudomonas aeruginosa 25, 000 to 50,000 colonies, sensitive to Cipro, Levaquin, cefepime, Zosyn. 2. Chest pain undergoing cardiac evaluation. 3. Congestive heart failure, acute. 4. Rheumatoid arthritis. RECOMMENDATION: Continue cefepime 2 g daily, we will follow his GFR here, made need to make adjustments on that dosing. He should have 3 weeks of antibiotics. He has had 3 days so far. He is intolerant to Cipro and Levaquin, so we plan to continue cefepime as an outpatient. HISTORY OF PRESENT ILLNESS: This is a 78-year-old male with rheumatoid arthritis, kidney stones, admitted with chest pain and urinary frequency, dysuria and chills. He was found to have lower extremity edema, being diuresed, has a cardiac evaluation underway. He had a urine evaluation as above. His dysuria is improved since he has been here. He had some left-sided flank pain that is gone. He did have pelvis pressure which is about the same. He has had kidney stones treated in the distant past, about a year ago was the last time. PAST MEDICAL HISTORY: 1. Nephrolithiasis. 2. Rheumatoid arthritis. 3. Morbid obesity. 4. Hypothyroidism. 5. Gastroesophageal reflux disease. 6. Hypertension. 7. COPD. 8. Coronary disease and ischemic cardiomyopathy, ejection fraction 35%. 9. Obstructive sleep apnea. 10. Benign prostatic hypertrophy. 11. Pancreatic insufficiency. 12. History of DVT and PE. 13. Status post pacemaker placement. 14. Thrombocytopenia. 15. Upper GI bleed. 16. Stage 3 chronic kidney disease. 17. Status post gastric bypass. 18. Status post appendectomy. 19. Status post cholecystectomy. 20. Status post ileostomy. 21. Status post pancreatic resection. MEDICATIONS: 1. Albuterol. 2. Allopurinol. 3. Lipitor. 4. Cefepime 2 g daily. 5. Cetirizine. 6. Codeine. 7. Colchicine. 8. Ferrous sulfate. 9. Lasix. 10. Heparin subcutaneous injection. 11. Hydrocortisone every 8 hours. 12. Imdur. 13. Hydroxychloroquine. 14. Levothyroxine. 15. Nystatin topical powder. 16. Pancrelipase. 17. Tamsulosin. 18. Sacubitril/valsartan. 19. Umeclidinium/vilanterol. ALLERGIES: LEVAQUIN caused severe leg cramps. CIPRO caused vomiting, and malaise and AZITHROMYCIN caused nausea and vomiting. DOXYCYCLINE caused nausea and vomiting. FAMILY HISTORY: No recurrent infections. SOCIAL HISTORY: Lives with his . No travel. No sick contacts. REVIEW OF SYSTEMS: All negative except as noted above in the history of present illness. PHYSICAL EXAM: Vital Signs: Temperature 36.7, heart rate 43, respiratory rate 16, blood pressure 135/82, oxygen saturation 96% on room air. In general, he is awake, not in distress. Neurologic: He is oriented x3. Follows all commands. HEENT: There is no conjunctival hemorrhage. Oropharynx without lesions. Neck is supple without mass. Heart is regular rate and rhythm without murmurs, rubs or gallops. Lungs are clear to auscultation bilaterally. Abdomen: Soft, nontender, nondistended. There are bowel sounds present. Skin : There is no rash or splinter hemorrhage. Musculoskeletal: There is no spine tenderness to palpation. LABORATORY DATA: Creatinine 1.6, PSA 36. White blood cell count 17, hemoglobin 10, platelets 109. Please see impressions and recommendations as outlined above. Thanks for asking me to see Mr. Allen in consultation. [id number]/[facility] #: [id number] MTDD
[2018-05-10] MEDS: Tamsulosin CAP* 0.4 MG PO SCH (21:09)
[2018-05-11] MEDS: Levothyroxine TAB* 125 MCG TAB PO SCH (05:32)
[2018-05-11] MEDS: Heparin VIAL(*) 5000 UNITS/ML VIAL (FIVE THOUSAND) SUBCUT SCH ×3 (05:33→22:03)
[2018-05-11] MEDS: PANCRELIPASE 6000 UNIT PO SCH ×3 (08:27→16:57)
[2018-05-11] MEDS: FLOVENT 110 MCG INH SCH ×2 (08:28→22:24)
[2018-05-11] MEDS: Hydrocortisone INJ* 100 MG VIAL IV SCH ×2 (08:28→16:58)
[2018-05-11] MEDS: PTO:Umeclidin/Vilant 62.5 MDI 62.5/25 mcg 14 INH ELLIPTA DEVICE INH SCH (08:28)
[2018-05-11] MEDS: Atorvastatin* 10 MG TAB PO SCH (08:29)
[2018-05-11] MEDS: Allopurinol TAB* 300 MG PO SCH (08:29)
[2018-05-11] MEDS: Codeine TAB* 30 MG PO SCH ×4 (08:29→20:41)
[2018-05-11] MEDS: Furosemide IV* 10 MG/ML 2 ML VIAL (20 MG) IV SLOW PU SCH (08:32)
[2018-05-11] MEDS: Isosorbide Mononitrate ER TAB* 30 MG PO SCH (08:33)
[2018-05-11] MEDS: Multivitamins/Minerals TAB PO SCH (08:33)
[2018-05-11] MEDS: Hydroxychloroquine TAB* 200 MG PO SCH ×2 (08:33→20:41)
[2018-05-11] MEDS: Nystatin TOP POWDER* 15 GM BTL TOPICAL SCH ×3 (12:46→20:42)
[2018-05-11] MEDS: NS 0.9% IVPB SCH (14:17)
[2018-05-11] MEDS: CEFEPIME ADVAN IVPB SCH (14:17)
--- NOTE | 2018-05-11 14:26 | PN ---
Subjective Date of Service: 05/11/18 Interval History: Mr. Allen is doing better today. Ambulated more last night, still with right knee pain with weight bearing. Denies chest pain, suprapubic or flank pain. No fever or chills. Getting his PICC line placed today in anticipation for IV antibiotics at home upon discharge. Family History: Unchanged from Admission Social History: Unchanged from Admission Past Medical History: Unchanged from Admission Objective Active Medications: Hydrocodone Bitart/Acetaminophen ([place] 5-325 Tab*) 1 tab PO BID PRN PRN Reason: PAIN Last Admin: 05/08/18 21:32 Dose: 1 tab Albuterol (Ventolin Hfa Inhaler*) 2 puff INH QID PRN PRN Reason: SHORTNESS OF BREATH Last Admin: 05/11/18 08:27 Dose: 2 puff Allopurinol (Zyloprim Tab*) 300 mg PO DAILY [facility] Last Admin: 05/11/18 08:29 Dose: 300 mg Atorvastatin Calcium (Lipitor*) 10 mg PO DAILY [facility] Last Admin: 05/11/18 08:29 Dose: 10 mg Cetirizine HCl (Zyrtec*) 5 mg PO DAILY PRN; Protocol PRN Reason: Allergy Symptoms Codeine Sulfate (Codeine Tab*) 30 mg PO QID [facility] Last Admin: 05/11/18 12:46 Dose: 30 mg Colchicine (Colcrys*) 0.6 mg PO DAILY PRN PRN Reason: PAIN/INFLAMMATION Ferrous Sulfate (Ferrous Sulfate Tab*) 325 mg PO EVERY OTHER DAY [facility] Last Admin: 05/10/18 08:29 Dose: 325 mg Furosemide (Lasix Iv*) 20 mg IV SLOW PU DAILY [facility] Last Admin: 05/11/18 08:32 Dose: 20 mg Heparin Sodium (Porcine) (Heparin Vial(*)) 5,000 units SUBCUT Q8HR [facility] Last Admin: 05/11/18 05:33 Dose: 5,000 units Heparin Sodium (Porcine) (Heparin Flush Picc/Ml/Cvc(*)) 1 - 3 ml FLUSH 0600, 1800 [facility]; Protocol Hydrocortisone Sodium Succinate (Solu-Cortef*) 75 mg IV Q8H [facility] Last Admin: 05/11/18 08:28 Dose: 75 mg Hydroxychloroquine Sulfate (Plaquenil Tab*) 200 mg PO BID [facility] Last Admin: 05/11/18 08:33 Dose: 200 mg Cefepime HCl 2 gm/ Sodium (Chloride) 50 mls @ 100 mls/hr IVPB Q24H [facility] Isosorbide Mononitrate (Imdur Er Tab*) 15 mg PO DAILY [facility] Last Admin: 05/11/18 08:33 Dose: 15 mg Levothyroxine Sodium (Synthroid Tab*) 125 mcg PO DAILY@0600 [facility] Last Admin: 05/11/18 05:32 Dose: 125 mcg Multivitamins/Minerals (Theragran/Minerals Tab*) 1 tab PO DAILY [facility] Last Admin: 05/11/18 08:33 Dose: 1 tab Nitroglycerin (Nitroglycerin Tab 0.4 Mg*) 0.4 mg SL Q5M PRN PRN Reason: PAIN - CHEST Pto:Flovent Hfa 110 (Mcg) 1 dose INH BID [facility] Last Admin: 05/11/18 08:28 Dose: 1 dose Nystatin (Nystatin Top Powder*) 1 applic TOPICAL TID [facility] Last Admin: 05/11/18 12:46 Dose: 1 applic Pancrelipase (Creon (Nf)) 1 units PO TID AC [facility] Last Admin: 05/11/18 12:46 Dose: 1 units Tamsulosin HCl (Flomax Cap*) 0.4 mg PO BEDTIME [facility] Last Admin: 05/10/18 21:09 Dose: 0.4 mg Umeclidinium/Vilanterol (Anoro 62.5/25 Ellipta Device (Nf)) 1 inh INH DAILY [facility] Last Admin: 05/11/18 08:28 Dose: 1 inh Vital Signs - 8 hr 05/11/18 05/11/18 05/11/18 07:16 08:00 08:29 Temperature 97.6 F Pulse Rate 76 Respiratory 18 18 20 Rate Blood Pressure 170/80 (mmHg) O2 Sat by Pulse 95 Oximetry 05/11/18 05/11/18 05/11/18 08:30 12:02 12:46 Temperature 97.6 F Pulse Rate 79 87 Respiratory 16 18 20 Rate Blood Pressure 145/74 (mmHg) O2 Sat by Pulse 97 94 Oximetry Oxygen Devices in Use Now: None Appearance: Appears comfortable and in NAD Eyes: No Scleral Icterus, PERRLA Ears/Nose/Mouth/Throat: Clear Oropharnyx, Mucous Membranes Moist Neck: NL Appearance and Movements; NL JVP, Trachea Midline Respiratory: Symmetrical Chest Expansion and Respiratory Effort, Clear to Auscultation Cardiovascular: NL Sounds; No Murmurs; No JVD, RRR Abdominal: NL Sounds; No Tenderness; No Distention Extremities: - - Bilateral lower extremities edema improved on exam. Neurological: Alert and Oriented x 3 Nutrition: Taking PO's Result Diagrams: 05/09/18 12:07 05/09/18 12:07 Additional Lab and Data: . Microbiology and Other Data: Microbiology 05/08/18 07:06 Urine Culture - Preliminary Urine Pseudomonas Aeruginosa Diagnostic Imaging: . EKG Data: . Assess/Plan/Problems-Billing Assessment: Patient is a 78yo male with a PMH for CHF, RA, CAD, CKD, Kidney stones, COPD, BPH, [place], Pancreatic insufficiency, who presents with 2 weeks of general not feeling well with nausea and vomiting, with development of dysuria, and chest pain who is admitted for prostatitis and possible pyelonephritis with positive urine culture for Pseudomonas who is improving. - Patient Problems (1) Sepsis Current Visit: No Status: Acute Comment: - With tachycardia, hypotension and urinary source - Resolved now - Continue Cefepime per ID consult, getting PICC line today (2) Acute prostatitis with hematuria Current Visit: Yes Status: Acute Comment: - Dysuria with CT scan consistent with prostatitis and sepsis. - Urine culture grew Pseudomonas, sensitivities reviewed. Good coverage with Cefepime, Will not give Gentamycin due to CKD. ID consult appreciated. - Recommendations to continue IV Cefepime upon discharge for total of 14 days. PICC line ordered. - Left flank pain without CT evidence of stone, ? pyelonephritis (3) Adrenal insufficiency Current Visit: Yes Status: Acute Comment: - Acquired, likely due to chronic steroid use. - Hypotensive likely due to increased steroid need in setting of acute infection - On Stress dose steroids, weaning slowly, on 75mg BID now - Currently normotensive - Continue to caprice steroids, will convert to PO upon discharge (4) CHF (congestive heart failure) Current Visit: Yes Status: Acute Comment: - Fluid overload with weight gain - Increased IV lasix, good respose with 5 lbs weight loss since admission - Continue maintenace therapy - EF 35-40% most recently (5) HTN (hypertension) Current Visit: No Status: Acute Comment: - Continue Entresto, Imdur, Lasix increased - Was hypotensive which resolved with steroids (6) CAD (coronary artery disease) Current Visit: No Status: Chronic Comment: - Musculoskeletal CP. - Slight troponin elevation likely due to demand - Continue imdur and statin. (7) GERD (gastroesophageal reflux disease) Current Visit: No Status: Chronic Comment: - Continue carafate. (8) Gout Current Visit: No Status: Chronic Comment: - Continue allopurinol and Colchicine (9) Hypothyroid Current Visit: No Status: Chronic Comment: - Continue current dose of synthroid. (10) Rheumatoid arthritis Current Visit: No Status: Chronic Comment: - Prednisone switched to stress dose hydrocortisone, slowly weaning him off - Cont plaquenil. - Discuss switching to Steroid sparing agent and weaning prednisone slowly with outpatient provider - Has active disease (11) DVT prophylaxis Current Visit: No Status: Acute Comment: - SQ heparin. History of provoked DVT (12) Full code status Current Visit: No Status: Acute Comment: Status and Disposition: Inpatient. Anticipate discharge when medically stable.
--- NOTE | 2018-05-11 17:04 | RAD ---
INDICATION: Right knee pain and swelling in a patient with a right knee prosthesis COMPARISON: Most recent comparison radiograph is dated December 10, 2012 TECHNIQUE: 2 view radiograph of the right knee. FINDINGS: The right knee prosthesis is anatomically aligned in the AP and lateral projections. There is no evidence radiographically of loosening or fracture of the prosthesis. There is a very small suprapatellar effusion. Increased density overlying the subcutaneous tissues indicate infiltration of the subcutaneous tissues. IMPRESSION: 1. Anatomic alignment of right knee prosthesis. 2. Trace suprapatellar joint effusion. 3. Appearance is consistent with subcutaneous edema. If the patient's symptoms persist, follow-up imaging is recommended.
[2018-05-11] MEDS: Tamsulosin CAP* 0.4 MG PO SCH (20:41)
[2018-05-12 04:21] LABS: Hematocrit 31 % (42-52); Mean Corpuscular HGB Conc 33 g/dl (31-36); Mean Corpuscular Hemoglobin 29 pg (27-31); Mean Corpuscular Volume 88 fL (80-94); Mean Platelet Volume 9.5 um3 (7.4-10.4); Platelet Count 127 10^3/ul (150-450); Red Blood Count 3.51 10^6/ul (4.00-5.40); Red Cell Distribution Width 18 % (10.5-15); White Blood Count 6.6 10^3/ul (3.5-10.8)
[2018-05-12 04:35] LABS: EGFR Non-African American 55.1 (>60)
[2018-05-12 04:36] LABS: ABS Basophils 0 10^3/ul (0-0.2); ABS Eosinophils 0 10^3/ul (0-0.6); ABS Lymphocytes 0.5 10^3/ul (1.0-4.8); ABS Monocytes 0.6 10^3/ul (0-0.8); ABS Neutrophils 5.5 10^3/ul (1.5-7.7); ABS Nucleated RBC 0 10^3/ul; Eosinophil % 0.3 % (0-6); Lymphocyte % 7.1 % (25-47); Nucleated Red Blood Cells % 0.2
[2018-05-12] MEDS: Hydrocortisone INJ* 100 MG VIAL IV SCH (05:28)
[2018-05-12] MEDS: Levothyroxine TAB* 125 MCG TAB PO SCH (05:30)
[2018-05-12] MEDS: Heparin VIAL(*) 5000 UNITS/ML VIAL (FIVE THOUSAND) SUBCUT SCH (05:30)
[2018-05-12] MEDS: PTO:Umeclidin/Vilant 62.5 MDI 62.5/25 mcg 14 INH ELLIPTA DEVICE INH SCH (07:58)
[2018-05-12] MEDS: FLOVENT 110 MCG INH SCH (07:59)
[2018-05-12] MEDS: Ferrous Sulfate TAB* 325 MG PO SCH (08:23)
[2018-05-12] MEDS: Isosorbide Mononitrate ER TAB* 30 MG PO SCH (08:23)
[2018-05-12] MEDS: Furosemide IV* 10 MG/ML 2 ML VIAL (20 MG) IV SLOW PU SCH (08:23)
[2018-05-12] MEDS: Atorvastatin* 10 MG TAB PO SCH (08:24)
[2018-05-12] MEDS: Allopurinol TAB* 300 MG PO SCH (08:24)
[2018-05-12] MEDS: Multivitamins/Minerals TAB PO SCH (08:24)
[2018-05-12] MEDS: Hydroxychloroquine TAB* 200 MG PO SCH (08:24)
[2018-05-12] MEDS: PANCRELIPASE 6000 UNIT PO SCH ×2 (08:25→12:25)
[2018-05-12] MEDS: Codeine TAB* 30 MG PO SCH ×2 (08:26→13:26)
[2018-05-12] MEDS: Nystatin TOP POWDER* 15 GM BTL TOPICAL SCH (08:27)
--- NOTE | 2018-05-12 09:40 | PN ---
Progress Note - Progress Note Date of Service: 05/12/18 SOAP: Subjective: CC: UTI HPI: 78 year old man with RA , recently with chest pain and dysuria. His dysuria is resolved after antibiotics. No fever, rash, or diarrhea. Objective: Vital Signs Temp 36.6 C 05/12/18 07:51 Pulse 72 05/12/18 08:00 Resp 14 05/12/18 08:26 BP 134/82 05/12/18 07:51 Pulse Ox 94 05/12/18 08:00 Intake & Output 05/11/18 05/12/18 05/12/18 18:59 06:59 18:59 Intake Total 1415 0 Output Total 900 Balance 515 0 Weight 292 lb 9.6 oz Intake: IVPB 55 ABX - CEFEPIME 55 Oral 1360 0 Output: Urine 900 Other: Estimated Void Medium # Bowel Movements 0 # Voids 2 Gen:awake, no distress HEENT: no thrush Heart:RRR no murmur Lungs:CTA BL Abd:+BS NTND soft Skin: no rash; left chest ecchymoses Laboratory Results - last 24 hr 05/12/18 05/12/18 04:10 04:10 WBC 6.6 RBC 3.51 L Hgb 10.0 L Hct 31 L MCV 88 MCH 29 MCHC 33 RDW 18 H Plt Count 127 L MPV 9.5 Neut % (Auto) 82.8 Lymph % (Auto) 7.1 L Cedar % (Auto) 9.7 H Eos % (Auto) 0.3 Baso % (Auto) 0.1 Absolute Neuts (auto) 5.5 Absolute Lymphs (auto) 0.5 L Absolute Monos (auto) 0.6 Absolute Eos (auto) 0 Absolute Basos (auto) 0 Absolute Nucleated RBC 0 Nucleated RBC % 0.2 Sodium 142 Potassium 3.0 L Chloride 103 Carbon Dioxide 34 H Anion Gap 5 BUN 28 H Creatinine 1.27 H Est GFR ( Amer) 66.7 Est GFR (Non-Af Amer) 55.1 BUN/Creatinine Ratio 22.0 H Glucose 165 H Calcium 7.9 L Assessment: 1. Pseudomonas UTI/acute prostatitis 2. RA 3. cipro/levaquin intolerance 4. FREDRICK, resolving 5. congestive heart failure, acute Plan: 1. cefepime 2 gm daily, day 4/21 with weekly cbc, cmp, crp 35 minutes floor time >50% face to face discussion of home antibiotics
--- NOTE | 2018-05-12 09:44 | RAD ---
INDICATION: Swelling at pacemaker site COMPARISON: May 08, 2018 TECHNIQUE: An AP portable view obtained at 0915 hours is submitted. FINDINGS: Bones/Soft Tissues: There are no acute bony findings. There is left-sided cardiac pacemaker. The orientation of the pacemaker has changed slightly. Although this may be positional, given the history of swelling there may be a small fluid collection at the level of the pacemaker. This could be evaluated with ultrasonography if this is of clinical concern. There is interval placement of right-sided PICC catheter which terminates near the right atrial junction Cardiomediastinal: The cardiomediastinal silhouette is normal. Lungs: There are no infiltrates. Pleura: There are no pleural effusions. Other: There are clips in left upper quadrant. IMPRESSION: NO ACTIVE CARDIOPULMONARY DISEASE. APPARENT SLIGHT CHANGE IN THE ORIENTATION THE PACEMAKER (SEE ABOVE).
[2018-05-12 12:15] VITALS: BP 122/54
[2018-05-12] MEDS: NS 0.9% IVPB SCH (14:46)
[2018-05-12] MEDS: CEFEPIME ADVAN IVPB SCH (14:46)
--- NOTE | 2018-05-12 20:35 | DS ---
CC: Dr. Isabel * DISCHARGE SUMMARY: DATE OF ADMISSION: 05/08/18 DATE OF DISCHARGE: 05/12/18 ADMITTING HOSPITALIST AND PHYSICIAN: Abbey Yusuf MD. ATTENDING HOSPITALIST WHILE THE PATIENT WAS HERE: Lydia Mauro DO.* ( DICTATED BY REGGIE HENDRICKS) PRIMARY CARE PHYSICIAN: Dr. Venkat Isabel. CONSULTATION: Dr. Howie Forrest from Infectious Disease. ADMISSION DIAGNOSES: 1. Dark urine. 2. Chest pain. 3. Morbid obesity. 4. Suspected adrenal insufficiency due to chronic steroid use. 5. Nephrolithiasis. 6. Hypothyroidism. 7. Gastroesophageal reflux disease. 8. Hypertension. 9. Chronic obstructive pulmonary disease. 10. Coronary artery disease with ischemic cardiomyopathy with last ejection fraction of 35%. 11. Obstructive sleep apnea. 12. Rheumatoid arthritis. 13. Benign prostatic hypertrophy. 14. Pancreatic insufficiency. 15. History of deep venous thrombosis and pulmonary embolism postoperatively. 16. Chronic thrombocytopenia. 17. History of upper GI bleed. 18. Chronic kidney disease at stage 3. DISCHARGE DIAGNOSES: 1. Dark urine. 2. Chest pain. 3. Morbid obesity. 4. Suspected adrenal insufficiency due to chronic steroid use. 5. Nephrolithiasis. 6. Hypothyroidism. 7. Gastroesophageal reflux disease. 8. Hypertension. 9. Chronic obstructive pulmonary disease. 10. Coronary artery disease with ischemic cardiomyopathy with last ejection fraction of 35%. 11. Obstructive sleep apnea. 12. Rheumatoid arthritis. 13. Benign prostatic hypertrophy. 14. Pancreatic insufficiency. 15. History of deep venous thrombosis and pulmonary embolism postoperatively. 16. Chronic thrombocytopenia. 17. History of upper GI bleed. 18. Chronic kidney disease at stage 3. BRIEF MEDICAL HISTORY: Mr. Allen is a 78-year-old gentleman with multiple complex medical issues including hypertension, morbid obesity, nephrolithiasis, prostatitis for which he has been followed by an urologist in [place], as well as history of adrenal and pancreatic insufficiency for which he has been chronically on pancreatic enzyme supplement as well as chronic low dose prednisone, who presented to the emergency room on 05/08/18 complaining of chest pain and dark urine. The patient notes that for the past couple of weeks prior to his presentation he had noted some flank and low back pain, but denied any fever, chills, or any other associated symptoms until 2 days ago when he noticed more difficulty with urinating as well as urinary frequency and low urine output. He has had similar complaints in the past that were thought to be may be related to kidney stones; however, his pain this time feels a little bit different. He was evaluated in the emergency room and noted to have white count normal at 8000 as well as stable hemoglobin and hematocrit, and his creatinine was 1.8, which has been his baseline. His urinalysis, however, was significant for UTI with findings of positive nitrites and positive leukocyte esterase for which a CT scan of the abdomen and pelvis was obtained as well to rule out any possibility of nephrolithiasis. The patient had findings on the CT consistent with acute prostatitis for which he was admitted to the hospital for further evaluation and antibiotic treatment. HOSPITAL COURSE: The patient was admitted to the telemetry unit given his history of cardiomyopathy as well as his pacemaker that was placed by Dr. Watkins in the past. He had some chest pain that was thought to be musculoskeletal in origin since his troponin and EKG had shown no changes during this admission. His UTI was covered using cefepime 2 g daily and his urine culture revealed Pseudomonas that was sensitive to the antibiotics. A consultation by Dr. Forrest was obtained who recommended inserting a PICC line and continued IV antibiotics for a period of 2 weeks after discharge. The patient continued to improve on a daily basis. He was noted on admission to have significant generalized body edema and anasarca more prevalent in his lower extremity as well as periorbital area. He continued to receive his daily dose of Lasix with significant improvement of peripheral edema. His BNP was not elevated and he did not exhibit any symptoms of congestive heart failure. He was started on high dose of tapered hydrocortisone that was slowly decreased on a daily basis. The patient continued to improve and was ambulatory out of bed. He complained of some right knee pain, knowing that he had both knee replacements for which an x-ray was done revealing normal joint alignment with no evidence of dislocation. He also complained on discharge morning of some bruising to his chest, but denies any injury or fall. He was trying to get out of the toilet and he felt like he pulled a muscle. He noticed a small area of ecchymosis to the left pectoral region close to his pacemaker. A portable chest x-ray was done that revealed slight new orientation of his pacemaker generator; however, there was no evidence of any cardiopulmonary issues. A phone call was made to Dr. Herbert Watkins and he reassured the patient that he will follow up with him in a couple of weeks. The patient continued conveyor monitor and showed sinus paced rhythm with no evidence of any changes and he continued not to complain of any substernal chest pain. This morning, on exam, his vitals were stable and he was afebrile with temperature of 97.9, pulse of 72 , blood pressure of 134/82, respirations of 14 with O2 sat of 94% on room air. His lungs were clear to auscultation bilaterally. His heart was regular rate and rhythm without rubs, murmurs, or gallops. His abdomen was soft, obese, nontender, and nondistended. He will be discharged to home later today after he receives his IV cefepime at noon and we will continue his IV antibiotics at home with a visit of home nurse aide as well as we will continue his regular home medications. I spoke to his pharmacist and we will continue his tapered prednisone dose starting at 50 mg for 3 days and to be tapered down 10 mg every 3 days until he returns to his maintenance dose of 10 mg daily. All his questions were answered and the patient is stable for discharge. He is planning to follow up with his urologist in [place] next month after finishing his IV antibiotic treatments as well as follow up with primary care physician, Dr. Isabel, in 1 to 2 weeks. DISCHARGE MEDICATIONS: Include: 1. Albuterol 2 puffs inhaled q.i.d. as needed for shortness of breath. 2. Allopurinol 300 mg p.o. daily. 3. Codeine tablets 30 mg p.o. q.i.d. 4. Colchicine 0.6 mg p.o. daily. 5. Ferrous sulfate 325 mg p.o. q.h.s. 6. Anastasiia 60 mg p.o. daily. 7. Flovent inhaler 1 puff inhaled b.i.d. 8. Lasix 20 mg p.o. daily. 9. [place] 5/325 one tablet p.o. b.i.d. p.r.n. for pain. 10. Plaquenil 200 mg p.o. b.i.d. 11. Isosorbide mg p.o. daily. 12. Synthroid 125 mcg p.o. daily. 13. Creon 6000 units capsule (pancreatic enzymes replacement) 1 cap p.o. t.i.d. 14. Multivitamins with minerals 1 tab p.o. daily. 15. Nitroglycerin 0.4 mg sublingual q.5 minutes as needed for chest pain. 16. Zocor 20 mg p.o. daily. 17. Flomax 0.4 mg p.o. q.h.s. 18. Anoro 62.5/25 one inhaled MDI daily. 19. Nystatin powder use at affected area as directed. 20. Prednisone tapered dose starting at 50 mg once daily x3 days, then 40 mg once daily x3 days, then 30 mg once daily x3 days, then 20 mg once daily x3 days , then he can resume his maintenance dose of 10 mg once daily. REGGIE HENDRICKS [id number]/[facility] #: [id number] SAYDA
== END 2018-05-12 15:30 | disposition home health service (06) | DRG 872 ==
LOC: ED 04:44 → MEDTELE 09:38
PROVIDERS: ADMIT Internal Medicine; ATTEND Internal Medicine
DX: A41.9 Sepsis, unspecified organism (principal); N41.0 Acute prostatitis; I13.0 Hypertensive heart and chronic kidney disease with heart failure and stage 1 through stage 4 chronic kidney disease, or unspecified chronic kidney disease; E27.40 Unspecified adrenocortical insufficiency; N17.9 Acute kidney failure, unspecified; Z68.42 Body mass index [BMI] 45.0-49.9, adult; E03.9 Hypothyroidism, unspecified; I25.10 Atherosclerotic heart disease of native coronary artery without angina pectoris; J44.9 Chronic obstructive pulmonary disease, unspecified; J30.2 Other seasonal allergic rhinitis; K21.9 Gastro-esophageal reflux disease without esophagitis; M06.9 Rheumatoid arthritis, unspecified; Z96.653 Presence of artificial knee joint, bilateral; H26.9 Unspecified cataract; E66.01 Morbid (severe) obesity due to excess calories; G47.33 Obstructive sleep apnea (adult) (pediatric); I25.5 Ischemic cardiomyopathy; N40.0 Benign prostatic hyperplasia without lower urinary tract symptoms; D69.6 Thrombocytopenia, unspecified; N18.3 Chronic kidney disease, stage 3 (moderate); B96.5 Pseudomonas (aeruginosa) (mallei) (pseudomallei) as the cause of diseases classified elsewhere; R31.9 Hematuria, unspecified; I50.9 Heart failure, unspecified; K52.9 Noninfective gastroenteritis and colitis, unspecified; M10.9 Gout, unspecified; T38.0X5A Adverse effect of glucocorticoids and synthetic analogues, initial encounter; K86.89 Other specified diseases of pancreas; R58 Hemorrhage, not elsewhere classified; Z95.0 Presence of cardiac pacemaker; Z88.1 Allergy status to other antibiotic agents; Z88.8 Allergy status to other drugs, medicaments and biological substances; Z86.718 Personal history of other venous thrombosis and embolism; Z86.711 Personal history of pulmonary embolism; I25.2 Old myocardial infarction; Z87.01 Personal history of pneumonia (recurrent); Z83.3 Family history of diabetes mellitus; Z83.6 Family history of other diseases of the respiratory system; Z87.891 Personal history of nicotine dependence; Z93.2 Ileostomy status; Z87.442 Personal history of urinary calculi; Z98.84 Bariatric surgery status; Z90.49 Acquired absence of other specified parts of digestive tract; Z82.49 Family history of ischemic heart disease and other diseases of the circulatory system
CPT/HCPCS: 36415; 71045; 74176; 80048; 80053; 81003; 81015; 82533; 83880; 84153; 84484; 85025; 87077; 87086; 87186; 93005; 94640; 99284; A9270-GY; C1751; G0103; G8978-GP-CJ; G8979-GP-CI; J0692; J0696; J1644; J1720; J1940

== ENCOUNTER 2018-05-13 09:52 | Emergency (ER) | payer MEDICARE, MEDICAID ==
--- NOTE | 2018-05-13 10:11 | ED ---
Complex/Multi-Sys Presentation - HPI Summary HPI Summary: 78 y/o male presents to the ED c/o general weakness starting yesterday. Pt states he can't get up and can't walk. Pt was seen in the ED yesterday, d/c home for UTI on abx. Sx not aggravated or alleviated by anything. Pt c/o R leg weakness for the past 2-3 weeks. Associated sx: cough, decreased appetite. Pt not on blood thinners. - History Of Current Complaint Chief Complaint: EDGeneral Hx Obtained From: Patient, Family/Assembling Fabricator Onset/Duration: Lasting Days, Still Present Timing: Constant Associated Signs And Symptoms: Positive: Weakness - Allergies/Home Medications Allergies/Adverse Reactions: Allergies Allergy/AdvReac Type Severity Reaction Status Date / Time Quinolones Allergy Severe See Comment Verified 05/13/18 10:47 azithromycin Allergy Unknown Verified 05/13/18 10:47 Reaction Details doxycycline Allergy Unknown Verified 05/13/18 10:47 Reaction Details PMH/Surg Hx/FS Hx/Imm Hx Previously Healthy: No Endocrine/Hematology History: Reports: Hx Anticoagulant Therapy - plavix 75mg, Hx Thyroid Disease - HYPOTHYROIDISM, Other Endocrine/Hematological Disorders - necrotizing pancreatitis Denies: Hx Diabetes, Hx Systemic Lupus Erythematosus Cardiovascular History: Reports: Hx Angina, Hx Coronary Artery Disease, Hx Deep Vein Thrombosis, Hx Embolism - PE, Hx Hypertension, Hx Myocardial Infarction, Hx Pacemaker/ICD Denies: Hx Congestive Heart Failure, Hx Hypercholesterolemia, Other Cardiovascular Problems/Disorders Respiratory History: Reports: Hx Chronic Bronchitis, Hx Chronic Obstructive Pulmonary Disease (COPD), Hx Pleural Effusion, Hx Pneumonia, Hx Pulmonary Embolism, Hx Seasonal Allergies, Hx Sleep Apnea, Other Respiratory Problems/ Disorders - PNA Denies: Hx Asthma GI History: Reports: Hx Gall Bladder Disease - removed, Hx Gastroesophageal Reflux Disease - occasional, Hx Gastrointestinal Bleed - cobra to [facility] last admit , Hx Ileostomy - hx ileostomy, reversed, Other GI Disorders - Hx pancreatitis, part of pancreas removed, HEMIGASTRECTOMY History: Reports: Hx Chronic Renal Failure, Hx Kidney Stones, Hx Renal Disease - kidney stones/uretherak stent, Other Problems/Disorders - Hx kidney stones Denies: Hx Dialysis Musculoskeletal History: Reports: Hx Arthritis, Hx Rheumatoid Arthritis, Other Musculoskeletal History - bilateral knee replacements Denies: Hx Gout - allopurinol is for kidney stones not gout., Hx Osteoporosis Sensory History: Reports: Hx Cataracts, Hx Contacts or Glasses Denies: Hx Eye Injury, Hx Eye Prosthesis, Hx Glaucoma, Hx Legally Blind, Hx Macular Degeneration, Hx Vision Problem, Hx Deafness, Hx Hearing Aid, Hx Hearing Problem Opthamlomology History: Reports: Hx Cataracts, Hx Contacts or Glasses Denies: Hx Eye Injury, Hx Eye Prosthesis, Hx Glaucoma, Hx Legally Blind, Hx Macular Degeneration, Hx Vision Problem Neurological History: Denies: Hx Dementia, Hx Seizures - Cancer History Cancer Type, Location and Year: 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 Hx Chemotherapy: No - Surgical History Surgery Procedure, Year, and Place: renal stent, 2 knee replacements, gastric bypass-, agnes, appendectomy, bowel resection, November 2012 debridement of abdominal wound, pacemaker, lower part of lung removed, pancreatic resection Hx Anesthesia Reactions: No - Immunization History Date of Tetanus Vaccine: Unk Date of Influenza Vaccine: None Infectious Disease History: No Infectious Disease History: Denies: Hx Clostridium Difficile, Hx Human Immunodeficiency Virus (HIV), Hx of Known/Suspected MRSA, Hx Shingles, Hx Tuberculosis, Traveled Outside the [place] in Last 30 Days - Family History Known Family History: Positive: Hypertension - Social History Alcohol Use: None Hx Substance Use: No Substance Use Type: Reports: None Hx Tobacco Use: Yes Smoking Status (MU): Former Smoker Have You Smoked in the Last Year: No Review of Systems Constitutional: Negative Eyes: Negative ENT: Negative Cardiovascular: Negative Positive: Cough Gastrointestinal: Negative Genitourinary: Negative Musculoskeletal: Negative Skin: Negative Positive: Weakness Psychological: Normal All Other Systems Reviewed And Are Negative: No Physical Exam - Summary Physical Exam Summary: Appearance: Alert, conversive, nontoxic appearing Skin: Warm, dry, no mottling, no rashes, no contusions HEENT: EOMI, PERRL, dry mucous membranes Neck: No masses on the neck, supple Respiratory: Clear to auscultation, breath sounds diminished, no rales, no rhonchi, no wheezes Cardiovascular: RRR, pulses are symmetrical in both lower and upper extremities Abdomen: Soft, non-tender. Pt has a pannus. Bowel Sounds: Present Musculoskeletal: No CVA tenderness, no obvious deformity, moving all extremities in a grossly normal manner. Bruising to L knee, scar at L knee. Mild pitting edmea in lower extremities, 3+ at ankles. Neurological: A&Ox3, CN II-XII Intact, moving all extremities symmetrically. Generalized weakness, more pronounced to R leg. GCS 15. Psychiatric: Normal affect and mood Triage Information Reviewed: Yes Vital Signs On Initial Exam: Initial Vitals Temp Pulse Resp BP Pulse Ox 97.8 F 88 20 124/82 95 05/13/18 09:58 05/13/18 09:58 05/13/18 09:58 05/13/18 09:58 05/13/18 09:58 Vital Signs Reviewed: Yes Diagnostics - Vital Signs Vital Signs Temp Pulse Resp BP Pulse Ox 05/13/18 09:58 97.8 F 88 20 124/82 95 - Laboratory Result Diagrams: 05/13/18 10:31 05/13/18 10:31 Lab Statement: Any lab studies that have been ordered have been reviewed, and results considered in the medical decision making process. - CT BRAIN CT CT Interpretation Completed By: Radiologist - 1. NO EVIDENCE FOR GROSS ACUTE INFARCT, MASS EFFECT OR HEMORRHAGE. 2. FINDINGS MOST CONSISTENT WITH MODERATE CHRONIC SMALL VESSEL ISCHEMIC CHANGE AND SMALL BILATERAL CHRONIC LACUNAR INFARCTS. ED Physician reviews and agrees. Complex Multi-Symp Course/Dx Assessment/Plan: 78 y/o male presents to ED c/o general weakness. Pt d/c home yesterday from ED for UTI on abx. R leg weakness for the last 2-3 weeks, no new onset. Social work called at 10:15. Brain CT shows 1. NO EVIDENCE FOR GROSS ACUTE INFARCT, MASS EFFECT OR HEMORRHAGE. 2. FINDINGS MOST CONSISTENT WITH MODERATE CHRONIC SMALL VESSEL ISCHEMIC CHANGE AND SMALL BILATERAL CHRONIC LACUNAR INFARCTS. Spoke with social naima Ryan, who is actively trying to find the pt a bed. Spoke again with Shelby at 15:15, who states that she has a bed for the pt but is now waiting for insurance approval. Without approval the pt will be admitted to [facility]. After speaking the the social work therapist, the pt's adamantly does not want the pt to be cared for at [facility] and will hire extra help at home. Pt will be d/c home. - Diagnoses Provider Diagnoses: Hypokalemia, Weakness Discharge - Sign-Out/Discharge Documenting (check all that apply): Patient Departure - Discharge Plan Condition: Stable Disposition: HOME Patient Education Materials: Hypokalemia (ED), Weakness (ED) Referrals: Venkat Isabel MD [Primary Care Provider] - Additional Instructions: Please follow up with your doctor tomorrow. REturn if worse or any new symptoms. Take all medications as previously instructed. Eat foods rich in potassium including bananas, green vegetables. you will need a repeat potassium level on Thursday. Call your doctor for this. - Billing Disposition and Condition Condition: STABLE Disposition: Home - Attestation Statements Document Initiated by Scribe: Yes Documenting Scribe: Natanael Hendrickson Provider For Whom Leticia is Documenting (Include Credential): Kya Sparrow MD Scribe Attestation: Natanael Shah, scribed for Kya Sparrow MD on 05/13/18 at 1703. Scribe Documentation Reviewed: Yes Provider Attestation: The documentation as recorded by the Natanael hung accurately reflects the service I personally performed and the decisions made by me, Kya Sparrow MD
[2018-05-13] MEDS ORDERED: Cefepime 2 GM in Dextrose(*) 2 GM/50 ML BAG IV ONE (10:16)
[2018-05-13 10:41] LABS: Hematocrit 30 % (42-52); Mean Corpuscular HGB Conc 33 g/dl (31-36); Mean Corpuscular Hemoglobin 29 pg (27-31); Mean Corpuscular Volume 89 fL (80-94); Mean Platelet Volume 9.5 um3 (7.4-10.4); Platelet Count 123 10^3/ul (150-450); Red Blood Count 3.42 10^6/ul (4.00-5.40); Red Cell Distribution Width 18 % (10.5-15); White Blood Count 6.1 10^3/ul (3.5-10.8)
--- NOTE | 2018-05-13 10:58 | RAD ---
INDICATION: Right leg weakness. COMPARISON: Comparison is made with a prior CT of the brain from October 17, 2017. TECHNIQUE: Contiguous axial sections of the brain were obtained from the skull base to the vertex without contrast. FINDINGS: The ventricles, cisterns and sulci are enlarged consistent with diffuse atrophy. There are multiple focal areas of decreased density in the subcortical and periventricular white matter suggestive of moderate chronic small vessel ischemic changes. There is also suggestion of small lacunar infarcts in the region of the anterior limbs of the internal capsules on both sides. No other focal abnormality or mass effect is seen. There is no evidence for hemorrhage. No significant focal osseous abnormality is seen. The visualized portion of the paranasal sinuses and mastoid air cells appear clear. IMPRESSION: 1. NO EVIDENCE FOR GROSS ACUTE INFARCT, MASS EFFECT OR HEMORRHAGE. 2. FINDINGS MOST CONSISTENT WITH MODERATE CHRONIC SMALL VESSEL ISCHEMIC CHANGE AND SMALL BILATERAL CHRONIC LACUNAR INFARCTS.
[2018-05-13 10:59] LABS: EGFR Non-African American 44.1 (>60)
[2018-05-13 11:39] LABS: ABS Basophils 0 10^3/ul (0-0.2); ABS Eosinophils 0.1 10^3/ul (0-0.6); ABS Lymphocytes 0.3 10^3/ul (1.0-4.8); ABS Monocytes 0.4 10^3/ul (0-0.8); ABS Neutrophils 5.2 10^3/ul (1.5-7.7); ABS Nucleated RBC 0 10^3/ul; Eosinophil % 2.2 % (0-6); Nucleated Red Blood Cells % 0.1
[2018-05-13] MEDS ORDERED: Potassium Chlor TAB* 20 MEQ TAB.ER PO ONE (16:18)
[2018-05-13] MEDS ORDERED: NS 0.9% 500 ML* 500 ML IV ONE (16:19)
[2018-05-13] MEDS ORDERED: Furosemide TAB* 20 MG PO ONE (18:30)
[2018-05-13] MEDS ORDERED: ISOSORBIDE DINITRATE 40 MG PO SCH (19:00)
[2018-05-13 19:14] VITALS: BP 116/71
[2018-05-14] MEDS ORDERED: ISOSORBIDE DINITRATE 40 MG PO SCH (09:00)
== END 2018-05-13 19:12 | disposition home or self-care (01) ==
LOC: ED 09:52
DX: E87.6 Hypokalemia (principal); R53.1 Weakness; I25.10 Atherosclerotic heart disease of native coronary artery without angina pectoris; I10 Essential (primary) hypertension; Z86.718 Personal history of other venous thrombosis and embolism; I25.2 Old myocardial infarction; Z87.891 Personal history of nicotine dependence
CPT/HCPCS: 36415; 70450; 80053; 85025; 96361; 96374; 99284; A9270-GY; J0692

== ENCOUNTER 2018-12-28 21:40 | Emergency (ER) | payer MEDICARE, MEDICAID ==
[2018-12-28] MEDS ORDERED: EPI ONE (22:06)
[2018-12-28] MEDS ORDERED: LIDOCAINE 0.5% ONE (22:06)
[2018-12-28] MEDS ORDERED: Lidocaine 2% 10 ML* VIAL INJ ONE (22:06)
[2018-12-28] MEDS ORDERED: Lidocaine 2% EPI 1:200000 MPF*10-20 ML VIAL ONE (22:36)
--- NOTE | 2018-12-29 00:30 | ED ---
Adult Trauma - HPI Summary HPI Summary: Patient ambulates with walker baseline complains of mechanical fall with subsequent head injury, and laceration to left knee at 6 PM. Patient denies LOC , vision change, WOOD, N/V, neck pain, back pain, chest pain, CP SOB, abdominal pain, hip pain, bilateral lower and upper extremity pain. Patient has ambulated since fall. No anti-coagulation. Patient also complains of persistent productive cough, currently being evaluated by PCP. Patient has been on a round of antibiotics with some improvement, but family states recent return of symptoms. Family concerned as patient has history of pneumonia. Medical history CAD, CHF, hypertension, CK D stage III, BPH, gout, RA. - History of Current Complaint Chief Complaint: EDLacSutureRecheck Stated Complaint: FALL PER EMS Time Seen by Provider: 12/28/18 21:51 Hx Obtained From: Patient Mechanism of Injury: Fall Ambulatory at the Scene: Yes Loss of Consciousness: no loss of consciousness Onset/Duration: Started Hours Ago Onset of Pain: Immediate Onset Severity: Moderate Current Severity: Moderate Pain Intensity: 5 Pain Scale Used: 0-10 Numeric Location: Other - Left eyebrow Character: Dull Aggravating Factor(s): Nothing Alleviating Factor(s): Nothing Associated Signs & Symptoms: Positive: Cough - Additional Pertinent History Primary Care Physician: [id number] - Allergy/Home Medications Allergies/Adverse Reactions: Allergies Allergy/AdvReac Type Severity Reaction Status Date / Time Quinolones Allergy Severe See Comment Verified 05/13/18 10:47 azithromycin Allergy Unknown Verified 05/13/18 10:47 Reaction Details doxycycline Allergy Unknown Verified 05/13/18 10:47 Reaction Details Penicillins Allergy Unknown Verified 12/28/18 22:50 Reaction Details Home Medications: Home Medications Aspirin EC TAB* [Ecotrin EC Low Dose 81 MG*] 81 mg PO DAILY 12/28/18 [History Confirmed 12/28/18] Potassium Chloride [Klor-Con M20] 20 meq PO DAILY 12/28/18 [History Confirmed ] Torsemide TAB* [Demadex 20 MG*] 1 tab PO DAILY 12/28/18 [History Confirmed 12/28] metOLazone [Metolazone] 1 tab PO DAILY 12/28/18 [History Confirmed 12/28/18] predniSONE TAB* [Deltasone 10 MG TAB*] 20 mg PO DAILY 12/28/18 [History Confirmed 12/28/18] PMH/Surg Hx/FS Hx/Imm Hx Endocrine/Hematology History: Reports: Hx Anticoagulant Therapy - plavix 75mg, Hx Thyroid Disease - HYPOTHYROIDISM, Other Endocrine/Hematological Disorders - necrotizing pancreatitis Denies: Hx Diabetes, Hx Systemic Lupus Erythematosus Cardiovascular History: Reports: Hx Angina, Hx Coronary Artery Disease, Hx Deep Vein Thrombosis, Hx Embolism - PE, Hx Hypertension, Hx Myocardial Infarction, Hx Pacemaker/ICD Denies: Hx Congestive Heart Failure, Hx Hypercholesterolemia, Other Cardiovascular Problems/Disorders Respiratory History: Reports: Hx Chronic Bronchitis, Hx Chronic Obstructive Pulmonary Disease (COPD), Hx Pleural Effusion, Hx Pneumonia, Hx Pulmonary Embolism, Hx Seasonal Allergies, Hx Sleep Apnea, Other Respiratory Problems/ Disorders - PNA Denies: Hx Asthma GI History: Reports: Hx Gall Bladder Disease - removed, Hx Gastroesophageal Reflux Disease - occasional, Hx Gastrointestinal Bleed - cobra to [facility] last admit , Hx Ileostomy - hx ileostomy, reversed, Other GI Disorders - Hx pancreatitis, part of pancreas removed, HEMIGASTRECTOMY History: Reports: Hx Chronic Renal Failure, Hx Kidney Stones, Hx Renal Disease - kidney stones/uretherak stent, Other Problems/Disorders - Hx kidney stones Denies: Hx Dialysis Musculoskeletal History: Reports: Hx Arthritis, Hx Rheumatoid Arthritis, Other Musculoskeletal History - bilateral knee replacements Denies: Hx Gout - allopurinol is for kidney stones not gout., Hx Osteoporosis Sensory History: Reports: Hx Cataracts, Hx Contacts or Glasses Denies: Hx Eye Injury, Hx Eye Prosthesis, Hx Glaucoma, Hx Legally Blind, Hx Macular Degeneration, Hx Vision Problem, Hx Deafness, Hx Hearing Aid, Hx Hearing Problem Opthamlomology History: Reports: Hx Cataracts, Hx Contacts or Glasses Denies: Hx Eye Injury, Hx Eye Prosthesis, Hx Glaucoma, Hx Legally Blind, Hx Macular Degeneration, Hx Vision Problem Neurological History: Denies: Hx Dementia, Hx Seizures - Cancer History Cancer Type, Location and Year: 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 Hx Chemotherapy: No - Surgical History Surgery Procedure, Year, and Place: renal stent, 2 knee replacements, gastric bypass-, agnes, appendectomy, bowel resection, November 2012 debridement of abdominal wound, pacemaker, lower part of lung removed, pancreatic resection Hx Anesthesia Reactions: No - Immunization History Date of Tetanus Vaccine: Unk Date of Influenza Vaccine: None Infectious Disease History: No Infectious Disease History: Denies: Hx Clostridium Difficile, Hx Human Immunodeficiency Virus (HIV), Hx of Known/Suspected MRSA, Hx Shingles, Hx Tuberculosis, Traveled Outside the [place] in Last 30 Days - Family History Known Family History: Positive: Hypertension - Social History Alcohol Use: None Hx Substance Use: No Substance Use Type: Reports: None Hx Tobacco Use: Yes Smoking Status (MU): Former Smoker Have You Smoked in the Last Year: No Review of Systems Constitutional: Negative Eyes: Negative ENT: Negative Cardiovascular: Negative Positive: Cough Gastrointestinal: Negative Genitourinary: Negative Musculoskeletal: Negative Skin: Other - lacerations to left elbow and left knee. Neurological: Negative Psychological: Normal All Other Systems Reviewed And Are Negative: Yes Physical Exam - Summary Physical Exam Summary: Laceration to left eyebrow and left knee. Ecchymosis near laceration above left eye. EOMI. no other facial trauma noted. No pain with palpation of neck. Full range of motion of jaw and neck. Neuro exam normal. No pain with palpation of chest or back. Lung sounds clear to auscultation bilaterally. Abdomen soft nontender. Patient moves bilateral upper extremities and bilateral lower extremities without any indication of pain. Laceration and left knee. Triage Information Reviewed: Yes Vital Signs On Initial Exam: Initial Vitals Temp Pulse Resp BP Pulse Ox 97 F 84 18 166/88 97 12/28/18 21:42 12/28/18 21:42 12/28/18 21:42 12/28/18 21:42 12/28/18 21:42 Vital Signs Reviewed: Yes Appearance: Positive: Well-Appearing Skin: Positive: Warm Head/Face: Positive: Normal Head/Face Inspection Eyes: Positive: Normal ENT: Positive: Normal ENT inspection Dental: Negative: Dental Fracture @, Bleeding Neck: Positive: Supple Respiratory/Lung Sounds: Positive: Clear to Auscultation Cardiovascular: Positive: Normal Abdomen Description: Positive: Nontender Musculoskeletal: Positive: Normal Neurological: Positive: Normal Psychiatric: Positive: Normal AVPU Assessment: Alert - Rob Coma Scale Best Eye Response: 4 - Spontaneous Best Motor Response: 6 - Obeys Commands Best Verbal Response: 5 - Oriented Coma Scale Total: 15 Procedures - Laceration/Wound Repair 1 Location: face - left eyebrow Description: Linear Anesthesia: Local, 1.0% Length, Depth and Shape: 3cm x 1cm Betadine Prep?: Yes Irrigated w/ Saline (ccs): 200 Laceration/Wound Explored: clean Debridement: minimal Number of Sutures: 8 - 6.0 ethilon Layer Closure?: No Sterile Dressing Applied?: No 2 Location: lower extremity Description: Linear Anesthesia: Local, 2.0%, Epi Length, Depth and Shape: 10cm x .5cm Betadine Prep?: Yes Irrigated w/ Saline (ccs): 400 Laceration/Wound Explored: clean Debridement: minimal Number of Sutures: 17 - 4.0 ethilon Layer Closure?: No Sterile Dressing Applied?: No Diagnostics - Vital Signs Vital Signs Temp Pulse Resp BP Pulse Ox 12/28/18 23:16 78 147/90 95 12/28/18 23:00 80 95 12/28/18 22:46 78 162/95 95 12/28/18 22:16 163/93 12/28/18 22:00 76 96 12/28/18 21:48 76 166/88 96 12/28/18 21:45 82 96 12/28/18 21:42 97 F 84 18 166/88 97 - Laboratory Lab Statement: Any lab studies that have been ordered have been reviewed, and results considered in the medical decision making process. Adult Trauma Course/Dx - Course Course Of Treatment: Patient ambulates with walker baseline complains of mechanical fall with subsequent head injury, and laceration to left knee at 6 PM. Patient denies LOC, vision change, WOOD, N/V, neck pain, back pain, chest pain, CP SOB, abdominal pain, hip pain, bilateral lower and upper extremity pain. Patient has ambulated since fall. No anti-coagulation. Patient also complains of persistent productive cough, currently being evaluated by PCP. Patient has been on a round of antibiotics with some improvement, but family states recent return of symptoms. Family concerned as patient has history of pneumonia. Medical history CAD, CHF, hypertension, CK D stage III, BPH, gout, RA. Physical exam:Laceration to left eyebrow and left knee. Ecchymosis near laceration above left eye. EOMI. no other facial trauma noted. No pain with palpation of neck. Full range of motion of jaw and neck. Neuro exam normal. No pain with palpation of chest or back. Lung sounds clear to auscultation bilaterally. Abdomen soft nontender. Patient moves bilateral upper extremities and bilateral lower extremities without any indication of pain. Laceration and left knee. Vital signs within normal limits. CT brain negative. Chest x-ray unremarkable. CT C-spine unremarkable. CT maxillofacial positive for left orbital floor fracture. Laceration of left eyebrow left knee repaired. Patient started on gentamicin for orbital floor fracture prophylaxis and respiratory infection. Patient has history of being allergic to azithromycin, doxycycline, fluoroquinolones and penicillins. Patient advised to follow-up with ophthalmology for further evaluation of orbital floor fracture. Discussed patient with attending Dr. Bob who recommended discharge. - Diagnoses Provider Diagnoses: Fall, Laceration, Cough, Orbital floor fracture Discharge - Sign-Out/Discharge Documenting (check all that apply): Patient Departure Patient Received Moderate/Deep Sedation with Procedure: No - Discharge Plan Condition: Stable Disposition: HOME Prescriptions: Clindamycin HCl 150 mg PO QID 7 Days #28 capsule HYDROcodone/ACETAMIN 5-325 MG* [[place] 5-325 TAB*] 1 tab PO Q6H PRN 3 Days #10 tab MDD 4 tabs PRN Reason: Pain Patient Education Materials: Care For Your Stitches (ED), Laceration (ED), Facial Fracture (ED), Fall Prevention for Older Adults (ED), Facial Laceration ( ED) Referrals: Pan Santoyo DO [Primary Care Provider] - Scooter Barrera MD [Medical Doctor] - Additional Instructions: Follow-up with ophthalmology Dr. Barrera tomorrow morning for further evaluation of orbital floor fracture. Take antibiotics as directed for respiratory infection and to prevent infection from fracture. Facial sutures to be removed in 5 days. Left knee sutures to be removed in 10 days. Starting later today you may wash wounds with warm running water and soap. Keep wounds clean and dry when not washing. Follow-up with primary care for cough. Return to the ED for any new or worsening symptoms. - Billing Disposition and Condition Condition: STABLE Disposition: Home
[2018-12-29] MEDS ORDERED: oxyCODONE TAB* 5 MG TAB PO ONE (01:01)
[2018-12-29] MEDS ORDERED: Amoxicillin/Clavulanate TAB* 875 MG PO ONE (01:13)
[2018-12-29] MEDS ORDERED: Clindamycin CAP* 150 MG PO ONE (01:18)
[2018-12-29 03:12] VITALS: BP 163/93
== END 2018-12-29 02:10 | disposition home or self-care (01) ==
LOC: ED 21:40
DX: S09.90XA Unspecified injury of head, initial encounter (principal); S81.012A Laceration without foreign body, left knee, initial encounter; S01.112A Laceration without foreign body of left eyelid and periocular area, initial encounter; S02.32XA Fracture of orbital floor, left side, initial encounter for closed fracture; W19.XXXA Unspecified fall, initial encounter; Y92.9 Unspecified place or not applicable; I25.10 Atherosclerotic heart disease of native coronary artery without angina pectoris; I50.9 Heart failure, unspecified; I12.9 Hypertensive chronic kidney disease with stage 1 through stage 4 chronic kidney disease, or unspecified chronic kidney disease; N18.3 Chronic kidney disease, stage 3 (moderate); N40.0 Benign prostatic hyperplasia without lower urinary tract symptoms; M10.9 Gout, unspecified; Z88.0 Allergy status to penicillin; Z79.82 Long term (current) use of aspirin; Z79.01 Long term (current) use of anticoagulants; Z95.0 Presence of cardiac pacemaker; I25.2 Old myocardial infarction; Z87.891 Personal history of nicotine dependence
CPT/HCPCS: 12004; 12013; 70450; 70486; 71046; 72125; 96374; 99283; A9270-GY; J2001